=== PATIENT | female | born 1935 | race Caucasian/White ===

== ENCOUNTER 2023-02-26 10:11 | Outpatient (CLI) | payer MEDICARE, BC, SELFPAY ==
--- OUTSIDE RECORDS SUMMARY | 2023-02-26 10:14 | XMS_ITS | Continuity of Care Document ---
Author Name Unknown Organization [facility] Address [address] [place] [address] Phone Care Team Providers Care Resource Development Manager Name Role Phone Sosa Ruano MD Unavailable Unavailable Medications Medication Instructions Dosage Effective Dates (start - stop) Status Comments aspirin 81 mg Tab, Delayed Release take 1 tablet (81MG) by oral route every day 81 MG - Active CALCIUM 500 + VITAMIN D (unknown strength) take 1 Tablet by Oral route every day Not Available - Active lisinopril 5 mg Tab take 1 tablet (5MG) by oral route every day 5 MG - Active Procedures Procedure Date Office/Outpatient Visit, New Advance Directives Directive Yes / No Effective Date File Name No Information Encounters Encounter Description Practice Location Reason(s) For Visit Diagnoses Date Provider Providers Copied on Encounter [facility], [address], [place], [address], tel:[phone] [facility] [place] No Information 0 Bindu Swan. [address], [place], [address], [place]. tel:[phone] Office/Outpa tient Visit, New [facility], [address], [place], [address], tel:[phone] [facility], elevated JOSE (chief complaint) back pain (chief complaint) Other and unspecified nonspecific immunological findings[facility]a [facility] 3 Phuc Beasley. [facility] [address], [place], [address], [place]. tel:[phone] [facility], [address], [place], [address], [place] tel:[phone] [facility], No Information 3 Phuc Beasley. [facility] [address], [place], [address], [place]. tel:[phone] Family History Family Member Type Diagnosis Age At Onset Problem (finding) arthritis Problem (finding) Problem (finding) Family history of hyper tension Problem (finding) cancer Problem (finding) Family history of gout Problem (finding) Family history of disor hazel of lung Problem (finding) Family history of hyper tension Payers Payer name Insurance type Covered constitution party ID Authorshayne mendoza(s) [facility] [id number] Social History Type Description Quantity Date Captured Comments Alcohol Use Details Unknown Caffeine Use Details Unknown Tobacco Use Status No Information Smoking Status No Information Sex Female Chief Complaint And Reason For Visit No Information Reason For Referral Reason For Referral No Information History Of Present Illness Encounter Date Complaint History Of Prese nt Illness No Information Functional Status Date Functional Assessmen t No Information Instructions Date Instruction Additional Infor mation No Information Assessments Type Assessment Date No Information Patient Care Teams Name Effective Dates (start - stop) Status Members No Information
== END 2023-02-26 10:12 | disposition home or self-care (01) ==
PROVIDERS: PCP Internal Medicine; Visit Provider Internal Medicine
DX: Z01.818 Encounter for other preprocedural examination (principal); I10 Essential (primary) hypertension; I48.0 Paroxysmal atrial fibrillation
CPT/HCPCS: 80048; 84450; 84460

== ENCOUNTER 2023-02-28 08:18 | Day surgery (SDC) | payer MEDICARE, BC, SELFPAY ==
--- OUTSIDE RECORDS SUMMARY | 2023-02-28 08:20 | XMS_ITS | Continuity of Care Document ---
Author Name Unknown Organization [facility] Address [address] [place] [address] Phone Care Team Providers Care Brain Picker Name Role Phone Sosa Ruano MD Unavailable [facility], [address], [address], tel:[phone] [facility] [place] No Information 0 Bindu Swan. [address], [place], [address], [place]. tel:[phone] Office/Outpa tient Visit, New [facility], [address], [place], [address], tel:[phone] [facility], elevated JOSE (chief complaint) back pain (chief complaint) Other and unspecified nonspecific immunological findingsBacka [facility] 3 Phuc Beasley. [facility] [address], [place], [address], [place]. tel:[phone] [facility], [address], [place], [address], [place] tel:[phone] [facility], No Information 3 Phuc Beasley. [facility] [address], [place], [address], [place]. tel:[phone] Family History Family Member Type Diagnosis Age At Onset Problem (finding) arthritis Problem (finding) Problem (finding) Family history of hyper tension Problem (finding) cancer Problem (finding) Family history of gout Problem (finding) Family history of disor hazel of lung Problem (finding) Family history of hyper tension Payers Payer name Insurance type Covered republican ID Authorshayne mendoza(s) [facility] [id number] Social History Type Description Quantity Date Captured [...]
[2023-02-28] MEDS: KETOROLAC OPHTH 0.5% 1 DROP EYE-RIGHT ×2 (08:30→08:35)
[2023-02-28] MEDS: TETRACAINE 0.5% OPHTH 1 DROP EYE-RIGHT ×2 (08:30→08:35)
--- NOTE | 2023-02-28 08:31 | SUR.PREOP ---
The eye drops brought by the patient (Ketorolac and Prednisolone) are examined and I have determined they are labeled by the patient's pharmacy for this patient as prescribed by the surgeon. The bottles are intact, recently obtained and appear to be correct.
[2023-02-28 08:35] VITALS: BMI 20.9
[2023-02-28 08:51] VITALS: BP 159/95; PULSE 66; RESP 16; TEMP 36.7; O2SAT 97
[2023-02-28] MEDS: SODIUM CHLORIDE 0.9 % (FLUSH) 10 ML SYRINGE IVF (08:55)
[2023-02-28] MEDS: TETRACAINE 0.5% OPHTH 2 DROP EYE-RIGHT (09:22)
[2023-02-28] MEDS: BALANCED SALT IRRIG SOLN 15 ML EYE-RIGHT (09:26)
--- NOTE | 2023-02-28 09:31 | P.ANES_ITS ---
Anesthesia Charges Start Date/Time Anesthesia Start Date: 02/28/23 Anesthesia Start Time: 09:19 Stop Date/Time Anesthesia Stop Date: 02/28/23 Anesthesia Stop Time: 09:52 Summary Extremes of Age - Over 70 or under 1: [employer]
--- NOTE | 2023-02-28 09:54 | P.OPTPRC_ITS ---
Procedure Note Date of procedure: 02/28/23 [address] [facility] bill your pro fee for this procedure?: Yes Procedure Description: SURGEON: Anita Duggan MD PREOPERATIVE DIAGNOSIS: Nuclear sclerotic cataract, right eye. POSTOPERATIVE DIAGNOSIS: Nuclear sclerotic cataract, right eye. NAME OF OPERATION: Phacoemulsification of cataract with posterior chamber intraocular lens implantation in the right eye. ANESTHESIA: Topical. ESTIMATED BLOOD LOSS: Less than 2 cc. COMPLICATIONS: None. PATHOLOGY SPECIMEN: None. INDICATIONS: See consult note for details. The risks, benefits and alternatives of the procedure were explained to the patient, who elected to proceed and signed informed consent to do so. PROCEDURE: The patient was brought to the pre-holding area where the right eye was identified as the operative eye. I placed my initials above this eye. The patient received eye drops consisting of 0.5% tetracaine, 1% tropicamide, 10% phenylephrine, and 0.5% ketorolac. The patient was then brought to the operating room where the right eye was again identified as the operative eye. The eye was prepped with Betadine and draped in the usual sterile ophthalmic fashion. A #15 super-sharp blade was used to create a paracentesis site. 1% non-preserved intracameral lidocaine was injected into the anterior chamber. Endocoat was injected into the anterior chamber. A 2.4 mm keratome was used to create a three-plane self-sealing incision 1 mm anterior to the temporal limbus. A cystotome was used to create an anterior capsular leaflet. The Utrata forceps were used to extend this to form a continuous curvilinear capsulorrhexis. Hydrodissection was performed. The cataract was removed with phacoemulsification using the [id number] technique. The irrigation and aspiration tip was used to remove the remaining cortex. Healon was injected into the capsular bag. An NIKITA ZCB00 intraocular lens of 19.0 diopters was injected into the capsular bag. The irrigation and aspiration tip was used to remove the remaining viscoelastic. Balanced salt solution on a cannula was used to hydrate the wound, and the wound was found to be watertight. The pupil was noted to be round. DISPOSITION: The patient was taken to the recovery room and discharged to home in stable condition. The patient was instructed to call me or go to the emergency department with any sudden change, including dramatic loss of vision, severe pain in the eye or eyebrow region, nausea, or vomiting. The patient will follow up in the clinic tomorrow morning.
--- NOTE | 2023-02-28 09:57 | W.ANESCHARGE ---
Anesthesia Charges Start Date/Time Anesthesia Start Date: 02/28/23 Anesthesia Start Time: 09:19 Stop Date/Time Anesthesia Stop Date: 02/28/23 Anesthesia Stop Time: 09:52 Summary Extremes of Age - Over 70 or under 1: MDA
[2023-02-28 10:09] VITALS: BP 160/101; PULSE 73; RESP 16; TEMP 36.8; O2SAT 94
== END 2023-02-28 10:27 | disposition home or self-care (01) ==
LOC: OR 08:18
PROVIDERS: PCP Internal Medicine; Visit Provider Ophthalmology
PROC: (CPT 66984; principal; 2023-02-28 08:15)
DX: H25.11 Age-related nuclear cataract, right eye (principal)
CPT/HCPCS: 66984; 00142; 99100; A9270; J2250; J3010; V2632

== ENCOUNTER 2023-03-19 10:52 | Outpatient (CLI) | payer MEDICARE, BC, SELFPAY ==
--- OUTSIDE RECORDS SUMMARY | 2023-03-19 10:57 | XMS_ITS | Continuity of Care Document ---
Author Name Unknown Organization [facility] Address [address] [place] [address] Phone Care Team Providers Care Lamp Shade Assembler Name Role Phone Sosa Ruano MD Unavailable [...] [facility], [address], [place], [address], tel:[phone] [facility] [place] No Information 0 Bindu Swan. [address], [address], [place]. tel:[phone] Office/Outpa tient Visit, New [facility], [address], [place], [address], tel:[phone] [facility], elevated JOSE (chief complaint) back pain (chief complaint) Other and unspecified nonspecific immunological findingsBacka [place] 3 Phuc Beasley. [facility] [address], [place], [address], [place]. tel:[phone] [facility], [address], [place], [address], [place] tel:[phone] [facility], No Information 3 Phuc Beasley. [facility] [address], [place], [address], [place]. tel:[phone] Family History Family Member Type Diagnosis Age At Onset Problem (finding) arthritis Problem (finding) Problem (finding) Family history of hyper tension Problem (finding) cancer Problem (finding) Family history of gout Problem (finding) Family history of disor hazel of lung Problem (finding) Family history of hyper tension Payers Payer name Insurance type Covered libertarian ID Authorshayne mendoza(s) [facility] [id number] Social History Type Description Quantity Date Captured [...]
== END 2023-03-19 10:53 | disposition home or self-care (01) ==
PROVIDERS: PCP Internal Medicine; Visit Provider Internal Medicine
DX: E78.5 Hyperlipidemia, unspecified (principal); I10 Essential (primary) hypertension; M85.80 Other specified disorders of bone density and structure, unspecified site; R73.03 Prediabetes
CPT/HCPCS: 80061; 82306

== ENCOUNTER 2023-03-21 08:00 | Day surgery (SDC) | payer MEDICARE, BC, SELFPAY ==
--- OUTSIDE RECORDS SUMMARY | 2023-03-21 08:02 | XMS_ITS | Continuity of Care Document ---
Author Name Unknown Organization [facility] Address [address] [place] [address] Phone Care Team Providers Care Office Clinician Name Role Phone Sosa Ruano MD Unavailable [...] [facility], [address], [place], [address], tel:[phone] [facility] [place] No Information 0 Bindu Swan. [address], [address], [place], [address], [place]. tel:[phone] Office/Outpa tient Visit, New [facility], [address], [place], [address], tel:[phone] [facility], elevated JOSE (chief complaint) back pain (chief complaint) Other and unspecified nonspecific immunological findingsBacka [facility] 3 Phuc Beasley. [facility] [address], [place], [address], [place]. tel:[phone] [facility], [address], [place], [address], [place] tel:[phone] [facility], No Information 3 Phuc Beasley. [facility] [address], [place], [address], [place]. tel:[phone] Family History Family Member Type Diagnosis Age At Onset Problem (finding) arthritis Problem (finding) Problem (finding) Family history of hyper tension Problem (finding) cancer Problem (finding) Family history of gout Problem (finding) Family history of disor hazel of lung Problem (finding) Family history of hyper tension Payers Payer name Insurance type Covered alliance party ID Authorshayne mendoza(s) [facility] [id number] Social History Type Description Quantity Date Captured [...]
[2023-03-21] MEDS: KETOROLAC OPHTH 0.5% 1 DROP EYE-LEFT ×2 (08:15→08:20)
[2023-03-21] MEDS: TETRACAINE 0.5% OPHTH 1 DROP EYE-LEFT ×2 (08:15→08:20)
[2023-03-21 08:33] VITALS: BMI 19.5
[2023-03-21 08:37] VITALS: BP 166/89; PULSE 65; RESP 16; TEMP 36.6; O2SAT 97
[2023-03-21] MEDS: SODIUM CHLORIDE 0.9 % (FLUSH) 10 ML SYRINGE IVF (08:38)
--- NOTE | 2023-03-21 08:41 | SUR.PREOP ---
The eye drops brought by the patient (Ketorolac and Prednisolone) are examined and I have determined they are labeled by the patient's pharmacy for this patient as prescribed by the surgeon. The bottles are intact, recently obtained and appear to be correct.ez
--- NOTE | 2023-03-21 08:41 | SUR.PREOP ---
noted redened area around right eye from radiation
[2023-03-21] MEDS: TETRACAINE 0.5% OPHTH 2 DROP EYE-LEFT (09:13)
[2023-03-21] MEDS: BALANCED SALT IRRIG SOLN 15 ML EYE-LEFT (09:16)
--- NOTE | 2023-03-21 09:16 | W.ANESCHARGE ---
Anesthesia Charges Start Date/Time Anesthesia Start Date: 03/21/23 Anesthesia Start Time: 09:10 Stop Date/Time Anesthesia Stop Date: 03/21/23 Anesthesia Stop Time: 09:43 Summary Extremes of Age - Over 70 or under 1: [employer]
[2023-03-21 09:53] VITALS: BP 148/99; PULSE 65; RESP 16; TEMP 36.7; O2SAT 96
--- NOTE | 2023-03-21 09:55 | W.ANESCHARGE ---
Anesthesia Charges Start Date/Time Anesthesia Start Date: 03/21/23 Anesthesia Start Time: 09:10 Stop Date/Time Anesthesia Stop Date: 03/21/23 Anesthesia Stop Time: 09:43 Summary Extremes of Age - Over 70 or under 1: MDA
--- NOTE | 2023-03-21 10:27 | W.PM.OPTPROC ---
Procedure Note Date of procedure: 03/21/23 Will [facility] bill your pro fee for this procedure?: Yes Procedure Description: SURGEON: Anita Duggan MD PREOPERATIVE DIAGNOSIS: Nuclear sclerotic cataract, left eye. POSTOPERATIVE DIAGNOSIS: Nuclear sclerotic cataract, left eye. NAME OF OPERATION: Phacoemulsification of cataract with posterior chamber intraocular lens implantation in the left eye. ANESTHESIA: Topical. ESTIMATED BLOOD LOSS: Less than 2 cc. COMPLICATIONS: None. PATHOLOGY SPECIMEN: None. INDICATIONS: See consult note for details. The risks, benefits and alternatives of the procedure were explained to the patient, who elected to proceed and signed informed consent to do so. PROCEDURE: The patient was brought to the pre-holding area where the left eye was identified as the operative eye. I placed my initials above this eye. The patient received eye drops consisting of 0.5% tetracaine, 1% tropicamide, 10% phenylephrine, and 0.5% ketorolac. The patient was then brought to the operating room where the left eye was again identified as the operative eye. The eye was prepped with Betadine and draped in the usual sterile ophthalmic fashion. A #15 super-sharp blade was used to create a paracentesis site. 1% non-preserved intracameral lidocaine was injected into the anterior chamber. Endocoat was injected into the anterior chamber. A 2.4 mm keratome was used to create a three-plane self-sealing incision 1 mm anterior to the temporal limbus. A cystotome was used to create an anterior capsular leaflet. The Utrata forceps were used to extend this to form a continuous curvilinear capsulorrhexis. Hydrodissection was performed. The cataract was removed with phacoemulsification using the [id number] technique. The irrigation and aspiration tip was used to remove the remaining cortex. Healon was injected into the capsular bag. An NIKITA ZCB00 intraocular lens of 19.0 diopters was injected into the capsular bag. The irrigation and aspiration tip was used to remove the remaining viscoelastic. Balanced salt solution on a cannula was used to hydrate the wound, and the wound was found to be watertight. The pupil was noted to be round. DISPOSITION: The patient was taken to the recovery room and discharged to home in stable condition. The patient was instructed to call me or go to the emergency department with any sudden change, including dramatic loss of vision, severe pain in the eye or eyebrow region, nausea, or vomiting. The patient will follow up in the clinic tomorrow morning.
== END 2023-03-21 10:17 | disposition home or self-care (01) ==
LOC: OR 08:00
PROVIDERS: PCP Internal Medicine; Visit Provider Ophthalmology
PROC: (CPT 66984; principal; 2023-03-21 08:15)
DX: H25.12 Age-related nuclear cataract, left eye (principal)
CPT/HCPCS: 66984; 142; 99100; A9270; J2250; J3010; V2632

== ENCOUNTER 2023-04-20 10:31 | Outpatient (CLI) | payer MEDICARE, BC, SELFPAY | END 2023-04-20 10:32 | disposition home or self-care (01) | LOC: RAD 10:34 | PROVIDERS: PCP Internal Medicine; Visit Provider Internal Medicine | DX: I77.810 Thoracic aortic ectasia (principal); I34.0 Nonrheumatic mitral (valve) insufficiency; I07.1 Rheumatic tricuspid insufficiency | CPT/HCPCS: 93308; 93321; 93325 ==

== ENCOUNTER 2024-01-31 11:31 | Outpatient (REF) | payer MEDICARE, BC, SELFPAY ==
--- OUTSIDE RECORDS SUMMARY | 2024-01-31 11:38 | XMS_ITS | Encounter Summary ---
Author Organization [facility] Address [address] [place] [address] Care Team Providers Care Pediatric Nurse Practitioner Name Role Phone Elsewhere, Pcp Primary Care Provider Unavailabl e Reason for Visit * Reason Onset Date Comments Triage 01/15/2024 Encounter Details Date Type Department Care Team (Late st Contact Info) Description 01/15/2024 Clinical Communication Department of Cardiovascular Medicine in [place], [place] [address] [place] [address] Prescheduling, Provider Triage Social History Tobacco Use Types Packs/Day Years Used Date Smoking Tobacco: Never Smokeless Tobacco: Never Alcohol Use Standard Drinks/Week Comments Not Currently 0 (1 standard drink = 0.6 oz pur e alcohol) [facility] Utilities Answer Date Recorded In the past 12 months has e electric, gas, oil, or water [email or web address] threatened to shut off services in your home? No 09/09/2023 Humiliation, Afraid, Rape, and Kick questionnair e Answer Date Recorded Within the last year, have y ou been afraid of your partner or ex-partner? No 09/04/2022 Within the last year, have y ou been humiliated or emotionally abused in other ways by your partner or ex-partner? No Within the last year, have y ou been kicked, hit, slapped, or otherwise physically hurt by your partner or ex-partner? No 09/04/2022 Within the last year, have y ou been raped or forced to have any kind of sexual activity by your partner or ex-partner? No 09/04/2022 Social Connection and Isolat ion Panel [NHANES] Answer Date Recorded In a typical week, how many times do you talk on the phone with family, friends, or neighbors? More than three times a week 09/04/2022 How often do you get togethe r with friends or relatives? More than three times a week 09/04/2022 How often do you attend chur ch or islam services? Never 09/04/2022 Do you belong to any clubs o r organizations such as baptist groups, unions, fraternal or athletic groups, or school groups? No 09/04/2022 How often do you attend meet ings of the clubs or organizations you belong to? Patient declined 09/04/2022 Are you , , di vorced, , never , or living with a partner? 09/04/2022 AUDIT-C Answer Date Recorded Q1: How often do you have a drink containing alc ohol? Never 09/04/2022 Average Number of Drinks Not on file 023 Frequency of Binge Drinking Not on file 08/21 Overall Financial Resource Strain (CARDIA) Answe r Date Recorded How hard is it for you to pa y for the very basics like food, housing, medical care, and heating? Not very hard 09/04/2022 [facility] - Occupational Stress Questionnaire Answer Date Recorded Do you feel stress - tense, restless, nervous, or anxious, or unable to sleep at night because your mind is troubled all the time - these days? Only a little 09/04/2022 Exercise Vital Sign Answer Date Recorde d On average, how many days pe r week do you engage in moderate to strenuous exercise (like a brisk walk)? 4 days 09/09/2023 On average, how many minutes do you engage in exercise at this level? 30 min 09/09/2023 Hunger Vital Sign Answer Date Recorded Within the past 12 months, y ou worried that your food would run out before you got the money to buy more. Never true 09/09/19 24 Within the past 12 months, t he food you bought just didn't last and you didn't have money to get more. Never true 09/09/2023 PRAPARE - Transportation Answer Date Re corded In the past 12 months, has l ack of transportation kept you from medical appointments or from getting medications? No 08/21 In the past 12 months, has l ack of transportation kept you from meetings, work, or from getting things needed for daily living? No 09/09/2023 Nutrition Answer Date Recorded On average, how many serving s of fruits and vegetables do you eat per day (serving size is equal to 1 cup or approximately the size of a tennis ball)? 3-5 09/09/2023 Dental Answer Date Recorded Dental: Regular Dentist Yes 09/05/19 Employment Answer Date Recorded Employment status Retired 09/09/2023 Housing Stability Answer Date Recorded What is your living situation today? I have a [facility] place to live 09/09/2023 Education Answer Date Recorded What is the highest level of school you have completed or the highest degree you have received? Bachelor's degree (e.g., BA, AB, BS) 09/04/2022 Sex and Gender Information Value Date Recorded Sex Assigned at Female 09/04/2022 4:04 PM CDT Gender Identity Female 09/04/2022 4:04 PM CDT Sexual Orientation Straight 09/04/2022 4: 04 PM CDT documented as of this encounter Miscellaneous Notes * Telephone Encounter - Jory Mak Yudith - 01/15/2024 1:09 PM CDT NEW Appointment Triage Questionnaire Information gathered by PASS during initial Appointment Request on 01/15/24 Self Referral Primary Care Provider (first and last name): Nabila Gale at [facility] Senior Systems Software Engineer (first and last name): saw Dr Lockwood with [facility] (name, [facility], [facility]) where outside testing/imaging has been completed: [facility]- [facility] Primary Cardiac Concern: Symptoms What is your appointment goal? Diagnosis What symptoms are you experiencing (select all that apply)? Chest pain/pressure and Shortness of breath When did your symptoms first start? Last few days/week Does anything make your symptoms better or worse? Doesn't think theres anything making it better, can take a walk without issues, feels it when sitting or twisting When do you feel the symptoms (random, when exercising, during the night, etc.)? Sitting, twisting, and every once in a while Do you have any limitations in physical activity? no Have you had any of the following cardiac tests/procedures within the last 2 years? ECG/EKG, Echocardiogram, and Heart Rhythm Monitor (holter monitor, event monitor, prolonged cardiacmonitor, etc.) Do you have any other cardiac concerns that you would like addressed? No Other:est pt with Dr. Lockwood in [facility], having new symptoms, chest pain, unable to take a deep breath having sob, sharp and quick pain, hurts into back as well What time between the hours of 12:00 - 4:00 pm would work best for you if someone from our appointment assessment team would need to reach out to you? Anytime documented in this encounter Plan of Treatment Upcoming Encounters Date Type Department Care Team (Latest Contact Info) Description 02/25/2024 9:10 AM EMISSIONS INSPECTOR Appointment Department of Laboratory Medicine and Pathology, [facility] in [place], [place] [address] [place] [phone] Jefry Donald M.D. [address] [place] [phone] 02/25/2024 9:45 AM EMISSIONS INSPECTOR Appointment Department of Radiology, [facility] in [place], [place] [address] [place] [phone] Jefry Donald M.D. [address] [place] [phone] 02/25/2024 1:00 PM EMISSIONS INSPECTOR Ancillary Procedure Department of Cardiovascular Medicine in [place], [place] [address] [place] [phone] Jefry Donald M.D. [address] [place] [phone] 03/03/2024 8:15 AM EMISSIONS INSPECTOR Comprehensive Visit Department of Cardiovascular Medicine in [place], [place] [address] [place] [phone] Henry Cowan M.D. [address] [place] [phone] 03/03/2024 10:10 AM EMISSIONS INSPECTOR Appointment Department of Cardiovascular Diseases in [place], [place] [address] [place] [phone] Jefry Donald M.D. [address] [place] [phone] 03/10/2024 9:00 AM EMISSIONS INSPECTOR Clinical Communication Virtual Review in [place], [place] 200 [place] [address] 03/13/2024 11:00 AM EMISSIONS INSPECTOR Office Visit Department of Orthopedic Surgery in [place], [place] [address] [place] [phone] Judith Neal, DAMARI, C.N.P., D.N.P. [address] [place] [phone] documented as of this encounter Visit Diagnoses Not on filedocumented in this encounter Care Teams Pediatric Nurse Practitioner Relationship Specialty Start Date End Date Elsewhere, Pcp PCP - General Internal Medicine 05/25/23 documented as of this encounter
--- OUTSIDE RECORDS SUMMARY | 2024-01-31 11:38 | XMS_ITS | Encounter Summary ---
Author Organization [facility] Address [address] [place] [address] Care Team Providers Care Print Room Worker Name Role Phone Elsewhere, Pcp Primary Care Provider Unavailabl e Encounter Details Date Type Department Care Team (Late st Contact Info) Description 08/01/2011 Historical Ophthalmology RST OPH Leonardo Macdeo M.D. Social History Tobacco Use Types Packs/Day Years Used Date Smoking Tobacco: Never Assessed Sex and Gender Information Value Date Recorded Sex Assigned at Female 09/04/2022 4:04 PM CDT Gender Identity Female 09/04/2022 4:04 PM CDT Sexual Orientation Straight 09/04/2022 4: 04 PM CDT documented as of this encounter Progress Notes * Leonardo Macedo M.D. - 08/01/2011 9:04 AM CDT Eye General CHIEF COMPLAINT recheck Lichen planus HISTORY OF PRESENT ILLNESS Denies troubles with her eyes, nothing new. Denies dryness and diplopia. Will be needing a rx for glasses today. Has been using seperate reading and distance and she is wanting a pair of glasses witha bifocal. IMPRESSION / REPORT / PLAN #1 lichen planus quiet off all meds 38 mos #2 cataract incipient accounts for mild blur Plan RV 1 yr. DIAGNOSIS #1 lichen planus #2 cataract incipient CDM Reports - EYEGEN Id: [id number] Status: Fnl documented in this encounter Plan of Treatment Upcoming Encounters Date Type Department Care Team (Latest Contact Info) Description 02/25/2024 9:10 AM CLINICAL PRACTITIONER Appointment Department of Laboratory Medicine and Pathology, [facility], in [place], [place] [address] [place] [phone] Jefry Donald M.D. [address] [place] [phone] 02/25/2024 9:45 AM CLINICAL PRACTITIONER Appointment Department of Radiology, [facility], in [place], [place] [address] [place] [phone] Jefry Donald M.D. [address] [place] [phone] 02/25/2024 1:00 PM CLINICAL PRACTITIONER Ancillary Procedure Department of Cardiovascular Medicine in [place], [place] [address] [place] [phone] Jefry Donald M.D. [address] [place] [phone] 03/03/2024 8:15 AM CLINICAL PRACTITIONER Comprehensive Visit Department of Cardiovascular Medicine in [place], [place] [address] [place] [phone] Henry Cowan M.D. [address] [place] [phone] 03/03/2024 10:10 AM CLINICAL PRACTITIONER Appointment Department of Cardiovascular Diseases in [place], [place] [address] [place] [phone] Jefry Donald M.D. [address] [place] [phone] 03/10/2024 9:00 AM CLINICAL PRACTITIONER Clinical Communication Virtual Review in [place], [place] 200 [place] [address] 03/13/2024 11:00 AM CLINICAL PRACTITIONER Office Visit Department of Orthopedic Surgery in [place], [place] [address] [place] [phone] Judith Neal, DAMARI, C.N.P., D.N.P. 200 [place] [phone] documented as of this encounter Visit Diagnoses Not on filedocumented in this encounter Care Teams Print Room Worker Relationship Specialty Start Date End Date Elsewhere, Pcp PCP - General Internal Medicine 05/25/23 documented as of this encounter
--- OUTSIDE RECORDS SUMMARY | 2024-01-31 11:38 | XMS_ITS | Encounter Summary ---
Author Organization [facility] Address [address] [place] [address] Care Team Providers Care Integration Project Manager Name Role Phone Elsewhere, Pcp Primary Care Provider Unavailabl e Reason for Visit * Reason Onset Date Comments Pre-visit Intake 12/10/2023 Encounter Details Date Type Department Care Team (Latest Contact Info) Description 12/10/2023 9:30 AM CDT Clinical Communication Virtual Review in [place], [place] 200 [place] [phone] Pre-visit Intake Social History Tobacco Use Types Packs/Day Years Used Date Smoking Tobacco: Never Smokeless Tobacco: Never Alcohol Use Standard Drinks/Week Comments Not Currently 0 (1 standard drink = 0.6 oz pur e alcohol) [facility] Utilities Answer Date Recorded In the past 12 months has e [facility], gas, oil, or water [employer] threatened to shut off services in your [...] any clubs o r organizations such as sabianist groups, unions, fraternal or athletic groups, or [...] care, and heating? Not very hard 09/04/2022 [facility] - Occupational Stress [...] your living situation today? I have a [facility] place to live 09/09/2023 Education Answer Date [...] PM CDT documented as of this encounter Plan of Treatment Upcoming Encounters Date Type Department Care Team (Latest Contact Info) Description 02/25/2024 9:10 AM MEMBERSHIP SALES MANAGER Appointment Department of Laboratory Medicine and Pathology, [facility] in [place], [place] [address] [place] [phone] Jefry Donald M.D. [address] [place] [phone] 02/25/2024 9:45 AM MEMBERSHIP SALES MANAGER Appointment Department of Radiology, [facility], in [place], [place] [address] [place] [address] Jefry Dnoald M.D. [address] [place] [phone] 02/25/2024 1:00 PM MEMBERSHIP SALES MANAGER Ancillary Procedure Department of Cardiovascular Medicine in [place], [place] [address] [place] [phone] Jefry Donald M.D. [address] [place] [phone] 03/03/2024 8:15 AM MEMBERSHIP SALES MANAGER Comprehensive Visit Department of Cardiovascular Medicine in [place], [place] [address] [place] [phone] Henry Cowan M.D. [address] [place] [phone] 03/03/2024 10:10 AM MEMBERSHIP SALES MANAGER Appointment Department of Cardiovascular Diseases in [place], [place] [address] [place] [phone] Jefry Donald M.D. [address] [place] [phone] 03/10/2024 9:00 AM MEMBERSHIP SALES MANAGER Clinical Communication Virtual Review in [place], [place] 200 [place] [address] 03/13/2024 11:00 AM MEMBERSHIP SALES MANAGER Office Visit Department of Orthopedic Surgery in [address] [phone] Judith Neal, DAMARI, C.N.P., D.N.P. [address] [place] [phone] documented as of this encounter Visit Diagnoses Not on filedocumented in this encounter Care Teams Integration Project Manager Relationship Specialty Start Date End Date Elsewhere, Pcp PCP - General Internal Medicine 05/25/23 documented as of this encounter
--- OUTSIDE RECORDS SUMMARY | 2024-01-31 11:38 | XMS_ITS | Encounter Summary ---
Author Organization [facility] Address [address] [place] [address] Care Team Providers Care Burnisher Name Role Phone Elsewhere, Pcp Primary Care Provider Unavailabl e Encounter Details Date Type Department Care Team (Late st Contact Info) Description 07/16/2014 Historical Ophthalmology RST OPH Leonardo Macedo M.D. Social History Tobacco Use Types Packs/Day Years Used Date Smoking Tobacco: Never Assessed Sex and Gender Information Value Date Recorded Sex Assigned at Female 09/04/2022 4:04 PM CDT Gender Identity Female 09/04/2022 4:04 PM CDT Sexual Orientation Straight 09/04/2022 4: 04 PM CDT documented as of this encounter Progress Notes * Leonardo Macedo M.D. - 07/16/2014 10:18 AM CDT Eye General CHIEF COMPLAINT recheck Lichen planus HISTORY OF PRESENT ILLNESS Patient states vision is stable with current variety of glasses. Denies flashes, floaters, or diplopia. not on any rx for lichen planus for a few years. IMPRESSION / REPORT / PLAN #1 lichen planus quiet off all meds 74 mos #2 cataract incipient accounts for mild blur Plan RV 1 yr. DIAGNOSIS #1 lichen planus #2 cataract incipient CDM Reports - EYEGEN Id: [id number] Status: Fnl documented in this encounter Plan of Treatment Upcoming Encounters Date Type Department Care Team (Latest Contact Info) Description 02/25/2024 9:10 AM ARTERIAL EMBALMER Appointment Department of Laboratory Medicine and Pathology, [facility], in [place], [place] [address] [place] [phone] Jefry Donald M.D. [address] [place] [phone] 02/25/2024 9:45 AM ARTERIAL EMBALMER Appointment Department of Radiology, [facility], in [place], [place] [address] [place] [phone] Jefry Donald M.D. [address] [place] [phone] 02/25/2024 1:00 PM ARTERIAL EMBALMER Ancillary Procedure Department of Cardiovascular Medicine in [place], [place] [address] [place] [phone] Jefry Donald M.D. [address] [place] [phone] 03/03/2024 8:15 AM ARTERIAL EMBALMER Comprehensive Visit Department of Cardiovascular Medicine in [place], [place] [address] [place] [phone] Henry Cowan M.D. [address] [place] [phone] 03/03/2024 10:10 AM ARTERIAL EMBALMER Appointment Department of Cardiovascular Diseases in [place], [place] [address] [place] [phone] Jefry Donald M.D. [address] [place] [phone] 03/10/2024 9:00 AM ARTERIAL EMBALMER Clinical Communication Virtual Review in [place], [place] 200 [place] [phone] 03/13/2024 11:00 AM ARTERIAL EMBALMER Office Visit Department of Orthopedic Surgery in [place], [place] [address] [place] [phone] Judith Neal, DAMARI, C.N.P., D.N.P. [address] [place] [phone] documented as of this encounter Visit Diagnoses Not on filedocumented in this encounter Care Teams Burnisher Relationship Specialty Start Date End Date Elsewhere, Pcp PCP - General Internal Medicine 05/25/23 documented as of this encounter
--- OUTSIDE RECORDS SUMMARY | 2024-01-31 11:38 | XMS_ITS | Encounter Summary ---
Author Organization [facility] Address [address] [place] [address] Care Team Providers Care Special Projects Coordinator Name Role Phone Elsewhere, Pcp Primary Care Provider Unavailabl e Encounter Details Date Type Department Care Team (Late st Contact Info) Description 11/23/2006 Historical Ophthalmology RST OPH Leonardo Macedo M.D. Social History Tobacco Use Types Packs/Day Years Used Date Smoking Tobacco: Never Assessed Sex and Gender Information Value Date Recorded Sex Assigned at Female 09/04/2022 4:04 PM CDT Gender Identity Female 09/04/2022 4:04 PM CDT Sexual Orientation Straight 09/04/2022 4: 04 PM CDT documented as of this encounter Progress Notes * Leonardo Macedo M.D. - 11/23/2006 8:53 AM CDT Eye General CHIEF COMPLAINT 9 month recheck LIchen planus, elevated IOP HISTORY OF PRESENT ILLNESS Using xalatan every other day. No changes since last visit. IMPRESSION / REPORT / PLAN #1 LIchen planus elevated IOP Now OK on xalatan Stable. Plan; Same rx RV 1 yr DIAGNOSIS #1 LIchen planus #2 elevated IOP CDM Reports - EYEGEN Id: [id number] Status: Fnl documented in this encounter Plan of Treatment Upcoming Encounters Date Type Department Care Team (Latest Contact Info) Description 02/25/2024 9:10 AM PUMPER GAUGER Appointment Department of Laboratory Medicine and Pathology, [facility], in [place], [place] [address] [place] [phone] Jefry Donald M.D. [address] [place] [phone] 02/25/2024 9:45 AM PUMPER GAUGER Appointment Department of Radiology, [facility], in [place], [place] [address] [place] [phone] Jefry Donald M.D. [address] [place] [phone] 02/25/2024 1:00 PM PUMPER GAUGER Ancillary Procedure Department of Cardiovascular Medicine in [place], [place] [address] [place] [phone] Jefry Donald M.D. [address] [place] [phone] 03/03/2024 8:15 AM PUMPER GAUGER Comprehensive Visit Department of Cardiovascular Medicine in [place], [place] [address] [place] [phone] Henry Cowan M.D. [address] [place] [phone] 03/03/2024 10:10 AM PUMPER GAUGER Appointment Department of Cardiovascular Diseases in [place], [place] [address] [place] [phone] Jefry Donald M.D. [address] [place] [phone] 03/10/2024 9:00 AM PUMPER GAUGER Clinical Communication Virtual Review in [place], [place] 200 [place] [phone] 03/13/2024 11:00 AM PUMPER GAUGER Office Visit Department of Orthopedic Surgery in [place], [place] [address] [place] [phone] Judith Neal APRN, C.N.P., D.N.P. [address] [place] [phone] documented as of this encounter Visit Diagnoses Not on filedocumented in this encounter Care Teams Special Projects Coordinator Relationship Specialty Start Date End Date Elsewhere, Pcp PCP - General Internal Medicine 05/25/23 documented as of this encounter
--- OUTSIDE RECORDS SUMMARY | 2024-01-31 11:38 | XMS_ITS | Clinical Summary ---
Author Organization [facility] Address [address] [place] [address] Care Team Providers Care Forgesmith Name Role Phone Elsewhere, Pcp Primary Care Provider Unavailabl e Source Comments Patient records contain information from all sites at [facility]. For routine questions regarding patient records, call [phone] during business hours, M-F 8:00 AM - 5:00 PM Central Time. Record requests for emergency care only can be directed to [phone] at any time.[facility] Allergies No known active allergies Medications Medication Sig Dispensed Refills Start Date End Date Status atorvastatin (LIPITOR) 10 mg tablet daily. 09/25/2017 Active losartan (COZAAR) 25 mg tablet 25 mg daily. 08/13/2017 Active apixaban (ELIQUIS) 2.5 mg tablet Take 2.5 mg by mouth 2 (two) times a day. 04/25/2021 Active flecainide (TAMBOCOR) 50 mg tablet Take 50 mg by mouth 2 (two) times a day. 08/18/2021 Active ketoconazole (NIZORAL) 2 % shampoo Apply 1 Application topically as needed. Active dilTIAZem CD (CARDIZEM CD/CARTIA XT) 120 mg 24 hr capsule Take 1 capsule by mouth daily. 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 01/15/2024 Clinical Communication Department of Cardiovascular Medicine in [address] [phone] Prescheduling, Provider Triage 12/12/2023 11:00 AM CDT Office Visit Department of Orthopedic Surgery in [address] [phone] Judith Neal, DAMARI, C.N.P., D.N.P. Dystrophic Toenail; Keratosis Plantar; Callus Berino Foot; Pain Toe Left; Hammer Toe Acquired Left; Hallux Valgus Left; Hallux Valgus Right; Arthritis Foot; Peripheral Arterial Disease (HCC); Computer Systems Consultant (Current) Anticoagulant Treatment 12/10/2023 9:30 AM CDT Clinical Communication Virtual Review in [place], [place] [address] [place] [address] Pre-visit Intake from Last 3 Months Immunizations Name Administration Dates Next Due HZV (ZOSTAVAX) 11/07/2010 PPSV23 11/07/2010,03/10/1999 Tdap 07/08/2008 influenza trivalent high dose (HD)(PF) 2 influenza trivalent vaccine (6 months and older) (PF) 03/21/2010 Family History Medical History Relation Name Comments Thyroid cancer Daughter 1 Beverly Weir Kidney cancer Daughter 2 Ibis Weir Breast cancer Sister Matilde Walker Relation Name Status Comments Daughter 1 Beverly Weir Daughter 2 Ibis Weir Sister Matilde Walker Social History Tobacco Use Types Packs/Day Years Used Date Smoking Tobacco: Never Smokeless Tobacco: Never Tobacco Cessation:Counseling Given: Not Answered Alcohol Use Standard Drinks/Week Comments Not Currently 0 (1 standard drink = 0.6 oz pur e alcohol) [facility] Utilities Answer Date Recorded In the past 12 months has e [employer], [employer], oil, or water [employer] threatened to shut off services in your [...] often do you attend chur ch or buddhism services? Never 09/04/2022 Do you belong to any clubs o r organizations such as advent groups, unions, fraternal or athletic groups, or [...] care, and heating? Not very hard 09/04/2022 [facility] of Occupat ional Health - Occupational Stress [...] Date Recorded Dental: Regular Dentist Yes 09/05/19 23 Employment Answer Date Recorded Employment status Retired [...] Orientation Straight 09/04/2022 4: 04 PM CDT Last Filed Vital Signs Vital Sign Reading Time Taken Comments Blood Pressure 162/92 05/28/2023 1:34 PM COMMUNITY SPECIALIST average of several Pulse 78 05/28/2023 1:34 PM COMMUNITY SPECIALIST Temperature - - Respiratory Rate - - Oxygen Saturation - - Inhaled Oxygen Concentration - - Weight 50 kg (110 lb 3.7 oz) 10/29/2017 9:53 AM CDT Height 157.6 cm (5' 2.05) 10/29/2017 9 :53 AM CDT Body Mass Index 20.13 10/29/2017 9:53 AM CDT Plan of Treatment Upcoming Encounters Date Type Department Care Team (Latest Contact Info) Description 02/25/2024 9:10 AM COMMUNITY SPECIALIST Appointment Department of Laboratory Medicine and Pathology, [facility] in [place], [place] [address] [place] [phone] Jefry Donald M.D. [address] [place] [phone] 02/25/2024 9:45 AM COMMUNITY SPECIALIST Appointment Department of Radiology, [facility] in [address] [phone] Jefry Donald M.D. [address] [place] [phone] 02/25/2024 1:00 PM COMMUNITY SPECIALIST Ancillary Procedure Department of Cardiovascular Medicine in [address] [phone] Jefry Donald M.D. [address] [place] [phone] 03/03/2024 8:15 AM COMMUNITY SPECIALIST Comprehensive Visit Department of Cardiovascular Medicine in [place], [place] [address] [place] [phone] Henry Cowan M.D. [address] [place] [phone] 03/03/2024 10:10 AM COMMUNITY SPECIALIST Appointment Department of Cardiovascular Diseases in [place], [place] [address] [place] [phone] Jefry Donald M.D. [address] [place] [phone] 03/10/2024 9:00 AM COMMUNITY SPECIALIST Clinical Communication Virtual Review in [place], [place] [address] [place] [phone] 03/13/2024 11:00 AM COMMUNITY SPECIALIST Office Visit Department of Orthopedic Surgery in [place], [place] [address] [place] [phone] Judith Neal, DAMARI, C.N.P., D.N.P. [address] [place] [phone] Health Maintenance Due Date Last Done Comments RSV vaccine - (32-3 6 weeks) or 60+ years (1 - 1-dose 75+ series) 2012 Depression Screening (Annual PHQ-2) 04/23/2023 Fall Risk Screen (Annual) 04/23/2023 COVID-19 Vaccine (2023-2 5 season) 2023 02/12/2023, 01/25/2022, 11/04/2021, Additional history exists Influenza Vaccine (#1) 2024 , 01/25/2022, 01/12/2021, Additional history exists Creatinine Level (Kidney Fun ction Test) 05/28/2024 05/28/2023, 10/26/2022, 06/20/2022, Additional history exists Fasting Glucose for Diabetes Screening 05/28/2024 05/28/2023, 03/10/2022, 03/09/2021, Additional history exists Potassium Level 05/28/2024 05/28/2023, 02/21, 03/09/2021, Additional history exists Sodium Level 05/28/2024 05/28/2023, 02/21, 03/09/2021, Additional history exists DTaP,Tdap,and Td Vaccines (3 - Td or Tdap) 10/09/2028 10/09/2018, 07/08/2008 Pneumococcal vaccine (65+ years) Completed 12/09/2014, 11/07/2010, 03/10/1999 Zoster Vaccines Completed 10/03/2022, 07/22, 11/07/2010 Procedures Procedure Name Priority Date/Time Associated Diagnosis Comments GLUCOSE, FASTING, S/P Routine 05/28/2023 7:50 AM COMMUNITY SPECIALIST Regurgitation Tricuspid SODIUM, S/P Routine 05/28/2023 7:50 AM COMMUNITY SPECIALIST Regurgitation Tricuspid POTASSIUM, S/P Routine 05/28/2023 7:50 AM COMMUNITY SPECIALIST Regurgitation Tricuspid CREATININE WITH EGFR, S/P Routine 05/28/2023 7:50 AM COMMUNITY SPECIALIST Regurgitation Tricuspid from Last 3 Months or Most Recently Relevant to Health Maintenance Results * Sodium (05/28/2023 7:50 AM COMMUNITY SPECIALIST) Sodium, S 140 135 - 145 mmol/L 05/28/2023 9:19 AM COMMUNITY SPECIALIST DTL Blood (Blood, Venous) 05/28/2023 7:50 AM COMMUNITY SPECIALIST 05/28/2023 8:24 AM COMMUNITY SPECIALIST Charlie Luo M.D. LAB BLOOD ADD-ON [facility] [address] [place] [address], [facility] [address] [place] [address] * (ABNORMAL) Potassium (05/28/2023 7:50 AM COMMUNITY SPECIALIST) Potassium, S 5.3(H) 3.6 - 5.2 mmol/L 05/28/2023 9:19 AM COMMUNITY SPECIALIST DTL Blood (Blood, Venous) 05/28/2023 7:50 AM COMMUNITY SPECIALIST 05/28/2023 8:24 AM COMMUNITY SPECIALIST Narrative Authorizing Provider Result Sherice Luo M.D. LAB BLOOD ADD-ON [facility] [address] [place] [address], [facility] [address] [place] [address] * (ABNORMAL) Glucose, Fasting (05/28/2023 7:50 AM COMMUNITY SPECIALIST) Glucose, P 104(H) 70 - 100 mg/dL 05/28/2023 8:38 AM COMMUNITY SPECIALIST DTL Last Intake 14 hr 05/28/2023 8:20 AM COMMUNITY SPECIALIST DTL Blood (Blood, Venous) 05/28/2023 7:50 AM COMMUNITY SPECIALIST 05/28/2023 8:20 AM COMMUNITY SPECIALIST Narrative Authorizing Provider Result Sherice Luo M.D. LAB BLOOD NON ADD -ON Performing Organization Address [facility] Co de Phone Number [facility] [address] [place] [address], [facility] [address] [place] [address] * Creatinine with Estimated GFR (05/28/2023 7:50 AM COMMUNITY SPECIALIST) Creatinine 0.90 0.59 - 1.04 mg/dL 05/28/2023 9:19 AM COMMUNITY SPECIALIST DTL Estimated GFR (eGFR) 63 >=60 mL/min/BSA 05/28/2023 9:19 AM COMMUNITY SPECIALIST DTL Comment: Estimated GFR calculated using the 2020 CKD_EPI creatinine equation. Blood (Blood, Venous) 05/28/2023 7:50 AM COMMUNITY SPECIALIST 05/28/2023 8:24 AM COMMUNITY SPECIALIST Narrative Authorizing Provider Result Sherice Luo M.D. LAB BLOOD ADD-ON Performing Organization Address City/[facility]/ZIP Co de Phone Number [facility] [address] [place] [address], [place] [facility] [address] [place] [address] from Last 3 Months or Most Recently Relevant to Health Maintenance Care Teams Forgesmith Relationship Specialty Start Date End Date Elsewhere, Pcp PCP - General Internal Medicine 05/25/23
--- OUTSIDE RECORDS SUMMARY | 2024-01-31 11:38 | XMS_ITS | Encounter Summary ---
Author Organization [facility] Address [address] [place] [address] Care Team Providers Care Deposit Clerk Name Role Phone Elsewhere, Pcp Primary Care Provider Unavailabl e Encounter Details Date Type Department Care Team (Late st Contact Info) Description 11/21/2007 Historical Ophthalmology RST OPH Leonardo Macedo M.D. Social History Tobacco Use Types Packs/Day Years Used Date Smoking Tobacco: Never Assessed Sex and Gender Information Value Date Recorded Sex Assigned at Female 09/04/2022 4:04 PM CDT Gender Identity Female 09/04/2022 4:04 PM CDT Sexual Orientation Straight 09/04/2022 4: 04 PM CDT documented as of this encounter Progress Notes * Leonardo Macedo M.D. - 11/21/2007 2:58 PM CDT Eye General CHIEF COMPLAINT one yr return LIchen planus, elevated IOP HISTORY OF PRESENT ILLNESS Patietn states that she has not noticed any changes since she was here last year. Patient denies ocular pain. Denies flashes and floaters. Would like to talk about getting off of the Xalatan. IMPRESSION / REPORT / PLAN #1 LIchen planus #2 elevated IOP Now OK on xalatan. Good discs. Plan ;Stop steeroid as stable a long time now. Stable. Plan; Same rx RV 6 mos DIAGNOSIS #1 LIchen planus #2 elevated IOP CDM Reports - EYEGEN Id: [id number] Status: Fnl documented in this encounter Plan of Treatment Upcoming Encounters Date Type Department Care Team (Latest Contact Info) Description 02/25/2024 9:10 AM SHANKER OUT Appointment Department of Laboratory Medicine and Pathology, [facility] in [place], [place] [address] [place] [phone] Jefry Donald M.D. [address] [place] [phone] 02/25/2024 9:45 AM SHANKER OUT Appointment Department of Radiology, [facility], in [place], [place] [address] [place] [phone] Jefry Donald M.D. [address] [place] [phone] 02/25/2024 1:00 PM SHANKER OUT Ancillary Procedure Department of Cardiovascular Medicine in [place], [place] [address] [place] [phone] Jefry Donald M.D. [address] [place] [phone] 03/03/2024 8:15 AM SHANKER OUT Comprehensive Visit Department of Cardiovascular Medicine in [place], [place] [address] [place] [phone] Henry Cowan M.D. [address] [place] [phone] 03/03/2024 10:10 AM SHANKER OUT Appointment Department of Cardiovascular Diseases in [place], [place] [address] [place] [phone] Jefry Donald M.D. [address] [place] [phone] 03/10/2024 9:00 AM SHANKER OUT Clinical Communication Virtual Review in [place], [place] 200 [place] [phone] 03/13/2024 11:00 AM SHANKER OUT Office Visit Department of Orthopedic Surgery in [place], [place] [address] [place] [phone] Judith Neal, DAMARI, C.N.P., D.N.P. [address] [place] [phone] documented as of this encounter Visit Diagnoses Not on filedocumented in this encounter Care Teams Deposit Clerk Relationship Specialty Start Date End Date Elsewhere, Pcp PCP - General Internal Medicine 05/25/23 documented as of this encounter
--- OUTSIDE RECORDS SUMMARY | 2024-01-31 11:38 | XMS_ITS | Encounter Summary ---
Author Organization [facility] Address [address] [place] [address] Care Team Providers Care Transit Mix Operator Name Role Phone Elsewhere, Pcp Primary Care Provider Unavailabl e Encounter Details Date Type Department Care Team (Late st Contact Info) Description 05/18/2008 Historical Ophthalmology RST OPH Leonardo Macedo M.D. Social History Tobacco Use Types Packs/Day Years Used Date Smoking Tobacco: Never Assessed Sex and Gender Information Value Date Recorded Sex Assigned at Female 09/04/2022 4:04 PM CDT Gender Identity Female 09/04/2022 4:04 PM CDT Sexual Orientation Straight 09/04/2022 4: 04 PM CDT documented as of this encounter Progress Notes * Leonardo Macedo M.D. - 05/18/2008 10:12 AM CST Eye General CHIEF COMPLAINT 6 month recheck Lichen planus HISTORY OF PRESENT ILLNESS Patient states that there have been no changes in her eyes since she was here in October. Stopped topicalsteroids thenPatient denies ocular pain. Denies flashes and floaters. Has not been on her Xalatanfor the past 6 months. IMPRESSION / REPORT / PLAN #1 LIchen planus #2 elevated IOP OK off steroids. Plan RV Jul 2009 DIAGNOSIS #1 LIchen planus #2 elevated IOP CDM Reports - EYEGEN Id: [id number] Status: Fnl documented in this encounter Plan of Treatment Upcoming Encounters Date Type Department Care Team (Latest Contact Info) Description 02/25/2024 9:10 AM ELECTRIFICATION ADVISER Appointment Department of Laboratory Medicine and Pathology, [facility] in [place], [place] [address] [place] [phone] Jefry Donald M.D. [address] [place] [phone] 02/25/2024 9:45 AM ELECTRIFICATION ADVISER Appointment Department of Radiology, [facility] in [place], [place] [address] [place] [phone] Jefry Donald M.D. [address] [place] [phone] 02/25/2024 1:00 PM ELECTRIFICATION ADVISER Ancillary Procedure Department of Cardiovascular Medicine in [place], [place] [address] [place] [phone] Jefry Donald M.D. [address] [place] [phone] 03/03/2024 8:15 AM ELECTRIFICATION ADVISER Comprehensive Visit Department of Cardiovascular Medicine in [place], [place] [address] [place] [phone] Henry Cowan M.D. [address] [place] [phone] 03/03/2024 10:10 AM ELECTRIFICATION ADVISER Appointment Department of Cardiovascular Diseases in [place], [place] [address] [place] [phone] Jefry Donald M.D. [address] [place] [phone] 03/10/2024 9:00 AM ELECTRIFICATION ADVISER Clinical Communication Virtual Review in [place], [place] 200 [place] [phone] 03/13/2024 11:00 AM ELECTRIFICATION ADVISER Office Visit Department of Orthopedic Surgery in [place], [place] [address] [place] [phone] Judith Neal, DAMARI, C.N.P., D.N.P. [address] [place] [phone] documented as of this encounter Visit Diagnoses Not on filedocumented in this encounter Care Teams Transit Mix Operator Relationship Specialty Start Date End Date Elsewhere, Pcp PCP - General Internal Medicine 05/25/23 documented as of this encounter
--- OUTSIDE RECORDS SUMMARY | 2024-01-31 11:38 | XMS_ITS | Encounter Summary ---
Author Organization [facility] Address [address] [place] [address] Care Team Providers Care Merchandise Stocker Name Role Phone Elsewhere, Pcp Primary Care Provider Unavailabl e Reason for Visit * Reason Onset Date Comments Patient Question 10/29/2023 Encounter Details Date Type Department Care Team (Latest Contact Info) Description 10/29/2023 Clinical Communication Department of Cardiovascular Medicine in [place], [place] [address] [place] [phone] Anna Lockwood M.D., M.S. [address] [place] [address] Patient Question Social History Tobacco Use Types Packs/Day Years Used Date Smoking Tobacco: Never Smokeless Tobacco: Never Alcohol Use Standard Drinks/Week Comments Not Currently 0 (1 standard drink = 0.6 oz pur e alcohol) [facility] Utilities Answer Date Recorded In the past 12 months has [employer], oil, or water [employer] threatened to shut off services in your [...] often do you attend chur ch or scientology services? Never 09/04/2022 Do you belong to any clubs o r organizations such as lutheran groups, unions, fraternal or athletic groups, or [...] care, and heating? Not very hard 09/04/2022 [facility] of Occupat ional Health - Occupational Stress [...] your living situation today? [facility] 09/09/2023 Education Answer [...] (Latest Contact Info) Description 02/25/2024 9:10 AM SLIDER ASSEMBLER Appointment Department of Laboratory Medicine and Pathology, [facility] in [place], [place] 200 [place] [address] Jefry Donald M.D. 200 [place] [phone] 02/25/2024 9:45 AM SLIDER ASSEMBLER Appointment Department of Radiology, [place], [place] [address] [place] [phone] Jefry Donald M.D. 200 [place] [phone] 02/25/2024 1:00 PM SLIDER ASSEMBLER Ancillary Procedure Department of Cardiovascular Medicine in [place], [place] [address] [place] [phone] Jefry Donald M.D. [address] [place] [phone] 03/03/2024 8:15 AM SLIDER ASSEMBLER Comprehensive Visit Department of Cardiovascular Medicine in [place], [place] [address] [place] [phone] Henry Cowan M.D. [address] [place] [phone] 03/03/2024 10:10 AM SLIDER ASSEMBLER Appointment Department of Cardiovascular Diseases in [place], [place] [address] [place] [phone] Jefry Donald M.D. [address] [place] [phone] 03/10/2024 9:00 AM SLIDER ASSEMBLER Clinical Communication Virtual Review in [place], [place] 200 [place] [phone] 03/13/2024 11:00 AM SLIDER ASSEMBLER Office Visit Department of Orthopedic Surgery in [place], [place] [address] [place] [phone] Judith Neal, DAMARI, C.N.P., D.N.P. [address] [place] [phone] documented as of this encounter Visit Diagnoses Not on filedocumented in this encounter Care Teams Merchandise Stocker Relationship Specialty Start Date End Date Elsewhere, Pcp PCP - General Internal Medicine 05/25/23 documented as of this encounter
--- OUTSIDE RECORDS SUMMARY | 2024-01-31 11:38 | XMS_ITS | Encounter Summary ---
Author Organization [facility] Address [address] [place] [address] Care Team Providers Care Deburring And Tooling Machine Operator Name Role Phone Elsewhere, Pcp Primary Care Provider Unavailabl e Encounter Details Date Type Department Care Team (Late st Contact Info) Description 08/20/2009 Historical Ophthalmology RST OPH Leonardo Macedo M.D. Social History Tobacco Use Types Packs/Day Years Used Date Smoking Tobacco: Never Assessed Sex and Gender Information Value Date Recorded Sex Assigned at Female 09/04/2022 4:04 PM CDT Gender Identity Female 09/04/2022 4:04 PM CDT Sexual Orientation Straight 09/04/2022 4: 04 PM CDT documented as of this encounter Progress Notes * Leonardo Macedo M.D. - 08/20/2009 10:23 AM CDT Eye General CHIEF COMPLAINT recheck Lichen planus HISTORY OF PRESENT ILLNESS eyes feel good off all meds for 15 months. IMPRESSION / REPORT / PLAN #1 lichen planus quiet off all meds 15 mos Plan RV 1 yr. DIAGNOSIS #1 lichen planus CDM Reports - EYEGEN Id: [id number] Status: Fnl documented in this encounter Plan of Treatment Upcoming Encounters Date Type Department Care Team (Latest Contact Info) Description 02/25/2024 9:10 AM ACCOUNTS PAYABLE ASSOCIATE Appointment Department of Laboratory Medicine and Pathology, [facility], in [place], [place] [address] [place] [phone] Jefry Donald M.D. [address] [place] [phone] 02/25/2024 9:45 AM ACCOUNTS PAYABLE ASSOCIATE Appointment Department of Radiology, [facility], in [place], [place] [address] [place] [phone] Jefry Donald M.D. [address] [place] [phone] 02/25/2024 1:00 PM ACCOUNTS PAYABLE ASSOCIATE Ancillary Procedure Department of Cardiovascular Medicine in [place], [place] [address] [place] [phone] Jefry Donald M.D. [address] [place] [phone] 03/03/2024 8:15 AM ACCOUNTS PAYABLE ASSOCIATE Comprehensive Visit Department of Cardiovascular Medicine in [place], [place] [address] [place] [phone] Henry Cowan M.D. [address] [place] [phone] 03/03/2024 10:10 AM ACCOUNTS PAYABLE ASSOCIATE Appointment Department of Cardiovascular Diseases in [place], [place] [address] [place] [phone] Jefry Donald M.D. [address] [place] [phone] 03/10/2024 9:00 AM ACCOUNTS PAYABLE ASSOCIATE Clinical Communication Virtual Review in [place], [place] 200 [place] [phone] 03/13/2024 11:00 AM ACCOUNTS PAYABLE ASSOCIATE Office Visit Department of Orthopedic Surgery in [place], [place] [address] [place] [phone] Judith Neal, DAMARI, C.N.P., D.N.P. [address] [place] [phone] documented as of this encounter Visit Diagnoses Not on filedocumented in this encounter Care Teams Deburring And Tooling Machine Operator Relationship Specialty Start Date End Date Elsewhere, Pcp PCP - General Internal Medicine 05/25/23 documented as of this encounter
--- OUTSIDE RECORDS SUMMARY | 2024-01-31 11:38 | XMS_ITS | Referral Summary ---
Author Organization [facility] Address [address] [place] [address] Care Team Providers Care Vamp Presser Name Role Phone Elsewhere, Pcp Primary Care Provider Unavailabl e Source Comments Patient records contain information from all sites at [facility]. For routine questions regarding patient records, call [phone] during business hours, M-F 8:00 AM - 5:00 PM Central Time. Record requests for emergency care only can be directed to [phone] at any time.[facility] Encounters Date Type Department Care Team Description 01/18/2024 Referral Triage Department of Cardiovascular Medicine in [address] [phone] Ambulance Operations SupervisorGodwin M.D. 01/15/2024 Clinical Communication Department of Cardiovascular Medicine in [address] [phone] Prescheduling, Provider Triage 12/12/2023 11:00 AM CDT Office Visit Department of Orthopedic Surgery in [address] [phone] Judith Neal APRN, C.N.P., D.N.P. Dystrophic Toenail; Keratosis Plantar; Callus [place] Foot; Pain Toe Left; Hammer Toe Acquired Left; Hallux Valgus Left; Hallux Valgus Right; Arthritis Foot; Peripheral Arterial Disease (HCC); [facility] (Current) Anticoagulant Treatment 12/10/2023 9:30 AM CDT Clinical Communication Virtual Review in [address] [phone] Pre-visit Intake from Last 3 Months Allergies No known active allergies Medications Medication [...] 03/08/2023 Onychomycosis 12/13/2022 Dystrophic Toenail 12/13/2022 Callus [place] Foot 12/13/2022 Hallux Valgus Right 12/13/2022 Deformity Toe Acquired Left 12/13/2022 Hallux Valgus Left 12/13/2022 Hammer Toe Acquired Left 12/13/2022 Pain Foot Right 12/13/2022 Pain Foot Left 12/13/2022 Peripheral Arterial Disease 12/13/2022 Bunion Left 12/13/2022 Bunion Right 12/13/2022 Pain Toe Left 12/13/2022 Hyperlipidemia 12/13/2022 Arthritis Foot 12/13/2022 Impaired Fasting Glucose 12/13/2022 [facility] (Current) Anticoagulant Treatment 11/22 Atrial Fibrillation Unspecified 12/13/2022 Immunizations Name Administration Dates Next Due HZV (ZOSTAVAX) 11/07/2010 PPSV23 11/07/2010,03/10/1999 Tdap 07/08/2008 influenza trivalent high dose (HD)(PF) 2 influenza trivalent vaccine (6 months and older) (PF) 03/21/2010 Social History Tobacco Use Types Packs/Day Years Used Date Smoking Tobacco: Never Smokeless Tobacco: Never Tobacco Cessation:Counseling Given: Not Answered Alcohol Use Standard Drinks/Week Comments Not Currently 0 (1 standard drink = 0.6 oz pur e alcohol) [facility] Utilities Answer Date Recorded In the past 12 months has e [employer], gas, oil, or water [employer] threatened to shut off services in your [...] often do you attend chur ch or moravian services? Never 09/04/2022 Do you belong to any clubs o r organizations such as christian groups, unions, fraternal or athletic groups, or [...] care, and heating? Not very hard 09/04/2022 [facility] [place] of Occupat ional Health - Occupational Stress [...] your living situation today? I have a [facility] place to live 09/09/2023 Education Answer Date [...] Comments Blood Pressure 162/92 05/28/2023 1:34 PM ACCOUNT SERVICE REPRESENTATIVE average of several Pulse 78 05/28/2023 1:34 PM ACCOUNT SERVICE REPRESENTATIVE Temperature - - Respiratory Rate - - Oxygen Saturation - - Inhaled Oxygen Concentration - - Weight 50 kg (110 lb 3.7 oz) 10/29/2017 9:53 AM CDT Height 157.6 cm (5' 2.05) 10/29/2017 9 :53 AM CDT Body Mass Index 20.13 10/29/2017 9:53 AM CDT Plan of Treatment Upcoming Encounters Date Type Department Care Team (Latest Contact Info) Description 02/25/2024 9:10 AM ACCOUNT SERVICE REPRESENTATIVE Appointment Department of Laboratory Medicine and Pathology, [facility] in [place], [place] [address] [place] [phone] Jefry Donald M.D. [address] [place] [phone] 02/25/2024 9:45 AM ACCOUNT SERVICE REPRESENTATIVE Appointment Department of Radiology, [facility] in [place], [place] [address] [place] [phone] Jefry Donald M.D. [address] [place] [phone] 02/25/2024 1:00 PM ACCOUNT SERVICE REPRESENTATIVE Ancillary Procedure Department of Cardiovascular Medicine in [place], [place] [address] [place] [phone] Jefry Donald M.D. [address] [place] [phone] 03/03/2024 8:15 AM ACCOUNT SERVICE REPRESENTATIVE Comprehensive Visit Department of Cardiovascular Medicine in [place], [place] [address] [place] [phone] Henry Cowan M.D. [address] [place] [phone] 03/03/2024 10:10 AM ACCOUNT SERVICE REPRESENTATIVE Appointment Department of Cardiovascular Diseases in [place], [place] [address] [place] [phone] Jefry Donald M.D. [address] [place] [phone] 03/10/2024 9:00 AM ACCOUNT SERVICE REPRESENTATIVE Clinical Communication Virtual Review in [place], [place] 200 [place] [phone] 03/13/2024 11:00 AM ACCOUNT SERVICE REPRESENTATIVE Office Visit Department of Orthopedic Surgery in [place], [place] [address] [place] [phone] Judith Neal APRN, C.N.P., D.N.P. [address] [place] [phone] Procedures Procedure Name Priority Date/Time Associated Diagnosis Comments GLUCOSE, FASTING, S/P Routine 05/28/2023 7:50 AM ACCOUNT SERVICE REPRESENTATIVE Regurgitation Tricuspid SODIUM, S/P Routine 05/28/2023 7:50 AM ACCOUNT SERVICE REPRESENTATIVE Regurgitation Tricuspid POTASSIUM, S/P Routine 05/28/2023 7:50 AM ACCOUNT SERVICE REPRESENTATIVE Regurgitation Tricuspid CREATININE WITH EGFR, S/P Routine 05/28/2023 7:50 AM ACCOUNT SERVICE REPRESENTATIVE Regurgitation Tricuspid from Last 3 Months or Most Recently Relevant to Health Maintenance Results * Sodium (05/28/2023 7:50 AM ACCOUNT SERVICE REPRESENTATIVE) Sodium, S 140 135 - 145 mmol/L 05/28/2023 9:19 AM ACCOUNT SERVICE REPRESENTATIVE DTL Blood (Blood, Venous) 05/28/2023 7:50 AM ACCOUNT SERVICE REPRESENTATIVE 05/28/2023 8:24 AM ACCOUNT SERVICE REPRESENTATIVE Charlie Luo M.D. LAB BLOOD ADD-ON [facility] 200 [place], [place] [address] DTL [facility] [place] [address] * (ABNORMAL) Potassium (05/28/2023 7:50 AM ACCOUNT SERVICE REPRESENTATIVE) Potassium, S 5.3(H) 3.6 - 5.2 mmol/L 05/28/2023 9:19 AM ACCOUNT SERVICE REPRESENTATIVE DTL Blood (Blood, Venous) 05/28/2023 7:50 AM ACCOUNT SERVICE REPRESENTATIVE 05/28/2023 8:24 AM ACCOUNT SERVICE REPRESENTATIVE Charlie Luo M.D. LAB BLOOD ADD-ON [phone] [place] [address] [place] [address] * (ABNORMAL) Glucose, Fasting (05/28/2023 7:50 AM ACCOUNT SERVICE REPRESENTATIVE) Glucose, P 104(H) 70 - 100 mg/dL 05/28/2023 8:38 AM ACCOUNT SERVICE REPRESENTATIVE DTL Last Intake 14 hr 05/28/2023 8:20 AM ACCOUNT SERVICE REPRESENTATIVE DTL Blood (Blood, Venous) 05/28/2023 7:50 AM ACCOUNT SERVICE REPRESENTATIVE 05/28/2023 8:20 AM ACCOUNT SERVICE REPRESENTATIVE Charlie Luo M.D. LAB BLOOD NON ADD -ON [phone] [place] [address] [place] [address] * Creatinine with Estimated GFR (05/28/2023 7:50 AM ACCOUNT SERVICE REPRESENTATIVE) Creatinine 0.90 0.59 - 1.04 mg/dL 05/28/2023 9:19 AM ACCOUNT SERVICE REPRESENTATIVE DTL Estimated GFR (eGFR) 63 >=60 mL/min/BSA 05/28/2023 9:19 AM ACCOUNT SERVICE REPRESENTATIVE DTL Comment: Estimated GFR calculated using the 2020 CKD_EPI creatinine equation. Blood (Blood, Venous) 05/28/2023 7:50 AM ACCOUNT SERVICE REPRESENTATIVE 05/28/2023 8:24 AM ACCOUNT SERVICE REPRESENTATIVE Charlie Luo M.D. LAB BLOOD ADD-ON [facility] [address] [place] [address], [place] DTL [facility] [address] [place] [address] from Last 3 Months or Most Recently Relevant to Health Maintenance Care Teams Vamp Presser Relationship Specialty Start Date End Date Elsewhere, Pcp PCP - General Internal Medicine 05/25/23
--- OUTSIDE RECORDS SUMMARY | 2024-01-31 11:38 | XMS_ITS | Encounter Summary ---
Author Organization [facility] Address [address] [place] [phone] Care Team Providers Care Creative Assistant Name Role Phone Elsewhere, Pcp Primary Care Provider Unavailabl e Reason for Referral * Outpatient (Routine) - Authorized Specialty Diagnoses / Procedures Referred By Nahid grewal Referred To Contact Orthopedic Surgery Diagnoses Dystrophic Toenail Keratosis Plantar Callus [place] Foot Pain Toe Left Hammer Toe Acquired Left Hallux Valgus Left Hallux Valgus Right Arthritis Foot Peripheral Arterial Disease (HCC) Nursing Home (Current) Anticoagulant Treatment Judith Neal APRN, C.N.P., D.N.P. [address] [place] [phone] [facility] Referral ID Status Reason Start Date Expiration Date V isits Requested Visits Authorized [id number] Authorized 12/12/2023 06/12/2025 1 1 Reason for Visit * Outpatient (Routine) - Closed Specialty Diagnoses / Procedures Referred By Nahid grewal Referred To Contact Orthopedic Surgery Diagnoses Dystrophic Toenail Keratosis Plantar Callus [place] Foot Pain Toe Left Hammer Toe Acquired Left Hallux Valgus Left Hallux Valgus Right Arthritis Foot Peripheral Arterial Disease (HCC) [employer] (Current) Anticoagulant Treatment Judith Neal APRN, C.N.P., D.N.P. [address] [place] [phone] [facility] Referral ID Status Reason Start Date Expiration Date Visits Re quested Visits Authorized [id number] Closed 09/10/2023 03/11/2025 1 1 Encounter Details Date Type Department Care Team (Latest Contact Info) Description 12/12/2023 11:00 AM CDT Office Visit Department of Orthopedic Surgery in [place], [place] [address] [place] [phone] uJdith Neal APRN, C.N.P., D.N.P. [address] [place] [phone] Dystrophic Toenail; Keratosis Plantar; Callus [place] Foot; Pain Toe Left; Hammer Toe Acquired Left; Hallux Valgus Left; Hallux Valgus Right; Arthritis Foot; Peripheral Arterial Disease (HCC); [facility] (Current) Anticoagulant Treatment Social History Tobacco Use Types Packs/Day Years Used Date Smoking Tobacco: Never Smokeless Tobacco: Never Alcohol Use Standard Drinks/Week Comments Not Currently 0 (1 standard drink = 0.6 oz pur e alcohol) [facility] Utilities Answer Date Recorded In the past 12 months has [facility] [employer], gas, oil, or water [employer] threatened to shut off services in your [...] often do you attend chur ch or nondenominational services? Never 09/04/2022 Do you belong to any clubs o r organizations such as congregation groups, unions, fraternal or athletic groups, or [...] care, and heating? Not very hard 09/04/2022 [facility] of Occupat ional Health - Occupational [...] your living situation today? I have a [facility] place to live 09/09/2023 Education Answer [...] as of this encounter Progress Notes * Judith Neal APRN, C.N.P., D.N.P. - 12/12/2023 11:00 AM CDT SUBJECTIVE REFERRAL SOURCE Judith Neal APRN, C.N.P., D.N.P. PAIN REPORTED: CHIEF COMPLAINT / REASON FOR VISIT Continued care of her feet and is under the care of ELSEWHERE, PCP HISTORY OF PRESENT ILLNESS Ms. Weir is a 88 y.o. female who presents today for continued care of her long dystrophic toenails and calluses. Since her last podiatry visit on 09/10/2023 she reports that her dystrophic toenails and calluses have grown in length and thickness and needs foot care today. Patient notes significantimprovement in calluses and also notes improvement in her left second toe pain and callus since wearing a silicone toe lissy on her left 1-2 toes to prevent L2 from crossing over L1. Patient is unable to manage her routine foot care due to physical limitations and increased risk of injury or infection. She ambulates without assistive device and is wearing OrthoFeet footwear today. Ms. Weir has medical comorbidities significant for, but not limited to, osteopenia, hypertension,anxiety, mitral/tricuspid valve regurgitation, atrial flutter with RVR, cervical radiculopathy, sensorineural hearing loss bilateral (hearing aids), ear wax impaction bilateral, impaired fasting glucose, hyperlipidemia, AFib on long-term anticoagulation (Eliquis), urge incontinence, callus/corn/IPKfeet, resolved onychomycosis. Patient was last seen for active care management of comorbid conditions by Anna Lockwood M.D., M.S. in [facility] on 05/28/2023. The following portions of the patient's history were reviewed and updated as appropriate: allergies, current medications, medical history, surgical history, and problem list. I reviewed the pertinentclinical notes in the electronic health record. REVIEW OF SYSTEMS Claudication: Negative Burning: Positive, intermittent Skin: Positive for dry skin and nail problem. Cardiovascular: Positive for swelling in the legs or feet. Hematologic: Positive for bruises or bleeds easily. Musculoskeletal: Positive for pain or stiffness in the joints. Neurological: Positive for paresthesias. The following systems were negative: Constitutional, Eyes, ENT, Respiratory, Gastrointestinal 14 systems reviewed. Pertinent positives and pertinent negatives are documented in the history of present illness. OBJECTIVE PHYSICAL EXAMINATION Ortho Exam General: Well appearing in no acute distress. VASCULAR: DP pulses: palpable diminished +1 PT pulses: palpable diminished +1 right, not palpable left. Capillary refill: <3 sec Edema: Trace Additional findings: None noted SKIN: Pedal hair growth: Decreased Toenails: 10/10 toenails are long and dystrophic, some thinning and nail chipping present. No paronychia. Skin pigmentation: Scattered hyperpigmentation. Skin color: Sushant/purple colored toes and fingers, toe skin coloring improved with elevation. Also Erythema due to friction over L2 PIPJ. Skin texture: Dry Skin temperature: Normal in temperature bilaterally. Callus/corns: 3 plantar IPK sub L 1-2 MTPs, ridge callus sub right 1st MTP, erythema PIPJ L2. Additional findings: No evidence of maceration between the toes, no signs of cracks or fissures to the plantar aspects of the feet. NEUROLOGICAL: Sensation: Light touch intact to bilateral feet MUSCULOSKELETAL: Tenderness: 2/10 L 2nd toe. Bony deformities: rigid flexion deformity L2. DIAGNOSTICS LABORATORY: INR Date Value Ref Range Status 05/28/2023 1.3 0.9 - 1.1 Final Comment: ----ADDITIONAL INFORMATION---- Standard intensity warfarin therapeutic range: 2.0 to 3.0 High intensity warfarin therapeutic range: 2.5 to 3.5 EXT INR, POCT, B Date Value Ref Range Status 12/11/2019 2.1 (H) <1.3 Final 12/08/2019 1.7 (H) <1.3 Final EXT Hemoglobin A1c, Point of Care, B Date Value Ref Range Status 03/10/2022 5.8 <=6.4 % Final Creatinine Date Value Ref Range Status 05/28/2023 0.90 0.59 - 1.04 mg/dL Final ASSESSMENT / PLAN #1 Dystrophic Toenail #2 Keratosis Plantar #3 Callus [place] Foot #4 Pain Toe Left #5 Hammer Toe Acquired Left #6 Hallux Valgus Left #7 Hallux Valgus Right #8 Arthritis Foot #9 Peripheral Arterial Disease (HCC) #10 Nursing Home (Current) Anticoagulant Treatment Ms. Weir has long dystrophic toenails and calluses/corns. She is unable to manage her foot care independently due to physical limitations and increased risk of injury or infection. After discussion of treatment options, and with the patient's consent, 01/30 toenails were trimmed with a nail nipper and filed smooth with an electric irish. A curette was utilized along the nail folds to meticulously remove debris and smooth the nail edges. A 15-blade was utilized to pare 1 ridge callus on right 1 MTP and pop-out 3 IPK sub left 1-2 MTPs then sanded smooth with an electric sanding irish. Skin remained intact. Vanicream applied to feet. Silicone toe lissy placed on L1,2 to prevent cross over and silicone toe sleeve placed on L2 to prevent dorsal friction/pressure to PIPJ. Patient tolerated well and denied any post-procedural pain. Patient was encouraged to continue watchful ob servation and protection of her feet through appropriate surveillance and footwear and should return in 3 months for continued care, or sooner if concerns arise. The patient was given my contact information should she have any future questions or concerns. Given no further questions today, patient was dismissed. Instructions: Trial foam toe comb, gel toe sleeve, gel to lissy, and velcro toe-resident athletic trainer at home during day and take off at night. CONSENT I discussed the risks, benefits, alternatives, and the necessity of other members of the healthcareteam participating in the procedure. All questions answered and consent given. PROCEDURAL PAUSE: Procedural pause conducted to verify correct patient identity, procedure to be performed and as applicable, correct side and site, correct patient position, and availability of implants, special equipment or special requirements. PATIENT EDUCATION: Ready to learn, no apparent learning barriers were identified; learning preferences include listening. Explained the diagnosis and treatment plan; patient expressed understanding of the content. Judith Neal APRN, C.N.Roby, D.N.P. documented in this encounter Plan of Treatment Upcoming Encounters Date Type Department Care Team (Latest Contact Info) Description 02/25/2024 9:10 AM PAINTER ORDNANCE Appointment Department of Laboratory Medicine and Pathology, [facility], in [place], [place] [address] [place] [phone] Jefry Donald M.D. [address] [place] [phone] 02/25/2024 9:45 AM PAINTER ORDNANCE Appointment Department of Radiology, [facility], in [place], [place] [address] [place] [phone] Jefry Donald M.D. [address] [place] [phone] 02/25/2024 1:00 PM PAINTER ORDNANCE Ancillary Procedure Department of Cardiovascular Medicine in [place], [place] [address] [place] [phone] Jefry Donald M.D. [address] [place] [phone] 03/03/2024 8:15 AM PAINTER ORDNANCE Comprehensive Visit Department of Cardiovascular Medicine in [place], [place] [address] [place] [phone] Henry Cowan M.D. [address] [place] [phone] 03/03/2024 10:10 AM PAINTER ORDNANCE Appointment Department of Cardiovascular Diseases in [place], [place] [address] [place] [phone] Jefry Donald M.D. [address] [place] [phone] 03/10/2024 9:00 AM PAINTER ORDNANCE Clinical Communication Virtual Review in [place], [place] 200 [place] [phone] 03/13/2024 11:00 AM PAINTER ORDNANCE Office Visit Department of Orthopedic Surgery in [place], [place] [address] [place] [phone] Judith Neal APRN, C.N.P., D.N.P. [address] [place] [phone] Scheduled Referrals Name Type Priority Associated Diagnoses Orde r Schedule Orthopedic Surgery office visit (clinic) Outpatient Referral Routine Dystrophic Toenail Keratosis Plantar Callus [place] Foot Pain Toe Left Hammer Toe Acquired Left Hallux Valgus Left Hallux Valgus Right Arthritis Foot Peripheral Arterial Disease (HCC) [facility] (Current) Anticoagulant Treatment Expected: 03/13/2024, Expires: 03/13/2025 documented as of this encounter Visit Diagnoses Diagnosis Dystrophic Toenail Keratosis Plantar Callus [place] Foot Pain Toe Left Hammer Toe Acquired Left Hallux Valgus Left Hallux Valgus Right Arthritis Foot Peripheral Arterial Disease (HCC) [facility] (Current) Anticoagulant Treatment documented in this encounter Care Teams Creative Assistant Relationship Specialty Start Date End Date Elsewhere, Pcp PCP - General Internal Medicine 05/25/23 documented as of this encounter
--- OUTSIDE RECORDS SUMMARY | 2024-01-31 11:38 | XMS_ITS ---
Author Organization [facility] Address [address] [place] [address] Care Team Providers Care Paramedical Aide Name Role Phone Unavailable Unavailable Unavailable Surgery Details Not on file Complications Check Surgery Details section. Procedure Estimated Blood Loss Check Surgery Details section. Procedure Findings Check Surgery Details section. Procedure Specimens Taken Check Surgery Details section.
--- OUTSIDE RECORDS SUMMARY | 2024-01-31 11:38 | XMS_ITS | Encounter Summary ---
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 [address] [place] [address] [facility] Referral ID Status Reason Start Date Expiration Date V isits Requested Visits Authorized [id number] Authorized 01/18/2024 01/17/2025 1 1 Encounter Details Date Type Department Care Team (Late st Contact Info) Description 01/18/2024 Referral Triage Department of Cardiovascular Medicine in [place], [place] [address] [place] [phone] Lapel StitcherGodwin M.D. Social History Tobacco Use Types Packs/Day Years Used Date Smoking Tobacco: Never Smokeless Tobacco: Never Alcohol Use Standard Drinks/Week Comments Not Currently 0 (1 standard drink = 0.6 oz pur e alcohol) [facility] Utilities Answer Date Recorded In the past 12 months has [employer] gas, oil, or water [employer] threatened to shut off services in your [...] week 09/04/2022 How often do you attend [facility] or restorationism services? Never 09/04/2022 Do you belong to any clubs o r organizations such as jainism groups, unions, fraternal or athletic groups, or [...] care, and heating? Not very hard 09/04/2022 [facility] - Occupational Stress Questionnaire Answer Date Recorded [...] living situation today? I have a [facility] place to live 09/09/2023 Education [...] (Latest Contact Info) Description 02/25/2024 9:10 AM ACID CONDITIONING WORKER Appointment Department of Laboratory Medicine and Pathology, [facility] in [place], [place] [address] [place] [address] Jefry Donald M.D. [address] [place] [phone] 02/25/2024 9:45 AM ACID CONDITIONING WORKER Appointment Department of Radiology, [facility] in [place], [place] [address] [place] [address] Jefry Donald M.D. [address] [place] [phone] 02/25/2024 1:00 PM ACID CONDITIONING WORKER Ancillary Procedure Department of Cardiovascular Medicine in [place], [place] [address] [place] [phone] Jefry Donald M.D. [address] [place] [phone] 03/03/2024 8:15 AM ACID CONDITIONING WORKER Comprehensive Visit Department of Cardiovascular Medicine in [place], [place] [address] [place] [phone] Henry Cowan M.D. [address] [place] [phone] 03/03/2024 10:10 AM ACID CONDITIONING WORKER Appointment Department of Cardiovascular Diseases in [place], [place] [address] [place] [phone] Jefry Donald M.D. [address] [place] [phone] 03/10/2024 9:00 AM ACID CONDITIONING WORKER Clinical Communication Virtual Review in [place], [place] 200 [place] [phone] 03/13/2024 11:00 AM ACID CONDITIONING WORKER Office Visit Department of Orthopedic Surgery in [place], [place] [address] [place] [phone] Judith Neal, DAMARI, C.N.P., D.N.P. 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) Pain Chest 1 Occurrences starting 01/18/2024 until 04/18/2025 Comprehensive Metabolic Panel Lab Routine 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) Pain Chest 1 Occurrences starting 01/18/2024 until 04/18/2025 Glucose, Fasting Lab Routine 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) Pain Chest 1 Occurrences starting 01/18/2024 until 04/18/2025 Lipid Panel Lab Routine 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
--- OUTSIDE RECORDS SUMMARY | 2024-01-31 11:38 | XMS_ITS | Encounter Summary ---
Author Organization [facility] Address [address] [place] [address] Care Team Providers Care Design Supervisor Name Role Phone Elsewhere, Pcp Primary Care Provider Unavailabl e Encounter Details Date Type Department Care Team (Late st Contact Info) Description 08/08/2010 Historical Ophthalmology RST OPH Leonardo Macedo M.D. Social History Tobacco Use Types Packs/Day Years Used Date Smoking Tobacco: Never Assessed Sex and Gender Information Value Date Recorded Sex Assigned at Female 09/04/2022 4:04 PM CDT Gender Identity Female 09/04/2022 4:04 PM CDT Sexual Orientation Straight 09/04/2022 4: 04 PM CDT documented as of this encounter Progress Notes * Leonardo Macedo M.D. - 08/08/2010 12:58 PM CDT Eye General CHIEF COMPLAINT recheck Lichen planus HISTORY OF PRESENT ILLNESS pt notes things are stable with no evidence of llichen planus flareup either eye. . denies flashing lights, floaters or diplopia. IMPRESSION / REPORT / PLAN #1 lichen planus quiet off all meds 26 mos Plan RV 1 yr. DIAGNOSIS #1 lichen planus CDM Reports - EYEGEN Id: [id number] Status: Fnl documented in this encounter Plan of Treatment Upcoming Encounters Date Type Department Care Team (Latest Contact Info) Description 02/25/2024 9:10 AM RUG TOUCH UP PAINTER Appointment Department of Laboratory Medicine and Pathology, [facility] in [place], [place] [address] [place] [phone] Jefry Donald M.D. [address] [place] [phone] 02/25/2024 9:45 AM RUG TOUCH UP PAINTER Appointment Department of Radiology, [facility], in [place], [place] [address] [place] [phone] Jefry Donald M.D. [address] [place] [phone] 02/25/2024 1:00 PM RUG TOUCH UP PAINTER Ancillary Procedure Department of Cardiovascular Medicine in [place], [place] [address] [place] [phone] Jefry Donald M.D. [address] [place] [phone] 03/03/2024 8:15 AM RUG TOUCH UP PAINTER Comprehensive Visit Department of Cardiovascular Medicine in [place], [place] [address] [place] [phone] Henry Cowan M.D. [address] [place] [phone] 03/03/2024 10:10 AM RUG TOUCH UP PAINTER Appointment Department of Cardiovascular Diseases in [place], [place] [address] [place] [phone] Jefry Donald M.D. [address] [place] [phone] 03/10/2024 9:00 AM RUG TOUCH UP PAINTER Clinical Communication Virtual Review in [place], [place] 200 [place] [phone] 03/13/2024 11:00 AM RUG TOUCH UP PAINTER Office Visit Department of Orthopedic Surgery in [place], [place] [address] [place] [phone] Judith Neal APRN, C.N.P., Juan.N.P. [address] [place] [phone] documented as of this encounter Visit Diagnoses Not on filedocumented in this encounter Care Teams Design Supervisor Relationship Specialty Start Date End Date Elsewhere, Pcp PCP - General Internal Medicine 05/25/23 documented as of this encounter
--- OUTSIDE RECORDS SUMMARY | 2024-01-31 11:39 | XMS_ITS | Encounter Summary ---
Author Organization [facility] Address 200 [place] [address] Care Team Providers Care Can Inspector Name Role Phone Elsewhere, Pcp Primary Care Provider Unavailabl e Encounter Details Date Type Department Care Team (Late st Contact Info) Description 03/19/2006 Historical Ophthalmology RST OPH Leonardo Macedo M.D. Social History Tobacco Use Types Packs/Day Years Used Date Smoking Tobacco: Never Assessed Sex and Gender Information Value Date Recorded Sex Assigned at Female 09/04/2022 4:04 PM CDT Gender Identity Female 09/04/2022 4:04 PM CDT Sexual Orientation Straight 09/04/2022 4: 04 PM CDT documented as of this encounter Progress Notes * Leonardo Macedo M.D. - 03/19/2006 12:00 AM CST Eye General CHIEF COMPLAINT 3 month recheck lichen planus, elevated IOP HISTORY OF PRESENT ILLNESS Patient denies vision changes. Denies ocular discomfort. IMPRESSION / REPORT / PLAN #1 LIchen planus #2 elevated IOP Stable. Plan; Same rx Observe IOP fo now. RV 3 mos DIAGNOSIS #1 LIchen planus #2 elevated IOP CDM Reports - EYEGEN Id: [id number] Status: Fnl documented in this encounter Plan of Treatment Upcoming Encounters Date Type Department Care Team (Latest Contact Info) Description 02/25/2024 9:10 AM TRACK LAYER Appointment Department of Laboratory Medicine and Pathology, [facility] in [place], [place] [address] [place] [phone] Jefry Donald M.D. [address] [place] [phone] 02/25/2024 9:45 AM TRACK LAYER Appointment Department of Radiology, [facility], in [place], [place] [address] [place] [phone] Jefry Donald M.D. [address] [place] [phone] 02/25/2024 1:00 PM TRACK LAYER Ancillary Procedure Department of Cardiovascular Medicine in [place], [place] [address] [place] [phone] Jefry Donald M.D. [address] [place] [phone] 03/03/2024 8:15 AM TRACK LAYER Comprehensive Visit Department of Cardiovascular Medicine in [place], [place] [address] [place] [phone] Henry Cowan M.D. [address] [place] [phone] 03/03/2024 10:10 AM TRACK LAYER Appointment Department of Cardiovascular Diseases in [place], [place] [address] [place] [phone] Jefry Donald M.D. [address] [place] [phone] 03/10/2024 9:00 AM TRACK LAYER Clinical Communication Virtual Review in [place], [place] 200 [place] [phone] 03/13/2024 11:00 AM TRACK LAYER Office Visit Department of Orthopedic Surgery in [place], [place] [address] [place] [phone] Judith Neal APRN, C.N.P., D.N.P. [address] [place] [phone] documented as of this encounter Visit Diagnoses Not on filedocumented in this encounter Care Teams Can Inspector Relationship Specialty Start Date End Date Elsewhere, Pcp PCP - General Internal Medicine 05/25/23 documented as of this encounter
--- OUTSIDE RECORDS SUMMARY | 2024-01-31 11:39 | XMS_ITS | Encounter Summary ---
Author Organization [facility] Address [address] [place] [address] Care Team Providers Care Color Control Operator Name Role Phone Elsewhere, Pcp Primary Care Provider Unavailabl e Encounter Details Date Type Department Care Team (Late st Contact Info) Description 02/22/2004 Historical Ophthalmology RST OPH Leonardo Macedo M.D. Social History Tobacco Use Types Packs/Day Years Used Date Smoking Tobacco: Never Assessed Sex and Gender Information Value Date Recorded Sex Assigned at Female 09/04/2022 4:04 PM CDT Gender Identity Female 09/04/2022 4:04 PM CDT Sexual Orientation Straight 09/04/2022 4: 04 PM CDT documented as of this encounter Progress Notes * Leonardo Macedo M.D. - 02/22/2004 12:00 AM CST Eye General CHIEF COMPLAINT 6 month recheck Lichen Planus HISTORY OF PRESENT ILLNESS RE was quite irritated this summer, this has improved some, but still some tearing IMPRESSION / REPORT / PLAN #1 Lichen planus - stable #2 ABMD - stable. 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 Plan: Same rx. RV 6 mos. DIAGNOSIS #1 Lichen planus - stable #2 ABMD - stable. 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 CDM Reports - EYEGEN Id: [id number] Status: Fnl documented in this encounter Plan of Treatment Upcoming Encounters Date Type Department Care Team (Latest Contact Info) Description 02/25/2024 9:10 AM LAW INSTRUCTOR Appointment Department of Laboratory Medicine and Pathology, [facility], in [place], [place] [address] [place] [phone] Jefry Donald M.D. [address] [place] [phone] 02/25/2024 9:45 AM LAW INSTRUCTOR Appointment Department of Radiology, [facility], in [place], [place] [address] [place] [phone] Jefry Donald M.D. [address] [place] [phone] 02/25/2024 1:00 PM LAW INSTRUCTOR Ancillary Procedure Department of Cardiovascular Medicine in [place], [place] [address] [place] [phone] Jefry Donald M.D. [address] [place] [phone] 03/03/2024 8:15 AM LAW INSTRUCTOR Comprehensive Visit Department of Cardiovascular Medicine in [address] [phone] Henry Cowan M.D. [address] [place] [phone] 03/03/2024 10:10 AM LAW INSTRUCTOR Appointment Department of Cardiovascular Diseases in [place], [place] [address] [place] [phone] Jefry Donald M.D. [address] [place] [phone] 03/10/2024 9:00 AM LAW INSTRUCTOR Clinical Communication Virtual Review in [place], [place] 200 [place] [phone] 03/13/2024 11:00 AM LAW INSTRUCTOR Office Visit Department of Orthopedic Surgery in [place], [place] [address] [place] [phone] Judith Neal APRN, C.N.P., D.N.P. [address] [place] [phone] documented as of this encounter Visit Diagnoses Not on filedocumented in this encounter Care Teams Color Control Operator Relationship Specialty Start Date End Date Elsewhere, Pcp PCP - General Internal Medicine 05/25/23 documented as of this encounter
--- OUTSIDE RECORDS SUMMARY | 2024-01-31 11:39 | XMS_ITS | Encounter Summary ---
Author Organization [facility] Address [address] [place] [address] Care Team Providers Care Management Analyst Name Role Phone Elsewhere, Pcp Primary Care Provider Unavailabl e Encounter Details Date Type Department Care Team (Late st Contact Info) Description 01/30/2003 Historical Ophthalmology RST OPH Leonardo Macedo M.D. Social History Tobacco Use Types Packs/Day Years Used Date Smoking Tobacco: Never Assessed Sex and Gender Information Value Date Recorded Sex Assigned at Female 09/04/2022 4:04 PM CDT Gender Identity Female 09/04/2022 4:04 PM CDT Sexual Orientation Straight 09/04/2022 4: 04 PM CDT documented as of this encounter Progress Notes * Leonardo Macedo M.D. - 01/30/2003 12:00 AM CDT Eye General CHIEF COMPLAINT Lichen planus recheck HISTORY OF PRESENT ILLNESS No changes since last visit IMPRESSION / REPORT / PLAN #1 Lichen planus Plan; Same rx RV 3 ,os DIAGNOSIS #1 Lichen planus CDM Reports - EYEGEN Id: [id number] Status: Fnl documented in this encounter Plan of Treatment Upcoming Encounters Date Type Department Care Team (Latest Contact Info) Description 02/25/2024 9:10 AM ADMITTING COORDINATOR Appointment Department of Laboratory Medicine and Pathology, [facility], in [place], [place] [address] [place] [address] Jefry Donald M.D. [address] [place] [phone] 02/25/2024 9:45 AM ADMITTING COORDINATOR Appointment Department of Radiology, [facility], in [place], [place] [address] [place] [phone] Jefry Donald M.D. [address] [place] [phone] 02/25/2024 1:00 PM ADMITTING COORDINATOR Ancillary Procedure Department of Cardiovascular Medicine in [place], [place] [address] [place] [phone] Jefry Donald M.D. [address] [place] [phone] 03/03/2024 8:15 AM ADMITTING COORDINATOR Comprehensive Visit Department of Cardiovascular Medicine in [place], [place] [address] [place] [phone] Henry Cowan M.D. [address] [place] [phone] 03/03/2024 10:10 AM ADMITTING COORDINATOR Appointment Department of Cardiovascular Diseases in [place], [place] [address] [place] [phone] Jefry Donald M.D. [address] [place] [phone] 03/10/2024 9:00 AM ADMITTING COORDINATOR Clinical Communication Virtual Review in [place], [place] 200 [place] [phone] 03/13/2024 11:00 AM ADMITTING COORDINATOR Office Visit Department of Orthopedic Surgery in [address] [phone] Judith Neal APRN, C.N.P., D.N.P. [address] [place] [phone] documented as of this encounter Visit Diagnoses Not on filedocumented in this encounter Care Teams Management Analyst Relationship Specialty Start Date End Date Elsewhere, Pcp PCP - General Internal Medicine 05/25/23 documented as of this encounter
--- OUTSIDE RECORDS SUMMARY | 2024-01-31 11:39 | XMS_ITS | Encounter Summary ---
Author Organization [facility] Address [address] [place] [address] Care Team Providers Care Binder Operator Name Role Phone Elsewhere, Pcp Primary Care Provider Unavailabl e Encounter Details Date Type Department Care Team (Late st Contact Info) Description 08/22/2004 Historical Ophthalmology RST OPH Leonardo Macedo M.D. Social History Tobacco Use Types Packs/Day Years Used Date Smoking Tobacco: Never Assessed Sex and Gender Information Value Date Recorded Sex Assigned at Female 09/04/2022 4:04 PM CDT Gender Identity Female 09/04/2022 4:04 PM CDT Sexual Orientation Straight 09/04/2022 4: 04 PM CDT documented as of this encounter Progress Notes * Leonardo Macedo M.D. - 08/22/2004 12:00 AM CDT Eye General CHIEF COMPLAINT 6 month Lichen planus, ocular hypertension check HISTORY OF PRESENT ILLNESS Patient denies changes over past 6 months. Has occasional irritation, relieves with hot packs. Patietn reports that she is scaling plaques on face and scalp. IMPRESSION / REPORT / PLAN #1 LIchen planus Involving conjunctiva and now possibly involving skin. Plan; Refer to derm. Keep up steroid rx for eyes as seems to be stable there DIAGNOSIS #1 LIchen planus CDM Reports - EYEGEN Id: [id number] Status: Fnl documented in this encounter Plan of Treatment Upcoming Encounters Date Type Department Care Team (Latest Contact Info) Description 02/25/2024 9:10 AM NURSE SPECIAL Appointment Department of Laboratory Medicine and Pathology, [facility], in [place], [place] [address] [place] [phone] Jefry Donald M.D. [address] [place] [phone] 02/25/2024 9:45 AM NURSE SPECIAL Appointment Department of Radiology, [facility], in [place], [place] [address] [place] [phone] Jefry Donald M.D. [address] [place] [phone] 02/25/2024 1:00 PM NURSE SPECIAL Ancillary Procedure Department of Cardiovascular Medicine in [place], [place] [address] [place] [phone] Jefry Donald M.D. [address] [place] [phone] 03/03/2024 8:15 AM NURSE SPECIAL Comprehensive Visit Department of Cardiovascular Medicine in [place], [place] [address] [place] [phone] Henry Cowan M.D. [address] [place] [phone] 03/03/2024 10:10 AM NURSE SPECIAL Appointment Department of Cardiovascular Diseases in [place], [place] [address] [place] [phone] Jefry Donald M.D. [address] [place] [phone] 03/10/2024 9:00 AM NURSE SPECIAL Clinical Communication Virtual Review in [place], [place] 200 [place] [phone] 03/13/2024 11:00 AM NURSE SPECIAL Office Visit Department of Orthopedic Surgery in [place], [place] [address] [place] [phone] Judith Neal APRN, C.N.P., D.N.P. [address] [place] [phone] documented as of this encounter Visit Diagnoses Not on filedocumented in this encounter Care Teams Binder Operator Relationship Specialty Start Date End Date Elsewhere, Pcp PCP - General Internal Medicine 05/25/23 documented as of this encounter
--- OUTSIDE RECORDS SUMMARY | 2024-01-31 11:39 | XMS_ITS | Encounter Summary ---
Author Organization [facility] Address [address] [place] [address] Care Team Providers Care Compensator Name Role Phone Elsewhere, Pcp Primary Care Provider Unavailabl e Encounter Details Date Type Department Care Team (Late st Contact Info) Description 12/14/2005 Historical Ophthalmology RST OPH Leonardo Macedo M.D. Social History Tobacco Use Types Packs/Day Years Used Date Smoking Tobacco: Never Assessed Sex and Gender Information Value Date Recorded Sex Assigned at Female 09/04/2022 4:04 PM CDT Gender Identity Female 09/04/2022 4:04 PM CDT Sexual Orientation Straight 09/04/2022 4: 04 PM CDT documented as of this encounter Progress Notes * Leonardo Macedo M.D. - 12/14/2005 12:00 AM CDT Eye General CHIEF COMPLAINT recheck lichen planus and IOP HISTORY OF PRESENT ILLNESS no concerns per pt IMPRESSION / REPORT / PLAN #1 LIchen planus #2 elevated IOP Stable. Plan; Same rx Observe IOP fo now. RV 3 mos DIAGNOSIS #1 LIchen planus #2 elevated IOP CDM Reports - EYEGEN Id: [id number] Status: Fnl documented in this encounter Plan of Treatment Upcoming Encounters Date Type Department Care Team (Latest Contact Info) Description 02/25/2024 9:10 AM UNDERGRADUATE INTERN Appointment Department of Laboratory Medicine and Pathology, [facility], in [place], [place] [address] [place] [address] Jefry Donald M.D. [address] [place] [phone] 02/25/2024 9:45 AM UNDERGRADUATE INTERN Appointment Department of Radiology, [facility], in [place], [place] [address] [place] [phone] Jefry Donald M.D. [address] [place] [phone] 02/25/2024 1:00 PM UNDERGRADUATE INTERN Ancillary Procedure Department of Cardiovascular Medicine in [place], [place] [address] [place] [phone] Jefry Donadl M.D. [address] [place] [phone] 03/03/2024 8:15 AM UNDERGRADUATE INTERN Comprehensive Visit Department of Cardiovascular Medicine in [place], [place] [address] [place] [phone] Henry Cowan M.D. [address] [place] [phone] 03/03/2024 10:10 AM UNDERGRADUATE INTERN Appointment Department of Cardiovascular Diseases in [address] [phone] Jefry Donald M.D. [address] [place] [phone] 03/10/2024 9:00 AM UNDERGRADUATE INTERN Clinical Communication Virtual Review in [place], [place] 200 [place] [phone] 03/13/2024 11:00 AM UNDERGRADUATE INTERN Office Visit Department of Orthopedic Surgery in [address] [phone] Judith Neal APRN, C.N.P., D.N.P. [address] [place] [phone] documented as of this encounter Visit Diagnoses Not on filedocumented in this encounter Care Teams Compensator Relationship Specialty Start Date End Date Elsewhere, Pcp PCP - General Internal Medicine 05/25/23 documented as of this encounter
--- OUTSIDE RECORDS SUMMARY | 2024-01-31 11:39 | XMS_ITS | Encounter Summary ---
Author Organization [facility] Address [address] [place] [address] Care Team Providers Care Grinding Machine Tender Name Role Phone Elsewhere, Pcp Primary Care Provider Unavailabl e Encounter Details Date Type Department Care Team (Late st Contact Info) Description 08/28/2003 Historical Ophthalmology RST OPH Leonardo Macedo M.D. Social History Tobacco Use Types Packs/Day Years Used Date Smoking Tobacco: Never Assessed Sex and Gender Information Value Date Recorded Sex Assigned at Female 09/04/2022 4:04 PM CDT Gender Identity Female 09/04/2022 4:04 PM CDT Sexual Orientation Straight 09/04/2022 4: 04 PM CDT documented as of this encounter Progress Notes * Leonardo Macedo M.D. - 08/28/2003 12:00 AM CDT Eye General CHIEF COMPLAINT follow up lichen planus. pt states things seem stable HISTORY OF PRESENT ILLNESS Patinet states FML controls symtpoms well. IMPRESSION / REPORT / PLAN #1 Lichen planus - stable #2 ABMD - stable. 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 Plan: Baseline MONY VF - if normal, continue with current Xalatan, otherwise add additional agent. Continue FML to both eyes QD. DIAGNOSIS #1 Lichen planus - stable #2 ABMD - stable. 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 CDM Reports - EYEGEN Id: [id number] Status: Fnl documented in this encounter Plan of Treatment Upcoming Encounters Date Type Department Care Team (Latest Contact Info) Description 02/25/2024 9:10 AM DISCHARGE RN Appointment Department of Laboratory Medicine and Pathology, [facility] in [place], [place] [address] [place] [phone] Jefry Donald M.D. [address] [place] [phone] 02/25/2024 9:45 AM DISCHARGE RN Appointment Department of Radiology, [facility], in [place], [place] [address] [place] [phone] Jefry Donald M.D. [address] [place] [phone] 02/25/2024 1:00 PM DISCHARGE RN Ancillary Procedure Department of Cardiovascular Medicine in [place], [place] [address] [place] [phone] Jefry Donald M.D. [address] [place] [phone] 03/03/2024 8:15 AM DISCHARGE RN Comprehensive Visit Department of Cardiovascular Medicine in [address] [phone] Henry Cowan M.D. [address] [place] [phone] 03/03/2024 10:10 AM DISCHARGE RN Appointment Department of Cardiovascular Diseases in [place], [place] [address] [place] [phone] Jefry Donald M.D. [address] [place] [phone] 03/10/2024 9:00 AM DISCHARGE RN Clinical Communication Virtual Review in [place], [place] 200 [place] [address] 03/13/2024 11:00 AM DISCHARGE RN Office Visit Department of Orthopedic Surgery in [place], [place] [address] [place] [phone] Judith Neal, DAMARI, C.N.P., D.N.P. [address] [place] [address] documented as of this encounter Visit Diagnoses Not on filedocumented in this encounter Care Teams Grinding Machine Tender Relationship Specialty Start Date End Date Elsewhere, Pcp PCP - General Internal Medicine 05/25/23 documented as of this encounter
--- OUTSIDE RECORDS SUMMARY | 2024-01-31 11:39 | XMS_ITS | Encounter Summary ---
Author Organization [facility] Address [address] [place] [address] Care Team Providers Care It Security Consultant Name Role Phone Elsewhere, Pcp Primary Care Provider Unavailabl e Encounter Details Date Type Department Care Team (Late st Contact Info) Description 09/30/2002 Historical Ophthalmology RST OPH Leonardo Macedo M.D. Social History Tobacco Use Types Packs/Day Years Used Date Smoking Tobacco: Never Assessed Sex and Gender Information Value Date Recorded Sex Assigned at Female 09/04/2022 4:04 PM CDT Gender Identity Female 09/04/2022 4:04 PM CDT Sexual Orientation Straight 09/04/2022 4: 04 PM CDT documented as of this encounter Progress Notes * Leonardo Macedo M.D. - 09/30/2002 12:00 AM CDT Eye General CHIEF COMPLAINT Patient here for two month recheck, recheck IOP. lichen planus. HISTORY OF PRESENT ILLNESS no changes noticed per pt. IMPRESSION / REPORT / PLAN #1 Lichen planus Stable on present rx. RV 4 mos. DIAGNOSIS #1 Lichen planus CDM Reports - EYEGEN Id: [id number] Status: Fnl documented in this encounter Plan of Treatment Upcoming Encounters Date Type Department Care Team (Latest Contact Info) Description 02/25/2024 9:10 AM NEWS CLERK Appointment Department of Laboratory Medicine and Pathology, [facility], in [place], [place] [address] [place] [address] Jefry Donald M.D. [address] [place] [phone] 02/25/2024 9:45 AM NEWS CLERK Appointment Department of Radiology, [facility], in [place], [place] [address] [place] [phone] Jefry Donald M.D. [address] [place] [phone] 02/25/2024 1:00 PM NEWS CLERK Ancillary Procedure Department of Cardiovascular Medicine in [place], [place] [address] [place] [phone] Jefry Donald M.D. [address] [place] [phone] 03/03/2024 8:15 AM NEWS CLERK Comprehensive Visit Department of Cardiovascular Medicine in [place], [place] [address] [place] [phone] Henry Cowan M.D. [address] [place] [phone] 03/03/2024 10:10 AM NEWS CLERK Appointment Department of Cardiovascular Diseases in [place], [place] [address] [place] [phone] Jefry Donald M.D. [address] [place] [phone] 03/10/2024 9:00 AM NEWS CLERK Clinical Communication Virtual Review in [place], [place] 200 [place] [phone] 03/13/2024 11:00 AM NEWS CLERK Office Visit Department of Orthopedic Surgery in [address] [phone] Judith Neal APRN, C.N.P., D.N.P. [address] [place] [phone] documented as of this encounter Visit Diagnoses Not on filedocumented in this encounter Care Teams It Security Consultant Relationship Specialty Start Date End Date Elsewhere, Pcp PCP - General Internal Medicine 05/25/23 documented as of this encounter
--- OUTSIDE RECORDS SUMMARY | 2024-01-31 11:39 | XMS_ITS | Encounter Summary ---
Author Organization [facility] Address [address] [place] [address] Care Team Providers Care Top Ironer Name Role Phone Elsewhere, Pcp Primary Care Provider Unavailabl e Encounter Details Date Type Department Care Team (Late st Contact Info) Description 03/26/2002 Historical Ophthalmology RST OPH Leonardo Macedo M.D. Social History Tobacco Use Types Packs/Day Years Used Date Smoking Tobacco: Never Assessed Sex and Gender Information Value Date Recorded Sex Assigned at Female 09/04/2022 4:04 PM CDT Gender Identity Female 09/04/2022 4:04 PM CDT Sexual Orientation Straight 09/04/2022 4: 04 PM CDT documented as of this encounter Progress Notes * Leonardo Macedo M.D. - 03/26/2002 12:00 AM CST Eye General CHIEF COMPLAINT follow up conj biopsy OS HISTORY OF PRESENT ILLNESS One month since last visit, patient has no concerns. Eye OS is feeling good IMPRESSION / REPORT / PLAN #1 lichen planus Same rx. 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 #3 Meibomian dysfunction with features of Rosacea Warm compresses, CDM Reports - EYEGEN Id: [id number] Status: Fnl documented in this encounter Plan of Treatment Upcoming Encounters Date Type Department Care Team (Latest Contact Info) Description 02/25/2024 9:10 AM MIXER ATTENDANT Appointment Department of Laboratory Medicine and Pathology, [facility], in [place], [place] [address] [place] [phone] Jefry Donald M.D. [address] [place] [phone] 02/25/2024 9:45 AM MIXER ATTENDANT Appointment Department of Radiology, [facility], in [place], [place] [address] [place] [phone] Jefry Donald M.D. [address] [place] [phone] 02/25/2024 1:00 PM MIXER ATTENDANT Ancillary Procedure Department of Cardiovascular Medicine in [place], [place] [address] [place] [phone] Jefry Donald M.D. [address] [place] [phone] 03/03/2024 8:15 AM MIXER ATTENDANT Comprehensive Visit Department of Cardiovascular Medicine in [place], [place] [address] [place] [phone] Henry Cowan M.D. [address] [place] [phone] 03/03/2024 10:10 AM MIXER ATTENDANT Appointment Department of Cardiovascular Diseases in [place], [place] [address] [place] [phone] Jefry Donald M.D. [address] [place] [phone] 03/10/2024 9:00 AM MIXER ATTENDANT Clinical Communication Virtual Review in [place], [place] 200 [place] [address] 03/13/2024 11:00 AM MIXER ATTENDANT Office Visit Department of Orthopedic Surgery in [place], [place] [address] [place] [phone] Judith Neal APRN, C.N.P., D.N.P. [address] [place] [phone] documented as of this encounter Visit Diagnoses Not on filedocumented in this encounter Care Teams Top Ironer Relationship Specialty Start Date End Date Elsewhere, Pcp PCP - General Internal Medicine 05/25/23 documented as of this encounter
--- OUTSIDE RECORDS SUMMARY | 2024-01-31 11:39 | XMS_ITS | Encounter Summary ---
Author Organization [facility] Address [address] [place] [address] Care Team Providers Care Tray Line Worker Name Role Phone Elsewhere, Pcp Primary Care Provider Unavailabl e Encounter Details Date Type Department Care Team (Late st Contact Info) Description 03/14/2005 Historical Ophthalmology RST OPH Leonardo Macedo M.D. Social History Tobacco Use Types Packs/Day Years Used Date Smoking Tobacco: Never Assessed Sex and Gender Information Value Date Recorded Sex Assigned at Female 09/04/2022 4:04 PM CDT Gender Identity Female 09/04/2022 4:04 PM CDT Sexual Orientation Straight 09/04/2022 4: 04 PM CDT documented as of this encounter Progress Notes * Leonardo Macedo M.D. - 03/14/2005 12:00 AM CST Eye General CHIEF COMPLAINT recheck lichen planus HISTORY OF PRESENT ILLNESS no changes noticed per pt. Was put on rosacea rx and that has helped eyes too. IMPRESSION / REPORT / PLAN #1 LIchen planus Stable. Plan; Same rx Observe IOP fo now. RV 3 mos DIAGNOSIS #1 LIchen planus CDM Reports - EYEGEN Id: [id number] Status: Fnl documented in this encounter Plan of Treatment Upcoming Encounters Date Type Department Care Team (Latest Contact Info) Description 02/25/2024 9:10 AM CIGAR TOBACCO PROCESSING SUPERVISOR Appointment Department of Laboratory Medicine and Pathology, [facility] in [place], [place] [address] [place] [phone] Jefry Donald M.D. [address] [place] [phone] 02/25/2024 9:45 AM CIGAR TOBACCO PROCESSING SUPERVISOR Appointment Department of Radiology, [facility], in [place], [place] [address] [place] [phone] Jefry Donald M.D. [address] [place] [phone] 02/25/2024 1:00 PM CIGAR TOBACCO PROCESSING SUPERVISOR Ancillary Procedure Department of Cardiovascular Medicine in [place], [place] [address] [place] [phone] Jefry Donald M.D. [address] [place] [phone] 03/03/2024 8:15 AM CIGAR TOBACCO PROCESSING SUPERVISOR Comprehensive Visit Department of Cardiovascular Medicine in [place], [place] [address] [place] [phone] Henry Cowan M.D. [address] [place] [phone] 03/03/2024 10:10 AM CIGAR TOBACCO PROCESSING SUPERVISOR Appointment Department of Cardiovascular Diseases in [place], [place] [address] [place] [phone] Jefry Donald M.D. [address] [place] [phone] 03/10/2024 9:00 AM CIGAR TOBACCO PROCESSING SUPERVISOR Clinical Communication Virtual Review in [place], [place] 200 [place] [phone] 03/13/2024 11:00 AM CIGAR TOBACCO PROCESSING SUPERVISOR Office Visit Department of Orthopedic Surgery in [place], [place] [address] [place] [phone] Judith Neal, DAMARI, C.N.P., D.N.P. [address] [place] [address], [place] [phone] documented as of this encounter Visit Diagnoses Not on filedocumented in this encounter Care Teams Tray Line Worker Relationship Specialty Start Date End Date Elsewhere, Pcp PCP - General Internal Medicine 05/25/23 documented as of this encounter
--- OUTSIDE RECORDS SUMMARY | 2024-01-31 11:39 | XMS_ITS | Encounter Summary ---
Author Organization [facility] Address [address] [place] [address] Care Team Providers Care Director Of Purchasing Name Role Phone Elsewhere, Pcp Primary Care Provider Unavailabl e Encounter Details Date Type Department Care Team (Late st Contact Info) Description 06/15/2005 Historical Ophthalmology RST OPH Leonardo Macedo M.D. Social History Tobacco Use Types Packs/Day Years Used Date Smoking Tobacco: Never Assessed Sex and Gender Information Value Date Recorded Sex Assigned at Female 09/04/2022 4:04 PM CDT Gender Identity Female 09/04/2022 4:04 PM CDT Sexual Orientation Straight 09/04/2022 4: 04 PM CDT documented as of this encounter Progress Notes * Leonardo Macedo M.D. - 06/15/2005 12:00 AM CST Eye General CHIEF COMPLAINT recheck lichen planus. follow up IOP HISTORY OF PRESENT ILLNESS no concerns per pt. IMPRESSION / REPORT / PLAN #1 LIchen planus Stable. Plan; Same rx Observe IOP fo now. RV 3 mos DIAGNOSIS #1 LIchen planus CDM Reports - EYEGEN Id: [id number] Status: Fnl documented in this encounter Plan of Treatment Upcoming Encounters Date Type Department Care Team (Latest Contact Info) Description 02/25/2024 9:10 AM RING FACER Appointment Department of Laboratory Medicine and Pathology, [facility], in [place], [place] [address] [place] [address] Jefry Donald M.D. [address] [place] [phone] 02/25/2024 9:45 AM RING FACER Appointment Department of Radiology, [facility], in [place], [place] [address] [place] [phone] Jefry Donald M.D. [address] [place] [phone] 02/25/2024 1:00 PM RING FACER Ancillary Procedure Department of Cardiovascular Medicine in [place], [place] [address] [place] [phone] Jefry Donald M.D. [address] [place] [phone] 03/03/2024 8:15 AM RING FACER Comprehensive Visit Department of Cardiovascular Medicine in [place], [place] [address] [place] [phone] Henry Cowan M.D. [address] [place] [phone] 03/03/2024 10:10 AM RING FACER Appointment Department of Cardiovascular Diseases in [place], [place] [address] [place] [phone] Jefry Donald M.D. [address] [place] [phone] 03/10/2024 9:00 AM RING FACER Clinical Communication Virtual Review in [place], [place] 200 [place] [address] 03/13/2024 11:00 AM RING FACER Office Visit Department of Orthopedic Surgery in [place], [place] [address] [place] [phone] Judith Neal APRN, C.N.P., D.N.P. [address] [place] [phone] documented as of this encounter Visit Diagnoses Not on filedocumented in this encounter Care Teams Director Of Purchasing Relationship Specialty Start Date End Date Elsewhere, Pcp PCP - General Internal Medicine 05/25/23 documented as of this encounter
--- OUTSIDE RECORDS SUMMARY | 2024-01-31 11:39 | XMS_ITS | Encounter Summary ---
Author Organization [facility] Address [address] [place] [address] Care Team Providers Care Ammonia Refrigeration Technician Name Role Phone Elsewhere, Pcp Primary Care Provider Unavailabl e Encounter Details Date Type Department Care Team (Late st Contact Info) Description 02/21/2002 Historical Ophthalmology RST OPH Leonardo Macedo M.D. Social History Tobacco Use Types Packs/Day Years Used Date Smoking Tobacco: Never Assessed Sex and Gender Information Value Date Recorded Sex Assigned at Female 09/04/2022 4:04 PM CDT Gender Identity Female 09/04/2022 4:04 PM CDT Sexual Orientation Straight 09/04/2022 4: 04 PM CDT documented as of this encounter Progress Notes * Leonardo Macedo M.D. - 02/21/2002 12:00 AM CST Eye General CHIEF COMPLAINT follow up conj. biopsy OS, no concerns per pt. HISTORY OF PRESENT ILLNESS Followup probable lichen planus based on biopsy of cicitrizing conjunctivitis. 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 CDM Reports - EYEGEN Id: [id number] Status: Fnl documented in this encounter Plan of Treatment Upcoming Encounters Date Type Department Care Team (Latest Contact Info) Description 02/25/2024 9:10 AM DAIRY LABORATORY TECHNICIAN Appointment Department of Laboratory Medicine and Pathology, [facility] in [place], [place] [address] [place] [phone] Jefry Donald M.D. [address] [place] [phone] 02/25/2024 9:45 AM DAIRY LABORATORY TECHNICIAN Appointment Department of Radiology, [facility], in [place], [place] [address] [place] [phone] Jefry Donald M.D. [address] [place] [phone] 02/25/2024 1:00 PM DAIRY LABORATORY TECHNICIAN Ancillary Procedure Department of Cardiovascular Medicine in [place], [place] [address] [place] [phone] Jefry Donald M.D. [address] [place] [phone] 03/03/2024 8:15 AM DAIRY LABORATORY TECHNICIAN Comprehensive Visit Department of Cardiovascular Medicine in [place], [place] [address] [place] [phone] Henry Cowan M.D. [address] [place] [phone] 03/03/2024 10:10 AM DAIRY LABORATORY TECHNICIAN Appointment Department of Cardiovascular Diseases in [place], [place] [address] [place] [phone] Jefry Donald M.D. [address] [place] [phone] 03/10/2024 9:00 AM DAIRY LABORATORY TECHNICIAN Clinical Communication Virtual Review in [place], [place] 200 [place] [phone] 03/13/2024 11:00 AM DAIRY LABORATORY TECHNICIAN Office Visit Department of Orthopedic Surgery in [place], [place] [address] [place] [phone] Judith Neal APRN, C.N.P., D.N.P. [address] [place] [phone] documented as of this encounter Visit Diagnoses Not on filedocumented in this encounter Care Teams Ammonia Refrigeration Technician Relationship Specialty Start Date End Date Elsewhere, Pcp PCP - General Internal Medicine 05/25/23 documented as of this encounter
--- OUTSIDE RECORDS SUMMARY | 2024-01-31 11:39 | XMS_ITS | Encounter Summary ---
Author Organization [facility] Address [address] [place] [address] Care Team Providers Care Batt Machine Operator Name Role Phone Elsewhere, Pcp Primary Care Provider Unavailabl e Encounter Details Date Type Department Care Team (Late st Contact Info) Description 06/11/2002 Historical Ophthalmology RST OPH Leonardo Macedo M.D. Social History Tobacco Use Types Packs/Day Years Used Date Smoking Tobacco: Never Assessed Sex and Gender Information Value Date Recorded Sex Assigned at Female 09/04/2022 4:04 PM CDT Gender Identity Female 09/04/2022 4:04 PM CDT Sexual Orientation Straight 09/04/2022 4: 04 PM CDT documented as of this encounter Progress Notes * Leonardo Macedo M.D. - 06/11/2002 12:00 AM CST Eye General CHIEF COMPLAINT lichen planus OS HISTORY OF PRESENT ILLNESS Patient returns today for a 2 month recheck. doing well, no complaints. IMPRESSION / REPORT / PLAN #1 Lichen planus -May need to taper off FML as IOP has increased OU. #2 Increased IOP OU -Likely steroid responder. Offered different options. SHe will reduce FML to q day and RV 3 wks. Ifstill no good then, either add timoptic or change to cyclosporine rx for the lichen planus. #3 Meibomian dysfunction, rosacea facies DIAGNOSIS #1 Lichen planus #2 Increased IOP OU #3 Meibomian dysfunction, rosacea facies CDM Reports - EYEGEN Id: [id number] Status: Fnl documented in this encounter Plan of Treatment Upcoming Encounters Date Type Department Care Team (Latest Contact Info) Description 02/25/2024 9:10 AM TACKING MACHINE OPERATOR Appointment Department of Laboratory Medicine and Pathology, [facility] in [place], [place] [address] [place] [phone] Jefry Donald M.D. [address] [place] [phone] 02/25/2024 9:45 AM TACKING MACHINE OPERATOR Appointment Department of Radiology, [facility], in [place], [place] [address] [place] [phone] Jefry Donald M.D. [address] [place] [phone] 02/25/2024 1:00 PM TACKING MACHINE OPERATOR Ancillary Procedure Department of Cardiovascular Medicine in [place], [place] [address] [place] [phone] Jefry Donald M.D. [address] [place] [phone] 03/03/2024 8:15 AM TACKING MACHINE OPERATOR Comprehensive Visit Department of Cardiovascular Medicine in [address] [phone] Henry Cowan M.D. [address] [place] [phone] 03/03/2024 10:10 AM TACKING MACHINE OPERATOR Appointment Department of Cardiovascular Diseases in [address] [phone] Jefry Donald M.D. [address] [place] [phone] 03/10/2024 9:00 AM TACKING MACHINE OPERATOR Clinical Communication Virtual Review in [place], [place] 200 [place] [address] 03/13/2024 11:00 AM TACKING MACHINE OPERATOR Office Visit Department of Orthopedic Surgery in [place], [place] [address] [place] [phone] Judith Neal, DAMARI, C.N.P., D.N.P. [address] [place] [address] documented as of this encounter Visit Diagnoses Not on filedocumented in this encounter Care Teams Batt Machine Operator Relationship Specialty Start Date End Date Elsewhere, Pcp PCP - General Internal Medicine 05/25/23 documented as of this encounter
--- OUTSIDE RECORDS SUMMARY | 2024-01-31 11:39 | XMS_ITS | Encounter Summary ---
Author Organization [facility] Address [address] [place] [address] Care Team Providers Care Headwaitress Name Role Phone Elsewhere, Pcp Primary Care Provider Unavailabl e Encounter Details Date Type Department Care Team (Late st Contact Info) Description 07/16/2002 Historical Ophthalmology RST OPH Leonardo Macedo M.D. Social History Tobacco Use Types Packs/Day Years Used Date Smoking Tobacco: Never Assessed Sex and Gender Information Value Date Recorded Sex Assigned at Female 09/04/2022 4:04 PM CDT Gender Identity Female 09/04/2022 4:04 PM CDT Sexual Orientation Straight 09/04/2022 4: 04 PM CDT documented as of this encounter Progress Notes * Leonardo Macedo M.D. - 07/16/2002 12:00 AM CST Eye General CHIEF COMPLAINT IOP recheck, lichen planus HISTORY OF PRESENT ILLNESS No changes since last visit two weeks ago. 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 Plan; Same rx RV 2 mos. DIAGNOSIS #1 steroid-induced ocular hypertension CDM Reports - EYEGEN Id: [id number] Status: Fnl documented in this encounter Plan of Treatment Upcoming Encounters Date Type Department Care Team (Latest Contact Info) Description 02/25/2024 9:10 AM LUMP MACHINE OPERATOR Appointment Department of Laboratory Medicine and Pathology, [facility], in [place], [place] [address] [place] [address] Jefry Donald M.D. [address] [place] [phone] 02/25/2024 9:45 AM LUMP MACHINE OPERATOR Appointment Department of Radiology, [facility], in [place], [place] [address] [place] [phone] Jefry Donald M.D. [address] [place] [phone] 02/25/2024 1:00 PM LUMP MACHINE OPERATOR Ancillary Procedure Department of Cardiovascular Medicine in [place], [place] [address] [place] [phone] Jefry Donald M.D. [address] [place] [phone] 03/03/2024 8:15 AM LUMP MACHINE OPERATOR Comprehensive Visit Department of Cardiovascular Medicine in [place], [place] [address] [place] [phone] Henry Cowan M.D. [address] [place] [phone] 03/03/2024 10:10 AM LUMP MACHINE OPERATOR Appointment Department of Cardiovascular Diseases in [place], [place] [address] [place] [phone] Jefry Doanld M.D. [address] [place] [phone] 03/10/2024 9:00 AM LUMP MACHINE OPERATOR Clinical Communication Virtual Review in [place], [place] [address] [place] [phone] 03/13/2024 11:00 AM LUMP MACHINE OPERATOR Office Visit Department of Orthopedic Surgery in [address] [phone] Judith Neal APRN, C.N.P., D.N.P. [address] [place] [phone] documented as of this encounter Visit Diagnoses Not on filedocumented in this encounter Care Teams Headwaitress Relationship Specialty Start Date End Date Elsewhere, Pcp PCP - General Internal Medicine 05/25/23 documented as of this encounter
--- OUTSIDE RECORDS SUMMARY | 2024-01-31 11:39 | XMS_ITS | Encounter Summary ---
Author Organization [facility] Address [address] [place] [address] Care Team Providers Care Senior Water/Wastewater Engineer Name Role Phone Elsewhere, Pcp Primary Care Provider Unavailabl e Encounter Details Date Type Department Care Team (Late st Contact Info) Description 07/02/2002 Historical Ophthalmology RST OPH Leonardo Macedo M.D. Social History Tobacco Use Types Packs/Day Years Used Date Smoking Tobacco: Never Assessed Sex and Gender Information Value Date Recorded Sex Assigned at Female 09/04/2022 4:04 PM CDT Gender Identity Female 09/04/2022 4:04 PM CDT Sexual Orientation Straight 09/04/2022 4: 04 PM CDT documented as of this encounter Progress Notes * Leonardo Macedo M.D. - 07/02/2002 12:00 AM CST Eye General CHIEF COMPLAINT recheck IOP. lichen planus HISTORY OF PRESENT ILLNESS No changes since last visit. IMPRESSION / REPORT / PLAN #1 High IOP #2 Lichen planus Plan: discussed options. Shw would llike to staay on FML and add xalatan qd. RV 2 wks, check IOP DIAGNOSIS #1 High IOP #2 Lichen planus CDM Reports - EYEGEN Id: [id number] Status: Fnl documented in this encounter Plan of Treatment Upcoming Encounters Date Type Department Care Team (Latest Contact Info) Description 02/25/2024 9:10 AM LUMPIA WRAPPER MAKER Appointment Department of Laboratory Medicine and Pathology, [place], in [place], [place] [address] [place] [phone] Jefry Donald M.D. [address] [place] [phone] 02/25/2024 9:45 AM LUMPIA WRAPPER MAKER Appointment Department of Radiology, [facility], in [place], [place] [address] [place] [phone] Jefry Donald M.D. [address] [place] [phone] 02/25/2024 1:00 PM LUMPIA WRAPPER MAKER Ancillary Procedure Department of Cardiovascular Medicine in [place], [place] [address] [place] [phone] Jefry Donald M.D. [address] [place] [phone] 03/03/2024 8:15 AM LUMPIA WRAPPER MAKER Comprehensive Visit Department of Cardiovascular Medicine in [place], [place] [address] [place] [phone] Henry Cowan M.D. [address] [place] [phone] 03/03/2024 10:10 AM LUMPIA WRAPPER MAKER Appointment Department of Cardiovascular Diseases in [place], [place] [address] [place] [phone] Jefry Donald M.D. [address] [place] [phone] 03/10/2024 9:00 AM LUMPIA WRAPPER MAKER Clinical Communication Virtual Review in [place], [place] 200 [place] [phone] 03/13/2024 11:00 AM LUMPIA WRAPPER MAKER Office Visit Department of Orthopedic Surgery in [place], [place] [address] [place] [phone] Judith Neal APRN, C.N.P., D.N.P. [address] [place] [address] documented as of this encounter Visit Diagnoses Not on filedocumented in this encounter Care Teams Senior Water/Wastewater Engineer Relationship Specialty Start Date End Date Elsewhere, Pcp PCP - General Internal Medicine 05/25/23 documented as of this encounter
--- OUTSIDE RECORDS SUMMARY | 2024-01-31 11:39 | XMS_ITS | Encounter Summary ---
Author Organization [facility] Address [address] [place] [address] Care Team Providers Care Cereal Chemist Name Role Phone Elsewhere, Pcp Primary Care Provider Unavailabl e Encounter Details Date Type Department Care Team (Late st Contact Info) Description 05/04/2003 Historical Ophthalmology RST OPH Leonardo Macedo M.D. Social History Tobacco Use Types Packs/Day Years Used Date Smoking Tobacco: Never Assessed Sex and Gender Information Value Date Recorded Sex Assigned at Female 09/04/2022 4:04 PM CDT Gender Identity Female 09/04/2022 4:04 PM CDT Sexual Orientation Straight 09/04/2022 4: 04 PM CDT documented as of this encounter Progress Notes * Leonardo Macedo M.D. - 05/04/2003 12:00 AM CST Eye General CHIEF COMPLAINT 3 month f/u Lichen planus OS HISTORY OF PRESENT ILLNESS No changes noted since last visit. IMPRESSION / REPORT / PLAN #1 Lichen planus Stable Plan; Same rx. RV 4 mos. DIAGNOSIS #1 Lichen planus CDM Reports - EYEGEN Id: [id number] Status: Fnl documented in this encounter Plan of Treatment Upcoming Encounters Date Type Department Care Team (Latest Contact Info) Description 02/25/2024 9:10 AM FOREST BOTANY INSTRUCTOR Appointment Department of Laboratory Medicine and Pathology, [facility], in [place], [place] [address] [place] [address] Jefry Donald M.D. [address] [place] [phone] 02/25/2024 9:45 AM FOREST BOTANY INSTRUCTOR Appointment Department of Radiology, [facility], in [place], [place] [address] [place] [phone] Jefry Donald M.D. [address] [place] [phone] 02/25/2024 1:00 PM FOREST BOTANY INSTRUCTOR Ancillary Procedure Department of Cardiovascular Medicine in [place], [place] [address] [place] [phone] Jefry Donald M.D. [address] [place] [phone] 03/03/2024 8:15 AM FOREST BOTANY INSTRUCTOR Comprehensive Visit Department of Cardiovascular Medicine in [place], [place] [address] [place] [phone] Henry Cowan M.D. [address] [place] [phone] 03/03/2024 10:10 AM FOREST BOTANY INSTRUCTOR Appointment Department of Cardiovascular Diseases in [place], [place] [address] [place] [phone] Jefry Donald M.D. [address] [place] [phone] 03/10/2024 9:00 AM FOREST BOTANY INSTRUCTOR Clinical Communication Virtual Review in [place], [place] 200 [place] [phone] 03/13/2024 11:00 AM FOREST BOTANY INSTRUCTOR Office Visit Department of Orthopedic Surgery in [place], [place] [address] [place] [phone] Judith Neal APRN, C.N.P., D.N.P. [address] [place] [phone] documented as of this encounter Visit Diagnoses Not on filedocumented in this encounter Care Teams Cereal Chemist Relationship Specialty Start Date End Date Elsewhere, Pcp PCP - General Internal Medicine 05/25/23 documented as of this encounter
--- OUTSIDE RECORDS SUMMARY | 2024-01-31 11:40 | XMS_ITS | Continuity of Care Document ---
Author Organization [facility] Address [address] [place] [address] Phone Care Team Providers Care Auriculotherapist Name Role Phone Sosa Ruano MD Unavailable [...] Encounter [facility], [address], [place], [address], tel:[phone] [facility] No Information 0 Bindu Swan. [address], [address], [place]. tel:[phone] Office/Outpa tient Visit, [facility], [address], [place], [address], [place] tel:[phone] [facility], elevated JOSE (chief complaint) back pain (chief complaint) Other and unspecified nonspecific immunological findingsBacka [facility] [address]. [facility] [address], [place], [address], [place]. tel:[phone] [facility], [address], [place], [address], [place] tel:[phone] [facility], No Information [address]. [facility] [address], [place], [address], [place]. tel:[phone] Family History Family Member Type Diagnosis Age At Onset Problem (finding) arthritis Problem (finding) Problem (finding) Family history of hyper tension Problem (finding) cancer Problem (finding) Family history of gout Problem (finding) Family history of disor hazel of lung Problem (finding) Family history of hyper tension Payers Payer name Insurance type Covered green party ID Authoriza tishanelle(s) [facility] [id number] Social History Type Description Quantity Date Captured [...]
--- OUTSIDE RECORDS SUMMARY | 2024-01-31 11:40 | XMS_ITS | Encounter Summary ---
Author Organization [facility] Address [address] [place] [address] Care Team Providers Care Wall Worker Name Role Phone Elsewhere, Pcp Primary Care Provider Unavailabl e Encounter Details Date Type Department Care Team (Late st Contact Info) Description 01/29/2002 Historical Ophthalmology RST OPH Lenoardo Macedo M.D. Social History Tobacco Use Types Packs/Day Years Used Date Smoking Tobacco: Never Assessed Sex and Gender Information Value Date Recorded Sex Assigned at Female 09/04/2022 4:04 PM CDT Gender Identity Female 09/04/2022 4:04 PM CDT Sexual Orientation Straight 09/04/2022 4: 04 PM CDT documented as of this encounter Progress Notes * Leonardo Macedo M.D. - 01/29/2002 12:00 AM CDT Eye General CHIEF COMPLAINT tearing, mattery red os x 3 months. severity fluctuates. HISTORY OF PRESENT ILLNESS Developed redness OS late 09/22 gradually with irritation. Was on a trip in [facility]. Symptoms fluctuated over next month. With increasing redness saw local gas stove servicer helper who noted corneal epithelial and subepithelial lesions, no dendrites. Started on Viroptic and Neosporin after culturing. Culture grew Staph Haemolyticus, then treated with oral zithromax and gentamicin drops for 2 weeks. Some improvement in redness, but not resolved. Exam showed band disturbance in corneal epithelium. Repeat culture then grew Staph epidermidis. Vision did get blurred. No sick contacts. OD was never involved. No h/o cold sores. IMPRESSION / REPORT / PLAN 1. 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 Plan: Discussed with pt. Needs to return Sunday for conj biopsy OS. Get CBC and G6PD deficiency blood work on Manday prior to surgery. 2. Anterior basment membrane dystrophy. CDM Reports - EYEGEN Id: [id number] Status: Fnl documented in this encounter Plan of Treatment Upcoming Encounters Date Type Department Care Team (Latest Contact Info) Description 02/25/2024 9:10 AM DEVULCANIZER OPERATOR Appointment Department of Laboratory Medicine and Pathology, [facility] in [place], [place] [address] [place] [phone] Jefry Donald M.D. [address] [place] [phone] 02/25/2024 9:45 AM DEVULCANIZER OPERATOR Appointment Department of Radiology, [facility] in [place], [place] [address] [place] [phone] Jefry Donald M.D. [address] [place] [phone] 02/25/2024 1:00 PM DEVULCANIZER OPERATOR Ancillary Procedure Department of Cardiovascular Medicine in [address] [phone] Jefry Donald M.D. [address] [place] [phone] 03/03/2024 8:15 AM DEVULCANIZER OPERATOR Comprehensive Visit Department of Cardiovascular Medicine in [address] [phone] Henry Cowan M.D. [address] [place] [phone] 03/03/2024 10:10 AM DEVULCANIZER OPERATOR Appointment Department of Cardiovascular Diseases in [place], [place] [address] [place] [phone] Jefry Donald M.D. [address] [place] [phone] 03/10/2024 9:00 AM DEVULCANIZER OPERATOR Clinical Communication Virtual Review in [place], [place] 200 [place] [phone] 03/13/2024 11:00 AM DEVULCANIZER OPERATOR Office Visit Department of Orthopedic Surgery in [place], [place] [address] [place] [phone] Judith Neal APRN, C.N.P., D.N.P. [address] [place] [phone] documented as of this encounter Visit Diagnoses Not on filedocumented in this encounter Care Teams Wall Worker Relationship Specialty Start Date End Date Elsewhere, Pcp PCP - General Internal Medicine 05/25/23 documented as of this encounter
[2024-01-31 12:25] LABS: Alanine Aminotransferase* 17 U/L (4-35); Aspartate Amino Transferase* 33 U/L (12-35); Creatinine* 0.6 mg/dL (0.5-1.5); Estimated Glomerular Filt Rate 87 ml/min
== END 2024-01-31 11:32 | disposition home or self-care (01) ==
LOC: NPINS 11:31
PROVIDERS: Physician Assistant; PCP Internal Medicine
DX: I48.92 Unspecified atrial flutter (principal); I47.19 Other supraventricular tachycardia; I48.91 Unspecified atrial fibrillation
CPT/HCPCS: 82565; 84450; 84460

== ENCOUNTER 2024-03-17 07:50 | Outpatient (CLI) | payer MEDICARE, BC, SELFPAY ==
--- OUTSIDE RECORDS SUMMARY | 2024-03-17 14:14 | XMS_ITS | Encounter Summary ---
Author Organization [facility] Address [address] [place] [address] Care Team Providers Care Ekg Manager Name Role Phone Elsewhere, Pcp Primary Care Provider Unavailabl e Reason for Referral * Outpatient (Routine) - Authorized Specialty Diagnoses / Procedures Referred By Nahid grewal Referred To Contact Orthopedic Surgery Diagnoses Dystrophic Toenail Keratosis Plantar Callus Hayes Foot Pain Toe Left Hammer Toe Acquired Left Hallux Valgus Left Hallux Valgus Right Arthritis Foot Peripheral Arterial Disease (HCC) Half-Way (Current) Anticoagulant Treatment Judith Neal APRN, C.N.P., D.N.P. [address] [place] [phone] Phone: tel: fax: [facility] Referral ID Status Reason Start Date Expiration Date V isits Requested Visits Authorized [id number] Authorized 03/13/2024 09/12/2025 1 1 P COUNSELOR Reason for Visit * Outpatient (Routine) - Closed Specialty Diagnoses / Procedures Referred By Nahid grewal Referred To Contact Orthopedic Surgery Diagnoses Dystrophic Toenail Keratosis Plantar Callus Hayes Foot Pain Toe Left Hammer Toe Acquired Left Hallux Valgus Left Hallux Valgus Right Arthritis Foot Peripheral Arterial Disease (HCC) Language Interpreter (Current) Anticoagulant Treatment Judith Neal APRN, C.N.P., D.N.P. [address] [place] [phone] Phone: tel: fax: [facility] Referral ID Status Reason Start Date Expiration Date Visits Re quested Visits Authorized [id number] Closed 12/12/2023 06/12/2025 1 1 Encounter Details Date Type Department Care Team (Latest Contact Info) Description 03/13/2024 11:00 AM GROUP COUNSELOR Office Visit Department of Orthopedic Surgery in [place], [place] [address] [place] [address] Judith Neal, DAMARI, C.N.P., D.N.P. [address] [place] [phone] Dystrophic Toenail; Keratosis Plantar; Callus Hayes Foot; Pain Toe Left; Hammer Toe Acquired Left; Hallux Valgus Left; Hallux Valgus Right; Arthritis Foot; Peripheral Arterial Disease (HCC); Language Interpreter (Current) Anticoagulant Treatment Social History Tobacco Use Types Packs/Day Years Used Date Smoking Tobacco: Never Smokeless Tobacco: Never Alcohol Use Standard Drinks/Week Comments Not Currently 0 (1 standard drink = 0.6 oz pur e alcohol) [facility] Utilities Answer Date Recorded In the past 12 months has [facility] [employer], gas, oil, or water Hey, Neighbor! threatened to shut off services in your [...] often do you attend chur ch or jew services? Never 09/04/2022 Do you belong to any clubs o r organizations such as uatsdin groups, unions, fraternal or athletic groups, or [...] care, and heating? Not very hard 09/04/2022 [facility] - Occupational [...] Bachelor's degree (e.g., BA, AB, BS) 09/04/2022 Comments Unknown Sex and Gender Information Value Date Recorded Sex Assigned at Female 09/04/2022 4:04 PM CDT Legal Sex Female 8:55 PM GROUP COUNSELOR Gender Identity Female 09/04/2022 4:04 PM CDT Sexual Orientation Straight 09/04/2022 4: 04 PM CDT documented as of this encounter Progress Notes * Judith Neal APRN, C.N.P., D.N.P. - 03/13/2024 11:00 AM CST SUBJECTIVE REFERRAL SOURCE Judith Neal APRN, C.N.P., D.N.P. PAIN REPORTED: 06/02 L 2nd toe. CHIEF COMPLAINT / REASON FOR VISIT Continued care of her feet and is under the care of ELSEWHERE, PCP HISTORY OF PRESENT ILLNESS Ms. Weir is a 88 y.o. female who presents today for continued care of her long dystrophic toenails and calluses. Since her last podiatry visit on 12/12/2023 she reports that her dystrophic toenails and [...] ambulates without assistive device and is wearing slip on footwear today. Ms. Weir has medical comorbidities significant for, but not limited to, osteopenia, hypertension,anxiety, mitral/tricuspid valve regurgitation, atrial flutter with RVR, cervical radiculopathy, sensorineural hearing loss bilateral (hearing aids), ear wax impaction bilateral, impaired fasting glucose, hyperlipidemia, AFib on long-term anticoagulation (Eliquis), urge incontinence, callus/corn/IPKfeet, resolved onychomycosis. Patient was last seen for active care management of comorbid conditions by Henry Cowan M.D. in [facility] on 03/03/2024. The following portions of the patient's history [...] L2 PIPJ. Skin texture: Dry Skin temperature: Cool in temperature bilaterally. Callus/corns: 3 plantar IPK sub L 1-2 MTPs, ridge callus sub right medial 1st MTP, erythema PIPJ L2. Additional findings: No evidence of maceration between the toes, no signs of cracks or fissures tothe plantar aspects of the feet. NEUROLOGICAL: Sensation: Light touch intact to bilateral feet MUSCULOSKELETAL: Bony Deformities: L2 rigid flexion deformity with medial deviation crossing over L1. DIAGNOSTICS LABORATORY: INR Date Value Ref Range [...] Final Creatinine Date Value Ref Range Status 02/25/2024 0.81 0.59 - 1.04 mg/dL Final ASSESSMENT / PLAN #1 Dystrophic Toenail #2 Keratosis Plantar #3 Callus Hayes Foot #4 Pain Toe Left #5 Hammer Toe Acquired Left #6 Hallux Valgus Left #7 Hallux Valgus Right #8 Arthritis Foot #9 Peripheral Arterial Disease (HCC) #10 Half-Way (Current) Anticoagulant Treatment Ms. Weir has long dystrophic toenails and calluses/corns. She is unable to manage her foot care independently due to physical limitations and increased risk of injury or infection. After discussion of treatment options, and with the patient's consent, 10/10 toenails were trimmed with a nail nipper and filed smooth with an electric irish. A curette was utilized along the nail folds to meticulously remove debris and smooth the nail edges. A 15-blade was utilized to pare pop-out 3 IPK in close proximity sub left 1-2 MTPs then sanded to remove R1 MTP medial ridge callus with an electric sanding irish. Skin remained intact. Vanicream applied to feet. Silicone toe lissy placed onL1-2 to prevent cross over of 2 over 1 and to prevent friction/pressure to L2 dorsal PIPJ. Patient tolerated well and denied any post-procedural pain. Patient was encouraged to continue watchful obser vation and protection of her feet through appropriate surveillance and footwear and should return in 3 months for continued care, or sooner if concerns arise. The patient was given my contact information should she have any future questions or concerns. Given no further questions today, patient wasdismissed. Instructions: Continue us of Large PediFix Gel Toe Lissy, and trial use of velcro toe-dog handler or trainer at home during day and take [...] understanding of the content. Judith Neal APRN, C.N.P., D.N.P. P COUNSELOR documented in this encounter Plan of Treatment Scheduled Referrals Name Type Priority Associated Diagnoses Orde r Schedule Orthopedic Surgery office visit (clinic) Outpatient Referral Routine Dystrophic Toenail Keratosis Plantar Callus Hayes Foot Pain Toe Left Hammer Toe Acquired Left Hallux Valgus Left Hallux Valgus Right Arthritis Foot Peripheral Arterial Disease (HCC) Half-Way (Current) Anticoagulant Treatment Expected: 06/13/2024, Expires: 06/13/2025 documented as of this encounter Visit Diagnoses Diagnosis Dystrophic Toenail Keratosis Plantar Callus Hayes Foot Pain Toe Left Hammer Toe Acquired Left Hallux Valgus Left Hallux Valgus Right Arthritis Foot Peripheral Arterial Disease (HCC) Half-Way (Current) Anticoagulant Treatment documented in this encounter Care Teams Ekg Manager Relationship Specialty Start Date End Date Elsewhere, Pcp PCP - General Internal Medicine 05/25/23 documented as of this encounter
--- OUTSIDE RECORDS SUMMARY | 2024-03-17 14:14 | XMS_ITS | Clinical Summary ---
Author Organization [facility] Address [address] [place] [address] Care Team Providers Care Swimming Pool Attendant Name Role Phone Elsewhere, Pcp Primary Care Provider Unavailabl e Source Comments Patient records contain information from all sites at [facility]. For routine questions regarding patient records, call [phone] during business hours, M-F 8:00 AM - 5:00 PM Central Time. Record requests for emergency care only can be directed to [phone] at any time.[facility] Allergies No known active allergies Medications * This document contains information received from the source organization and may not represent a complete record from that organization. atorvastatin (LIPITOR) 10 mg tablet daily. 09/26/19 18 Active losartan (COZAAR) 25 mg tablet 50 mg daily. 08/14/19 18 Active apixaban (ELIQUIS) 2.5 mg tablet Take 2.5 mg by mouth 2 (two) times a day. 04/25/19 22 Active flecainide (TAMBOCOR) 50 mg tablet Take 50 mg by mouth 2 (two) times a day. 08/19/19 22 Active ketoconazole (NIZORAL) 2 % shampoo Apply 1 Application topically as needed. Active dilTIAZem CD (CARDIZEM CD/CARTIA XT) 120 mg 24 hr capsule Take 1 capsule by mouth daily. 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 Regurgitation Tricuspid 05/28/2023 Keratosis Plantar 03/08/2023 Onychomycosis 12/13/2022 Dystrophic Toenail 12/13/2022 Callus Ringsted Foot 12/13/2022 Hallux Valgus Right 12/13/2022 Deformity Toe Acquired Left 12/13/2022 Hallux Valgus Left 12/13/2022 Hammer Toe Acquired Left 12/13/2022 Pain Foot Right 12/13/2022 Pain Foot Left 12/13/2022 Peripheral Arterial Disease 12/13/2022 Bunion Left 12/13/2022 Bunion Right 12/13/2022 Pain Toe Left 12/13/2022 Hyperlipidemia 12/13/2022 Arthritis Foot 12/13/2022 Impaired Fasting Glucose 12/13/2022 Snf (Current) Anticoagulant Treatment 11/22 Atrial Fibrillation Unspecified 12/13/2022 Encounters Date Type Department Care Team Description 03/13/2024 11:00 AM MED DIR Office Visit Department of Orthopedic Surgery in [place], [place] [address] [place] [phone] Judith Neal APRN, C.N.P., D.N.P. Dystrophic Toenail; Keratosis Plantar; Callus Ringsted Foot; Pain Toe Left; Hammer Toe Acquired Left; Hallux Valgus Left; Hallux Valgus Right; Arthritis Foot; Peripheral Arterial Disease (HCC); Snf (Current) Anticoagulant Treatment 03/03/2024 8:15 AM MED DIR Comprehensive Visit Department of Cardiovascular Medicine in [place], [place] [address] [place] [phone] Henry Cowan M.D. Atrial Fibrillation Unspecified (HCC) (Primary Dx); Regurgitation Tricuspid 02/25/2024 9:14 AM MED DIR - 02/25/2024 11:59 PM MED DIR Hospital Encounter Department of Radiology, [facility], in [place], [place] [address] [place] [phone] Jefry Donald M.D. 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 01/15/2024 Clinical Communication Department of Cardiovascular Medicine in [place], [place] [address] [place] [phone] Prescheduling, Provider Triage from Last 3 Months Immunizations Name Administration [...] Name Status Comments Daughter 1 Beverly Weir Alive Daughter 2 Ibis Weir Alive Sister Matilde Walker Alive Social History Tobacco Use Types Packs/Day Years Used Date Smoking Tobacco: Never Smokeless Tobacco: Never Tobacco Cessation:Counseling Given: Not Answered Alcohol Use Standard Drinks/Week Comments Not Currently 0 (1 standard drink = 0.6 oz pur e alcohol) [facility] Utilities Answer Date Recorded In the past 12 months has [facility] [place], gas, oil, or water [employer] threatened to shut off services in your [...] often do you attend chur ch or roman catholic services? Never 09/04/2022 Do you belong to any clubs o r organizations such as pentecostalism groups, unions, fraternal or athletic groups, or [...] care, and heating? Not very hard 09/04/2022 [facility] Occupat ional Health - Occupational Stress [...] your living situation today? I have a [facility] place to live 09/09/2023 Education Answer Date Recorded What is the highest level of school you have completed or the highest degree you have received? Bachelor's degree (e.g., BA, AB, BS) 09/04/2022 Comments Unknown Sex and Gender Information Value Date Recorded Sex Assigned at Female 09/04/2022 4:04 PM CDT Legal Sex Female 8:55 PM MED DIR Gender Identity Female 09/04/2022 4:04 PM CDT Sexual Orientation Straight 09/04/2022 4: 04 PM CDT Last Filed Vital Signs Vital Sign Reading Time Taken Comments Blood Pressure 208/132 03/03/2024 8:06 AM MED DIR Pulse 93 03/03/2024 8:06 AM MED DIR Temperature - - Respiratory Rate - - Oxygen Saturation - - Inhaled Oxygen Concentration - - Weight 49 kg (108 lb 0.4 oz) 03/03/2024 8:06 AM MED DIR Height 157 cm (5' 1.81) 03/03/2024 8:06 AM MED DIR Body Mass Index 19.88 03/03/2024 8:06 AM MED DIR Plan of Treatment Health Maintenance Due Date Last Done Comments RSV vaccine - (32-36 weeks) or 60+ years (1 - 1-dose 75+ series) 2012 Depression Screening (Annual PHQ-2) 04/23/2023 Fall Risk Screen (Annual) 04/23/2023 Influenza Vaccine (#1) 2024 3, 01/25/2022, 01/12/2021, Additional history exists Creatinine Level (Kidney Function Test) 02/24/2025 02/25/2024, 05/28/2023, 10/26/2022, Additional history exists Fasting Glucose for Diabetes Screening 02/24/2025 02/25/2024, 05/28/2023, 03/10/2022, Additional history exists Potassium Level 02/24/2025 02/25/2024, 02/0 08/2023, 03/10/2022, Additional history exists Sodium Level 02/24/2025 02/25/2024, 02/0 08/2023, 03/10/2022, Additional history exists DTaP,Tdap,and Td Vaccines (3 - Td or Tdap) 10/09/2028 10/09/2018, 07/08/2008 Pneumococcal vaccine (65+ years) Completed 12/09/2014, 11/07/2010, 03/10/1999 Zoster Vaccines Completed 10/03/2022, 07/22, 11/07/2010 COVID-19 Vaccine Completed 01/31/2024, , 01/25/2022, Additional history exists IPV Vaccines Aged Out No longer eligi ble based on patient's age to complete this topic Procedures Procedure Name Priority Date/Time Associated Diagnosis Comments ECG Routine 02/25/2024 12:54 PM MED DIR 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) Pain Chest DX CHEST AP OR PA AND LATERAL 2 VIEWS RAD - Routine (most inpatients and all outpatients) 02/25/2024 9:38 AM MED DIR 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) Pain Chest LIPID PANEL, S Routine 02/25/2024 9:10 AM MED DIR 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) Pain Chest GLUCOSE, FASTING, S/P Routine 02/25/2024 9:10 AM MED DIR 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) Pain Chest COMPREHENSIVE METABOLIC PANEL, S/P Routine 02/25/2024 9:10 AM MED DIR 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) Pain Chest CBC WITH DIFFERENTIAL, B Routine 02/25/2024 9:10 AM MED DIR 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) Pain Chest from Last 3 Months Results * ECG 12 Lead (02/25/2024 12:54 PM MED DIR) Ventricular Rate ECG/Min 81 BPM MUSE [place] Interval 254 ms MUSE QRSD Interval 82 ms MUSE QT Interval 336 ms MUSE QTC Interval 390 ms MUSE P [place] 48 degrees MUSE R [place] -38 degrees MUSE T Wave [place] 3 degrees MUSE 02/25/2024 12:5 4 PM MED DIR 02/25/2024 1:12 PM MED DIR Impressions MUSE - 02/25/2024 1:12 PM MED DIR Sinus rhythm with 1st degree A-V block Left axis deviation Cannot rule out Anteroseptal infarct Nonspecific ST and T wave abnormality When compared with ECG of 28-May-2023 13:10, No significant change in data has occurred Reviewed by Mitchel Ledesma III, CRAT Narrative Procedure Note William Lema M.D., Ph.D. - 02/25/2024 IMPRESSION: Sinus rhythm with 1st degree A-V block Left axis deviation Cannot rule out Anteroseptal infarct Nonspecific ST and T wave abnormality When compared with ECG of 28-May-2023 13:10, No significant change in data has occurred Reviewed by Mitchel Ledesma III, CRAT us Jefry Donald M.D. ECG ORDERABLES Final Result MUSE NA * DX Chest AP or PA and Lateral 2 Views (02/25/2024 9:38 AM MED DIR) Anatomical Region Laterality Modality Chest, Thoracic RST LOS, Tho racic ARZ LOS, Thoracic FLA LOS N/A Digital Radiography Impressions 02/25/2024 10:16 AM MED DIR Comparison with chest radiograph from 05/28/2023. No significant change. Similar peripheral predominant reticular opacities in both lungs, greatest in the lower zones with associated micronodularity and bronchiolectasis. Findings may be related to chronic infectious/inflammatory process such as a nontuberculous mycobacterial infection versus scarring/fibrosis. Enlarged cardiac silhouette. Atherosclerotic aortic calcifications. Bilateral nipple shadows. Thoracolumbar spine curvature. Chest otherwise negative. Narrative 02/25/2024 10:16 AM MED DIR EXAM: DX CHEST AP OR PA AND LATERAL 2 VIEWS Procedure Note Rosaura Meadows M.D. - 02/25/2024 EXAM: DX CHEST AP OR PA AND LATERAL 2 VIEWS IMPRESSION: Comparison with chest radiograph from 05/28/2023. No significant change.Similar peripheral predominant reticular opacities in both lungs, greatestin the lower zones with associated micronodularity and bronchiolectasis.Findings may be related to chronic infectious/inflammatory process such as anontuberculous mycobacterial infection versus scarring/fibrosis. Enlargedcardiac silhouette. Atherosclerotic aortic calcifications. Bilateralnipple shadows. Thoracolumbar spine curvature. Chest otherwise negative. Jefry Donald M.D. [facility] DIAGNOSTIC IMAGING PROCED URES Final Result * Lipid Panel (02/25/2024 9:10 AM MED DIR) Triglycerides 78 mg/dL 02/25/2024 11:24 AM MED DIR DTL Comment: ----REFERENCE VALUE---- Normal: <150 mg/dL Borderline High: 150-199 mg/dL High: 200-499 mg/dL Very High: > or =500 mg/dL Cholesterol, Total 194 mg/dL 2023 11:24 AM MED DIR DTL Comment: ----REFERENCE VALUE---- Desirable: < 200 mg/dL Borderline High: 200 - 239 mg/dL High: > or = 240 mg/dL Cholesterol, LDL, Calculated 79 mg/dL 02/25/2024 11:24 AM MED DIR DTL Comment: ----REFERENCE VALUE---- Desirable: <100 mg/dL Above Desirable: 100-129 mg/dL Borderline High: 130-159 mg/dL High: 160-189 mg/dL Very High: >=190 mg/dL ----ADDITIONAL INFORMATION---- LDL cholesterol calculated using the Piper/NIH equation. Cholesterol, HDL, S 101 >=50 mg/dL 02/25/2024 11:24 AM MED DIR DTL Cholesterol, Non-HDL, Calculated 93 mg/dL 02/25/2024 11:24 AM MED DIR DTL Comment: ----REFERENCE VALUE---- Desirable: <130 mg/dL Above Desirable: 130-159 mg/dL Borderline High: 160-189 mg/dL High: 190-219 mg/dL Very High: > or =220 mg/dL Fasting (8 HR or more) Yes 02/25/2024 9:10 AM MED DIR DTL Blood (Blood, Venous) 02/25/2024 9:10 AM MED DIR 02/25/2024 9:50 AM MED DIR Jefry Donald M.D. LAB BLOOD ADD-ON Final Result [address] [address], [facility] [address] [place] [address] * (ABNORMAL) CBC with Differential, Blood (02/25/2024 9:10 AM MED DIR) Hemoglobin 14.7 11.6 - 15.0 g/dL 02/25/2024 11:00 AM MED DIR DTL Hematocrit 45.2(H) 35.5 - 44.9 % 02/25/2024 11:00 AM MED DIR DTL Erythrocytes 4.67 3.92 - 5.13 x10(12)/L 02/25/2024 11:00 AM MED DIR DTL MCV 96.8 78.2 - 97.9 fL 02/25/2024 11:00 AM MED DIR DTL RBC Distrib Width 13.5 12.2 - 16.1 % 02/25/2024 11:00 AM MED DIR DTL Platelet Count 243 157 - 371 x10(9)/L 02/25/2024 11:00 AM MED DIR DTL Leukocytes 5.8 3.4 - 9.6 x10(9)/L 02/25/2024 11:00 AM MED DIR DTL Neutrophils 3.80 1.56 - 6.45 x10(9)/L 02/25/2024 11:00 AM MED DIR DHPM Lymphocytes 1.26 0.95 - 3.07 x10(9)/L 02/25/2024 11:00 AM MED DIR DTL Monocytes 0.62 0.26 - 0.81 x10(9)/L 02/25/2024 11:00 AM MED DIR DTL Eosinophils 0.08 0.03 - 0.48 x10(9)/L 02/25/2024 11:00 AM MED DIR DTL Basophils 0.04 0.01 - 0.08 x10(9)/L 02/25/2024 11:00 AM MED DIR DTL Blood (Blood, Venous) 02/25/2024 9:10 AM MED DIR 02/25/2024 9:32 AM MED DIR us Jefry Donald M.D. LAB BLOOD ADD-ON Final Result Performing Organization Address City/[facility]/ZIP Co de Phone Number [facility] [address] [facility] [address] [place] [address] * Glucose, Fasting (02/25/2024 9:10 AM MED DIR) [facility] Glucose, P 97 70 - 100 mg/dL 02/25/2024 11:19 AM MED DIR DTL Last Intake 16 hr 02/25/2024 9:50 AM MED DIR DTL Blood (Blood, Venous) 02/25/2024 9:10 AM MED DIR 02/25/2024 9:50 AM MED DIR us Jefry Donald M.D. LAB BLOOD NON ADD-ON Final Re sult [facility] [address] [place] [address] * Comprehensive Metabolic Panel (02/25/2024 9:10 AM MED DIR) Potassium, S 5.2 3.6 - 5.2 mmol/L 02/25/2024 11:24 AM MED DIR DTL Sodium, S 137 135 - 145 mmol/L 02/25/2024 11:24 AM MED DIR DTL Chloride, S 99 98 - 107 mmol/L 02/25/2024 11:24 AM MED DIR DTL Bicarbonate, S 28 22 - 29 mmol/L 02/25/2024 11:24 AM MED DIR DTL Anion Gap 10 7 - 15 02/25/2024 11:24 AM MED DIR DTL BUN (Blood Urea Nitrogen), S 11 6 - 21 mg/dL 02/25/2024 11:24 AM MED DIR DTL Creatinine 0.81 0.59 - 1.04 mg/dL 02/25/2024 11:24 AM MED DIR DTL Estimated GFR (eGFR) 71 >=60 mL/min/BS A 02/25/2024 11:24 AM MED DIR DTL Comment: Estimated GFR calculated using the 2020 CKD_EPI creatinine equation. Calcium, Total, S 9.3 8.8 - 10.2 mg/dL 02/25/2024 11:24 AM MED DIR DTL Glucose, S CANCELED mg/dL 02/25/2024 9:50 AM MED DIR DTL Comment: Duplicate test request. Result canceled by the ancillary. Protein, Total, S 6.4 6.3 - 7.9 g/dL 02/25/2024 11:24 AM MED DIR DTL Albumin, S 4.4 3.5 - 5.0 g/dL 02/25/2024 11:24 AM MED DIR DTL Aspartate Aminotransferase (AST), S 26 8 - 43 U/L 02/25/2024 11:24 AM MED DIR DTL Alkaline Phosphatase, S 78 35 - 104 U/L 02/25/2024 11:24 AM MED DIR DTL Alanine Aminotransferase (ALT), S 17 7 - 45 U/L 02/25/2024 11:24 AM MED DIR DTL Bilirubin, Total, S 0.8 0.0 - 1.2 mg/dL 02/25/2024 11:24 AM MED DIR DTL Blood (Blood, Venous) 02/25/2024 9:10 AM MED DIR 02/25/2024 9:50 AM MED DIR us Jefry Donald M.D. LAB BLOOD ADD-ON Final Result [facility] [address] [place] [address], [place] DTL [facility] [address] [place] [address] from Last 3 Months Insurance MEDICARE [facility] Care Teams Swimming Pool Attendant Relationship Specialty Start Date End Date Elsewhere, Pcp PCP - General Internal Medicine 05/25/23
--- OUTSIDE RECORDS SUMMARY | 2024-03-17 14:14 | XMS_ITS | Encounter Summary ---
Author Organization [facility] Address [address] [place] [address] Care Team Providers Care Real Estate Marketing Coordinator Name Role Phone Elsewhere, Pcp Primary Care Provider Unavailabl e Reason for Visit * Reason Onset Date Comments Triage 01/15/2024 Encounter Details Date Type Department Care Team (Late st Contact Info) Description 01/15/2024 Clinical Communication Department of Cardiovascular Medicine in [place], [place] [address] [place] [address] Prescheduling, Provider Triage Social History Tobacco Use Types Packs/Day Years Used Date Smoking Tobacco: Never Smokeless Tobacco: Never Alcohol Use Standard Drinks/Week Comments Not Currently 0 (1 standard drink = 0.6 oz pur e alcohol) [facility] Utilities Answer Date Recorded In the past 12 months has e electric, gas, oil, or water [employer] threatened to shut off services in your [...] often do you attend chur ch or advent services? Never 09/04/2022 Do you belong to [...] care, and heating? Not very hard 09/04/2022 [facility] of Occupat ional Health - Occupational Stress [...] PM CDT Legal Sex Female 8:55 PM FORENSIC AUDIT EXPERT Gender Identity Female 09/04/2022 4:04 PM CDT Sexual Orientation Straight 09/04/2022 4: 04 PM CDT documented as of this encounter Miscellaneous Notes * Telephone Encounter - Jory Mak Yudith - 01/15/2024 1:09 PM CDT NEW Appointment Triage Questionnaire Information gathered by PASS during initial Appointment Request on 01/15/24 Self Referral Primary Care Provider (first and last name): Nabila Gale at [facility] Joy Loading Machine Operator (first and last name): saw Dr Lockwood with [facility] (name, [facility]) where outside testing/imaging has been completed: [facility] Primary Cardiac Concern: Symptoms What [...] documented in this encounter Plan of Treatment Not on file documented as of this encounter Visit Diagnoses Not on filedocumented in this encounter Care Teams Real Estate Marketing Coordinator Relationship Specialty Start Date End Date Elsewhere, Pcp PCP - General Internal Medicine 05/25/23 documented as of this encounter
--- OUTSIDE RECORDS SUMMARY | 2024-03-17 14:14 | XMS_ITS | Encounter Summary ---
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 [address] [place] [address] Phone: tel: fax: [facility] Referral ID Status Reason Start Date Expiration Date Visits Re quested Visits Authorized [id number] Closed 01/18/2024 01/17/2025 1 1 Encounter Details Date Type Department Care Team (Latest Contact Info) Description 02/25/2024 9:14 AM EPIC SPECIALIST - 02/25/2024 11:59 PM EPIC SPECIALIST Hospital Encounter Department of Radiology, [facility], in [place], [place] [address] [place] [address] Jefry Donald M.D. [address] [place] [address] Regurgitation Tricuspid; 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); Pain Chest Discharge Disposition: Home or Self Care Social History Tobacco Use Types Packs/Day Years Used Date Smoking Tobacco: Never Smokeless Tobacco: Never Alcohol Use Standard Drinks/Week Comments Not Currently 0 (1 standard drink = 0.6 oz pur e alcohol) [facility] Utilities Answer Date Recorded In the past 12 months has e [employer], gas, oil, or water [employer] threatened to shut off services in your [...] often do you attend chur ch or mormonism services? Never 09/04/2022 Do you belong to any clubs o r organizations such as judaism groups, unions, fraternal or athletic groups, or [...] care, and heating? Not very hard 09/04/2022 [facility] of Occupat ional Health - Occupational Stress [...] PM CDT Legal Sex Female 8:55 PM EPIC SPECIALIST Gender Identity Female 09/04/2022 4:04 PM CDT Sexual Orientation Straight 09/04/2022 4: 04 PM CDT documented as of this encounter Medications at Time of Discharge apixaban (ELIQUIS) 2.5 mg tablet Take 2.5 mg by mouth 2 (two) times a day. 04/25/2021 atorvastatin (LIPITOR) 10 mg tablet daily. 09/25/2017 flecainide (TAMBOCOR) 50 mg tablet Take 50 mg by mouth 2 (two) times a day. 08/18/2021 ketoconazole (NIZORAL) 2 % shampoo Apply 1 Application topically as needed. losartan (COZAAR) 25 mg tablet 50 mg daily. 08/13/2017 dilTIAZem CD (CARDIZEM CD/CARTIA XT) 120 mg 24 hr capsule Take 1 capsule by mouth daily. 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 No significant change. Similar peripheral predominant reticular opacities in both lungs, greatest in the lower zones with associated micronodularity and bronchiolectasis. Findings may be related to chronic infectious/inflammatory process such as a nontuberculous mycobacterial infection versus scarring/fibrosis. Enlarged cardiac silhouette. Atherosclerotic aortic calcifications. Bilateral nipple shadows. Thoracolumbar spine curvature. Chest otherwise negative. Narrative 02/25/2024 10:16 AM EPIC SPECIALIST EXAM: DX CHEST AP OR PA AND [...] shadows. Thoracolumbar spine curvature. Chest otherwise negative. us Jefry Donald M.D. 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
--- OUTSIDE RECORDS SUMMARY | 2024-03-17 14:14 | XMS_ITS | Encounter Summary ---
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 [address] [place] [address] Phone: tel: fax: 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 [address] [place] [address] Phone: tel: fax: 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 [address] [place] [address] Phone: tel: fax: [facility] Referral ID Status Reason Start Date Expiration Date Visits Re quested Visits Authorized [id number] Closed 01/18/2024 01/17/2025 1 1 Encounter Details Date Type Department Care Team (Late st Contact Info) Description 01/18/2024 Referral Triage Department of Cardiovascular Medicine in [place], [place] [address] [place] [id number] Health And Safety SpecialistGodwin M.D. Social History Tobacco Use Types Packs/Day Years Used Date Smoking Tobacco: Never Smokeless Tobacco: Never Alcohol Use Standard Drinks/Week Comments Not Currently 0 (1 standard drink = 0.6 oz pur e alcohol) [facility] Utilities Answer Date Recorded In the past 12 months has e electric, gas, oil, or water [employer] threatened to shut off services in your [...] often do you attend chur ch or jehovah's witness services? Never 09/04/2022 Do you belong to any clubs o r organizations such as latter-day groups, unions, fraternal or athletic groups, or [...] care, and heating? Not very hard 09/04/2022 [facility] of Occupat ional Health - Occupational [...] your living situation today? I have a [facility] place to live 09/09/2023 Education Answer Date Recorded What is the highest level of school you have completed or the highest degree you have received? 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) Pain Chest 1 Occurrences starting 01/18/2024 until 04/18/2025 documented as of this encounter Results * ECG 12 Lead (02/25/2024 12:54 PM SHEET PILE HAMMER OPERATOR) Ventricular Rate ECG/Min 81 BPM MUSE ME Interval 254 ms MUSE QRSD Interval 82 ms MUSE QT Interval 336 ms MUSE QTC Interval 390 ms MUSE P Nuevo 48 degrees MUSE R Nuevo -38 degrees MUSE T Wave Nuevo 3 degrees MUSE 02/25/2024 12:5 4 PM SHEET PILE HAMMER OPERATOR 02/25/2024 1:12 PM SHEET PILE HAMMER OPERATOR Impressions MUSE - 02/25/2024 1:12 PM SHEET PILE HAMMER OPERATOR Sinus rhythm with 1st degree A-V block [...] and Lateral 2 Views (02/25/2024 9:38 AM SHEET PILE HAMMER OPERATOR) Anatomical Region Laterality Modality Chest, Thoracic RST LOS, Tho racic ARZ LOS, Thoracic FLA LOS N/A Digital Radiography Impressions 02/25/2024 10:16 AM SHEET PILE HAMMER OPERATOR Comparison with chest radiograph from 05/28/2023. No significant change. Similar peripheral predominant reticular opacities in both lungs, greatest in the lower zones with associated micronodularity and bronchiolectasis. Findings may be related to chronic infectious/inflammatory process such as a nontuberculous mycobacterial infection versus scarring/fibrosis. Enlarged cardiac silhouette. Atherosclerotic aortic calcifications. Bilateral nipple shadows. Thoracolumbar spine curvature. Chest otherwise negative. Narrative 02/25/2024 10:16 AM SHEET PILE HAMMER OPERATOR EXAM: DX CHEST AP OR PA AND [...] Chest otherwise negative. us Jefry Donald M.D. IMG DIAGNOSTIC IMAGING PROCED URES Final Result * Lipid Panel (02/25/2024 9:10 AM SHEET PILE HAMMER OPERATOR) Triglycerides 78 mg/dL 02/25/2024 11:24 AM SHEET PILE HAMMER OPERATOR DTL Comment: ----REFERENCE VALUE---- Normal: <150 mg/dL Borderline High: 150-199 mg/dL High: 200-499 mg/dL Very High: > or =500 mg/dL Cholesterol, Total 194 mg/dL 2023 11:24 AM SHEET PILE HAMMER OPERATOR DTL Comment: ----REFERENCE VALUE---- Desirable: < 200 mg/dL Borderline High: 200 - 239 mg/dL High: > or = 240 mg/dL Cholesterol, LDL, Calculated 79 mg/dL 02/25/2024 11:24 AM SHEET PILE HAMMER OPERATOR DTL Comment: ----REFERENCE VALUE---- Desirable: <100 mg/dL Above Desirable: 100-129 mg/dL Borderline High: 130-159 mg/dL High: 160-189 mg/dL Very High: >=190 mg/dL ----ADDITIONAL INFORMATION---- LDL cholesterol calculated using the Piper/NIH equation. Cholesterol, HDL, S 101 >=50 mg/dL 02/25/2024 11:24 AM SHEET PILE HAMMER OPERATOR DTL Cholesterol, Non-HDL, Calculated 93 mg/dL 02/25/2024 11:24 AM SHEET PILE HAMMER OPERATOR DTL Comment: ----REFERENCE VALUE---- Desirable: <130 mg/dL Above Desirable: 130-159 mg/dL Borderline High: 160-189 mg/dL High: 190-219 mg/dL Very High: > or =220 mg/dL Fasting (8 HR or more) Yes 02/25/2024 9:10 AM SHEET PILE HAMMER OPERATOR DTL Blood (Blood, Venous) 02/25/2024 9:10 AM SHEET PILE HAMMER OPERATOR 02/25/2024 9:50 AM SHEET PILE HAMMER OPERATOR us Jefry Donald M.D. LAB BLOOD ADD-ON Final Result [facility] [address] [place] [address], [place] [facility] [address] [place] [address] * Glucose, Fasting (02/25/2024 9:10 AM SHEET PILE HAMMER OPERATOR) Glucose, P 97 70 - 100 mg/dL 02/25/2024 11:19 AM SHEET PILE HAMMER OPERATOR DTL Last Intake 16 hr 02/25/2024 9:50 AM SHEET PILE HAMMER OPERATOR DTL Blood (Blood, Venous) 02/25/2024 9:10 AM SHEET PILE HAMMER OPERATOR 02/25/2024 9:50 AM SHEET PILE HAMMER OPERATOR us Jefry Donald M.D. LAB BLOOD NON ADD-ON Final Re sult [facility] [address] [place] [address], [facility] [address] [place] [address] * Comprehensive Metabolic Panel (02/25/2024 9:10 AM SHEET PILE HAMMER OPERATOR) Pathologist [facility] Potassium, S 5.2 3.6 - 5.2 mmol/L 02/25/2024 11:24 AM SHEET PILE HAMMER OPERATOR DTL Sodium, S 137 135 - 145 mmol/L 02/25/2024 11:24 AM SHEET PILE HAMMER OPERATOR DTL Chloride, S 99 98 - 107 mmol/L 02/25/2024 11:24 AM SHEET PILE HAMMER OPERATOR DTL Bicarbonate, S 28 22 - 29 mmol/L 02/25/2024 11:24 AM SHEET PILE HAMMER OPERATOR DTL Anion Gap 10 7 - 15 02/25/2024 11:24 AM SHEET PILE HAMMER OPERATOR DTL BUN (Blood Urea Nitrogen), S 11 6 - 21 mg/dL 02/25/2024 11:24 AM SHEET PILE HAMMER OPERATOR DTL Creatinine 0.81 0.59 - 1.04 mg/dL 02/25/2024 11:24 AM SHEET PILE HAMMER OPERATOR DTL Estimated GFR (eGFR) 71 >=60 mL/min/BS A 02/25/2024 11:24 AM SHEET PILE HAMMER OPERATOR DTL Comment: Estimated GFR calculated using the 2020 CKD_EPI creatinine equation. Calcium, Total, S 9.3 8.8 - 10.2 mg/dL 02/25/2024 11:24 AM SHEET PILE HAMMER OPERATOR DTL Glucose, S CANCELED mg/dL 02/25/2024 9:50 AM SHEET PILE HAMMER OPERATOR DTL Comment: Duplicate test request. Result canceled by the ancillary. Protein, Total, S 6.4 6.3 - 7.9 g/dL 02/25/2024 11:24 AM SHEET PILE HAMMER OPERATOR DTL Albumin, S 4.4 3.5 - 5.0 g/dL 02/25/2024 11:24 AM SHEET PILE HAMMER OPERATOR DTL Aspartate Aminotransferase (AST), S 26 8 - 43 U/L 02/25/2024 11:24 AM SHEET PILE HAMMER OPERATOR DTL Alkaline Phosphatase, S 78 35 - 104 U/L 02/25/2024 11:24 AM SHEET PILE HAMMER OPERATOR DTL Alanine Aminotransferase (ALT), S 17 7 - 45 U/L 02/25/2024 11:24 AM SHEET PILE HAMMER OPERATOR DTL Bilirubin, Total, S 0.8 0.0 - 1.2 mg/dL 02/25/2024 11:24 AM SHEET PILE HAMMER OPERATOR DTL Blood (Blood, Venous) 02/25/2024 9:10 AM SHEET PILE HAMMER OPERATOR 02/25/2024 9:50 AM SHEET PILE HAMMER OPERATOR us Jefry Donald M.D. LAB BLOOD ADD-ON Final Result [facility] [place] [address], [facility] [address] [place] [address] * (ABNORMAL) CBC with Differential, Blood (02/25/2024 9:10 AM SHEET PILE HAMMER OPERATOR) Hemoglobin 14.7 11.6 - 15.0 g/dL 02/25/2024 11:00 AM SHEET PILE HAMMER OPERATOR DTL Hematocrit 45.2(H) 35.5 - 44.9 % 02/25/2024 11:00 AM SHEET PILE HAMMER OPERATOR DTL Erythrocytes 4.67 3.92 - 5.13 x10(12)/L 02/25/2024 11:00 AM SHEET PILE HAMMER OPERATOR DTL MCV 96.8 78.2 - 97.9 fL 02/25/2024 11:00 AM SHEET PILE HAMMER OPERATOR DTL RBC Distrib Width 13.5 12.2 - 16.1 % 02/25/2024 11:00 AM SHEET PILE HAMMER OPERATOR DTL Platelet Count 243 157 - 371 x10(9)/L 02/25/2024 11:00 AM SHEET PILE HAMMER OPERATOR DTL Leukocytes 5.8 3.4 - 9.6 x10(9)/L 02/25/2024 11:00 AM SHEET PILE HAMMER OPERATOR DTL Neutrophils 3.80 1.56 - 6.45 x10(9)/L 02/25/2024 11:00 AM SHEET PILE HAMMER OPERATOR DHPM Lymphocytes 1.26 0.95 - 3.07 x10(9)/L 02/25/2024 11:00 AM SHEET PILE HAMMER OPERATOR DTL Monocytes 0.62 0.26 - 0.81 x10(9)/L 02/25/2024 11:00 AM SHEET PILE HAMMER OPERATOR DTL Eosinophils 0.08 0.03 - 0.48 x10(9)/L 02/25/2024 11:00 AM SHEET PILE HAMMER OPERATOR DTL Basophils 0.04 0.01 - 0.08 x10(9)/L 02/25/2024 11:00 AM SHEET PILE HAMMER OPERATOR DTL Blood (Blood, Venous) 02/25/2024 9:10 AM SHEET PILE HAMMER OPERATOR 02/25/2024 9:32 AM SHEET PILE HAMMER OPERATOR Jefry Donald M.D. 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
--- OUTSIDE RECORDS SUMMARY | 2024-03-17 14:14 | XMS_ITS | Encounter Summary ---
Author Organization [facility] Address [address] [place] [id number] Care Team Providers Care Bung Remover Name Role Phone Elsewhere, Pcp Primary Care Provider Unavailabl e Reason for Visit * Appointment Request (Routine) - Closed Specialty Diagnoses / Procedures Referred By Contac t Referred To Contact Cardiovascular Disease Diagnoses Pain Chest Referral ID Status Reason Start Date Expiration Date Visits Re quested Visits Authorized [id number] Closed 01/15/2024 01/14/2025 1 1 Encounter Details Date Type Department Care Team (Latest Contact Info) Description 03/03/2024 8:15 AM AQUAC[employer] F[employer]ER Comprehensive Visit Department of Cardiovascular Medicine in [place], [place] [address] [place] [id number] Henry Cowan M.D. [address] [place] [phone] Atrial Fibrillation Unspecified (HCC) (Primary Dx); Regurgitation Tricuspid Social History Tobacco Use Types Packs/Day Years Used Date Smoking Tobacco: Never Smokeless Tobacco: Never Tobacco Cessation:Counseling Given: Not Answered Alcohol Use Standard Drinks/Week Comments Not Currently 0 (1 standard drink = 0.6 oz pur e alcohol) [facility] Utilities Answer Date Recorded In the past 12 months has e electric, gas, oil, or water [employer] threatened to shut off services in your [...] 09/04/2022 How often do you attend chur or judaism services? Never 09/04/2022 Do you belong to any clubs o r organizations such as sabianism groups, unions, fraternal or athletic groups, or [...] care, and heating? Not very hard 09/04/2022 [facility] [place] [facility] Occupat ional Health - Occupational Stress [...] your living situation today? I have a [facility] place to live 09/09/2023 Education Answer Date Recorded What is the highest level of school you have completed or the highest degree you have received? Bachelor's degree (e.g., BA, AB, BS) 09/04/2022 Comments Unknown Sex and Gender Information Value Date Recorded Sex Assigned at Female 09/04/2022 4:04 PM CDT Legal Sex Female 8:55 PM [employer] Gender Identity Female 09/04/2022 4:04 PM CDT Sexual Orientation Straight 09/04/2022 4: 04 PM CDT documented as of this encounter Last Filed Vital Signs Vital Sign Reading Time Taken Comments Blood Pressure 208/132 03/03/2024 8:06 AM [employer]AC[employer] Pulse 93 03/03/2024 8:06 AM A[employer] Temperature - - Respiratory Rate - - Oxygen Saturation - - Inhaled Oxygen Concentration - - Weight 49 kg (108 lb 0.4 oz) 03/03/2024 8:06 AM [employer] Height 157 cm (5' 1.81) 03/03/2024 8:06 AM A[employer] Body Mass Index 19.88 03/03/2024 8:06 AM A[employer]AC[employer] F[employer]ER documented in this encounter Consult Notes * Henry Cowan M.D. - 03/03/2024 8:15 AM CST C[facility]IOLOGY [facility]INIC CONSULT NOTE Referring Physician: No ref. provider found Patient ID: .Elma Weir is a 88 y.o. female Date of : 1935 SUBJECTIVE HISTORY OF PRESENT ILLNESS: Elma Weir is a 88 y.o. female who presents for evaluation of chest pain and dyspnea. Cardiovascular history: Typical atrial flutter status post ablation in 2020 Currently on Eliquis Atrial tachycardia Currently on flecainide 50 mg twice daily Diltiazem discontinued on 01/24/2024 given ME prolongation Moderate TR Ascending aortic aneurysm (44 mm, TTE 05/2023) Medical comorbidities: Hypertension Hyperlipidemia Cardiac medications: Flecainide 50 mg twice daily Losartan 25 mg daily Apixaban 2.5 mg twice daily Atorvastatin 10 mg daily Patient was recently seen in [facility] in June 12, 2023 for consultation regarding her tricuspid regurgitation. Her echocardiogram at that time showed moderate TR, borderline RV enlargement with preserved function, RVSP 28 mm Hg, LVEF 59%, mid ascending aorta dilatation at 44 mm. NT proBNP was 152. She reported feeling well at the time and remain active without cardiopulmonary symptoms. She denied any heart failure symptoms. Annual surveillance was recommended. She follows closely with electrophysiology at [facility] for management of her atrial arrhythmias. Her flecainide and diltiazem dosing were reduced in the setting of ME prolongation and her diltiazem was eventually discontinued. She continues on flecainide 50 mg twice daily. Her ZIO patch on 01/29 showed baseline sinus rhythm, average heart rate 72 beats per minute, 3 SVT episodes, longest episode 5 beats with an average rate of 90. Pac/PVC burden less than 1%. No events were reported. Today, patient reports feeling well overall. She continues to walk 20-30 minutes a day without any exertional chest pain or dyspnea. She also climbs 3 flights of stairs at home multiple times withoutsymptoms. She has infrequent palpitations and denies dizziness, lightheadedness, presyncope or syncope. Denies orthopnea or lower extremity edema. She does note that since stopping her diltiazem, her blood pressures have been elevated with average home blood pressure in the 140s/90s. She does note occasional left-sided chest pressure without clear trigger. She denies any symptoms with activity and they generally occur at rest. She has been experiencing this for over 5 years. She had a stress echocardiogram in 2019 completed elsewhere which [place] [address]. Cardiac medications: Apixaban 2.5 mg twice daily Atorvastatin 10 mg daily Flecainide 50 mg twice daily Losartan 25 mg daily A 12 point review of systems was performed and is negative except as outlined above. OBJECTIVE PHYSICAL EXAM: Blood Pressure: (208)/(132) 208/132 Height: [157 cm] 157 cm Weight: [49 kg] 49 kg BSA (Calculated - sq m): [1.46 sq meters] 1.46 sq meters BMI (Calculated): [19.9 kg/m??] 19.9 kg/m?? Pulse Rate: [93] 93 Vitals reviewed General: Well-developed, well-nourished. No acute distress. Pleasant and cooperative. HEENT: Pupils equal round reactive to light. Extraocular movements intact. Cardiovascular: No jugular venous distention, Regular rate and rhythm. Normal S1 & S2. No murmurs, gallops, or rubs. Lungs: Normal work of breathing. Clear to auscultation bilaterally. No rales, rhonchi, or wheeze. Abdomen: Soft, nontender, nondistended Extremities: Warm, well perfused. 2+ radial pulses bilaterally. No significant edema. Skin: No stasis dermatitis or ulceration of the lower extremities appreciated. Neuro: Alert and oriented x 3. Psychiatric: Thought processes are linear and goal-oriented. Normal affect. LABORATORY STUDIES: CBC Lab Results Component Value Date/Time HGB 14.7 02/25/2024 09:10 AM HGB 14.0 06/20/2022 11:15 AM WBC 5.8 02/25/2024 09:10 AM WBC 7.2 06/20/2022 11:15 AM PLT 243 02/25/2024 09:10 AM PLT 219 06/20/2022 11:15 AM LAST CHEMISTRY PANEL Lab Results Component Value Date/Time NA 137 02/25/2024 09:10 AM NA 137 03/10/2022 09:32 AM BUN 11 02/25/2024 09:10 AM BUN 13 03/10/2022 09:32 AM CREATININE 0.81 02/25/2024 09:10 AM CREATININE 0.74 06/20/2022 11:15 AM RADIOLOGY STUDIES: DX Chest AP or PA and Lateral 2 Views Result Date: 02/25/2024 Impression: Comparison with chest radiograph from 05/28/2023. No significant change. Similar peripheral predominant reticular opacities in both lungs, greatest in the lower zones with associated micronodularity and bronchiolectasis. Findings may be related to chronic infectious/inflammatory process such as a nontuberculous mycobacterial infection versus scarring/fibrosis. Enlarged cardiac silhouette. Atherosclerotic aortic calcifications. Bilateral nipple shadows. Thoracolumbar spine curvature. Chest otherwise negative. Electrocardiogram: ECG 12 Lead Result Date: 02/25/2024 Sinus rhythm with 1st degree A-V block Left axis deviation Cannot rule out Anteroseptal infarct Nonspecific ST and T wave abnormality When compared with ECG of 28-May-2023 13:10, No significant change in data has occurred Reviewed by Mitchel Ledesma III, CRAT TTE (05/28/2023) 1. Moderate tricuspid valve regurgitation, ERO (PISA) 0.18 cm2, regurgitant volume (PISA) 16 ml. 2. Borderline enlarged right ventricular chamber size, normal systolic function, estimated right ventricular systolic pressure 28 mmHg (right atrial pressure of 5 mmHg). 3. Normal left ventricular chamber size, no regional wall motion abnormalities, calculated 2-D linear ejection fraction 59%. 4. Enlarged mid ascending aorta diameter of 44 mm, upper limit of normal for age, sex and BSA is 38mm. Assessment Chest pain, likely noncardiac Typical atrial flutter status post ablation in 2020 Currently on Eliquis Atrial tachycardia Currently on flecainide 50 mg twice daily Diltiazem discontinued on 01/24/2024 given ME prolongation Moderate TR Ascending aortic aneurysm (44 mm, TTE 05/2023) Hypertension, uncontrolled Hyperlipidemia, well-controlled ASSESSMENT & PLAN: Ms. Weir is an 88-year-old female with the above history who presents for evaluation of hypertension and chest pain. Overall, she reports doing well and remains active without any exertional symptoms. She does reportoccasional left-sided chest pressure which has been ongoing for several years. There was no clear trigger of this and it typically occurs at rest. She denies any associated symptoms. She had a stress echocardiogram in 2019 which showed no evidence of ischemia with adequate exercise effort. I suspect her chest pain is noncardiac. She was scheduled for a stress echocardiogram today, although given her severely elevated blood pressure in the office today, I recommended that we cancel this and reschedule at a later date once her blood pressure is better controlled. She was agreeable to this. In regards to her hypertension, I recommended that we increase her losartan to 50 mg daily as a start. She will likely need further titration of this and possibly addition of an additional agent. I recommended that she closely monitor her blood pressure at home and follow up with her primary care physician for medication titration. I recommend a BP goal of less than 130/80 if tolerated. Her atrial arrhythmias seem well-controlled on flecainide and she denies any worsening palpitations. ZIO patch showed short, asymptomatic episodes of SVT. We will continue this for now. She follows closely with electrophysiology at [facility]. Patient was in agreement with the above plan. All remaining questions were answered. I spent >40 minutes on this encounter, including review, counseling, and documentation. Henry Cowan M.D. 03/02/24 [employer]ULTURE FARMER documented in this encounter Plan of Treatment Not on file documented as of this encounter Visit Diagnoses Diagnosis Atrial Fibrillation Unspecified (HCC)- Primary Regurgitation Tricuspid documented in this encounter Care Teams Bung Remover Relationship Specialty Start Date End Date Elsewhere, Pcp PCP - General Internal Medicine 05/25/23 documented as of this encounter
--- OUTSIDE RECORDS SUMMARY | 2024-03-17 14:14 | XMS_ITS | Referral Summary ---
Author Organization [facility] Address [address] [place] [address] Care Team Providers Care Butcher Helper Name Role Phone Elsewhere, Pcp Primary Care Provider Unavailabl e Source Comments Patient records contain information from all sites at [facility]. For routine questions regarding patient records, call [phone] during business hours, M-F 8:00 AM - 5:00 PM Central Time. Record requests for emergency care only can be directed to [phone] at any time.[facility] Encounters Date Type Department Care Team Description 03/13/2024 11:00 AM COMPUTER APPLICATIONS INSTRUCTOR Office Visit Department of Orthopedic Surgery in [place], [place] [address] [place] [phone] Judith Neal APRN, C.N.P., D.N.P. Dystrophic Toenail; Keratosis Plantar; Callus [place] Foot; Pain Toe Left; Hammer Toe Acquired Left; Hallux Valgus Left; Hallux Valgus Right; Arthritis Foot; Peripheral Arterial Disease (HCC); Residential (Current) Anticoagulant Treatment 03/03/2024 8:15 AM COMPUTER APPLICATIONS INSTRUCTOR Comprehensive Visit Department of Cardiovascular Medicine in [place], [place] [address] [place] [phone] Henry Cowan M.D. Atrial Fibrillation Unspecified (HCC) (Primary Dx); Regurgitation Tricuspid 02/25/2024 8:58 AM COMPUTER APPLICATIONS INSTRUCTOR - 02/25/2024 9:13 AM COMPUTER APPLICATIONS INSTRUCTOR Hospital Encounter Department of Laboratory Medicine and Pathology, [facility], in [place], [place] [address] [place] [address] Jefry Donald M.D. Regurgitation Tricuspid; 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); Pain Chest Discharge Disposition: Home or Self Care 02/25/2024 9:14 AM COMPUTER APPLICATIONS INSTRUCTOR - 02/25/2024 11:59 PM COMPUTER APPLICATIONS INSTRUCTOR Hospital Encounter Department of Radiology, [facility], in [place], [place] [address] [place] [address] Jefry Donald M.D. Regurgitation Tricuspid; 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); Pain Chest Discharge Disposition: Home or Self Care 01/18/2024 Referral Triage Department of Cardiovascular Medicine in [place], [place] [address] [place] [address] Progress DeveloperGodwin M.D. 01/15/2024 Clinical Communication Department of Cardiovascular Medicine in [place], [place] [address] [place] [address] Prescheduling, Provider Triage from Last 3 Months Allergies No known active allergies Medications * [...] 03/08/2023 Onychomycosis 12/13/2022 Dystrophic Toenail 12/13/2022 Callus [place] Foot 12/13/2022 Hallux Valgus Right 12/13/2022 Deformity Toe Acquired Left 12/13/2022 Hallux Valgus Left 12/13/2022 Hammer Toe Acquired Left 12/13/2022 Pain Foot Right 12/13/2022 Pain Foot Left 12/13/2022 Peripheral Arterial Disease 12/13/2022 Bunion Left 12/13/2022 Bunion Right 12/13/2022 Pain Toe Left 12/13/2022 Hyperlipidemia 12/13/2022 Arthritis Foot 12/13/2022 Impaired Fasting Glucose 12/13/2022 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 Never 09/04/2022 Do you belong to any clubs o r organizations such as muslim groups, unions, fraternal or athletic groups, or [...] care, and heating? Not very hard 09/04/2022 [facility] - [...] your living situation today? I have a [facility] place to live 09/09/2023 Education Answer Date Recorded What is the highest level of school you have completed or the highest degree you have received? Bachelor's degree (e.g., BA, AB, BS) 09/04/2022 Comments Unknown Sex and Gender Information Value Date Recorded Sex Assigned at Female 09/04/2022 4:04 PM CDT Legal Sex Female 8:55 PM COMPUTER APPLICATIONS INSTRUCTOR Gender Identity Female 09/04/2022 4:04 PM CDT Sexual Orientation Straight 09/04/2022 4: 04 PM CDT Last Filed Vital Signs Vital Sign Reading Time Taken Comments Blood Pressure 208/132 03/03/2024 8:06 AM COMPUTER APPLICATIONS INSTRUCTOR Pulse 93 03/03/2024 8:06 AM COMPUTER APPLICATIONS INSTRUCTOR Temperature - - Respiratory Rate - - Oxygen Saturation - - Inhaled Oxygen Concentration - - Weight 49 kg (108 lb 0.4 oz) 03/03/2024 8:06 AM COMPUTER APPLICATIONS INSTRUCTOR Height 157 cm (5' 1.81) 03/03/2024 8:06 AM COMPUTER APPLICATIONS INSTRUCTOR Body Mass Index 19.88 03/03/2024 8:06 AM COMPUTER APPLICATIONS INSTRUCTOR Plan of Treatment Not on file Procedures Procedure Name Priority Date/Time Associated Diagnosis Comments ECG Routine 02/25/2024 12:54 PM COMPUTER APPLICATIONS INSTRUCTOR 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) Pain Chest DX CHEST AP OR PA AND LATERAL 2 VIEWS RAD - Routine (most inpatients and all outpatients) 02/25/2024 9:38 AM COMPUTER APPLICATIONS INSTRUCTOR 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) Pain Chest LIPID PANEL, S Routine 02/25/2024 9:10 AM COMPUTER APPLICATIONS INSTRUCTOR 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) Pain Chest GLUCOSE, FASTING, S/P Routine 02/25/2024 9:10 AM COMPUTER APPLICATIONS INSTRUCTOR 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) Pain Chest COMPREHENSIVE METABOLIC PANEL, S/P Routine 02/25/2024 9:10 AM COMPUTER APPLICATIONS INSTRUCTOR 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) Pain Chest CBC WITH DIFFERENTIAL, B Routine 02/25/2024 9:10 AM COMPUTER APPLICATIONS INSTRUCTOR 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) Pain Chest from Last 3 Months Results * ECG 12 Lead (02/25/2024 12:54 PM COMPUTER APPLICATIONS INSTRUCTOR) Ventricular Rate ECG/Min 81 BPM MUSE OH Interval 254 ms MUSE QRSD Interval 82 ms MUSE QT Interval 336 ms MUSE QTC Interval 390 ms MUSE P [place] 48 degrees MUSE R [place] -38 degrees MUSE T Wave [place] 3 degrees MUSE 02/25/2024 12:5 4 PM COMPUTER APPLICATIONS INSTRUCTOR 02/25/2024 1:12 PM COMPUTER APPLICATIONS INSTRUCTOR Impressions MUSE - 02/25/2024 1:12 PM COMPUTER APPLICATIONS INSTRUCTOR Sinus rhythm with 1st degree A-V block [...] and Lateral 2 Views (02/25/2024 9:38 AM COMPUTER APPLICATIONS INSTRUCTOR) Anatomical Region Laterality Modality Chest, Thoracic RST LOS, Tho racic ARZ LOS, Thoracic FLA LOS N/A Digital Radiography Impressions 02/25/2024 10:16 AM COMPUTER APPLICATIONS INSTRUCTOR Comparison with chest radiograph from 05/28/2023. No significant change. Similar peripheral predominant reticular opacities in both lungs, greatest in the lower zones with associated micronodularity and bronchiolectasis. Findings may be related to chronic infectious/inflammatory process such as a nontuberculous mycobacterial infection versus scarring/fibrosis. Enlarged cardiac silhouette. Atherosclerotic aortic calcifications. Bilateral nipple shadows. Thoracolumbar spine curvature. Chest otherwise negative. Narrative 02/25/2024 10:16 AM COMPUTER APPLICATIONS INSTRUCTOR EXAM: DX CHEST AP OR PA AND [...] curvature. Chest otherwise negative. Jefry Donald M.D. IMG DIAGNOSTIC IMAGING PROCED URES Final Result * Lipid Panel (02/25/2024 9:10 AM COMPUTER APPLICATIONS INSTRUCTOR) Triglycerides 78 mg/dL 02/25/2024 11:24 AM COMPUTER APPLICATIONS INSTRUCTOR DTL Comment: ----REFERENCE VALUE---- Normal: <150 mg/dL Borderline High: 150-199 mg/dL High: 200-499 mg/dL Very High: > or =500 mg/dL Cholesterol, Total 194 mg/dL 2023 11:24 AM COMPUTER APPLICATIONS INSTRUCTOR DTL Comment: ----REFERENCE VALUE---- Desirable: < 200 mg/dL Borderline High: 200 - 239 mg/dL High: > or = 240 mg/dL Cholesterol, LDL, Calculated 79 mg/dL 02/25/2024 11:24 AM COMPUTER APPLICATIONS INSTRUCTOR DTL Comment: ----REFERENCE VALUE---- Desirable: <100 mg/dL Above Desirable: 100-129 mg/dL Borderline High: 130-159 mg/dL High: 160-189 mg/dL Very High: >=190 mg/dL ----ADDITIONAL INFORMATION---- LDL cholesterol calculated using the Piper/NIH equation. Cholesterol, HDL, S 101 >=50 mg/dL 02/25/2024 11:24 AM COMPUTER APPLICATIONS INSTRUCTOR DTL Cholesterol, Non-HDL, Calculated 93 mg/dL 02/25/2024 11:24 AM COMPUTER APPLICATIONS INSTRUCTOR DTL Comment: ----REFERENCE VALUE---- Desirable: <130 mg/dL Above Desirable: 130-159 mg/dL Borderline High: 160-189 mg/dL High: 190-219 mg/dL Very High: > or =220 mg/dL Fasting (8 HR or more) Yes 02/25/2024 9:10 AM COMPUTER APPLICATIONS INSTRUCTOR DTL Blood (Blood, Venous) 02/25/2024 9:10 AM COMPUTER APPLICATIONS INSTRUCTOR 02/25/2024 9:50 AM COMPUTER APPLICATIONS INSTRUCTOR Jefry Donald M.D. LAB BLOOD ADD-ON Final Result [facility] [address] [place] [address], [facility] [address] [place] [address] * (ABNORMAL) CBC with Differential, Blood (02/25/2024 9:10 AM COMPUTER APPLICATIONS INSTRUCTOR) Hemoglobin 14.7 11.6 - 15.0 g/dL 02/25/2024 11:00 AM COMPUTER APPLICATIONS INSTRUCTOR DTL Hematocrit 45.2(H) 35.5 - 44.9 % 02/25/2024 11:00 AM COMPUTER APPLICATIONS INSTRUCTOR DTL Erythrocytes 4.67 3.92 - 5.13 x10(12)/L 02/25/2024 11:00 AM COMPUTER APPLICATIONS INSTRUCTOR DTL MCV 96.8 78.2 - 97.9 fL 02/25/2024 11:00 AM COMPUTER APPLICATIONS INSTRUCTOR DTL RBC Distrib Width 13.5 12.2 - 16.1 % 02/25/2024 11:00 AM COMPUTER APPLICATIONS INSTRUCTOR DTL Platelet Count 243 157 - 371 x10(9)/L 02/25/2024 11:00 AM COMPUTER APPLICATIONS INSTRUCTOR DTL Leukocytes 5.8 3.4 - 9.6 x10(9)/L 02/25/2024 11:00 AM COMPUTER APPLICATIONS INSTRUCTOR DTL Neutrophils 3.80 1.56 - 6.45 x10(9)/L 02/25/2024 11:00 AM COMPUTER APPLICATIONS INSTRUCTOR DHPM Lymphocytes 1.26 0.95 - 3.07 x10(9)/L 02/25/2024 11:00 AM COMPUTER APPLICATIONS INSTRUCTOR DTL Monocytes 0.62 0.26 - 0.81 x10(9)/L 02/25/2024 11:00 AM COMPUTER APPLICATIONS INSTRUCTOR DTL Eosinophils 0.08 0.03 - 0.48 x10(9)/L 02/25/2024 11:00 AM COMPUTER APPLICATIONS INSTRUCTOR DTL Basophils 0.04 0.01 - 0.08 x10(9)/L 02/25/2024 11:00 AM COMPUTER APPLICATIONS INSTRUCTOR DTL Blood (Blood, Venous) 02/25/2024 9:10 AM COMPUTER APPLICATIONS INSTRUCTOR 02/25/2024 9:32 AM COMPUTER APPLICATIONS INSTRUCTOR us Jefry Donald M.D. LAB BLOOD ADD-ON Final Result Performing Organization Address City/State/[facility] Co de Phone Number [facility] [address] [place] [address], [facility] DTL [facility] [address] [place] [address] DHPM [facility] [address] [place] [address] * Glucose, Fasting (02/25/2024 9:10 AM COMPUTER APPLICATIONS INSTRUCTOR) Glucose, P 97 70 - 100 mg/dL 02/25/2024 11:19 AM COMPUTER APPLICATIONS INSTRUCTOR DTL Last Intake 16 hr 02/25/2024 9:50 AM COMPUTER APPLICATIONS INSTRUCTOR DTL Blood (Blood, Venous) 02/25/2024 9:10 AM COMPUTER APPLICATIONS INSTRUCTOR 02/25/2024 9:50 AM COMPUTER APPLICATIONS INSTRUCTOR us Jefry Donald M.D. LAB BLOOD NON ADD-ON Final Re sult [facility] [address] [place] [address], [facility] DTL [facility] [address] [place] [address] * Comprehensive Metabolic Panel (02/25/2024 9:10 AM COMPUTER APPLICATIONS INSTRUCTOR) Potassium, S 5.2 3.6 - 5.2 mmol/L 02/25/2024 11:24 AM COMPUTER APPLICATIONS INSTRUCTOR DTL Sodium, S 137 135 - 145 mmol/L 02/25/2024 11:24 AM COMPUTER APPLICATIONS INSTRUCTOR DTL Chloride, S 99 98 - 107 mmol/L 02/25/2024 11:24 AM COMPUTER APPLICATIONS INSTRUCTOR DTL Bicarbonate, S 28 22 - 29 mmol/L 02/25/2024 11:24 AM COMPUTER APPLICATIONS INSTRUCTOR DTL Anion Gap 10 7 - 15 02/25/2024 11:24 AM COMPUTER APPLICATIONS INSTRUCTOR DTL BUN (Blood Urea Nitrogen), S 11 6 - 21 mg/dL 02/25/2024 11:24 AM COMPUTER APPLICATIONS INSTRUCTOR DTL Creatinine 0.81 0.59 - 1.04 mg/dL 02/25/2024 11:24 AM COMPUTER APPLICATIONS INSTRUCTOR DTL Estimated GFR (eGFR) 71 >=60 mL/min/BS A 02/25/2024 11:24 AM COMPUTER APPLICATIONS INSTRUCTOR DTL Comment: Estimated GFR calculated using the 2020 CKD_EPI creatinine equation. Calcium, Total, S 9.3 8.8 - 10.2 mg/dL 02/25/2024 11:24 AM COMPUTER APPLICATIONS INSTRUCTOR DTL Glucose, S CANCELED mg/dL 02/25/2024 9:50 AM COMPUTER APPLICATIONS INSTRUCTOR DTL Comment: Duplicate test request. Result canceled by the ancillary. Protein, Total, S 6.4 6.3 - 7.9 g/dL 02/25/2024 11:24 AM COMPUTER APPLICATIONS INSTRUCTOR DTL Albumin, S 4.4 3.5 - 5.0 g/dL 02/25/2024 11:24 AM COMPUTER APPLICATIONS INSTRUCTOR DTL Aspartate Aminotransferase (AST), S 26 8 - 43 U/L 02/25/2024 11:24 AM COMPUTER APPLICATIONS INSTRUCTOR DTL Alkaline Phosphatase, S 78 35 - 104 U/L 02/25/2024 11:24 AM COMPUTER APPLICATIONS INSTRUCTOR DTL Alanine Aminotransferase (ALT), S 17 7 - 45 U/L 02/25/2024 11:24 AM COMPUTER APPLICATIONS INSTRUCTOR DTL Bilirubin, Total, S 0.8 0.0 - 1.2 mg/dL 02/25/2024 11:24 AM COMPUTER APPLICATIONS INSTRUCTOR DTL Blood (Blood, Venous) 02/25/2024 9:10 AM COMPUTER APPLICATIONS INSTRUCTOR 02/25/2024 9:50 AM COMPUTER APPLICATIONS INSTRUCTOR Jefry Donald M.D. LAB BLOOD ADD-ON Final Result [facility] [address] [place] [address], [facility] DTL [facility] [address] [place] [address] from Last 3 Months Insurance MEDICARE [facility] Care Teams Butcher Helper Relationship Specialty Start Date End Date Elsewhere, Pcp PCP - General Internal Medicine 05/25/23
--- OUTSIDE RECORDS SUMMARY | 2024-03-17 14:14 | XMS_ITS | Encounter Summary ---
Author Organization [facility] Address [address] [place] [address] Care Team Providers Care Tram Operator Name Role Phone Elsewhere, Pcp Primary Care Provider Unavailabl e Encounter Details Date Type Department Care Team (Latest Contact Info) Description 02/25/2024 8:58 AM CONSTRUCTION ADMINISTRATIVE ASSISTANT - 02/25/2024 9:13 AM [facility] Hospital Encounter Department of Laboratory Medicine and Pathology, [facility] in [place], [place] [address] [place] [address] Jefry Donald M.D. 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 Never 09/04/2022 Do you belong to any clubs o r organizations such as mandaen groups, unions, fraternal or athletic groups, or [...] care, and heating? Not very hard 09/04/2022 [facility] - Occupational Stress Questionnaire Answer Date [...] your living situation today? I have a [employer] [facility] [employer] [facility] [employer] place to live 09/09/2023 Education Answer Date Recorded What is the highest level of school you have completed or the highest degree you have received? Bachelor's degree (e.g., BA, AB, BS) 09/04/2022 Comments Unknown Sex and Gender Information Value Date Recorded Sex Assigned at Female 09/04/2022 4:04 PM CDT Legal Sex Female 8:55 PM CONSTRUCTION ADMINISTRATIVE ASSISTANT Gender Identity Female 09/04/2022 4:04 PM CDT [...] Take 1 capsule by mouth daily. 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) Pain Chest GLUCOSE, FASTING, S/P Routine 02/25/2024 9:10 AM CONSTRUCTION ADMINISTRATIVE ASSISTANT 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) Pain Chest COMPREHENSIVE METABOLIC PANEL, S/P Routine 02/25/2024 9:10 AM CONSTRUCTION ADMINISTRATIVE ASSISTANT 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) Pain Chest documented in this encounter Results * Lipid Panel (02/25/2024 9:10 AM CONSTRUCTION ADMINISTRATIVE ASSISTANT) Triglycerides 78 mg/dL 02/25/2024 11:24 AM CONSTRUCTION ADMINISTRATIVE ASSISTANT DTL Comment: ----REFERENCE VALUE---- Normal: <150 mg/dL Borderline High: 150-199 mg/dL High: 200-499 mg/dL Very High: > or =500 mg/dL Cholesterol, Total 194 mg/dL 2023 11:24 AM CONSTRUCTION ADMINISTRATIVE ASSISTANT DTL Comment: ----REFERENCE VALUE---- Desirable: < 200 mg/dL Borderline High: 200 - 239 mg/dL High: > or = 240 mg/dL Cholesterol, LDL, Calculated 79 mg/dL 02/25/2024 11:24 AM CONSTRUCTION ADMINISTRATIVE ASSISTANT DTL Comment: ----REFERENCE VALUE---- Desirable: <100 mg/dL Above Desirable: 100-129 mg/dL Borderline High: 130-159 mg/dL High: 160-189 mg/dL Very High: >=190 mg/dL ----ADDITIONAL INFORMATION---- LDL cholesterol calculated using the Piper/NIH equation. Cholesterol, HDL, S 101 >=50 mg/dL 02/25/2024 11:24 AM CONSTRUCTION ADMINISTRATIVE ASSISTANT DTL Cholesterol, Non-HDL, Calculated 93 mg/dL 02/25/2024 11:24 AM CONSTRUCTION ADMINISTRATIVE ASSISTANT DTL Comment: ----REFERENCE VALUE---- Desirable: <130 mg/dL Above Desirable: 130-159 mg/dL Borderline High: 160-189 mg/dL High: 190-219 mg/dL Very High: > or =220 mg/dL Fasting (8 HR or more) Yes 02/25/2024 9:10 AM CONSTRUCTION ADMINISTRATIVE ASSISTANT DTL Blood (Blood, Venous) 02/25/2024 9:10 AM CONSTRUCTION ADMINISTRATIVE ASSISTANT 02/25/2024 9:50 AM CONSTRUCTION ADMINISTRATIVE ASSISTANT Jefry Donald M.D. LAB BLOOD ADD-ON Final Result Performing Organization Address [facility]/ZIP Co de Phone Number [facility] [address] [place] [address], [facility] [place] [address] [place] [address] * Glucose, Fasting (02/25/2024 9:10 AM CONSTRUCTION ADMINISTRATIVE ASSISTANT) Glucose, P 97 70 - 100 mg/dL 02/25/2024 11:19 AM CONSTRUCTION ADMINISTRATIVE ASSISTANT DTL Last Intake 16 hr 02/25/2024 9:50 AM CONSTRUCTION ADMINISTRATIVE ASSISTANT DTL Blood (Blood, Venous) 02/25/2024 9:10 AM CONSTRUCTION ADMINISTRATIVE ASSISTANT 02/25/2024 9:50 AM CONSTRUCTION ADMINISTRATIVE ASSISTANT Jefry Donald M.D. LAB BLOOD NON ADD-ON Final Re sult Performing Organization Address City/[facility]/ZIP Co de Phone Number [facility] [address] [place] [address], [facility] DTL [facility] [address] [place] [address] * Comprehensive Metabolic Panel (02/25/2024 9:10 AM CONSTRUCTION ADMINISTRATIVE ASSISTANT) Potassium, S 5.2 3.6 - 5.2 mmol/L 02/25/2024 11:24 AM CONSTRUCTION ADMINISTRATIVE ASSISTANT DTL Sodium, S 137 135 - 145 mmol/L 02/25/2024 11:24 AM CONSTRUCTION ADMINISTRATIVE ASSISTANT DTL Chloride, S 99 98 - 107 mmol/L 02/25/2024 11:24 AM CONSTRUCTION ADMINISTRATIVE ASSISTANT DTL Bicarbonate, S 28 22 - 29 mmol/L 02/25/2024 11:24 AM CONSTRUCTION ADMINISTRATIVE ASSISTANT DTL Anion Gap 10 7 - 15 02/25/2024 11:24 AM CONSTRUCTION ADMINISTRATIVE ASSISTANT DTL BUN (Blood Urea Nitrogen), S 11 6 - 21 mg/dL 02/25/2024 11:24 AM CONSTRUCTION ADMINISTRATIVE ASSISTANT DTL Creatinine 0.81 0.59 - 1.04 mg/dL 02/25/2024 11:24 AM CONSTRUCTION ADMINISTRATIVE ASSISTANT DTL Estimated GFR (eGFR) 71 >=60 mL/min/BS A 02/25/2024 11:24 AM CONSTRUCTION ADMINISTRATIVE ASSISTANT DTL Comment: Estimated GFR calculated using the 2020 CKD_EPI creatinine equation. Calcium, Total, S 9.3 8.8 - 10.2 mg/dL 02/25/2024 11:24 AM CONSTRUCTION ADMINISTRATIVE ASSISTANT DTL Glucose, S CANCELED mg/dL 02/25/2024 9:50 AM CONSTRUCTION ADMINISTRATIVE ASSISTANT DTL Comment: Duplicate test request. Result canceled by the ancillary. Protein, Total, S 6.4 6.3 - 7.9 g/dL 02/25/2024 11:24 AM CONSTRUCTION ADMINISTRATIVE ASSISTANT DTL Albumin, S 4.4 3.5 - 5.0 g/dL 02/25/2024 11:24 AM CONSTRUCTION ADMINISTRATIVE ASSISTANT DTL Aspartate Aminotransferase (AST), S 26 8 - 43 U/L 02/25/2024 11:24 AM CONSTRUCTION ADMINISTRATIVE ASSISTANT DTL Alkaline Phosphatase, S 78 35 - 104 U/L 02/25/2024 11:24 AM CONSTRUCTION ADMINISTRATIVE ASSISTANT DTL Alanine Aminotransferase (ALT), S 17 7 - 45 U/L 02/25/2024 11:24 AM CONSTRUCTION ADMINISTRATIVE ASSISTANT DTL Bilirubin, Total, S 0.8 0.0 - 1.2 mg/dL 02/25/2024 11:24 AM CONSTRUCTION ADMINISTRATIVE ASSISTANT DTL Blood (Blood, Venous) 02/25/2024 9:10 AM CONSTRUCTION ADMINISTRATIVE ASSISTANT 02/25/2024 9:50 AM CONSTRUCTION ADMINISTRATIVE ASSISTANT us Jefry Donald M.D. LAB BLOOD ADD-ON Final Result [facility] [address] [place] [address], [facility] DTL [facility] [address] [place] [address] * (ABNORMAL) CBC with Differential, Blood (02/25/2024 9:10 AM CONSTRUCTION ADMINISTRATIVE ASSISTANT) Hemoglobin 14.7 11.6 - 15.0 g/dL 02/25/2024 11:00 AM CONSTRUCTION ADMINISTRATIVE ASSISTANT DTL Hematocrit 45.2(H) 35.5 - 44.9 % 02/25/2024 11:00 AM CONSTRUCTION ADMINISTRATIVE ASSISTANT DTL Erythrocytes 4.67 3.92 - 5.13 x10(12)/L 02/25/2024 11:00 AM CONSTRUCTION ADMINISTRATIVE ASSISTANT DTL MCV 96.8 78.2 - 97.9 fL 02/25/2024 11:00 AM CONSTRUCTION ADMINISTRATIVE ASSISTANT DTL RBC Distrib Width 13.5 12.2 - 16.1 % 02/25/2024 11:00 AM CONSTRUCTION ADMINISTRATIVE ASSISTANT DTL Platelet Count 243 157 - 371 x10(9)/L 02/25/2024 11:00 AM CONSTRUCTION ADMINISTRATIVE ASSISTANT DTL Leukocytes 5.8 3.4 - 9.6 x10(9)/L 02/25/2024 11:00 AM CONSTRUCTION ADMINISTRATIVE ASSISTANT DTL Neutrophils 3.80 1.56 - 6.45 x10(9)/L 02/25/2024 11:00 AM CONSTRUCTION ADMINISTRATIVE ASSISTANT DHPM Lymphocytes 1.26 0.95 - 3.07 x10(9)/L 02/25/2024 11:00 AM CONSTRUCTION ADMINISTRATIVE ASSISTANT DTL Monocytes 0.62 0.26 - 0.81 x10(9)/L 02/25/2024 11:00 AM CONSTRUCTION ADMINISTRATIVE ASSISTANT DTL Eosinophils 0.08 0.03 - 0.48 x10(9)/L 02/25/2024 11:00 AM CONSTRUCTION ADMINISTRATIVE ASSISTANT DTL Basophils 0.04 0.01 - 0.08 x10(9)/L 02/25/2024 11:00 AM CONSTRUCTION ADMINISTRATIVE ASSISTANT DTL Blood (Blood, Venous) 02/25/2024 9:10 AM CONSTRUCTION ADMINISTRATIVE ASSISTANT 02/25/2024 9:32 AM CONSTRUCTION ADMINISTRATIVE ASSISTANT us Jefry Donald M.D. 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
--- OUTSIDE RECORDS SUMMARY | 2024-03-17 14:14 | XMS_ITS ---
Author Organization [facility] Address [address] [place] [address] Care Team Providers Care Poultry Processing Supervisor Name Role Phone Unavailable Unavailable Unavailable Surgery Details Not on file Complications Check Surgery Details section. Procedure Estimated Blood Loss Check Surgery Details section. Procedure Findings Check Surgery Details section. Procedure Specimens Taken Check Surgery Details section.
--- OUTSIDE RECORDS SUMMARY | 2024-03-17 14:15 | XMS_ITS | Encounter Summary ---
Author Organization [facility] Address [address] [place] [address] Care Team Providers Care Rfid Systems Architect Name Role Phone Elsewhere, Pcp Primary Care Provider Unavailabl e Encounter Details Date Type Department Care Team (Late st Contact Info) Description 12/14/2005 Historical Ophthalmology RST OPH Leonardo Macedo M.D. Social History Tobacco Use Types Packs/Day Years Used Date Smoking Tobacco: Never Assessed Comments Unknown Sex and Gender Information Value Date Recorded Sex Assigned at Female 09/04/2022 4:04 PM CDT Legal Sex Female 8:55 PM CORK CUTTER Gender Identity Female 09/04/2022 4:04 PM CDT [...] elevated IOP CDM Reports - EYEGEN Id: [id number] Status: Fnl documented in this encounter Plan of Treatment Not on file documented as of this encounter Visit Diagnoses Not on filedocumented in this encounter Care Teams Rfid Systems Architect Relationship Specialty Start Date End Date Elsewhere, Pcp PCP - General Internal Medicine 2/2/24 documented as of this encounter
--- OUTSIDE RECORDS SUMMARY | 2024-03-17 14:15 | XMS_ITS | Encounter Summary ---
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
--- OUTSIDE RECORDS SUMMARY | 2024-03-17 14:15 | XMS_ITS | Encounter Summary ---
Author Organization [facility] Address [address] [place] [address] Care Team Providers Care Manager Primary Name Role Phone Elsewhere, Pcp Primary Care Provider Unavailabl e Reason for Visit * Reason Onset Date Comments Pre-visit Intake 12/10/2023 Encounter Details Date Type Department Care Team (Latest Contact Info) Description 12/10/2023 9:30 AM CDT Clinical Communication Virtual Review in [place], [place] [address] [place] [address] Pre-visit Intake Social History Tobacco Use Types Packs/Day Years Used Date Smoking Tobacco: Never Smokeless Tobacco: Never Alcohol Use Standard Drinks/Week Comments Not Currently 0 (1 standard drink = 0.6 oz pur e alcohol) [facility] Utilities Answer Date Recorded In the past 12 months has e [employer], gas, oil, or water [employer] threatened to shut off services in your [...] any clubs o r organizations such as yazdanism groups, unions, fraternal or athletic groups, or [...] care, and heating? Not very hard 09/04/2022 [facility] of Occupat ional Health - Occupational Stress [...] your living situation today? I have a [facility] place to live 09/09/2023 Education Answer Date Recorded What is the highest level of school you have completed or the highest degree you have received? Bachelor's degree (e.g., BA, AB, BS) 09/04/2022 Comments Unknown Sex and Gender Information Value Date Recorded Sex Assigned at Female 09/04/2022 4:04 PM CDT Legal Sex Female 8:55 PM ETYMOLOGY TEACHER Gender Identity Female 09/04/2022 4:04 PM CDT Sexual Orientation Straight 09/04/2022 4: 04 PM CDT documented as of this encounter Plan of Treatment Not on file documented as of this encounter Visit Diagnoses Not on filedocumented in this encounter Care Teams Manager Primary Relationship Specialty Start Date End Date Elsewhere, Pcp PCP - General Internal Medicine 05/25/23 documented as of this encounter
--- OUTSIDE RECORDS SUMMARY | 2024-03-17 14:15 | XMS_ITS | Encounter Summary ---
Author Organization [facility] Address [address] [place] [address] Care Team Providers Care Crane Follower Name Role Phone Elsewhere, Pcp Primary Care Provider Unavailabl e Reason for Referral * Outpatient (Routine) - Closed Specialty Diagnoses / Procedures Referred By Nahid grewal Referred To Contact Orthopedic Surgery Diagnoses Dystrophic Toenail Keratosis Plantar Callus Byron Foot Pain Toe Left Hammer Toe Acquired Left Hallux Valgus Left Hallux Valgus Right Arthritis Foot Peripheral Arterial Disease (HCC) Physical Testing Supervisor (Current) Anticoagulant Treatment Judith Neal APRN, C.N.P., D.N.P. [address] [place] [phone] Phone: tel: fax: [facility] Referral ID Status Reason Start Date Expiration Date Visits Re quested Visits Authorized [id number] Closed 12/12/2023 06/12/2025 1 1 Reason for Visit * Outpatient (Routine) - Closed Specialty Diagnoses / Procedures Referred By Nahid grewal Referred To Contact Orthopedic Surgery Diagnoses Dystrophic Toenail Keratosis Plantar Callus Byron Foot Pain Toe Left Hammer Toe Acquired Left Hallux Valgus Left Hallux Valgus Right Arthritis Foot Peripheral Arterial Disease (HCC) Fdc (Current) Anticoagulant Treatment Judith Neal APRN, C.N.P., D.N.P. [address] [place] [phone] Phone: tel: fax: [facility] Referral ID Status Reason Start Date Expiration Date Visits Re quested Visits Authorized [id number] Closed 09/10/2023 03/11/2025 1 1 Encounter Details Date Type Department Care Team (Latest Contact Info) Description 12/12/2023 11:00 AM CDT Office Visit Department of Orthopedic Surgery in [place], [place] [address] [place] [phone] Judith Neal APRN, C.N.P., D.N.P. [address] [place] [phone] Dystrophic Toenail; Keratosis Plantar; Callus Byron Foot; Pain Toe Left; Hammer Toe Acquired Left; Hallux Valgus Left; Hallux Valgus Right; Arthritis Foot; Peripheral Arterial Disease (HCC); Fdc (Current) Anticoagulant Treatment Social History Tobacco Use Types Packs/Day Years Used Date Smoking Tobacco: Never Smokeless Tobacco: Never Alcohol Use Standard Drinks/Week Comments Not Currently 0 (1 standard drink = 0.6 oz pur e alcohol) [facility] Utilities Answer Date Recorded In the past 12 months has e [employer], gas, oil, or water [employer] threatened to shut off services in your [...] often do you attend chur ch or adventism services? Never 09/04/2022 Do you belong to any clubs o r organizations such as pentecostal groups, unions, fraternal or athletic groups, or [...] care, and heating? 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 AlsoErythema due to friction over L2 PIPJ. Skin [...] Dystrophic Toenail #2 Keratosis Plantar #3 Callus Byron Foot #4 Pain Toe Left #5 Hammer Toe Acquired Left #6 Hallux Valgus Left #7 Hallux Valgus Right #8 Arthritis Foot #9 Peripheral Arterial Disease (HCC) #10 Physical Testing Supervisor (Current) Anticoagulant Treatment Ms. Weir has long [...] toe sleeve, gel to lissy, and velcro toe-associate trainer at home during day and take [...] the content. Judith Neal APRN, C.N.P., D.N.P. documented in this encounter Plan of Treatment Scheduled Referrals Name Type Priority Associated Diagnoses Orde r Schedule Orthopedic Surgery office visit (clinic) Outpatient Referral Routine Dystrophic Toenail Keratosis Plantar Callus Byron Foot Pain Toe Left Hammer Toe Acquired Left Hallux Valgus Left Hallux Valgus Right Arthritis Foot Peripheral Arterial Disease (HCC) Physical Testing Supervisor (Current) Anticoagulant Treatment Expected: 03/13/2024, Expires: 03/13/2025 documented as of this encounter Visit Diagnoses Diagnosis Dystrophic Toenail Keratosis Plantar Callus Byron Foot Pain Toe Left Hammer Toe Acquired Left Hallux Valgus Left Hallux Valgus Right Arthritis Foot Peripheral Arterial Disease (HCC) Fdc (Current) Anticoagulant Treatment documented in this encounter Care Teams Crane Follower Relationship Specialty Start Date End Date Elsewhere, Pcp PCP - General Internal Medicine 05/25/23 documented as of this encounter
--- OUTSIDE RECORDS SUMMARY | 2024-03-17 14:15 | XMS_ITS | Encounter Summary ---
Author Organization [facility] Address [address] [place] [address] Care Team Providers Care Blanket Cutter Hand Name Role Phone Elsewhere, Pcp Primary Care Provider Unavailabl e Encounter Details Date Type Department Care Team (Late st Contact Info) Description 08/01/2011 Historical Ophthalmology RST OPH Leonardo Macedo M.D. 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
--- OUTSIDE RECORDS SUMMARY | 2024-03-17 14:15 | XMS_ITS | Encounter Summary ---
Author Organization [facility] Address [address] [place] [address] Care Team Providers Care Interactive Multimedia Designer Name Role Phone Elsewhere, Pcp Primary Care [...] PM CDT Legal Sex Female 8:55 PM PATENTS EXAMINER Gender Identity Female 09/04/2022 4:04 PM CDT [...] - stable. CDM Reports - EYEGEN Id: [id number] Status: Fnl documented in this encounter Plan of Treatment Not on file documented as of this encounter Visit Diagnoses Not on filedocumented in this encounter Care Teams Interactive Multimedia Designer Relationship Specialty Start Date End Date Elsewhere, Pcp PCP - General Internal Medicine 05/25/23 documented as of this encounter
--- OUTSIDE RECORDS SUMMARY | 2024-03-17 14:15 | XMS_ITS | Encounter Summary ---
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
--- OUTSIDE RECORDS SUMMARY | 2024-03-17 14:15 | XMS_ITS | Encounter Summary ---
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
--- OUTSIDE RECORDS SUMMARY | 2024-03-17 14:15 | XMS_ITS | Clinical Summary ---
Author Organization [facility] Address [place], [place] [address] Care Team Providers Care Shirt Hemmer Name Role Phone Neelam Gale MD Primary Care Provider [phone] Allergies No known active allergies Medications Medication Sig Dispensed Refills Start Date End Date Status cholecalciferol (VITAMIN D) 1,000 unit capsule Take 1,000 units by mouth once daily. NOT TAKING 0 11/04/2014 Active atorvastatin (LIPITOR) 10 mg tabletIndications:Hype rlipidemia, unspecified hyperlipidemia type Take 1 Tablet (10 mg) by mouth at bedtime. 90 Tablet 3 03/10/2022 Active ketoconazole 2% shampoo (NIZORAL) 2 % shampoo As directed. 12/21/2022 Active losartan (COZAAR) 25 mg tabletIndications:Hype rtension, unspecified type TAKE 1 TABLET BY MOUTH EVERY DAY 30 Tablet 04/09/2023 Active fluocinolone 0.01 % 0.01 % otic solutionIndications:Ea r itching Use 5 drops in affected ear(s) 1-2x daily for 7 days when your ears itch. 20 mL 12/19/2023 Active apixaban (Eliquis) 2.5 mg tabletIndications:Atri al flutter with rapid ventricular response (HC),Atrial tachycardia (HC),Atrial fibrillation, unspecified type (HC) Take 1 Tablet (2.5 mg) by mouth two times daily. 180 Tablet 3 01/24/2024 Active flecainide (TAMBOCOR) 50 mg tabletIndications:Atri al flutter with rapid ventricular response (HC),Atrial tachycardia (HC),Paroxysmal atrial fibrillation (HC) Take 1 Tablet (50 mg) by mouth every 12 hours. 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 - Spontaneously converted to SR October 2019 - Successfully cardioverted January 29, 2020. - Started on flecainide January 2020. - Developed recurrent atrial flutter April 15, 2020 - status post ablation for typical flutter on 05/20/2020. Flec and Dilt were discontinued - elevated HR 05/27/2020 (low 100's) asymptomatic. 12 lead EKG 05/28/2020 with likely AT - spontaneously converted. Flec and Dilt were resumed Cervical radiculopathy 11/04/2014 Sensorineural hearing loss, bilateral 11/28/2013 Impaired fasting glucose 11/04/2012 Anxiety 11/04/2012 Osteopenia 11/04/2012 Overview (12/16/2014): No significant change with bone density done November 2014. Recheck 3-5 years. HTN (hypertension) 07/08/2008 Overview (07/06/2009): Updated by system to replace inactive record Lichen planus 09/24/2007 Overview (09/24/2007): Eyes 2003 Other and unspecified hyperlipidemia 09/24/2007 Rosacea 09/24/2007 Resolved Problems Problem Noted Date Diagnosed Date Resolved Date Anticoagulation monitoring, DOAC 12/15/2019 09/25/2022 Anticoagulation monitoring, INR range 2-3 11/19/2019 12/12/2019 Routine general medical exam ination at a health care facility 09/24/2007 11/04/2012 Overview (09/24/2007): Mammo 09/28/05 Colonoscopy 11/19/03barium enema every 5 years to check for colon polops Pap smear 08/22/05 Dexa 08/31/05 Encounters Date Type Department Care Team Description 02/06/2024 Telephone [facility] [address] [place] [address] Dory Lyn MD Health Maintenance Update 02/05/2024 Telephone [facility] [address] [place] [phone] Dory Lyn MD Concerns 01/31/2024 Orders Only [facility] [address] [place] [address] Deejay Ricks 3 scans: (3-Ord) [facility]: Creat 01/29/2024 Orders Only [facility] [address] [place] [address] Lalo Knapp <No scans attached> 01/29/2024 Travel 01/28/2024 Telephone [facility] [address] [place] [address] Dory Lyn MD Results (EKG) 01/24/2024 11:00 AM CDT Office Visit [facility] [address] [place] [address] Flower Arroyo PA CV Electrophysiology Est (Annual visit (Atrial tach) Pt states no changes since last year) 01/23/2024 Travel 12/26/2023 Refill [facility] [address] [place] [address] Dory Lyn MD Refill Request 12/19/2023 1:00 PM CDT Office Visit [facility] [address] [place] [address] Cayla Mcclure PA Recheck (Ear cleaning) 12/19/2023 Travel from Last 3 Months Immunizations Name Administration Dates Next Due AMB Influenza, IIV3 (Age >=3 years)(Flu Clinic Only) 01/17/2013,02/01/2011,03/13/2008 Amb Influenza, Inact (High-d ose) (Flu Clinic Only) 01/08/2015 COVID-19 vaccine (Pfizer-Bio NTech 30mcg/0.3mL) 12YO+ BIVALENT PF, MDV 01/25/2022 COVID-19 vaccine (Pfizer-Bio NTech 30mcg/0.3mL) 12YO+ SHERIN-SUCROSE PF, MDV 11/04/2021 COVID-19 vaccine (Pfizer-Bio NTech 30mcg/0.3mL) PF, MDV 03/02/2021,06/26/2020,06/05/2020 Influenza, High-dose Inactivated 01/26/2016,12/22,02/08/2012 Influenza, IIV3 (Age 6-35 mos) 02/01/2011,2009 Influenza, IIV3 (Age >=3 years) 12/26/19 09,01/29/2007,03/23/2006,2004 Influenza, Inactivated AIIV4 (Age 65+ Years) Preserv Free 01/25/2022,01/12/2021,01/29/2020 Influenza, Inactivated IIV3 (Age 65+ Years) Preserv Free 01/14/2019,01/07/2018,01/26/2017 Pneumococcal Poly,23-Valent (Pneumovax) 11/07/2010,03/10/1999 Pneumococcal conj 13-Valent (Prevnar 13) 12/09/2014 Td (Age >=7 Years) 03/10/1999 Tdap 10/09/2018,07/08/2008 Zoster (Zostavax-ZVL, live) 11/07/2010 Family History Medical History Relation Name Comments Hypertension Brother Heart Disease Father at 93 Hypertension Father Unknown Maternal Grandfather Unknown Maternal Grandmother Other Mother Upper Respitory problems Unknown Paternal Grandfather Unknown Paternal Grandmother Cancer-breast Sister doing well Relation Name Status Comments Brother Father (Age 93) 2006 Maternal Grandfather Maternal Grandmother Mother (Age 69) COPD Paternal Grandfather Paternal Grandmother Sister Social History Tobacco Use Types Packs/Day Years Used Date Smoking Tobacco: Never Smokeless Tobacco: Never Tobacco Cessation:Counseling Given: Yes Alcohol Use Standard Drinks/Week Comments Not Currently 11.7 (1 standard drink = 0.6 oz pure alcohol) PHQ-2 Answer Date Recorded PHQ-2 TOTAL SCORE 0 03/10/2022 Financial Resource Strain Answer Date R ecorded Difficulty of Paying Living Expenses Not on file 04/23/2021 Difficulty of Paying Living Expenses Not on file 04/23/2021 Sex and Gender Information Value Date Recorded Sex Assigned at Not on file Gender Identity Not on file Sexual Orientation Not on file Obstetrics History Para Term AB IAB SAB Ectopic Multiple Livin g Live Births 9 7 Date Outcome GA Total Labor Labor/2nd/3rd Weight Sex Type Anes PTL Juliette A1 A5 Name Clin Last Filed Vital Signs Vital Sign Reading Time Taken Comments Blood Pressure 140/96 01/24/2024 10:34 AM CDT Pulse 83 01/24/2024 10:34 AM CDT Temperature 36.8 C (98.2 F) 05/21/2020 7:37 AM FLOATING LABOR GANG SUPERVISOR Respiratory Rate 16 01/19/2021 1:27 PM CDT Oxygen Saturation 99% 01/24/2024 10:34 AM CDT Inhaled Oxygen Concentration - - Weight 49 kg (108 lb 1.6 oz) 01/24/2024 10:34 AM CDT Height 153.7 cm (5' 0.5) 01/24/2024 10:34 AM CD T Body Mass Index 20.76 01/24/2024 10:34 AM CDT Plan of Treatment Upcoming Encounters Date Type Department Care Team (Late st Contact Info) Description 06/18/2024 1:00 PM FLOATING LABOR GANG SUPERVISOR Office Visit [address] [phone] Cayla Mcclure PA [facility] [place] [address] Health Maintenance Due Date Last Done Comments Zoster (shingles) series for age 50+ (2 of 3) 01/02/2011 11/07/2010 RSV vaccine for adults or (1 - 1-dose 75+ series) 2012 Depression screening for age 12+ 03/10/2023 03/10/2022, 03/09/2021, 03/09/2021, Additional history exists Medicare Wellness for age 65+ 03/11/2023, 03/09/2021, 03/05/2020, Additional history exists COVID-19 vaccine series ( season) 2023 02/12/2023, 01/25/2022, 11/04/2021, Additional history exists Influenza for age 65+ 12/23/2023 01/25/2022 , 01/12/2021, 01/29/2020, Additional history exists BMI (ht and wt on same day) for age 18+ 01/23/2025 01/24/2024, 01/30/2023, 03/10/2022, Additional history exists Tetanus booster 10/09/2028 10/09/2018, 06/21, 03/10/1999 Pneumococcal series for age 65+ Completed 12/09/2014, 11/07/2010, 03/10/1999 DEXA/DXA scan for age 65+ Completed 2014, 12/03/2012, 08/31/2005 Tdap Completed 10/09/2018, 07/08/2008 Procedures Procedure Name Priority Date/Time Associated Diagnosis Comments ALT (SGPT) Routine 01/31/2024 Atrial flutter with rapid ventricular response (HC) Atrial tachycardia (HC) Atrial fibrillation, unspecified type (HC) Paroxysmal atrial fibrillation (HC) AST (SGOT) Routine 01/31/2024 Atrial flutter with rapid ventricular response (HC) Atrial tachycardia (HC) Atrial fibrillation, unspecified type (HC) Paroxysmal atrial fibrillation (HC) CREATININE Routine 01/31/2024 Atrial flutter with rapid ventricular response (HC) Atrial tachycardia (HC) Atrial fibrillation, unspecified type (HC) Paroxysmal atrial fibrillation (HC) EXTENDED HOLTER Routine 01/30/2024 Atrial flutter with rapid ventricular response (HC) EKG 12 LEAD Routine 01/29/2024 8:12 AM CDT Atrial flutter with rapid ventricular response (HC) Atrial tachycardia (HC) Atrial fibrillation, unspecified type (HC) Paroxysmal atrial fibrillation (HC) EKG 12 LEAD Routine 01/24/2024 Atrial flutter with rapid ventricular response (HC) XR DXA BONE DENSITY 2 SITES AXIAL Routine 12/10/2014 9:34 AM CDT Osteopenia from Last 3 Months or Most Recently Relevant to Health Maintenance Results * CREATININE (01/31/2024) CREATININE 0.60 mg/dL Blood BLOOD SPECIMEN / Unknown 01/31/2024 [facility] * ALT (SGPT) (01/31/2024) ALT (SGPT) 17 8 - 45 IU/L Blood BLOOD SPECIMEN / Unknown 01/31/2024 [facility] * AST (SGOT) (01/31/2024) AST (SGOT) 33 IU/L Blood BLOOD SPECIMEN / Unknown 01/31/2024 [facility] * ZIO PATCH XT - weekly to monthly symptoms. (01/30/2024) 01/30/2024 Narrative Andrew Frank MD - 02/06/2024 8:00 AM CDT Agree with Findings. Procedure Note Andrew Frank MD - 02/06/2024 Agree with Findings. Dory Lyn MD CARDIAC SERVICES ORD * EKG 12 LEAD (01/29/2024 8:12 AM CDT) Only the most recent of2 resultswithin the time period is included. Interpretation Sinus bradycardia with 1st degree A-V block Anteroseptal infarct , age undetermined Abnormal ECG When compared with ECG of 24-Jan-2024 10:29, MANUAL COMPARISON REQUIRED DATA IS UNCONFIRMED Ventricular Rate 57 BPM Atrial Rate 57 BPM P-R Interval 238 ms QRS Duration 80 ms QT 402 ms QTc 391 ms P Branson 84 degrees R Branson 41 degrees T Branson 1 degrees 01/29/2024 8:12 AM CDT 01/30/2024 7:35 AM CDT [facility] EKG ORD * (ABNORMAL) XR DXA BONE DENSITY 2 SITES (12/10/2014 9:34 AM CDT) Anatomical Region Laterality Modality Spine, HIPS, HIPL, HIPR Other Narrative 12/16/2014 3:15 PM CDT Please see scanned document for results of this study.\ [facility] DEXA from Last 3 Months or Most Recently Relevant to Health Maintenance Advance Directives * Full Code (Latest Code Status on File) Date Activated Date Inactivated Comments 05/19/2020 1:30 PM 05/21/2020 1:51 PM Question Answer Comments Code Status Discussion: Not Discussed Care Teams Shirt Hemmer Relationship Specialty Start Date End Date Neelam Gale MD [address] [place] [address] PCP - General Internal Medicine 01/24/24
--- OUTSIDE RECORDS SUMMARY | 2024-03-17 14:15 | XMS_ITS | Encounter Summary ---
Author Organization [facility] Address [address] [place] [address] Care Team Providers Care Treadle Cut Off Saw Operator Name Role Phone Elsewhere, Pcp Primary [...] PM CDT Legal Sex Female 8:55 PM FOLDER INSPECTOR Gender Identity Female 09/04/2022 4:04 PM CDT [...] lichen planus CDM Reports - EYEGEN Id: [id number] Status: Fnl documented in this encounter Plan of Treatment Not on file documented as of this encounter Visit Diagnoses Not on filedocumented in this encounter Care Teams Treadle Cut Off Saw Operator Relationship Specialty Start Date End Date Elsewhere, Pcp PCP - General Internal Medicine 05/25/23 documented as of this encounter
--- OUTSIDE RECORDS SUMMARY | 2024-03-17 14:15 | XMS_ITS | Encounter Summary ---
Author Organization [facility] Address [address] [place] [address] Care Team Providers Care Cable Tender Name Role Phone Elsewhere, Pcp Primary [...] PM CDT Legal Sex Female 8:55 PM HARNESS MAKER Gender Identity Female 09/04/2022 4:04 PM CDT [...] 1 mo. CDM Reports - EYEGEN Id: [id number] Status: Fnl documented in this encounter Plan of Treatment Not on file documented as of this encounter Visit Diagnoses Not on filedocumented in this encounter Care Teams Cable Tender Relationship Specialty Start Date End Date Elsewhere, Pcp PCP - General Internal Medicine 05/25/23 documented as of this encounter
--- OUTSIDE RECORDS SUMMARY | 2024-03-17 14:15 | XMS_ITS | Encounter Summary ---
Author Organization [facility] Address [address] [place] [address] Care Team Providers Care Senior Mobile Application Developer Name Role Phone Elsewhere, Pcp Primary Care Provider Unavailabl e Encounter Details Date Type Department Care Team (Late st Contact Info) Description 07/26/2012 Historical Ophthalmology RST OPH Leonardo Macedo M.D. Social History Tobacco Use Types Packs/Day Years Used Date Smoking Tobacco: Never Assessed Comments Unknown Sex and Gender Information Value Date Recorded Sex Assigned at Female 09/04/2022 4:04 PM CDT Legal Sex Female 8:55 PM HASH SLINGER Gender Identity Female 09/04/2022 4:04 PM CDT Sexual Orientation Straight 09/04/2022 4: 04 PM CDT documented as of this encounter Progress Notes * Leonardo Macedo M.D. - 07/26/2012 9:06 AM CDT Eye General CHIEF COMPLAINT recheck Lichen planus HISTORY OF PRESENT ILLNESS Possible slight decrease in vision both eyes, over the past year, notes after reading towards the evening. Patient denies ocular pain, floaters or flashing lights either eye. Wears OTC readers for near. IMPRESSION / REPORT / PLAN #1 lichen planus quiet off all meds 50 mos #2 cataract incipient accounts for mild blur Plan RV 1 yr. DIAGNOSIS #1 lichen planus #2 cataract incipient CDM Reports - EYEGEN Id: [id number] Status: Fnl documented in this encounter Plan of Treatment Not on file documented as of this encounter Visit Diagnoses Not on filedocumented in this encounter Care Teams Senior Mobile Application Developer Relationship Specialty Start Date End Date Elsewhere, Pcp PCP - General Internal Medicine 05/25/23 documented as of this encounter
--- OUTSIDE RECORDS SUMMARY | 2024-03-17 14:15 | XMS_ITS | Encounter Summary ---
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 #4 Ocular hypertension - stable. [facility] Reports - EYEGEN Id: [id number] Status: Fnl documented in this encounter Plan of Treatment Not on file documented as of this encounter Visit Diagnoses Not on filedocumented in this encounter Care Teams Manager Leadership Development Relationship Specialty Start Date End Date Elsewhere, Pcp PCP - General Internal Medicine 05/25/23 documented as of this encounter
--- OUTSIDE RECORDS SUMMARY | 2024-03-17 14:15 | XMS_ITS | Encounter Summary ---
Author Organization [facility] Address [address] [place] [address] Care Team Providers Care Manuscript Reader Name Role Phone Elsewhere, Pcp Primary Care [...] PM CDT Legal Sex Female 8:55 PM ROUND BONER Gender Identity Female 09/04/2022 4:04 PM CDT [...] Warm compresses, CDM Reports - EYEGEN Id: [id number] Status: Fnl documented in this encounter Plan of Treatment Not on file documented as of this encounter Visit Diagnoses Not on filedocumented in this encounter Care Teams Manuscript Reader Relationship Specialty Start Date End Date Elsewhere, Pcp PCP - General Internal Medicine 05/25/23 documented as of this encounter
--- OUTSIDE RECORDS SUMMARY | 2024-03-17 14:15 | XMS_ITS | Encounter Summary ---
Author Organization [facility] Address [address] [place] [address] Care Team Providers Care Composition Floor Setter Name Role Phone Elsewhere, Pcp Primary Care Provider Unavailabl e Encounter Details Date Type Department Care Team (Late st Contact Info) Description 01/29/2002 Historical Ophthalmology RST OPH Leonardo Macedo M.D. Social History Tobacco Use Types Packs/Day Years Used Date Smoking Tobacco: Never Assessed Comments Unknown Sex and Gender Information Value Date Recorded Sex Assigned at Female 09/04/2022 4:04 PM CDT Legal Sex Female 8:55 PM SALES CLERK Gender Identity Female 09/04/2022 4:04 PM CDT Sexual Orientation Straight 09/04/2022 4: 04 PM CDT documented as of this encounter Progress Notes * Leonardo Macedo M.D. - 01/29/2002 12:00 AM CDT Eye General CHIEF COMPLAINT tearing, mattery red os x 3 months. severity fluctuates. HISTORY OF PRESENT ILLNESS Developed redness OS late 09/22 gradually with irritation. Was on a trip in [facility]. Symptoms fluctuated over next month. With increasing redness saw local tablet technician who noted corneal epithelial and subepithelial lesions, [...] Anterior basment membrane dystrophy. [facility] Id: [id number] Status: Fnl documented in this encounter Plan of Treatment Not on file documented as of this encounter Visit Diagnoses Not on filedocumented in this encounter Care Teams Composition Floor Setter Relationship Specialty Start Date End Date Elsewhere, Pcp PCP - General Internal Medicine 05/25/23 documented as of this encounter
--- OUTSIDE RECORDS SUMMARY | 2024-03-17 14:15 | XMS_ITS | Encounter Summary ---
Author Organization [facility] Address [address] [place] [address] Care Team Providers Care Supervisor Pressing Department Name Role Phone Elsewhere, Pcp Primary Care [...] PM CDT Legal Sex Female 8:55 PM FIELD SAMPLING TECHNICIAN Gender Identity Female 09/04/2022 4:04 PM CDT [...] elevated IOP CDM Reports - EYEGEN Id: [id number] Status: Fnl documented in this encounter Plan of Treatment Not on file documented as of this encounter Visit Diagnoses Not on filedocumented in this encounter Care Teams Supervisor Pressing Department Relationship Specialty Start Date End Date Elsewhere, Pcp PCP - General Internal Medicine 05/25/23 documented as of this encounter
--- OUTSIDE RECORDS SUMMARY | 2024-03-17 14:15 | XMS_ITS | Encounter Summary ---
Author Organization [facility] Address [address] [place] [address] Care Team Providers Care Card Table Attendant Name Role Phone Elsewhere, Pcp Primary [...] PM CDT Legal Sex Female 8:55 PM HAND DRAWER IN HELPER Gender Identity Female 09/04/2022 4:04 PM [...] Lichen planus CDM Reports - EYEGEN Id: [id number] Status: Fnl documented in this encounter Plan of Treatment Not on file documented as of this encounter Visit Diagnoses Not on filedocumented in this encounter Care Teams Card Table Attendant Relationship Specialty Start Date End Date Elsewhere, Pcp PCP - General Internal Medicine 05/25/23 documented as of this encounter
--- OUTSIDE RECORDS SUMMARY | 2024-03-17 14:15 | XMS_ITS | Encounter Summary ---
Author Organization [facility] Address [address] [place] [address] Care Team Providers Care Continuity Clerk Name Role Phone Elsewhere, Pcp Primary [...] PM CDT Legal Sex Female 8:55 PM LETTERSET PRESS SET UP OPERATOR Gender Identity Female 09/04/2022 4:04 PM [...] elevated IOP CDM Reports - EYEGEN Id: [id number] Status: Fnl documented in this encounter Plan of Treatment Not on file documented as of this encounter Visit Diagnoses Not on filedocumented in this encounter Care Teams Continuity Clerk Relationship Specialty Start Date End Date Elsewhere, Pcp PCP - General Internal Medicine 05/25/23 documented as of this encounter
--- OUTSIDE RECORDS SUMMARY | 2024-03-17 14:15 | XMS_ITS | Encounter Summary ---
Author Organization [facility] Address [address] [place] [address] Care Team Providers Care Concrete Products Dispatcher Name Role Phone Elsewhere, Pcp Primary Care [...] PM CDT Legal Sex Female 8:55 PM EXTRACTOR FILLER Gender Identity Female 09/04/2022 4:04 PM CDT [...] elevated IOP CDM Reports - EYEGEN Id: [id number] Status: Fnl documented in this encounter Plan of Treatment Not on file documented as of this encounter Visit Diagnoses Not on filedocumented in this encounter Care Teams Concrete Products Dispatcher Relationship Specialty Start Date End Date Elsewhere, Pcp PCP - General Internal Medicine 05/25/23 documented as of this encounter
--- OUTSIDE RECORDS SUMMARY | 2024-03-17 14:15 | XMS_ITS | Encounter Summary ---
Author Organization [facility] Address [address] [place] [address] Care Team Providers Care Lathe Set Up Operator Name Role Phone Elsewhere, Pcp Primary [...] PM CDT Legal Sex Female 8:55 PM SWIMMING POOL PLASTERER HELPER Gender Identity Female 09/04/2022 4:04 PM [...] elevated IOP CDM Reports - EYEGEN Id: [id number] Status: Fnl documented in this encounter Plan of Treatment Not on file documented as of this encounter Visit Diagnoses Not on filedocumented in this encounter Care Teams Lathe Set Up Operator Relationship Specialty Start Date End Date Elsewhere, Pcp PCP - General Internal Medicine 05/25/23 documented as of this encounter
--- OUTSIDE RECORDS SUMMARY | 2024-03-17 14:15 | XMS_ITS | Encounter Summary ---
Author Organization [facility] Address [address] [place] [address] Care Team Providers Care Marketing Content Manager Name Role Phone Elsewhere, Pcp Primary [...] PM CDT Legal Sex Female 8:55 PM ROLL FORMING MACHINE SET UP MECHANIC Gender Identity Female 09/04/2022 4:04 PM CDT [...] Lichen planus CDM Reports - EYEGEN Id: [id number] Status: Fnl documented in this encounter Plan of Treatment Not on file documented as of this encounter Visit Diagnoses Not on filedocumented in this encounter Care Teams Marketing Content Manager Relationship Specialty Start Date End Date Elsewhere, Pcp PCP - General Internal Medicine 05/25/23 documented as of this encounter
--- OUTSIDE RECORDS SUMMARY | 2024-03-17 14:15 | XMS_ITS | Encounter Summary ---
Author Organization [facility] Address [address] [place] [address] Care Team Providers Care Materials Planning Analyst Name Role Phone Elsewhere, Pcp Primary [...] PM CDT Legal Sex Female 8:55 PM FELLMONGERY WORKER Gender Identity Female 09/04/2022 4:04 PM CDT [...] LIchen planus CDM Reports - EYEGEN Id: [id number] Status: Fnl documented in this encounter Plan of Treatment Not on file documented as of this encounter Visit Diagnoses Not on filedocumented in this encounter Care Teams Materials Planning Analyst Relationship Specialty Start Date End Date Elsewhere, Pcp PCP - General Internal Medicine 05/25/23 documented as of this encounter
--- OUTSIDE RECORDS SUMMARY | 2024-03-17 14:15 | XMS_ITS | Encounter Summary ---
Author Organization [facility] Address [address] [place] [address] Care Team Providers Care Specialist Physicians Name Role Phone Elsewhere, Pcp Primary Care [...] PM CDT Legal Sex Female 8:55 PM SECONDS INSPECTOR Gender Identity Female 09/04/2022 4:04 PM [...] LIchen planus CDM Reports - EYEGEN Id: [id number] Status: Fnl documented in this encounter Plan of Treatment Not on file documented as of this encounter Visit Diagnoses Not on filedocumented in this encounter Care Teams Specialist Physicians Relationship Specialty Start Date End Date Elsewhere, Pcp PCP - General Internal Medicine 05/25/23 documented as of this encounter
--- OUTSIDE RECORDS SUMMARY | 2024-03-17 14:15 | XMS_ITS | Encounter Summary ---
Author Organization [facility] Address [address] [place] [address] Care Team Providers Care Kitman Name Role Phone Elsewhere, Pcp Primary Care [...] CDT Legal Sex Female 8:55 PM COMPUTER FORENSIC EXAMINER Gender Identity Female 09/04/2022 4:04 PM [...] cataract incipient CDM Reports - EYEGEN Id: [id number] Status: Fnl documented in this encounter Plan of Treatment Not on file documented as of this encounter Visit Diagnoses Not on filedocumented in this encounter Care Teams Kitman Relationship Specialty Start Date End Date Elsewhere, Pcp PCP - General Internal Medicine 05/25/23 documented as of this encounter
--- OUTSIDE RECORDS SUMMARY | 2024-03-17 14:15 | XMS_ITS | Encounter Summary ---
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
--- OUTSIDE RECORDS SUMMARY | 2024-03-17 14:15 | XMS_ITS | Encounter Summary ---
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
--- OUTSIDE RECORDS SUMMARY | 2024-03-17 14:15 | XMS_ITS | Encounter Summary ---
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
--- OUTSIDE RECORDS SUMMARY | 2024-03-17 14:15 | XMS_ITS | Continuity of Care Document ---
Author Organization [facility] Address [address] [place] [address] Phone Care Team Providers Care Car Construction Superintendent Name Role Phone Sosa Ruano MD Unavailable [...] [facility], [address], [place], [address], tel:[phone] [facility] [place] No Information 0 Bindu Swan. [address], [place], [address], [place]. tel:[phone] Office/Outpa tient Visit, [facility], [address], [place], [address], [place] tel:[phone] [facility], elevated JOSE (chief complaint) back pain (chief complaint) Other and unspecified nonspecific [facility] [address]. [facility] [address], [place], [address], [place]. tel:[phone] [facility], [address], [place], [address], [place] tel:[phone] [facility], No Information [address]. [facility] [address], [place], [address], [place]. tel:[phone] Family History Family Member Type Diagnosis Age At Onset Problem (finding) arthritis Problem (finding) Problem (finding) Family history of hyper tension Problem (finding) cancer Problem (finding) Family history of gout Problem (finding) Family history of disor hazel of lung Problem (finding) Family history of hyper tension Payers Payer name Insurance type Covered democrat ID Authoriza tishanelle(s) [facility] [id number] Social History Type Description Quantity Date Captured [...]
== END 2024-03-17 07:51 | disposition home or self-care (01) ==
LOC: NFLDREF 14:08
PROVIDERS: PCP Internal Medicine; Referring Provider Internal Medicine; Visit Provider Internal Medicine
DX: R73.03 Prediabetes (principal); E78.5 Hyperlipidemia, unspecified; M85.80 Other specified disorders of bone density and structure, unspecified site
CPT/HCPCS: 80061; 82306

== ENCOUNTER 2024-06-27 13:22 | Emergency (ER) | payer MEDICARE, BC, SELFPAY ==
[2024-06-27 13:35] VITALS: BP 209/101; PULSE 76; RESP 20; TEMP 36.9; O2SAT 98; BMI 18.3
[2024-06-27 14:07] LABS: Basophils Absolute Auto 0.02 K/uL (0.00-0.30); Basophils Percent Auto 0.3 % (0.0-3.0); Eosinophils Absolute Auto 0.05 K/uL (0.00-0.50); Eosinophils Percent Auto 0.8 % (0.0-7.0); Hematocrit 43.7 % (33.0-51.0); Hemoglobin* 14.3 gm/dL (12.0-16.0); Immature Granulocytes Abs Auto 0.01 K/uL (0.00-0.30); Immature Granulocytes Pct Auto 0.2 %; Mean Corpuscular HGB Conc 33 gm/dL (32-36); Mean Corpuscular Hemoglobin 31 pg (26-34); Mean Corpuscular Volume 96 fL (80-100); Neutrophils Percent Auto 73.7 % (42.0-72.0); Platelet Count* 245 K/uL (140-440); RDW Coefficient of Variation % 13.1 % (11.5-15.5); Red Blood Count 4.55 m/uL (4.00-5.20); White Blood Count* 6.16 K/uL (4.50-11.00)
[2024-06-27 14:16] LABS: Slide Review Reflex No
[2024-06-27 14:17] LABS: Chloride* 91 mmol/L (96-114); Potassium* 4.3 mmol/L (3.6-5.1); Sodium* 130 mmol/L (135-149)
[2024-06-27 14:19] LABS: Blood Urea Nitrogen* 14 mg/dL (7-30); Creatinine* 0.6 mg/dL (0.5-1.5); Est. Creatinine Clearance* 31.81; Estimated Glomerular Filt Rate 87 ml/min
[2024-06-27 14:20] LABS: Anion Gap 8 mEq/L (7-15); Calcium* 9.3 mg/dL (8.4-10.6); Carbon Dioxide* 31 mmol/L (20-32); Glucose* 178 mg/dL (60-115)
[2024-06-27 14:37] LABS: Troponin, Point-of-Care* 0.01 ng/ml (0.01-0.04)
--- NOTE | 2024-06-27 15:09 | ED.CHESTPAIN ---
HPI - Chest Pain General Time Seen by Provider: 15:09 Date Seen: 06/27/24 Chief Complaint: Chest Pain Stated Complaint: SOB, aching in chest Time Seen by Provider: 06/27/24 14:56 Source: patient, RN notes reviewed and old records reviewed Mode of arrival: ambulatory Limitations: no limitations History of Present Illness HPI narrative: This 88-year-old female is ambulatory into he the ED of her own accord with concern of chest discomfort and elevated blood pressure. Around 8:00 a.m. today she felt a little chest heaviness in like her heart was beating heavy or racing. She took her blood pressure and it was in the 160s or so at home. She maybe felt short of breath with it. She does have a history of cardiac arrhythmia treated with ablation several years ago. She does have hypertension, was in the office seeing Dr. Gale this April. She does see Cardiology, had been pulled off diltiazem for report of escalation of the TN interval. Her losartan was increased from 25-50 mg per office notes reviewed. Patient has not been sick with anything, no cough or cold symptoms, no edema. She is feeling better now. Due to the volume and acuity in the ER, nursing staff in triage did initial point of care troponin which was normal and EKG which was not showing any definitive ischemic change. Patient does have mitral valve and tricuspid valve regurgitation, history of ascending aorta dilation, paroxysmal atrial fibrillation. She had an ablation in April of 2020 but is chronically anticoagulated with Eliquis. There is no history of known coronary artery disease. Patient denies any numbness tingling, no motor issues, arms and legs and speech, vision are all normal. No headache. She notes that she is feeling better now, chest does not feel as heavy as it was earlier today. Related Data Home Medications ?Medication ?Instructions ?Recorded ?Confirmed flecainide 50 mg tablet 50 mg PO BID 02/26/23 06/27/24 ketoconazole 2 % shampoo 1 applic topical 2XW 03/19/23 05/12/24 cholecalciferol (vitamin D3) 25 25 mcg PO QDAY 05/12/24 06/27/24 mcg (1,000 unit) capsule Previous Rx's ?Medication ?Instructions ?Recorded atorvastatin 10 mg tablet 10 mg PO QDAY #90 tabs 03/27/24 losartan 50 mg tablet 50 mg PO QDAY #90 tabs 03/27/24 apixaban 2.5 mg tablet (Eliquis) 2.5 mg PO BID #180 tabs 04/07/24 losartan 25 mg tablet 25 mg PO DAILY #30 tabs 06/27/24 Allergies Allergy/AdvReac Type Severity Reaction Status Date / Time No Known Drug Allergies Allergy Verified 05/12/24 10:46 Review of Systems Status of ROS Reports: 6 or more systems reviewed and unremarkable except as noted in History and below PFSH [facility] Medical History History of lichen planus ?Z87.2 - Personal history of diseases of the skin and subcutaneous tissue (ICD-10) Surgical History History of cataract surgery ?Z98.49 - Cataract extraction status, unspecified eye (ICD-10) History of basal cell carcinoma (BCC) ?Z85.828 - Personal history of other malignant neoplasm of skin (ICD-10) History of SCC (squamous cell carcinoma) of skin ?Z85.828 - Personal history of other malignant neoplasm of skin (ICD-10) History of phacoemulsification of cataract of both eyes with intraocular lens implantation ?Z98.41 - Cataract extraction status, right eye (ICD-10) ?Z98.42 - Cataract extraction status, left eye (ICD-10) ?Z96.1 - Presence of intraocular lens (ICD-10) History of surgical biopsy (02/10/02) ?Z98.890 - Other specified postprocedural states (ICD-10) History of hand surgery (01/01/09) ?Z98.890 - Other specified postprocedural states (ICD-10) Family History (System 03/23/23 @ 12:56 by Berna Marshall) Sister Breast cancer Father High blood pressure Heart disease Brother High blood pressure Social History What is your current living situation?: I presently have a place to live Problems where you live: no known problems In the past 12 months, utilities in danger of being shut off: no In past 12 months, lack of transportation kept you from medical appts, meetings, work, or getting things needed for daily living: no In the past 12 mos, have been you worried that your food would run out before you had money to buy more?: never true In the past 12 mos, the food you bought just didn't last and you didn't have money to buy more?: never true Smoking Status: Never smoker Do you use any of these nicotine containing products: None How often do you have a drink containing alcohol: never How often do you have six or more drinks on one occasion: Never AUDIT-C Alcohol total score: 0 Non-prescribed substance use: denies use Caffeine: No How often does anyone, including family, friends and others, physically hurt you: never How often does anyone, including family, friends and others, insult or talk down to you: never How often does anyone, including family, friends and others, threaten you with harm: never How often does anyone, including family, friends and others, scream or curse at you: never Are you using contraception or practicing any form of control: No Exam Const Vital Signs, click to edit/add: Vital Signs - 24 hr 06/27/24 13:35 06/27/24 15:34 Temperature 98.4 F Pulse Rate 90 Pulse Rate [Pulse Oximeter] 76 Respiratory Rate 20 18 Blood Pressure 193/106 H Blood Pressure [Right Upper Arm] 209/101 H Pulse Oximetry 98 96 Oxygen Delivery Method Room Air This 88-year-old female is alert, interactive, no apparent distress. Ambulatory into the ED of her own accord. Sclera clear, face atraumatic, speech is normal, speaking complete sentences. Conjugate gaze, pupils are equal and round. Speech is normal. Next slender, no did have extension, no masses or adenopathy. Lungs are clear, good air entry, wheeze or crackles. CV regular rate and rhythm, do not hear any significant murmur, normal S1-S2. Abdomen is soft, no rebound or guarding, no organomegaly. She has no lower extremity edema. Visualized ambulating with normal gait. Documenting provider has reviewed patient's vital signs: yes Course Course ED Course: Patient will have follow-up EKG and troponin done. We discussed that this likely is hypertension. She has no stroke symptoms. Blood pressure is elevated here in we will continue to monitor. Do think that she may need further titration of blood pressure medicines if we continue to see these values. Some of the difficulty lies in that there can be labile hypertension and patient can then become hypotensive. She states her doctor has talked to her about this before. Reevaluation(s) Time of Reevaluation #1: 17:50 Reevaluation #1: Have reviewed with patient that her troponins are normal, the sodium is mildly low (was normal in the past at 138, now 130). She feels better now, does want to increase her blood pressure medication. She is aware of over-treatment of blood pressure and resultant symptoms from that. We will give her 25mg losartan here, send in 25mg tablets to give her total of 75mg. She will need to follow up with Dr. Gale in the next week or so, have sodium rechecked. No arrhythmia noted while on cardiac monitoring here. Vital Signs Vital signs: Initial Vital Signs Temperature 98.4 F 06/27/24 13:35 Temperature Source Temporal Artery Scan 06/27/24 13:35 Pulse Rate 76 06/27/24 13:35 Respiratory Rate 20 06/27/24 13:35 Blood Pressure 209/101 H 06/27/24 13:35 Blood Pressure Mean 137 H 06/27/24 13:35 Blood Pressure Position Sitting 06/27/24 13:35 Pulse Oximetry 98 06/27/24 13:35 Oxygen Delivery Method Room Air 06/27/24 13:35 Vital Signs Temperature 98.4 F 06/27/24 13:35 Pulse Rate 76 06/27/24 13:35 Respiratory Rate 20 06/27/24 13:35 Blood Pressure 209/101 H 06/27/24 13:35 Pulse Oximetry 98 06/27/24 13:35 Oxygen Delivery Method Room Air 06/27/24 13:35 Temperature 98.4 F 06/27/24 13:35 Pulse Rate 90 06/27/24 15:34 Respiratory Rate 18 06/27/24 15:34 Blood Pressure 193/106 H 06/27/24 15:34 Pulse Oximetry 96 06/27/24 15:34 Oxygen Delivery Method Room Air 06/27/24 13:35 MDM - Chest Pain Lab Data Attestation: I reviewed the patient's lab results. Labs: Lab Results 03/07/25 03/07/25 03/07/25 Range/Units 13:51 13:58 14:45 WBC 6.16 (4.50-11.00) K/uL RBC 4.55 (4.00-5.20) m/uL Hgb 14.3 (12.0-16.0) gm/dL Hct 43.7 (33.0-51.0) % MCV 96 (80-100) fL MCH 31 (26-34) pg MCHC 33 (32-36) gm/dL RDW Coeff of Fady 13.1 (11.5-15.5) % Plt Count 245 (140-440) K/uL Neut % (Auto) 73.7 H (42.0-72.0) % Lymph % (Auto) 17.0 L (20-44) % [place] % (Auto) 8.0 (0.0-11.0) % Eos % (Auto) 0.8 (0.0-7.0) % Baso % (Auto) 0.3 (0.0-3.0) % Neut # (Auto) 4.50 (1.7-7.0) K/uL Lymph # (Auto) 1.00 (0.90-2.90) K/uL [place] # (Auto) 0.50 (0.00-0.90) K/UL Eos # (Auto) 0.05 (0.00-0.50) K/uL Baso # (Auto) 0.02 (0.00-0.30) K/uL Abs Immat Gran (auto) 0.01 (0.00-0.30) K/uL Imm/Tot Granulo (auto) 0.2 % Sodium 130 L (135-149) mmol/L Potassium 4.3 (3.6-5.1) mmol/L Chloride 91 L (96-114) mmol/L Carbon Dioxide 31 (20-32) mmol/L Anion Gap 8 (7-15) mEq/L BUN 14 (7-30) mg/dL Creatinine 0.6 (0.5-1.5) mg/dL Estimated Creat Clear 31.81 Estimated GFR 87 ml/min Glucose 178 H (60-115) mg/dL Calcium 9.3 (8.4-10.6) mg/dL SARS-CoV-2 (PCR) Negative SARS-CoV-2 (Negative) Influenza Type A (PCR) Negative PCR FLU A (Negative) Influenza Type B (PCR) Negative PCR FLU B (Negative) RSV (PCR) Negative PCR RSV (Negative) POC Troponin I 0.01 (0.01-0.04) ng/ml 06/27/24 Range/Units 16:21 WBC (4.50-11.00) K/uL RBC (4.00-5.20) m/uL Hgb (12.0-16.0) gm/dL Hct (33.0-51.0) % MCV (80-100) fL MCH (26-34) pg MCHC (32-36) gm/dL RDW Coeff of Fady (11.5-15.5) % Plt Count (140-440) K/uL Neut % (Auto) (42.0-72.0) % Lymph % (Auto) (20-44) % [place] % (Auto) (0.0-11.0) % Eos % (Auto) (0.0-7.0) % Baso % (Auto) (0.0-3.0) % Neut # (Auto) (1.7-7.0) K/uL Lymph # (Auto) (0.90-2.90) K/uL [place] # (Auto) (0.00-0.90) K/UL Eos # (Auto) (0.00-0.50) K/uL Baso # (Auto) (0.00-0.30) K/uL Abs Immat Gran (auto) (0.00-0.30) K/uL Imm/Tot Granulo (auto) % Sodium (135-149) mmol/L Potassium (3.6-5.1) mmol/L Chloride (96-114) mmol/L Carbon Dioxide (20-32) mmol/L Anion Gap (7-15) mEq/L BUN (7-30) mg/dL Creatinine (0.5-1.5) mg/dL Estimated Creat Clear Estimated GFR ml/min Glucose (60-115) mg/dL Calcium (8.4-10.6) mg/dL SARS-CoV-2 (PCR) (Negative) Influenza Type A (PCR) (Negative) Influenza Type B (PCR) (Negative) RSV (PCR) (Negative) POC Troponin I 0.00 L (0.01-0.04) ng/ml Imaging Data Chest x-ray: Attestation: I have reviewed the pertinent imaging results. Radiologist's impression: Patient: CATHY GARCIA Facility:?[facility] Patient ID:?[id number] Site Patient ID:?[id number]. Site :?[id number] Study:?XRay-Chest 2 VIEW-06/27/2024 2:49:50 PM Ordering Physician:?PROVIDER JESSI Final Report: INDICATION: Chest pain, shortness of breath. TECHNIQUE: Chest 2 views. COMPARISON: November 20, 2020. FINDINGS: Cardiovascular and mediastinum: Cardiomediastinal silhouette is within normal limits. Calcific atherosclerosis of the aorta. Lungs and pleural spaces: Mild perihilar interstitial opacities. Subtle interstitial and reticular opacities in the right lower lung zone. No sign of pleural effusion. No pneumothorax. Bones and soft tissues: No significant findings. IMPRESSION: Mild perihilar interstitial opacities and additional reticular opacities in the right lower lung zone may reflect viral infection, other airways disease. Dictated by Marbella Reyez MD @ 06/27/2024 2:56:46 PM (Electronic Signature) Discharge Plan Discharge Clinical Impression: Chest discomfort Hypertension Qualifiers: Hypertension type: primary hypertension Qualified Code(s): I10 - Essential (primary) hypertension Patient Disposition: Home, Self-Care Condition: Stable Instructions: Chest Pain (ED), Hypertension in the Older Adult (ED) Additional Instructions: Continue on 50 mg of losartan but add the 25 mg tablet for a total of 75 mg daily. Need to schedule clinic followup within the next week or so, have blood pressure rechecked as well as your chemistries. Your sodium was mildly low and could come from the medicine treating her blood pressure, this needs to be followed to make sure it is not worsening. If you have further concerns in the interim, have worsening chest pain, do recommend re-evaluation. Activity Level: Activity as Tolerated Discharge Diet: Heart Healthy (2 gm sodium, low fat) Prescriptions: New losartan 25 mg tablet 25 mg PO DAILY Qty: 30 0RF Rx Instructions: Add to your 50 mg tablet for a total of 75 mg daily. No Action ketoconazole 2 % shampoo 1 applic topical 2XW flecainide 50 mg tablet 50 mg PO BID cholecalciferol (vitamin D3) 25 mcg (1,000 unit) capsule 25 mcg PO QDAY atorvastatin 10 mg tablet 10 mg PO QDAY Qty: 90 3RF losartan 50 mg tablet 50 mg PO QDAY Qty: 90 3RF Eliquis 2.5 mg tablet 2.5 mg PO BID Qty: 180 3RF Follow Up/Referrals: Neelma Gale MD [Primary Care Provider] - Stand Alone Forms: [facility] Info Instructions
[2024-06-27 15:29] LABS: PCR FLU A Negative PCR FLU A (Negative); PCR FLU B Negative PCR FLU B (Negative); PCR RSV Negative PCR RSV (Negative); SARS PCR* Negative SARS-CoV-2 (Negative)
[2024-06-27 15:34] VITALS: BP 193/106; PULSE 90; RESP 18; O2SAT 96
--- OUTSIDE RECORDS SUMMARY | 2024-06-27 15:36 | XMS_ITS | Encounter Summary ---
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 [address] [place] [phone] 07/09/2024 10:00 AM CDT Ancillary Procedure Department of Cardiovascular Medicine in [place], [place] [address] [place] [phone] Anna Lockwood M.D., M.S. [address] [place] [phone] 07/09/2024 10:45 AM CDT Appointment Department of Radiology, [facility], in [place], [place] [address] [place] [phone] Anna Lockwood M.D., M.S. [address] [place] [phone] 07/09/2024 3:00 PM CDT Office Visit Department of Cardiovascular Medicine in [place], [place] [address] [place] [phone] Anna Lockwood M.D., M.S. [address] [place] [phone] 09/05/2024 9:15 AM CDT Clinical Communication Virtual Review in [place], [place] [address] [place] [phone] 09/08/2024 11:00 AM CDT Office Visit Department of Obstetrics and Gynecology, Division of Urogynecology in [place], [place] [address] [place] [phone] Antonia Caro P.A.-C. [address] [place] [phone] 09/17/2024 11:00 AM CDT Office Visit Department of Orthopedic Surgery in [place], [place] [address] [place] [phone] Judith Neal APRN, C.N.P., D.N.P. [address] [place] [phone] documented as of this encounter Visit Diagnoses Not on filedocumented in this encounter Care Teams Meat Hanger Relationship Specialty Start Date End Date Elsewhere, Pcp PCP - General Internal Medicine 05/25/23 documented as of this encounter
--- OUTSIDE RECORDS SUMMARY | 2024-06-27 15:36 | XMS_ITS | Encounter Summary ---
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 [address] [place] [phone] 07/09/2024 10:00 AM CDT Ancillary Procedure Department of Cardiovascular Medicine in [place], [place] [address] [place] [phone] Anna Lockwood M.D., M.S. [address] [place] [phone] 07/09/2024 10:45 AM CDT Appointment Department of Radiology, [facility], in [place], [place] [address] [place] [phone] Anna Lockwood M.D., M.S. [address] [place] [phone] 07/09/2024 3:00 PM CDT Office Visit Department of Cardiovascular Medicine in [place], [place] [address] [place] [phone] Anna Lockwood M.D., M.S. [address] [place] [phone] 09/05/2024 9:15 AM CDT Clinical Communication Virtual Review in [place], [place] [address] [place] [phone] 09/08/2024 11:00 AM CDT Office Visit Department of Obstetrics and Gynecology, Division of Urogynecology in [place], [place] [address] [place] [phone] Antonia Caro P.A.-C. [address] [place] [phone] 09/17/2024 11:00 AM CDT Office Visit Department of Orthopedic Surgery in [place], [place] [address] [place] [phone] Judith Neal APRN, C.N.P., D.N.P. [address] [place] [phone] documented as of this encounter Visit Diagnoses Not on filedocumented in this encounter Care Teams Hand Shaper Relationship Specialty Start Date End Date Elsewhere, Pcp PCP - General Internal Medicine 05/25/23 documented as of this encounter
--- OUTSIDE RECORDS SUMMARY | 2024-06-27 15:36 | XMS_ITS | Encounter Summary ---
Author Organization 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 [address] [place] [phone] 07/09/2024 10:00 AM CDT Ancillary Procedure Department of Cardiovascular Medicine in [place], [place] [address] [place] [phone] Anna Lockwood M.D., M.S. [address] [place] [phone] 07/09/2024 10:45 AM CDT [facility] [place] [place] [address] [place] [phone] Anna Lockwood M.D., M.S. [address] [place] [phone] 07/09/2024 3:00 PM CDT Office Visit Department of Cardiovascular Medicine in [address] [phone] Anna Lockwood M.D., M.S. [address] [place] [phone] 09/05/2024 9:15 AM CDT Clinical Communication Virtual Review in [place], [place] 200 [place] [phone] 09/08/2024 11:00 AM CDT Office Visit Department of Obstetrics and Gynecology, Division of Urogynecology in [address] [phone] Antonia Caro P.A.-C. [address] [place] [phone] 09/17/2024 11:00 AM CDT Office Visit Department of Orthopedic Surgery in [place], [place] [address] [place] [phone] Judith Neal APRN, C.N.P., D.N.P. [address] [place] [phone] documented as of this encounter Visit Diagnoses Not on filedocumented in this encounter Care Teams Advanced Seal Delivery System Relationship Specialty Start Date End Date Elsewhere, Pcp PCP - General Internal Medicine 05/25/23 documented as of this encounter
--- OUTSIDE RECORDS SUMMARY | 2024-06-27 15:36 | XMS_ITS | Encounter Summary ---
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 [address] [place] [phone] Phone: tel: fax: [facility] Referral ID Status Reason Start Date Expiration Date Visits Re quested Visits Authorized [id number] Closed 03/13/2024 09/12/2025 1 1 Encounter Details Date Type Department Care Team (Latest Contact Info) Description 06/16/2024 11:00 AM ENVELOPE SEALER Office Visit Department of Orthopedic Surgery in [place], [place] [address] [place] [phone] Judith Neal, DAMARI, C.N.P., D.N.P. 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 Never 09/04/2022 Do you belong to any clubs o r organizations such as anglican groups, unions, fraternal or athletic groups, or [...] care, and heating? Not very hard 09/04/2022 [facility] - Occupational Stress [...] your living situation today? I have a [facility] place to live 09/09/2023 Education Answer Date Recorded What is the highest level of school you have completed or the highest degree you have received? Bachelor's degree (e.g., BA, AB, BS) 09/04/2022 Comments Unknown Sex and Gender Information Value Date Recorded Sex Assigned at Female 09/04/2022 4:04 PM CDT Legal Sex Female 8:55 PM ENVELOPE SEALER Gender Identity Female 09/04/2022 4:04 PM CDT Sexual Orientation Straight 09/04/2022 4: 04 PM CDT documented as of this encounter Progress Notes * Judith Neal APRN, C.N.P., D.N.P. - 06/16/2024 11:00 AM CST SUBJECTIVE REFERRAL SOURCE Judith Neal APRN, C.N.P., D.N.P. PAIN REPORTED: 5/10 pain severity when pressure applied to left plantar forefoot calluses. CHIEF COMPLAINT / REASON FOR VISIT Continued care of her feet and is under the care of ELSEWHERE, PCP HISTORY OF PRESENT ILLNESS Ms. Weir is a 88 y.o. female who presents today for continued care of her long dystrophic toenails and calluses/IPKs. Since her last podiatry visit on 03/13/2024 she reports that her calluses and toenails have grown in length, thickness, and tenderness, and needs foot care today. Patient uses pumice stone over calluses and callus cream (skin Integra rapid crack repair). At home she sometimes wears stocking feet which contributes to callus build-up. She has been wearing silicone toe lissy given to her at her last appointment to help prevent L2 from crossing over L1 which she states has been helpful. For mild onychomycosis and tinea pedis she has been using OTC antifungal powder. Patient isunable to manage her routine foot care due to physical limitations and increased risk of injury or infection. She ambulates without assistive device and is wearing slip-on footwear today. Ms. Weir has medical comorbidities significant for, but not limited to, osteopenia, hypertension,anxiety, mitral/tricuspid valve regurgitation, atrial flutter with RVR, cervical radiculopathy, sensorineural hearing loss bilateral (hearing aids), ear wax impaction bilateral, impaired fasting glucose, hyperlipidemia, AFib on long-term anticoagulation (Eliquis), urge incontinence. Patient was last seen for active care management of comorbid conditions by Henry Flynn M.D. in [facility] on 03/03/2024. The following [...] swelling in the legs or feet. Hematologic: - Negative for bruises or bleeds easily. Musculoskeletal: Positive for pain or stiffness in the joints. Neurological: Positive for paresthesias. The following systems were negative: Constitutional, Eyes, ENT, Respiratory, Gastrointestinal, Hematologic 14 systems reviewed. Pertinent positives and pertinent [...] Toenails: 10/10 toenails are long and dystrophic, R 1,5 and L1,5 are thickened. No paronychia. Skin pigmentation: Scattered hyperpigmentation. Skin color: WNL Skin texture: Dry Skin temperature: Normal in temperature bilaterally. Callus/corns: 3 IPK sub Left 2nd MTP, Callus plantar medial 1 MTP Right, Hyperkeratotic buildup plantar medial 1 MTP Left. Additional findings: No evidence of maceration between the toes, no signs of cracks or fissures to the plantar aspects of the feet. NEUROLOGICAL: Sensation: Intact light and sharp touch bilateral feet, positive paresthesias. MUSCULOSKELETAL: Bony deformities: Flexion deformity/hammertoe deformity left second toe crosses over left great toe. 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 Weir has long dystrophic toenails and recurrent painful calluses that have shown improvement,11 calluses down to 5, since treatment in Podiatry. Patient states that the trichloracetic acid (TCA) used twice in podiatry did seem to give her relief from her calluses and would like to try this again today. We discussed that treatment of calluses with TCA is an off-label use for this medication, discussed risks and benefits of application, she verbalized understanding and wished to proceed with the treatment. She is unable to manage her foot care independently due to physical limitations and increased risk of injury or infection. After discussion of treatment options, and with the patient's consent, / toenails were trimmed with a nail nipper and filed smooth with an electric irish. A curette was utilized along the nail folds to meticulously remove debris and smooth the nail edges. Utilized a 15-blade to remove 3 IPK under 1 callus and 1 application of trichloracetic acid 40% was applied to each of the 3 IPKs without incident. Then applied small piece of slight for padding protection. Fitted patient with a Budin-splint to help straighten left second cross toe. Patient is to trial this at home during the day, should skin become irritated, take off, and do not resume until resolution of irritation. May alternate Budin-splint with silicone gel large toe lissy. Skin remained intact. Vanicream applied to feet. Patient tolerated well and denied any post-procedural pain. Patient was encouraged to continue watchful observation and protection of her feet through appropriate surveillance and footwear and should returnin 3 months for continued care, or sooner if concerns arise. The patient was given my contact information should she have any future questions or concerns. Given no further questions today, patient was dismissed. Recommendations: -Trial Budin splint at home during the day, should skin become irritated, take off, and do not resume until resolution of irritation. May alternate Budin- splint with silicone gel large toe lissy. -Pad Left forefoot callus site with Band-Aid or Mepilex Lite as needed. -Watch for signs or symptoms of infection including, but not limited to, increased warmth, redness,pain, swelling, drainage, fever, or chills; should she experience any of these signs or symptoms, seek immediate medical attention. CONSENT I discussed the risks, benefits, alternatives, [...] the content. Judith Neal APRN, C.N.P., D.N.P. LOPE SEALER documented in this encounter Plan of Treatment Upcoming Encounters Date Type Department Care Team (Latest Contact Info) Description 07/09/2024 9:20 AM CDT Appointment Department of Laboratory Medicine and Pathology, [facility] in [place], [place] [address] [place] [phone] Anna Lockwood M.D., M.S. [address] [place] [phone] 07/09/2024 10:00 AM CDT Ancillary Procedure Department of Cardiovascular Medicine in [place], [place] [address] [place] [phone] Anna Lockwood M.D., M.S. [address] [place] [phone] 07/09/2024 10:45 AM CDT Appointment Department of Radiology, [facility], in [place], [place] [address] [place] [phone] Anna Lockwood M.D., M.S. [address] [place] [phone] 07/09/2024 3:00 PM CDT Office Visit Department of Cardiovascular Medicine in [place], [place] [address] [place] [phone] Anna Lockwood M.D., M.S. [address] [place] [phone] 09/05/2024 9:15 AM CDT Clinical Communication Virtual Review in [place], [place] 200 [place] [address] 09/08/2024 11:00 AM CDT Office Visit Department of Obstetrics and Gynecology, Division of Urogynecology in [place], [place] [address] [place] [phone] Antonia Caro P.A.-C. [address] [place] [phone] 09/17/2024 11:00 AM CDT Office Visit Department of Orthopedic Surgery in [place], [place] 200 [place] [address] Judith Neal, DAMARI, C.N.P., D.N.P. 200 [place] [address] Scheduled Referrals Name Type Priority Associated Diagnoses Orde r Schedule Orthopedic Surgery office visit (clinic) Outpatient Referral Routine Dystrophic Toenail Keratosis Plantar Callus [place] Foot Pain Toe Left Hammer Toe Acquired Left Hallux Valgus Left Hallux Valgus Right Arthritis Foot Peripheral Arterial Disease (HCC) Fpc (Current) Anticoagulant Treatment Expected: 09/13/2024, Expires: 09/13/2025 documented as of this encounter Visit Diagnoses Diagnosis Dystrophic Toenail- Primary Keratosis Plantar Callus [place] Foot Pain Toe Left Pain Foot Left Hammer Toe Acquired Left Peripheral Arterial Disease (HCC) Arthritis Foot 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
--- OUTSIDE RECORDS SUMMARY | 2024-06-27 15:36 | XMS_ITS | Encounter Summary ---
Author Organization [facility] Address [address] [place] [address] Care Team Providers Care Tool And Die Maker Name Role Phone Elsewhere, Pcp Primary Care [...] PM CDT Legal Sex Female 8:55 PM DOCUMENT PROCESSOR Gender Identity Female 09/04/2022 4:04 PM CDT [...] elevated IOP CDM Reports - EYEGEN Id: [id number] Status: Fnl documented in this encounter Plan of Treatment Upcoming Encounters Date Type Department Care Team (Latest Contact Info) Description 07/09/2024 9:20 AM CDT Appointment Department of Laboratory Medicine and Pathology, [facility] in [place], [place] [address] [place] [phone] Anna Lockwood M.D., M.S. [address] [place] [phone] 07/09/2024 10:00 AM CDT Ancillary Procedure Department of Cardiovascular Medicine in [place], [place] [address] [place] [phone] Anna Lockwood M.D., M.S. [address] [place] [phone] 07/09/2024 10:45 AM CDT [facility] [place], [place] [address] [place] [phone] Anna Lockwood M.D., M.S. [address] [place] [phone] 07/09/2024 3:00 PM CDT Office Visit Department of Cardiovascular Medicine in [place], [place] [address] [place] [phone] Anna Lockwood M.D., M.S. [address] [place] [phone] 09/05/2024 9:15 AM CDT Clinical Communication Virtual Review in [place], [place] 200 [place] [address] 09/08/2024 11:00 AM CDT Office Visit Department of Obstetrics and Gynecology, Division of Urogynecology in [address] [phone] Antonia Caro P.A.-C. [address] [place] [phone] 09/17/2024 11:00 AM CDT Office Visit Department of Orthopedic Surgery in [place], [place] [address] [place] [address] Judith Neal APRN, C.N.P., D.N.P. [address] [place] [address] documented as of this encounter Visit Diagnoses Not on filedocumented in this encounter Care Teams Tool And Die Maker Relationship Specialty Start Date End Date Elsewhere, Pcp PCP - General Internal Medicine 05/25/23 documented as of this encounter
--- OUTSIDE RECORDS SUMMARY | 2024-06-27 15:36 | XMS_ITS | Encounter Summary ---
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 [address] [place] [phone] 07/09/2024 10:00 AM CDT Ancillary Procedure Department of Cardiovascular Medicine in [place], [place] [address] [place] [phone] Anna Lockwood M.D., M.S. [address] [place] [phone] 07/09/2024 10:45 AM CDT Appointment Department of Radiology, [facility], in [place], [place] [address] [place] [phone] Anna Lockwood M.D., M.S. [address] [place] [phone] 07/09/2024 3:00 PM CDT Office Visit Department of Cardiovascular Medicine in [place], [place] [address] [place] [phone] Anna Lockwood M.D., M.S. [address] [place] [phone] 09/05/2024 9:15 AM CDT Clinical Communication Virtual Review in [place], [place] 200 [place] [address] 09/08/2024 11:00 AM CDT Office Visit Department of Obstetrics and Gynecology, Division of Urogynecology in [place], [place] [address] [place] [phone] Antonia Caro P.A.-C. [address] [place] [address] [place] [phone] 09/17/2024 11:00 AM CDT Office Visit Department of Orthopedic Surgery in [place], [place] [address] [place] [address] Judith Neal APRN, C.N.P., D.N.P. 200 [place] [phone] documented as of this encounter Visit Diagnoses Not on filedocumented in this encounter Care Teams Criminal Legal Assistant Relationship Specialty Start Date End Date Elsewhere, Pcp PCP - General Internal Medicine 05/25/23 documented as of this encounter
--- OUTSIDE RECORDS SUMMARY | 2024-06-27 15:36 | XMS_ITS | Encounter Summary ---
Author Organization 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, in [place], [place] [address] [place] [phone] Anna Lockwood M.D., M.S. [address] [place] [phone] 07/09/2024 10:00 AM CDT Ancillary Procedure Department of Cardiovascular Medicine in [place], [place] [address] [place] [phone] Anna Lockwood M.D., M.S. [address] [place] [phone] 07/09/2024 10:45 AM CDT [facility] [place] [address] [phone] Anna Lockwood M.D., M.S. [address] [place] [phone] 07/09/2024 3:00 PM CDT Office Visit Department of Cardiovascular Medicine in [address] [phone] Anna Lockwood M.D., M.S. [address] [place] [phone] 09/05/2024 9:15 AM CDT Clinical Communication Virtual Review in [place], [place] 200 [place] [address] 09/08/2024 11:00 AM CDT Office Visit Department of Obstetrics and Gynecology, Division of Urogynecology in [address] [phone] Antonia Caro P.A.-C. [address] [place] [phone] 09/17/2024 11:00 AM CDT Office Visit Department of Orthopedic Surgery in [place], [place] [address] [place] [address] Judith Neal, DAMARI, C.N.P., D.N.P. [address] [place] [address] documented as of this encounter Visit Diagnoses Not on filedocumented in this encounter Care Teams Vp Strategy Relationship Specialty Start Date End Date Elsewhere, Pcp PCP - General Internal Medicine 05/25/23 documented as of this encounter
--- OUTSIDE RECORDS SUMMARY | 2024-06-27 15:36 | XMS_ITS | Clinical Summary ---
Author Organization [employer] [facility] Address [address] [place] [address] Care Team Providers Care Press Tender Smoke Signal Name Role Phone Neelam Gale MD Primary Care Provider [phone] Allergies No known active allergies Medications cholecalciferol (VITAMIN D) 1,000 unit capsule Take 1,000 units by mouth once daily. NOT TAKING 0 5 Active atorvastatin (LIPITOR) 10 mg tabletIndications:H yperlipidemia, unspecified hyperlipidemia type Take 1 Tablet (10 mg) by mouth at bedtime. 90 Tablet 3 2 Active ketoconazole 2% shampoo (NIZORAL) 2 % shampoo As directed. 3 Active losartan (COZAAR) 25 mg tabletIndications:H ypertension, unspecified type TAKE 1 TABLET BY MOUTH EVERY DAY 30 Tablet 3 Active fluocinolone 0.01 % 0.01 % otic solutionIndications :Ear itching Use 5 drops in affected ear(s) 1-2x daily for 7 days when your ears itch. 20 mL 4 Active apixaban (Eliquis) 2.5 mg tabletIndications:A trial flutter with rapid ventricular response (HC),Atrial tachycardia (HC),Atrial fibrillation, unspecified type (HC) Take 1 Tablet (2.5 mg) by mouth two times daily. 180 Tablet 3 4 Active flecainide (TAMBOCOR) 50 mg tabletIndications:A trial flutter with rapid ventricular response (HC),Atrial tachycardia (HC),Paroxysmal atrial fibrillation (HC) Take 1 Tablet (50 mg) by mouth every 12 hours. 180 Tablet 3 4 Active Active Problems Problem Noted Date Diagnosed [...] 09/24/2007 11/04/2012 Overview (09/24/2007): Mammo 09/28/05 Colonoscopy 7/29/04barium enema every 5 years to check for colon polops Pap smear 08/22/05 Dexa 08/31/05 Encounters Date Type Department Care Team Description 06/18/2024 1:00 PM BARREL COATER Office Visit [address] [phone] Cayla Mcclure PA Consult (Ear cleaning) 06/18/2024 Travel from Last 3 Months Immunizations Name [...] Paying Living Expenses Not on file 04/23/2021 Comments No Sex and Gender Information Value Date Recorded Sex Assigned at Not on file Legal Sex Female 7:02 AM BARREL COATER Gender Identity Not on file Sexual Orientation [...] 36.8 C (98.2 F) 05/21/2020 7:37 AM BARREL COATER Respiratory Rate 16 01/19/2021 1:27 PM CDT Oxygen Saturation 99% 01/24/2024 10:34 AM CDT Inhaled Oxygen Concentration - - Weight 49 kg (108 lb 1.6 oz) 01/24/2024 10:34 AM CDT Height 153.7 cm (5' 0.5) 01/24/2024 10:34 AM CD T Body Mass Index 20.76 01/24/2024 10:34 AM CDT Plan of Treatment Upcoming Encounters Date Type Department Care Team (Late st Contact Info) Description 01/21/2025 11:00 AM CDT Office Visit [facility] [address] [place] [phone] Cayla Mcclure PA [address] [place] [address] 01/22/2025 11:30 AM CDT Office Visit [facility] [address] [place] [address] Dory Lyn MD [address] [facility] [address] [place] [address] Health Maintenance Due Date Last Done Comments Zoster (shingles) series for age 50+ (2 of 3) 01/02/2011 11/07/2010 RSV vaccine for adults or (1 - 1-dose 75+ series) 2012 Depression screening for age 12+ 03/10/2023 03/10/2022, 03/09/2021, 03/09/2021, Additional history exists Medicare Wellness for age 65+ 03/11/2023, 03/09/2021, 03/05/2020, Additional history exists Influenza for age 65+ 12/23/2023 01/25/2022 , 01/12/2021, 01/29/2020, Additional history exists BMI (ht and wt on same day) for age 18+ 01/23/2025 01/24/2024, 01/30/2023, 03/10/2022, Additional history exists Tetanus booster 10/09/2028 10/09/2018, 06/21, 03/10/1999 Pneumococcal series for age 50+ Completed 12/09/2014, 11/07/2010, 03/10/1999 DEXA/DXA scan for age 65+ Completed 2014, 12/03/2012, 08/31/2005 Tdap Completed 10/09/2018, 07/08/2008 COVID-19 vaccine series Completed 01/31/20 24, 02/12/2023, 01/25/2022, Additional history exists Procedures Procedure Name Priority Date/Time Associated Diagnosis Comments XR DXA BONE DENSITY 2 SITES AXIAL Routine 12/10/2014 9:34 AM CDT Osteopenia from Last 3 Months or Most Recently Relevant to Health Maintenance Results * (ABNORMAL) XR DXA BONE DENSITY 2 SITES (12/10/2014 9:34 AM CDT) Anatomical Region Laterality Modality Spine, HIPS, HIPL, HIPR Other Narrative 12/16/2014 3:15 PM CDT Please see scanned document for results of this study.\ us Kaylee POND DEXA Final Resu lt from Last 3 Months or Most Recently Relevant to Health Maintenance Insurance MEDICARE PART B HB ONLY [place] BLUE MR PB ONLY [place] BLUE HB ONLY MEDICARE PART A HB ONLY Advance Directives * Full Code (Latest Code Status on File) Date Activated Date Inactivated Comments 05/19/2020 1:30 PM 05/21/2020 1:51 PM Question Answer Comments Code Status Discussion: Not Discussed Care Teams Press Tender Smoke Signal Relationship Specialty Start Date End Date Neelam Gale MD [address] [place] [phone] PCP - General Internal Medicine 01/24/24
--- OUTSIDE RECORDS SUMMARY | 2024-06-27 15:36 | XMS_ITS | Encounter Summary ---
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 [address] [place] [phone] 07/09/2024 10:00 AM CDT Ancillary Procedure Department of Cardiovascular Medicine in [place], [place] [address] [place] [phone] Anna Lockwood M.D., M.S. [address] [place] [phone] 07/09/2024 10:45 AM CDT Appointment Department of Radiology, [facility], in [place], [place] [address] [place] [phone] Anna Lockwood M.D., M.S. [address] [place] [phone] 07/09/2024 3:00 PM CDT Office Visit Department of Cardiovascular Medicine in [place], [place] [address] [place] [phone] Anna Lockwood M.D., M.S. [address] [place] [phone] 09/05/2024 9:15 AM CDT Clinical Communication Virtual Review in [place], [place] 200 [place] [address] 09/08/2024 11:00 AM CDT Office Visit Department of Obstetrics and Gynecology, Division of Urogynecology in [place], [place] [address] [place] [phone] Antonia Caro P.A.-C. [address] [place] [phone] 09/17/2024 11:00 AM CDT Office Visit Department of Orthopedic Surgery in [place], [place] [address] [place] [phone] Judith Neal, DAMARI, C.N.P., D.N.P. [address] [place] [phone] documented as of this encounter Visit Diagnoses Not on filedocumented in this encounter Care Teams Grid Maker Relationship Specialty Start Date End Date Elsewhere, Pcp PCP - General Internal Medicine 05/25/23 documented as of this encounter
--- OUTSIDE RECORDS SUMMARY | 2024-06-27 15:36 | XMS_ITS | Encounter Summary ---
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 [address] [place] [phone] 07/09/2024 10:00 AM CDT Ancillary Procedure Department of Cardiovascular Medicine in [place], [place] [address] [place] [phone] Anna Lockwood M.D., M.S. [address] [place] [phone] 07/09/2024 10:45 AM CDT Appointment Department of Radiology, [facility], in [place], [place] [address] [place] [phone] Anna Lockwood M.D., M.S. [address] [place] [phone] 07/09/2024 3:00 PM CDT Office Visit Department of Cardiovascular Medicine in [place], [place] [address] [place] [phone] Anna Lockwood M.D., M.S. [address] [place] [phone] 09/05/2024 9:15 AM CDT Clinical Communication Virtual Review in [place], [place] 200 [place] [address] 09/08/2024 11:00 AM CDT Office Visit Department of Obstetrics and Gynecology, Division of Urogynecology in [place], [place] [address] [place] [phone] Antonia Caro P.A.-C. [address] [place] [phone] 09/17/2024 11:00 AM CDT Office Visit Department of Orthopedic Surgery in [place], [place] [address] [place] [phone] Judith Neal APRN, C.N.P., D.N.P. [address] [place] [phone] documented as of this encounter Visit Diagnoses Not on filedocumented in this encounter Care Teams Aquatic Habitat Biologist Relationship Specialty Start Date End Date Elsewhere, Pcp PCP - General Internal Medicine 05/25/23 documented as of this encounter
--- OUTSIDE RECORDS SUMMARY | 2024-06-27 15:36 | XMS_ITS | Encounter Summary ---
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 - 01/29/2002 12:00 AM CDT Eye General CHIEF COMPLAINT tearing, mattery red os x 3 months. severity fluctuates. HISTORY OF PRESENT ILLNESS Developed redness OS late 09/22 gradually with irritation. Was on a trip in [facility]. Symptoms fluctuated over next month. With increasing redness saw local supervisor coin machine who noted corneal epithelial and subepithelial lesions, [...] Anterior basment membrane dystrophy. CDM Reports - [facility] Id: [id number] Status: Fnl documented in this encounter Plan of Treatment Upcoming Encounters Date Type Department Care Team (Latest Contact Info) Description 07/09/2024 9:20 AM CDT Appointment Department of Laboratory Medicine and Pathology, [facility] in [place], [place] [address] [place] [phone] Anna Lockwood M.D., M.S. [address] [place] [phone] 07/09/2024 10:00 AM CDT Ancillary Procedure Department of Cardiovascular Medicine in [place], [place] [address] [place] [phone] Anna Lockwood M.D., M.S. [address] [place] [phone] 07/09/2024 10:45 AM CDT Appointment Department of Radiology, [facility], in [place], [place] [address] [place] [address] Anna Lockwood M.D., M.S. [address] [place] [phone] 07/09/2024 3:00 PM CDT Office Visit Department of Cardiovascular Medicine in [place], [place] [address] [place] [phone] Anna Lockwood M.D., M.S. [address] [place] [phone] 09/05/2024 9:15 AM CDT Clinical Communication Virtual Review in [place], [place] 200 [place] [phone] 09/08/2024 11:00 AM CDT Office Visit Department of Obstetrics and Gynecology, Division of Urogynecology in [place], [place] [address] [place] [phone] Antonia Caro P.A.-C. [address] [place] [phone] 09/17/2024 11:00 AM CDT Office Visit Department of Orthopedic Surgery in [place], [place] [address] [place] [phone] Judith Neal APRN, C.N.P., D.N.P. [address] [place] [phone] documented as of this encounter Visit Diagnoses Not on filedocumented in this encounter Care Teams Elementary Ell Teacher Relationship Specialty Start Date End Date Elsewhere, Pcp PCP - General Internal Medicine 05/25/23 documented as of this encounter
--- OUTSIDE RECORDS SUMMARY | 2024-06-27 15:36 | XMS_ITS | Clinical Summary ---
Author Organization [facility] Address [address] [place] [address] Care Team Providers Care Assistant Dean Name Role Phone Elsewhere, Pcp Primary Care Provider Unavailabl e Source Comments Patient records contain information from all sites at [facility]. For routine questions regarding patient records, call [phone] during business hours, M-F 8:00 AM - 5:00 PM Central Time. Record requests for emergency care only can be directed to [phone] at any time.[facility] Allergies No known active allergies Medications * This document contains information received from the source organization and may not represent a complete record from that organization. atorvastatin (LIPITOR) 10 mg tablet daily. 8 Active apixaban (ELIQUIS) 2.5 mg tablet Take 2.5 mg by mouth 2 (two) times a day. 2 Active flecainide (TAMBOCOR) 50 mg tablet Take 50 mg by mouth 2 (two) times a day. 2 Active ketoconazole (NIZORAL) 2 % shampoo Apply 1 Application topically as needed. Active losartan (Cozaar) 50 mg tablet Take 1 tablet by mouth daily. 4 Active cholecalcifero l, vitamin D3, (cholecalcifer ol) 25 mcg (1,000 Unit) tablet Take 25 mcg by mouth daily. Active losartan (COZAAR) 25 mg tablet 50 mg daily. 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 Keratosis Plantar 03/08/2023 Onychomycosis 12/13/2022 Dystrophic Toenail 12/13/2022 Callus Midland Foot 12/13/2022 Hallux Valgus Right 12/13/2022 Deformity Toe Acquired Left 12/13/2022 Hallux Valgus Left 12/13/2022 Hammer Toe Acquired Left 12/13/2022 Pain Foot Right 12/13/2022 Pain Foot Left 12/13/2022 Peripheral Arterial Disease 12/13/2022 Bunion Left 12/13/2022 Bunion Right 12/13/2022 Pain Toe Left 12/13/2022 Hyperlipidemia 12/13/2022 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 Dystrophic Toenail (Primary Dx); Keratosis Plantar; Callus Midland Foot; Pain Toe Left; Pain Foot Left; Hammer Toe Acquired Left; Peripheral Arterial Disease (HCC); Arthritis Foot; Senior Care (Current) Anticoagulant Treatment; Hallux Valgus Right; Hallux Valgus Left 06/11/2024 9:15 AM TELEPHONE OPERATOR RECEPTIONIST Clinical Communication Virtual Review in [address] [phone] Pre-visit Intake 04/21/2024 Clinical Communication Department of Cardiovascular Medicine in [address] [phone] Anna Lockwood M.D., M.S. Echo Move Up Request from Last 3 Months Immunizations Immunization Administration Dates Next Due HZV (ZOSTAVAX) 11/07/2010 PPSV23 11/07/2010,03/10/1999 Tdap 07/08/2008 influenza trivalent high dose (HD)(PF) 10/18/201 2 influenza trivalent vaccine (6 months and [...] drink = 0.6 oz pur e alcohol) [facility] Utilities Answer Date Recorded In the past 12 months has e Advisor Client Match, gas, oil, or water [employer] threatened to shut off services in your [...] often do you attend chur ch or judaism services? Never 09/04/2022 Do you [...] care, and heating? Not very hard 09/04/2022 [facility] - Occupational Stress Questionnaire Answer Date Recorded [...] PM CDT Legal Sex Female 8:55 PM TELEPHONE OPERATOR RECEPTIONIST Gender Identity Female 09/04/2022 4:04 PM CDT Sexual Orientation Straight 09/04/2022 4: 04 PM CDT Last Filed Vital Signs Vital Sign Reading Time Taken Comments Blood Pressure 208/132 03/03/2024 8:06 AM TELEPHONE OPERATOR RECEPTIONIST Pulse 93 03/03/2024 8:06 AM TELEPHONE OPERATOR RECEPTIONIST Temperature - - Respiratory Rate - - Oxygen Saturation - - Inhaled Oxygen Concentration - - Weight 49 kg (108 lb 0.4 oz) 03/03/2024 8:06 AM TELEPHONE OPERATOR RECEPTIONIST Height 157 cm (5' 1.81) 03/03/2024 8:06 AM TELEPHONE OPERATOR RECEPTIONIST Body Mass Index 19.88 03/03/2024 8:06 AM TELEPHONE OPERATOR RECEPTIONIST Plan of Treatment Upcoming Encounters Date Type Department Care Team (Latest Contact Info) Description 07/09/2024 9:20 AM CDT Appointment Department of Laboratory Medicine and Pathology, [facility] in [place], [place] [address] [place] [address] Anna Lockwood M.D., M.S. [address] [place] [phone] 07/09/2024 10:00 AM CDT Ancillary Procedure Department of Cardiovascular Medicine in [place], [place] [address] [place] [phone] Anna Lockwood M.D., M.S. [address] [place] [phone] 07/09/2024 10:45 AM CDT Appointment Department of Radiology, [facility] in [place], [place] [address] [place] [phone] Anna Lockwood M.D., M.S. [address] [place] [phone] 07/09/2024 3:00 PM CDT Office Visit Department of Cardiovascular Medicine in [place], [place] [address] [place] [phone] Anna Lockwood M.D., M.S. [address] [place] [phone] 09/05/2024 9:15 AM CDT Clinical Communication Virtual Review in [place], [place] 200 [place] [phone] 09/08/2024 11:00 AM CDT Office Visit Department of Obstetrics and Gynecology, Division of Urogynecology in [address] [phone] Antonia Caro, PSammyAKeya [address] [place] [phone] 09/17/2024 11:00 AM CDT Office Visit Department of Orthopedic Surgery in [place], [place] [address] [place] [phone] Judith Neal, DAMARI, C.N.P., D.N.P. [address] [place] [phone] Health Maintenance Due Date Last Done Comments Hepatitis B Screening 1935 RSV vaccine - (32-36 weeks) or 60+ years (1 - 1-dose 75+ series) 2012 Influenza Vaccine (#1) 2024 3, 01/25/2022, 01/12/2021, Additional history exists Depression Screening (Annual PHQ-2) 04/23/2024 Fall Risk Screen (Annual) 04/23/2024 COVID-19 Vaccine ( season) 2024 01/31/2024, 02/12/2023, 01/25/2022, Additional history exists Creatinine Level (Kidney Function Test) 02/24/2025 02/25/2024, 05/28/2023, 10/26/2022, Additional history exists Fasting Glucose for Diabetes Screening 02/24/2025 02/25/2024, 05/28/2023, 03/10/2022, Additional history exists Potassium Level 02/24/2025 02/25/2024, 02/0 08/2023, 03/10/2022, Additional history exists Sodium Level 02/24/2025 02/25/2024, 02/0 08/2023, 03/10/2022, Additional history exists DTaP,Tdap,and Td Vaccines (3 - Td or Tdap) 10/09/2028 10/09/2018, 07/08/2008 Pneumococcal vaccine (50+ years) Completed 12/09/2014, 11/07/2010, 03/10/1999 Zoster Vaccines Completed 10/03/2022, 07/22, 11/07/2010 IPV Vaccines Aged Out No longer eligi ble based on patient's age to complete this topic Procedures Procedure Name Priority Date/Time Associated Diagnosis Comments GLUCOSE, FASTING, S/P Routine 02/25/2024 9:10 AM TELEPHONE OPERATOR RECEPTIONIST 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) Pain Chest COMPREHENSIVE METABOLIC PANEL, S/P Routine 02/25/2024 9:10 AM TELEPHONE OPERATOR RECEPTIONIST 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 LAB BLOOD NON ADD-ON Final Re sult [facility] [address] [place] [address], [place] DTL [facility] [address] [place] [address] * Comprehensive Metabolic Panel (02/25/2024 9:10 AM TELEPHONE OPERATOR RECEPTIONIST) Potassium, S 5.2 3.6 - 5.2 mmol/L 02/25/2024 11:24 AM TELEPHONE OPERATOR RECEPTIONIST DTL Sodium, S 137 135 - 145 mmol/L 02/25/2024 11:24 AM TELEPHONE OPERATOR RECEPTIONIST DTL Chloride, S 99 98 - 107 mmol/L 02/25/2024 11:24 AM TELEPHONE OPERATOR RECEPTIONIST DTL Bicarbonate, S 28 22 - 29 mmol/L 02/25/2024 11:24 AM TELEPHONE OPERATOR RECEPTIONIST DTL Anion Gap 10 7 - 15 02/25/2024 11:24 AM TELEPHONE OPERATOR RECEPTIONIST DTL BUN (Blood Urea Nitrogen), S 11 6 - 21 mg/dL 02/25/2024 11:24 AM TELEPHONE OPERATOR RECEPTIONIST DTL Creatinine 0.81 0.59 - 1.04 mg/dL 02/25/2024 11:24 AM TELEPHONE OPERATOR RECEPTIONIST DTL Estimated GFR (eGFR) 71 >=60 mL/min/BS A 02/25/2024 11:24 AM TELEPHONE OPERATOR RECEPTIONIST DTL Comment: Estimated GFR calculated using the 2020 CKD_EPI creatinine equation. Calcium, Total, S 9.3 8.8 - 10.2 mg/dL 02/25/2024 11:24 AM TELEPHONE OPERATOR RECEPTIONIST DTL Glucose, S CANCELED mg/dL 02/25/2024 9:50 AM TELEPHONE OPERATOR RECEPTIONIST DTL Comment: Duplicate test request. Result canceled by the ancillary. Protein, Total, S 6.4 6.3 - 7.9 g/dL 02/25/2024 11:24 AM TELEPHONE OPERATOR RECEPTIONIST DTL Albumin, S 4.4 3.5 - 5.0 g/dL 02/25/2024 11:24 AM TELEPHONE OPERATOR RECEPTIONIST DTL Aspartate Aminotransferase (AST), S 26 8 - 43 U/L 02/25/2024 11:24 AM TELEPHONE OPERATOR RECEPTIONIST DTL Alkaline Phosphatase, S 78 35 - 104 U/L 02/25/2024 11:24 AM TELEPHONE OPERATOR RECEPTIONIST DTL Alanine Aminotransferase (ALT), S 17 7 - 45 U/L 02/25/2024 11:24 AM TELEPHONE OPERATOR RECEPTIONIST DTL Bilirubin, Total, S 0.8 0.0 - 1.2 mg/dL 02/25/2024 11:24 AM TELEPHONE OPERATOR RECEPTIONIST DTL Blood (Blood, Venous) 02/25/2024 9:10 AM TELEPHONE OPERATOR RECEPTIONIST 02/25/2024 9:50 AM TELEPHONE OPERATOR RECEPTIONIST Jefry Donald M.D. LAB BLOOD ADD-ON Final Result [facility] [address] [place] [address], [facility] DTL [facility] [address] [place] [address] from Last 3 Months or Most Recently Relevant to Health Maintenance Insurance MEDICARE [facility] Care Teams Assistant Dean Relationship Specialty Start Date End Date Elsewhere, Pcp PCP - General Internal Medicine 05/25/23
--- OUTSIDE RECORDS SUMMARY | 2024-06-27 15:36 | XMS_ITS | Encounter Summary ---
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 [address] [place] [phone] 07/09/2024 10:00 AM CDT Ancillary Procedure Department of Cardiovascular Medicine in [place], [place] [address] [place] [phone] Anna Lockwood M.D., M.S. [address] [place] [phone] 07/09/2024 10:45 AM CDT Appointment Department of Radiology, [facility], in [place], [place] [address] [place] [phone] Anna Lockwood M.D., M.S. [address] [place] [phone] 07/09/2024 3:00 PM CDT Office Visit Department of Cardiovascular Medicine in [place], [place] [address] [place] [phone] Anna Lockwood M.D., M.S. [address] [place] [phone] 09/05/2024 9:15 AM CDT Clinical Communication Virtual Review in [place], [place] 200 [place] [phone] 09/08/2024 11:00 AM CDT Office Visit Department of Obstetrics and Gynecology, Division of Urogynecology in [place], [place] [address] [place] [phone] Antonia Caro P.A.-C. [address] [place] [phone] 09/17/2024 11:00 AM CDT Office Visit Department of Orthopedic Surgery in [place], [place] [address] [place] [phone] Judith Neal, DAMARI, C.N.P., D.N.P. [address] [place] [phone] documented as of this encounter Visit Diagnoses Not on filedocumented in this encounter Care Teams Diamond Finishing Supervisor Relationship Specialty Start Date End Date Elsewhere, Pcp PCP - General Internal Medicine 05/25/23 documented as of this encounter
--- OUTSIDE RECORDS SUMMARY | 2024-06-27 15:36 | XMS_ITS | Encounter Summary ---
Author Organization [facility] Address [address] [place] [address] Care Team Providers Care Information Systems Planner Name Role Phone Elsewhere, Pcp Primary Care Provider Unavailabl e Reason for Visit * Reason Onset Date Comments Echo Move Up Request 04/21/2024 Encounter Details Date Type Department Care Team (Latest Contact Info) Description 04/21/2024 Clinical Communication Department of Cardiovascular Medicine in [place], [place] [address] [place] [address] Anna Lockwood M.D., M.S. [address] [place] [phone] Echo Move Up Request Social History Tobacco Use Types Packs/Day Years Used Date Smoking Tobacco: Never Smokeless Tobacco: Never Alcohol Use Standard Drinks/Week Comments Not Currently 0 (1 standard drink = 0.6 oz pur e alcohol) [facility] Utilities Answer Date Recorded In the past 12 months has e [employer], gas, oil, or water [employer] threatened to shut off services in your [...] often do you attend chur ch or taoist services? Never 09/04/2022 Do you belong to any clubs o r organizations such as mosque groups, unions, fraternal or athletic groups, or [...] care, and heating? Not very hard 09/04/2022 [facility] of Occupat ional Health - [...] your living situation today? I have a [facility] place to live 09/09/2023 Education Answer Date Recorded What is the highest level of school you have completed or the highest degree you have received? Bachelor's degree (e.g., BA, AB, BS) 09/04/2022 Comments Unknown Sex and Gender Information Value Date Recorded Sex Assigned at Female 09/04/2022 4:04 PM CDT Legal Sex Female 8:55 PM COMPUTATIONAL MATHEMATICIAN Gender Identity Female 09/04/2022 4:04 PM CDT Sexual Orientation Straight 09/04/2022 4: 04 PM CDT documented as of this encounter Plan of Treatment Upcoming Encounters Date Type Department Care Team (Latest Contact Info) Description 07/09/2024 9:20 AM CDT Appointment Department of Laboratory Medicine and Pathology, [facility] in [place], [place] [address] [place] [address] Anna Lockwood M.D., M.S. 200 [place] [phone] 07/09/2024 10:00 AM CDT Ancillary Procedure Department of Cardiovascular Medicine in [place], [place] [address] [place] [phone] Anna Lockwood M.D., M.S. [address] [place] [phone] 07/09/2024 10:45 AM CDT Appointment Department of Radiology, [facility], in [place], [place] [address] [place] [phone] Anna Lockwood M.D., M.S. [address] [place] [phone] 07/09/2024 3:00 PM CDT Office Visit Department of Cardiovascular Medicine in [place], [place] [address] [place] [phone] Anna Lockwood M.D., M.S. [address] [place] [phone] 09/05/2024 9:15 AM CDT Clinical Communication Virtual Review in [place], [place] 200 [place] [address] 09/08/2024 11:00 AM CDT Office Visit Department of Obstetrics and Gynecology, Division of Urogynecology in [address] [phone] Antonia Caro P.A.-C. [address] [place] [phone] 09/17/2024 11:00 AM CDT Office Visit Department of Orthopedic Surgery in [place], [place] [address] [place] [phone] Judith Neal, DAMARI, C.N.P., D.N.P. [address] [place] [phone] documented as of this encounter Visit Diagnoses Not on filedocumented in this encounter Care Teams Information Systems Planner Relationship Specialty Start Date End Date Elsewhere, Pcp PCP - General Internal Medicine 05/25/23 documented as of this encounter
--- OUTSIDE RECORDS SUMMARY | 2024-06-27 15:36 | XMS_ITS | Encounter Summary ---
Author Organization [facility] Address [address] [place] [address] Care Team Providers Care Eap Counselor Name Role Phone Elsewhere, Pcp Primary Care Provider Unavailabl e Reason for Visit * Reason Onset Date Comments Pre-visit Intake 06/11/2024 * Appointment Request (Routine) - Authorized Specialty Diagnoses / Procedures Referred By Nahid grewal Referred To Contact Orthopedic Surgery Referral ID Status Reason Start Date Expiration Date V isits Requested Visits Authorized [id number] Authorized 03/25/2024 03/25/2025 1 1 Encounter Details Date Type Department Care Team (Latest Contact Info) Description 06/11/2024 9:15 AM TYPEWRITER OPERATOR AUTOMATIC Clinical Communication Virtual Review in [place], [place] 200 [place] [address] Pre-visit Intake Social History Tobacco Use Types Packs/Day Years Used Date Smoking Tobacco: Never Passive Smoke Exposure: Past Smokeless Tobacco: Never Alcohol Use Standard Drinks/Week Comments Not Currently 0 (1 standard drink = 0.6 oz pur e alcohol) [facility] Utilities Answer Date Recorded In the past 12 months has [facility] [employer], gas, oil, or water [employer] threatened to shut off services in your [...] often do you attend chur ch or sabianist services? Never 09/04/2022 Do you belong to any clubs o r organizations such as confucianism groups, unions, fraternal or athletic groups, or [...] care, and heating? Not very hard 09/04/2022 [employer] of Occupat ional Health - Occupational Stress [...] your living situation today? I have a [facility] place to live 09/09/2023 Education Answer Date Recorded What is the highest level of school you have completed or the highest degree you have received? Bachelor's degree (e.g., BA, AB, BS) 09/04/2022 Comments Unknown Sex and Gender Information Value Date Recorded Sex Assigned at Female 09/04/2022 4:04 PM CDT Legal Sex Female 8:55 PM TYPEWRITER OPERATOR AUTOMATIC Gender Identity Female 09/04/2022 4:04 PM CDT Sexual Orientation Straight 09/04/2022 4: 04 PM CDT documented as of this encounter Plan of Treatment Upcoming Encounters Date Type Department Care Team (Latest Contact Info) Description 07/09/2024 9:20 AM CDT Appointment Department of Laboratory Medicine and Pathology, [facility], in [place], [place] 200 [place] [address] Anna Lockwood M.D., M.S. 200 [place] [address] 07/09/2024 10:00 AM CDT Ancillary Procedure Department of Cardiovascular Medicine in [place], [place] 200 [place] [phone] Anna Lockwood M.D., M.S. [address] [place] [phone] 07/09/2024 10:45 AM CDT Appointment Department of Radiology, [facility], in [place], [place] [address] [place] [phone] Anna Lockwood M.D., M.S. [address] [place] [phone] 07/09/2024 3:00 PM CDT Office Visit Department of Cardiovascular Medicine in [place], [place] [address] [place] [phone] Anna Lockwood M.D., M.S. [address] [place] [phone] 09/05/2024 9:15 AM CDT Clinical Communication Virtual Review in [place], [place] 200 [place] [address] 09/08/2024 11:00 AM CDT Office Visit Department of Obstetrics and Gynecology, Division of Urogynecology in [place], [place] [address] [place] [phone] Antonia Caro, PSammyASammy-Darek [address] [place] [phone] 09/17/2024 11:00 AM CDT Office Visit Department of Orthopedic Surgery in [address] [phone] Judith Neal APRN, C.N.P., D.N.P. [address] [place] [phone] documented as of this encounter Visit Diagnoses Not on filedocumented in this encounter Care Teams Eap Counselor Relationship Specialty Start Date End Date Elsewhere, Pcp PCP - General Internal Medicine 05/25/23 documented as of this encounter
--- OUTSIDE RECORDS SUMMARY | 2024-06-27 15:36 | XMS_ITS | Encounter Summary ---
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 [address] [place] [phone] 07/09/2024 10:00 AM CDT Ancillary Procedure Department of Cardiovascular Medicine in [place], [place] [address] [place] [phone] Anna Lockwood M.D., M.S. [address] [place] [phone] 07/09/2024 10:45 AM CDT Appointment Department of Radiology, [facility], in [place], [place] [address] [place] [phone] Anna Lockwood M.D., M.S. [address] [place] [phone] 07/09/2024 3:00 PM CDT Office Visit Department of Cardiovascular Medicine in [place], [place] [address] [place] [phone] Anna Lockwood M.D., M.S. [address] [place] [phone] 09/05/2024 9:15 AM CDT Clinical Communication Virtual Review in [place], [place] 200 [place] [address] 09/08/2024 11:00 AM CDT Office Visit Department of Obstetrics and Gynecology, Division of Urogynecology in [place], [place] [address] [place] [phone] Antonia Caro P.A.-C. [address] [place] [phone] 09/17/2024 11:00 AM CDT Office Visit Department of Orthopedic Surgery in [place], [place] [address] [place] [phone] Judith Neal APRN, C.N.P., D.N.P. [address] [place] [address] documented as of this encounter Visit Diagnoses Not on filedocumented in this encounter Care Teams Oiler Helper Relationship Specialty Start Date End Date Elsewhere, Pcp PCP - General Internal Medicine 05/25/23 documented as of this encounter
--- OUTSIDE RECORDS SUMMARY | 2024-06-27 15:36 | XMS_ITS | Encounter Summary ---
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 [address] [place] [phone] 07/09/2024 10:00 AM CDT Ancillary Procedure Department of Cardiovascular Medicine in [place], [place] [address] [place] [phone] Anna Lockwood M.D., M.S. [address] [place] [phone] 07/09/2024 10:45 AM CDT Appointment Department of Radiology, [facility], in [place], [place] [address] [place] [phone] Anna Lockwood M.D., M.S. [address] [place] [phone] 07/09/2024 3:00 PM CDT Office Visit Department of Cardiovascular Medicine in [place], [place] [address] [place] [phone] Anna Lockwood M.D., M.S. [address] [place] [phone] 09/05/2024 9:15 AM CDT Clinical Communication Virtual Review in [place], [place] 200 [place] [address] 09/08/2024 11:00 AM CDT Office Visit Department of Obstetrics and Gynecology, Division of Urogynecology in [place], [place] [address] [place] [phone] Antonia Caro P.A.-C. [address] [place] [phone] 09/17/2024 11:00 AM CDT Office Visit Department of Orthopedic Surgery in [place], [place] [address] [place] [phone] Judith Neal, DAMARI, C.N.P., D.N.P. [address] [place] [phone] documented as of this encounter Visit Diagnoses Not on filedocumented in this encounter Care Teams Church Secretary Relationship Specialty Start Date End Date Elsewhere, Pcp PCP - General Internal Medicine 05/25/23 documented as of this encounter
--- OUTSIDE RECORDS SUMMARY | 2024-06-27 15:36 | XMS_ITS | Encounter Summary ---
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 [address] [place] [phone] 07/09/2024 10:00 AM CDT Ancillary Procedure Department of Cardiovascular Medicine in [place], [place] [address] [place] [phone] Anna Lockwood M.D., M.S. [address] [place] [phone] 07/09/2024 10:45 AM CDT Appointment Department of Radiology, [facility], in [place], [place] [address] [place] [phone] Anna Lockwood M.D., M.S. [address] [place] [phone] 07/09/2024 3:00 PM CDT Office Visit Department of Cardiovascular Medicine in [address] [phone] Anna Lockwood M.D., M.S. [address] [place] [phone] 09/05/2024 9:15 AM CDT Clinical Communication Virtual Review in [place], [place] 200 [place] [address] 09/08/2024 11:00 AM CDT Office Visit Department of Obstetrics and Gynecology, Division of Urogynecology in [place], [place] [address] [place] [phone] Antonia Caro P.A.-C. [address] [place] [phone] 09/17/2024 11:00 AM CDT Office Visit Department of Orthopedic Surgery in [place], [place] [address] [place] [phone] Judith Neal APRN, C.N.P., D.N.P. [address] [place] [phone] documented as of this encounter Visit Diagnoses Not on filedocumented in this encounter Care Teams Hvac Controls Technician Relationship Specialty Start Date End Date Elsewhere, Pcp PCP - General Internal Medicine 05/25/23 documented as of this encounter
--- OUTSIDE RECORDS SUMMARY | 2024-06-27 15:36 | XMS_ITS | Encounter Summary ---
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 CDM Reports - EYEGEN Id: [id number] Status: Fnl documented in this encounter Plan of Treatment Upcoming Encounters Date Type Department Care Team (Latest Contact Info) Description 07/09/2024 9:20 AM CDT Appointment Department of Laboratory Medicine and Pathology, [facility] in [place], [place] [address] [place] [phone] Anna Lockwood M.D., M.S. [address] [place] [phone] 07/09/2024 10:00 AM CDT Ancillary Procedure Department of Cardiovascular Medicine in [place], [place] [address] [place] [phone] Anna Lockwood M.D., M.S. [address] [place] [phone] 07/09/2024 10:45 AM CDT Appointment Department of Radiology, [facility], in [place], [place] [address] [place] [phone] Anna Lockwood M.D., M.S. [address] [place] [phone] 07/09/2024 3:00 PM CDT Office Visit Department of Cardiovascular Medicine in [place], [place] [address] [place] [phone] Anna Lockwood M.D., M.S. [address] [place] [phone] 09/05/2024 9:15 AM CDT Clinical Communication Virtual Review in [place], [place] 200 [place] [phone] 09/08/2024 11:00 AM CDT Office Visit Department of Obstetrics and Gynecology, Division of Urogynecology in [place], [place] [address] [place] [phone] Antonia Caro P.A.-C. [address] [place] [phone] 09/17/2024 11:00 AM CDT Office Visit Department of Orthopedic Surgery in [place], [place] [address] [place] [phone] Judith Neal, DAMARI, C.N.P., D.N.P. [address] [place] [phone] documented as of this encounter Visit Diagnoses Not on filedocumented in this encounter Care Teams Bartender Manager Relationship Specialty Start Date End Date Elsewhere, Pcp PCP - General Internal Medicine 05/25/23 documented as of this encounter
--- OUTSIDE RECORDS SUMMARY | 2024-06-27 15:37 | XMS_ITS | Encounter Summary ---
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 [address] [place] [phone] 07/09/2024 10:00 AM CDT Ancillary Procedure Department of Cardiovascular Medicine in [place], [place] [address] [place] [phone] Anna Lockwood M.D., M.S. [address] [place] [phone] 07/09/2024 10:45 AM CDT Appointment Department of Radiology, [facility], in [place], [place] [address] [place] [phone] Anna Lockwood M.D., M.S. [address] [place] [phone] 07/09/2024 3:00 PM CDT Office Visit Department of Cardiovascular Medicine in [place], [place] [address] [place] [phone] Anna Lockwood M.D., M.S. [address] [place] [phone] 09/05/2024 9:15 AM CDT Clinical Communication Virtual Review in [place], [place] 200 [place] [address] 09/08/2024 11:00 AM CDT Office Visit Department of Obstetrics and Gynecology, Division of Urogynecology in [place], [place] [address] [place] [phone] Antonia Caro P.A.-C. [address] [place] [phone] 09/17/2024 11:00 AM CDT Office Visit Department of Orthopedic Surgery in [place], [place] [address] [place] [address] Judith Neal, DAMARI, C.N.P., D.N.P. 200 [place] [address] documented as of this encounter Visit Diagnoses Not on filedocumented in this encounter Care Teams Deliverer Merchandise Relationship Specialty Start Date End Date Elsewhere, Pcp PCP - General Internal Medicine 05/25/23 documented as of this encounter
--- OUTSIDE RECORDS SUMMARY | 2024-06-27 15:37 | XMS_ITS | Encounter Summary ---
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 in [place], [place] [address] [place] [phone] Anna Lockwood M.D., M.S. [address] [place] [phone] 07/09/2024 10:00 AM CDT Ancillary Procedure Department of Cardiovascular Medicine in [place], [place] [address] [place] [phone] Anna Lockwood M.D., M.S. [address] [place] [phone] 07/09/2024 10:45 AM CDT Appointment Department of Radiology, [facility], in [place], [place] [address] [place] [phone] Anna Lockwood M.D., M.S. [address] [place] [phone] 07/09/2024 3:00 PM CDT Office Visit Department of Cardiovascular Medicine in [address] [phone] Anna Lockwood M.D., M.S. [address] [place] [phone] 09/05/2024 9:15 AM CDT Clinical Communication Virtual Review in [place], [place] 200 [place] [address] 09/08/2024 11:00 AM CDT Office Visit Department of Obstetrics and Gynecology, Division of Urogynecology in [address] [phone] Antonia Caro P.A.-C. [address] [place] [phone] 09/17/2024 11:00 AM CDT Office Visit Department of Orthopedic Surgery in [place], [place] [address] [place] [address] Judith Neal APRN, C.N.P., D.N.P. [address] [place] [phone] documented as of this encounter Visit Diagnoses Not on filedocumented in this encounter Care Teams Dean Of Graduate Studies Relationship Specialty Start Date End Date Elsewhere, Pcp PCP - General Internal Medicine 05/25/23 documented as of this encounter
--- OUTSIDE RECORDS SUMMARY | 2024-06-27 15:37 | XMS_ITS | Encounter Summary ---
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 [address] [place] [phone] 07/09/2024 10:00 AM CDT Ancillary Procedure Department of Cardiovascular Medicine in [place], [place] [address] [place] [phone] Anna Lockwood M.D., M.S. [address] [place] [phone] 07/09/2024 10:45 AM CDT Appointment Department of Radiology, [facility], in [place], [place] [address] [place] [phone] Anna Lockwood M.D., M.S. [address] [place] [phone] 07/09/2024 3:00 PM CDT Office Visit Department of Cardiovascular Medicine in [place], [place] [address] [place] [phone] Anna Lockwood M.D., M.S. [address] [place] [phone] 09/05/2024 9:15 AM CDT Clinical Communication Virtual Review in [place], [place] 200 [place] [address] 09/08/2024 11:00 AM CDT Office Visit Department of Obstetrics and Gynecology, Division of Urogynecology in [place], [place] [address] [place] [address] Antonia Caro P.A.-C. [address] [place] [phone] 09/17/2024 11:00 AM CDT Office Visit Department of Orthopedic Surgery in [place], [place] [address] [place] [phone] Judith Neal APRN, C.N.P., D.N.P. [address] [place] [phone] documented as of this encounter Visit Diagnoses Not on filedocumented in this encounter Care Teams Caregiver Services Home Relationship Specialty Start Date End Date Elsewhere, Pcp PCP - General Internal Medicine 05/25/23 documented as of this encounter
--- OUTSIDE RECORDS SUMMARY | 2024-06-27 15:37 | XMS_ITS | Continuity of Care Document ---
Author Organization [facility] Address [address] [place] [address] Phone Care Team Providers Care Brokerage Purchase And Sale Clerk Name Role Phone Sosa Ruano MD Unavailable [...] [facility], [address], [place], [address], tel:[phone] [facility] No Information 0 Bindu Swan. [address], [address], [place]. tel:[phone] Office/Outpa tient Visit, [facility], [address], [place], [address], [place] tel:[phone] [facility], elevated JOSE (chief complaint) back pain (chief complaint) Other and unspecified nonspecific immunological findingsBacka [facility] [address] Ph[address] Beasley. [facility] [address], [place], [address], [place]. tel:[phone] [facility], [address], [place], [address], [place] tel:[phone] [facility], No Information [address] Be[address]. [facility] [address], [place], [address], [place]. tel:[phone] Family History Family Member Type Diagnosis Age At Onset Problem (finding) arthritis Problem (finding) Problem (finding) Family history of hyper tension Problem (finding) cancer Problem (finding) Family history of gout Problem (finding) Family history of disor hazel of lung Problem (finding) Family history of hyper tension Payers Payer name Insurance type Covered constitution party ID Authoriza tishanelle(s) [facility] [id number] Social History Type Description Quantity Date Captured [...]
--- OUTSIDE RECORDS SUMMARY | 2024-06-27 15:37 | XMS_ITS | Encounter Summary ---
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 [address] [place] [phone] 07/09/2024 10:00 AM CDT Ancillary Procedure Department of Cardiovascular Medicine in [place], [place] [address] [place] [phone] Anna Lockwood M.D., M.S. [address] [place] [phone] 07/09/2024 10:45 AM CDT Appointment Department of Radiology, [facility], in [place], [place] [address] [place] [phone] Anna Lockwood M.D., M.S. [address] [place] [phone] 07/09/2024 3:00 PM CDT Office Visit Department of Cardiovascular Medicine in [address] [phone] Anna Lockwood M.D., M.S. [address] [place] [phone] 09/05/2024 9:15 AM CDT Clinical Communication Virtual Review in [place], [place] 200 [place] [address] 09/08/2024 11:00 AM CDT Office Visit Department of Obstetrics and Gynecology, Division of Urogynecology in [address] [phone] Antonia Caro P.A.-C. [address] [place] [phone] 09/17/2024 11:00 AM CDT Office Visit Department of Orthopedic Surgery in [place], [place] [address] [place] [phone] Judith Neal APRN, C.N.P., D.N.P. [address] [place] [phone] documented as of this encounter Visit Diagnoses Not on filedocumented in this encounter Care Teams Manager Title Relationship Specialty Start Date End Date Elsewhere, Pcp PCP - General Internal Medicine 05/25/23 documented as of this encounter
--- OUTSIDE RECORDS SUMMARY | 2024-06-27 15:37 | XMS_ITS | Encounter Summary ---
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 #4 Ocular hypertension - stable. [facility] Reports - EYEGEN Id: [id number] Status: Fnl documented in this encounter Plan of Treatment Upcoming Encounters Date Type Department Care Team (Latest Contact Info) Description 07/09/2024 9:20 AM CDT Appointment Department of Laboratory Medicine and Pathology, [facility], in [place], [place] [address] [place] [phone] Anna Lockwood M.D., M.S. [address] [place] [phone] 07/09/2024 10:00 AM CDT Ancillary Procedure Department of Cardiovascular Medicine in [place], [place] [address] [place] [phone] Anna Lockwood M.D., M.S. [address] [place] [phone] 07/09/2024 10:45 AM CDT Appointment Department of Radiology, [facility], in [place], [place] [address] [place] [phone] Anna Lockwood M.D., M.S. [address] [place] [phone] 07/09/2024 3:00 PM CDT Office Visit Department of Cardiovascular Medicine in [address] [phone] Anna Lockwood M.D., M.S. [address] [place] [phone] 09/05/2024 9:15 AM CDT Clinical Communication Virtual Review in [place], [place] 200 [place] [address] 09/08/2024 11:00 AM CDT Office Visit Department of Obstetrics and Gynecology, Division of Urogynecology in [place], [place] [address] [place] [phone] Antonia Caro P.A.-C. [address] [place] [phone] 09/17/2024 11:00 AM CDT Office Visit Department of Orthopedic Surgery in [place], [place] [address] [place] [phone] Judith Neal, DAMARI, C.N.P., D.N.P. [address] [place] [phone] documented as of this encounter Visit Diagnoses Not on filedocumented in this encounter Care Teams Pipe Finisher Relationship Specialty Start Date End Date Elsewhere, Pcp PCP - General Internal Medicine 05/25/23 documented as of this encounter
--- OUTSIDE RECORDS SUMMARY | 2024-06-27 15:37 | XMS_ITS | Encounter Summary ---
Author Organization 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 [address] [place] [phone] 07/09/2024 10:00 AM CDT Ancillary Procedure Department of Cardiovascular Medicine in [place], [place] [address] [place] [phone] Anna Lockwood M.D., M.S. [address] [place] [phone] 07/09/2024 10:45 AM CDT [facility] [address] [phone] Anna Lockwood M.D., M.S. [address] [place] [phone] 07/09/2024 3:00 PM CDT Office Visit Department of Cardiovascular Medicine in [address] [phone] Anna Lockwood M.D., M.S. [address] [place] [phone] 09/05/2024 9:15 AM CDT Clinical Communication Virtual Review in [place], [place] 200 [place] [address] 09/08/2024 11:00 AM CDT Office Visit Department of Obstetrics and Gynecology, Division of Urogynecology in [address] [phone] Antonia Caro P.A.-C. [address] [place] [phone] 09/17/2024 11:00 AM CDT Office Visit Department of Orthopedic Surgery in [place], [place] [address] [place] [address] Judith Neal, DAMARI, C.N.P., D.N.P. [address] [place] [address] documented as of this encounter Visit Diagnoses Not on filedocumented in this encounter Care Teams Lab Tester Relationship Specialty Start Date End Date Elsewhere, Pcp PCP - General Internal Medicine 05/25/23 documented as of this encounter
--- OUTSIDE RECORDS SUMMARY | 2024-06-27 15:37 | XMS_ITS | Encounter Summary ---
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 [address] [place] [phone] 07/09/2024 10:00 AM CDT Ancillary Procedure Department of Cardiovascular Medicine in [place], [place] [address] [place] [phone] Anna Lockwood M.D., M.S. [address] [place] [phone] 07/09/2024 10:45 AM CDT Appointment Department of Radiology, [facility], in [place], [place] [address] [place] [phone] Anna Lockwood M.D., M.S. [address] [place] [phone] 07/09/2024 3:00 PM CDT Office Visit Department of Cardiovascular Medicine in [place], [place] [address] [place] [phone] Anna Lockwood M.D., M.S. [address] [place] [phone] 09/05/2024 9:15 AM CDT Clinical Communication Virtual Review in [place], [place] 200 [place] [address] 09/08/2024 11:00 AM CDT Office Visit Department of Obstetrics and Gynecology, Division of Urogynecology in [place], [place] [address] [place] [phone] Antonia Caro P.A.-C. [address] [place] [phone] 09/17/2024 11:00 AM CDT Office Visit Department of Orthopedic Surgery in [place], [place] [address] [place] [phone] Judith Neal, DAMARI, C.N.P., D.N.P. [address] [place] [phone] documented as of this encounter Visit Diagnoses Not on filedocumented in this encounter Care Teams Calculus Professor Relationship Specialty Start Date End Date Elsewhere, Pcp PCP - General Internal Medicine 05/25/23 documented as of this encounter
--- OUTSIDE RECORDS SUMMARY | 2024-06-27 15:37 | XMS_ITS | Encounter Summary ---
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 [address] [place] [phone] 07/09/2024 10:00 AM CDT Ancillary Procedure Department of Cardiovascular Medicine in [place], [place] [address] [place] [phone] Anna Lockwood M.D., M.S. [address] [place] [phone] 07/09/2024 10:45 AM CDT Appointment Department of Radiology, [facility], in [place], [place] [address] [place] [phone] Anna Lockwood M.D., M.S. [address] [place] [phone] 07/09/2024 3:00 PM CDT Office Visit Department of Cardiovascular Medicine in [address] [phone] Anna Lockwood M.D., M.S. [address] [place] [phone] 09/05/2024 9:15 AM CDT Clinical Communication Virtual Review in [place], [place] 200 [place] [address] 09/08/2024 11:00 AM CDT Office Visit Department of Obstetrics and Gynecology, Division of Urogynecology in [address] [phone] Antonia Caro P.A.-C. [address] [place] [phone] 09/17/2024 11:00 AM CDT Office Visit Department of Orthopedic Surgery in [place], [place] [address] [place] [phone] Judith Neal, DAMARI, C.N.P., D.N.P. [address] [place] [phone] documented as of this encounter Visit Diagnoses Not on filedocumented in this encounter Care Teams Senior Marketing Manager Relationship Specialty Start Date End Date Elsewhere, Pcp PCP - General Internal Medicine 05/25/23 documented as of this encounter
--- OUTSIDE RECORDS SUMMARY | 2024-06-27 15:37 | XMS_ITS | Encounter Summary ---
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 #4 Ocular hypertension - stable. CD Reports - EYEGEN Id: [id number] Status: Fnl documented in this encounter Plan of Treatment Upcoming Encounters Date Type Department Care Team (Latest Contact Info) Description 07/09/2024 9:20 AM CDT Appointment Department of Laboratory Medicine and Pathology, [facility] in [place], [place] [address] [place] [phone] Anna Lockwood M.D., M.S. [address] [place] [phone] 07/09/2024 10:00 AM CDT Ancillary Procedure Department of Cardiovascular Medicine in [place], [place] [address] [place] [phone] Anna Lockwood M.D., M.S. [address] [place] [phone] 07/09/2024 10:45 AM CDT Appointment Department of Radiology, [facility], in [place], [place] [address] [place] [phone] Anna Lockwood M.D., M.S. [address] [place] [phone] 07/09/2024 3:00 PM CDT Office Visit Department of Cardiovascular Medicine in [place], [place] [address] [place] [phone] Anna Lockwood M.D., M.S. [address] [place] [phone] 09/05/2024 9:15 AM CDT Clinical Communication Virtual Review in [place], [place] 200 [place] [phone] 09/08/2024 11:00 AM CDT Office Visit Department of Obstetrics and Gynecology, Division of Urogynecology in [place], [place] [address] [place] [phone] Antonia Caro P.A.-C. [address] [place] [phone] 09/17/2024 11:00 AM CDT Office Visit Department of Orthopedic Surgery in [place], [place] [address] [place] [phone] Judith Neal, DAMARI, C.N.P., D.N.P. [address] [place] [phone] documented as of this encounter Visit Diagnoses Not on filedocumented in this encounter Care Teams Maintenance Chief Relationship Specialty Start Date End Date Elsewhere, Pcp PCP - General Internal Medicine 05/25/23 documented as of this encounter
[2024-06-27] MEDS: LOSARTAN POTASSIUM 50 MG TABLET 25 MG PO (18:08)
== END 2024-06-27 18:09 | disposition home or self-care (01) ==
PROVIDERS: Emergency Provider Family Medicine; PCP Internal Medicine
DX: R07.9 Chest pain, unspecified (principal); I10 Essential (primary) hypertension
CPT/HCPCS: 36415; 71046; 80048; 84484; 85025; 87631; 93005; 99284; 99285; A9270

== ENCOUNTER 2024-07-28 14:48 | Emergency (ER) | payer MEDICARE, BC, SELFPAY ==
[2024-07-28] VITALS (24 sets, daily range): BP systolic 156–204; BP diastolic 96–143; PULSE 63–76; RESP 13–50; TEMP 36.6; O2SAT 94–96; BMI 21.2
--- OUTSIDE RECORDS SUMMARY | 2024-07-28 14:50 | XMS_ITS | Encounter Summary ---
Author Organization [facility] Address [address] [place] [address] Care Team Providers Care Manager Division Name Role Phone Elsewhere, Pcp Primary Care Provider Unavailabl e Encounter Details Date Type Department Care Team (Late st Contact Info) Description 07/16/2014 Historical Ophthalmology [facility] Leonardo Macedo M.D. 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 [address] [place] [phone] 09/17/2024 11:00 AM CDT Office Visit Department of Orthopedic Surgery in [address] [phone] Judith Neal APRN, C.N.P., D.N.P. [address] [place] [phone] 09/30/2024 1:00 PM CDT Appointment Department of Radiology, [facility], in [address] [phone] Anna Lockwood M.D., M.S. [address] [place] [phone] 10/01/2024 9:10 AM CDT Appointment Department of Laboratory Medicine and Pathology, [facility], in [place], [place] [address] [place] [phone] Anna Lockwood M.D., M.S. [address] [place] [phone] 10/01/2024 10:00 AM CDT Ancillary Procedure Department of Cardiovascular Medicine in [address] [phone] Anna Lockwood M.D., M.S. [address] [place] [address] 10/01/2024 11:00 AM CDT Office Visit Department of Cardiovascular Medicine in [place], [place] [address] [place] [address] Anna Lockwood M.D., M.S. [address] [place] [address] documented as of this encounter Visit Diagnoses Not on filedocumented in this encounter Care Teams Manager Division Relationship Specialty Start Date End Date Elsewhere, Pcp PCP - General Internal Medicine 05/25/23 documented as of this encounter
--- OUTSIDE RECORDS SUMMARY | 2024-07-28 14:50 | XMS_ITS | Encounter Summary ---
Author Organization [facility] Address [address] [place] [address] Care Team Providers Care Concrete Spreader Name Role Phone Elsewhere, Pcp Primary Care Provider Unavailabl e Encounter Details Date Type Department Care Team (Late st Contact Info) Description 05/18/2008 Historical Ophthalmology [facility] Leonardo Macedo M.D. 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 [address] [place] [phone] 09/17/2024 11:00 AM CDT Office Visit Department of Orthopedic Surgery in [address] [phone] Judith Neal APRN, C.N.P., D.N.P. [address] [place] [phone] 09/30/2024 1:00 PM CDT Appointment Department of Radiology, [facility], in [address] [phone] Anna Lockwood M.D., M.S. [address] [place] [phone] 10/01/2024 9:10 AM CDT Appointment Department of Laboratory Medicine and Pathology, [facility], in [address] [phone] Anna Lockwood M.D., M.S. [address] [place] [phone] 10/01/2024 10:00 AM CDT Ancillary Procedure Department of Cardiovascular Medicine in [address] [phone] Anna Lockwood M.D., M.S. [address] [place] [address] 10/01/2024 11:00 AM CDT Office Visit Department of Cardiovascular Medicine in [place], [place] [address] [place] [address] Anna Lockwood M.D., M.S. [address] [place] [phone] documented as of this encounter Visit Diagnoses Not on filedocumented in this encounter Care Teams Concrete Spreader Relationship Specialty Start Date End Date Elsewhere, Pcp PCP - General Internal Medicine 05/25/23 documented as of this encounter
--- OUTSIDE RECORDS SUMMARY | 2024-07-28 14:50 | XMS_ITS | Encounter Summary ---
Author Organization [facility] Address [address] [place] [phone] Care Team Providers Care Package Maker Name Role Phone Elsewhere, Pcp Primary Care Provider Unavailabl e Reason for Referral * Outpatient (Routine) - Authorized Specialty Diagnoses / Procedures Referred By Nahid grewal Referred To Contact Orthopedic Surgery Diagnoses Dystrophic Toenail Keratosis Plantar Callus Paris Foot Pain Toe Left Hammer Toe Acquired Left Hallux Valgus Left Hallux Valgus Right Arthritis Foot Peripheral Arterial Disease Custodial (Current) Anticoagulant Treatment Judith Neal APRN, C.N.P., D.N.P. [address] [place] [phone] Phone: tel: fax: [facility] Referral ID Status Reason Start Date Expiration Date V isits Requested Visits Authorized [id number] Authorized 06/16/2024 12/16/2025 1 1 APEUTIC STRATEGY LEAD Reason for Visit * Outpatient (Routine) - Closed Specialty Diagnoses / Procedures Referred By Nahid grewal Referred To Contact Orthopedic Surgery Diagnoses Dystrophic Toenail Keratosis Plantar Callus Paris Foot Pain Toe Left Hammer Toe Acquired Left Hallux Valgus Left Hallux Valgus Right Arthritis Foot Peripheral Arterial Disease Veterinary Attendant (Current) Anticoagulant Treatment Judith Neal APRN, C.N.P., D.N.P. [address] [place] [phone] Phone: tel: fax: [facility] Referral ID Status Reason Start Date Expiration Date Visits Re quested Visits Authorized [id number] Closed 03/13/2024 09/12/2025 1 1 Encounter Details Date Type Department Care Team (Latest Contact Info) Description 06/16/2024 11:00 AM THERAPEUTIC STRATEGY LEAD Office Visit Department of Orthopedic Surgery in [place], [place] [address] [place] [phone] Judith Neal APRN, C.N.P., D.N.P. [address] [place] [phone] Dystrophic Toenail (Primary Dx); Keratosis Plantar; Callus Paris Foot; Pain Toe Left; Pain Foot Left; Hammer Toe Acquired Left; Peripheral Arterial Disease (HCC); Arthritis Foot; Custodial (Current) Anticoagulant Treatment; Hallux Valgus Right; Hallux Valgus Left Social History Tobacco Use Types Packs/Day Years Used Date Smoking Tobacco: Never Passive Smoke Exposure: Past Smokeless Tobacco: Never Alcohol Use Standard Drinks/Week Comments Not Currently 0 (1 standard drink = 0.6 oz pur e alcohol) [facility] Utilities Answer Date Recorded In the past 12 months has [employer], gas, oil, or water [employer] threatened to shut off services in your [...] often do you attend chur ch or christianity services? Never 09/04/2022 Do you belong to any clubs o r organizations such as restorationism groups, unions, fraternal or athletic groups, or [...] care, and heating? Not very hard 09/04/2022 [facility] - Occupational [...] medical appointments or from getting medications? No 05/1 12/2023 In the past 12 months, has l [...] PM CDT Legal Sex Female 8:55 PM THERAPEUTIC STRATEGY LEAD Gender Identity Female 09/04/2022 4:04 PM CDT [...] Dystrophic Toenail #2 Keratosis Plantar #3 Callus Paris Foot #4 Pain Toe Left #5 Pain Foot Left #6 Hammer Toe Acquired Left #7 Peripheral Arterial Disease (HCC) #8 Arthritis Foot #9 Veterinary Attendant (Current) Anticoagulant Treatment #10 Hallux Valgus Right [...] arise. The patient was given my contact infor rakesh should she have any future questions or [...] the content. Judith Neal APRN, C.N.P., D.N.P. APEUTIC STRATEGY LEAD documented in this encounter Plan of Treatment Upcoming Encounters Date Type Department Care Team (Latest Contact Info) Description 09/05/2024 9:15 AM CDT Clinical Communication Virtual Review in [place], [place] 200 [place] [address] 09/08/2024 11:00 AM CDT Office Visit Department of Obstetrics and Gynecology, Division of Urogynecology in [place], [place] [address] [place] [phone] Antonia Caro P.A.-C. [address] [place] [phone] 09/17/2024 11:00 AM CDT Office Visit Department of Orthopedic Surgery in [place], [place] [address] [place] [phone] Judith Neal APRN, C.N.P., D.N.P. [address] [place] [phone] 09/30/2024 1:00 PM CDT Appointment Department of Radiology, [facility], in [place], [place] [address] [place] [phone] Anna Lockwood M.D., M.S. [address] [place] [phone] 10/01/2024 9:10 AM CDT Appointment Department of Laboratory Medicine and Pathology, [facility], in [place], [place] [address] [place] [phone] Anna Lockwood M.D., M.S. [address] [place] [phone] 10/01/2024 10:00 AM CDT Ancillary Procedure Department of Cardiovascular Medicine in [address] [phone] Anna Lockwood M.D., M.S. [address] [place] [phone] 10/01/2024 11:00 AM CDT Office Visit Department of Cardiovascular Medicine in [place], [place] [address] [place] [address] Anna Lockwood M.D., M.S. [address] [place] [address] Scheduled Referrals Name Type Priority Associated Diagnoses Orde r Schedule Orthopedic Surgery office visit (clinic) Outpatient Referral Routine Dystrophic Toenail Keratosis Plantar Callus Paris Foot Pain Toe Left Hammer Toe Acquired Left Hallux Valgus Left Hallux Valgus Right Arthritis Foot Peripheral Arterial Disease (HCC) Veterinary Attendant (Current) Anticoagulant Treatment Expected: 09/13/2024, Expires: 09/13/2025 documented as of this encounter Visit Diagnoses Diagnosis Dystrophic Toenail- Primary Keratosis Plantar Callus Paris Foot Pain Toe Left Pain Foot Left Hammer Toe Acquired Left Peripheral Arterial Disease Arthritis Foot Veterinary Attendant (Current) Anticoagulant Treatment Hallux Valgus Right Hallux Valgus Left documented in this encounter Care Teams Package Maker Relationship Specialty Start Date End Date Elsewhere, Pcp PCP - General Internal Medicine 05/25/23 documented as of this encounter
--- OUTSIDE RECORDS SUMMARY | 2024-07-28 14:50 | XMS_ITS | Encounter Summary ---
Author Organization [facility] Address [address] [place] [address] Care Team Providers Care University Extension Specialist Name Role Phone Elsewhere, Pcp Primary Care Provider Unavailabl e Encounter Details Date Type Department Care Team (Late st Contact Info) Description 08/08/2010 Historical Ophthalmology RST OPH Leonardo Macedo M.D. 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 [address] [place] [phone] 09/17/2024 11:00 AM CDT Office Visit Department of Orthopedic Surgery in [address] [phone] Judith Neal APRN, C.N.P., D.N.P. [address] [place] [phone] 09/30/2024 1:00 PM CDT Appointment Department of Radiology, [facility], in [place], [place] [address] [place] [phone] Anna Lokcwood M.D., M.S. [address] [place] [phone] 10/01/2024 9:10 AM CDT Appointment Department of Laboratory Medicine and Pathology, [facility] in [address] [phone] Anna Lockwood M.D., M.S. [address] [place] [phone] 10/01/2024 10:00 AM CDT Ancillary Procedure Department of Cardiovascular Medicine in [address] [phone] Anna Lockwood M.D., M.S. [address] [place] [address] 10/01/2024 11:00 AM CDT Office Visit Department of Cardiovascular Medicine in [place], [place] [address] [place] [address] Anna Lockwood M.D., M.S. [address] [place] [address] documented as of this encounter Visit Diagnoses Not on filedocumented in this encounter Care Teams University Extension Specialist Relationship Specialty Start Date End Date Elsewhere, Pcp PCP - General Internal Medicine 05/25/23 documented as of this encounter
--- OUTSIDE RECORDS SUMMARY | 2024-07-28 14:50 | XMS_ITS | Encounter Summary ---
Author Organization [facility] Address [address] [place] [address] Care Team Providers Care Sprinkler Irrigation Equipment Mechanic Name Role Phone Elsewhere, Pcp Primary Care Provider Unavailabl e Encounter Details Date Type Department Care Team (Late st Contact Info) Description 07/26/2012 Historical Ophthalmology RST OPH Leonardo Macedo M.D. 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 [address] [place] [phone] 09/17/2024 11:00 AM CDT Office Visit Department of Orthopedic Surgery in [address] [phone] Judith Neal APRN, C.N.P., D.N.P. [address] [place] [phone] 09/30/2024 1:00 PM CDT Appointment Department of Radiology, [facility], in [address] [phone] Anna Lockwood M.D., M.S. [address] [place] [phone] 10/01/2024 9:10 AM CDT Appointment Department of Laboratory Medicine and Pathology, [facility], in [address] [phone] Anna Lockwood M.D., M.S. [address] [place] [phone] 10/01/2024 10:00 AM CDT Ancillary Procedure Department of Cardiovascular Medicine in [address] [phone] Anna Lockwood M.D., M.S. [address] [place] [phone] 10/01/2024 11:00 AM CDT Office Visit Department of Cardiovascular Medicine in [place], [place] [address] [place] [address] Anna Lockwood M.D., M.S. [address] [place] [phone] documented as of this encounter Visit Diagnoses Not on filedocumented in this encounter Care Teams Sprinkler Irrigation Equipment Mechanic Relationship Specialty Start Date End Date Elsewhere, Pcp PCP - General Internal Medicine 05/25/23 documented as of this encounter
--- OUTSIDE RECORDS SUMMARY | 2024-07-28 14:50 | XMS_ITS | Encounter Summary ---
Author Organization [facility] Address [address] [place] [address] Care Team Providers Care Medical Record Librarians Teacher Name Role Phone Elsewhere, Pcp Primary Care Provider Unavailabl e Encounter Details Date Type Department Care Team (Late st Contact Info) Description 03/14/2005 Historical Ophthalmology RST OPH Leonardo Macedo M.D. 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 - 03/14/2005 12:00 AM CST Eye General CHIEF COMPLAINT recheck lichen planus HISTORY OF PRESENT ILLNESS no changes noticed per pt. Was put on rosacea rx and that has helped eyes too. IMPRESSION / REPORT / PLAN #1 LIchen planus Stable. Plan; Same rx Observe IOP fo now. RV 3 mos DIAGNOSIS #1 LIchen planus CDM Reports - EYEGEN Id: [id number] Status: Fnl documented in this encounter Plan of Treatment Upcoming Encounters Date Type Department Care Team (Latest Contact Info) Description 09/05/2024 9:15 AM CDT Clinical Communication Virtual Review in [place], [place] [address] [place] [phone] 09/08/2024 11:00 AM CDT Office Visit Department of Obstetrics and Gynecology, Division of Urogynecology in [place], [place] [address] [place] [phone] Antonia aCro P.A.-C. [address] [place] [phone] 09/17/2024 11:00 AM CDT Office Visit Department of Orthopedic Surgery in [place], [place] [address] [place] [phone] Judith Neal APRN, C.N.P., D.N.P. [address] [place] [phone] 09/30/2024 1:00 PM CDT Appointment Department of Radiology, [facility], in [place], [place] [address] [place] [phone] Anna Lockwood M.D., M.S. [address] [place] [phone] 10/01/2024 9:10 AM CDT Appointment Department of Laboratory Medicine and Pathology, [facility] in [place], [place] [address] [place] [phone] Anna Lockwood M.D., M.S. [address] [place] [phone] 10/01/2024 10:00 AM CDT Ancillary Procedure Department of Cardiovascular Medicine in [place], [place] [address] [place] [phone] Anna Lockwood M.D., M.S. [address] [place] [phone] 10/01/2024 11:00 AM CDT Office Visit Department of Cardiovascular Medicine in [place], [place] [address] [place] [address] Anna Lockwood M.D., M.S. [address] [place] [address] documented as of this encounter Visit Diagnoses Not on filedocumented in this encounter Care Teams Medical Record Librarians Teacher Relationship Specialty Start Date End Date Elsewhere, Pcp PCP - General Internal Medicine 05/25/23 documented as of this encounter
--- OUTSIDE RECORDS SUMMARY | 2024-07-28 14:50 | XMS_ITS | Encounter Summary ---
Author Organization [facility] Address [address] [place] [address] Care Team Providers Care Sagger Preparer Name Role Phone Elsewhere, Pcp Primary Care Provider Unavailabl e Encounter Details Date Type Department Care Team (Late st Contact Info) Description 08/01/2011 Historical Ophthalmology RST OPH Leonardo Macedo M.D. 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 [address] [place] [phone] 09/17/2024 11:00 AM CDT Office Visit Department of Orthopedic Surgery in [place], [place] [address] [place] [phone] Judith Neal, DAMARI, C.N.P., D.N.P. [address] [place] [phone] 09/30/2024 1:00 PM CDT Appointment Department of Radiology, [facility], in [place], [place] [address] [place] [phone] Anna Lockwood M.D., M.S. [address] [place] [phone] 10/01/2024 9:10 AM CDT Appointment Department of Laboratory Medicine and Pathology, [facility], in [place], [place] [address] [place] [phone] Anna Lockwood M.D., M.S. [address] [place] [phone] 10/01/2024 10:00 AM CDT Ancillary Procedure Department of Cardiovascular Medicine in [place], [place] [address] [place] [address] Anna Lockwood M.D., M.S. [address] [place] [phone] 10/01/2024 11:00 AM CDT Office Visit Department of Cardiovascular Medicine in [place], [place] [address] [place] [address] Anna Lockwood M.D., M.S. [address] [place] [phone] documented as of this encounter Visit Diagnoses Not on filedocumented in this encounter Care Teams Sagger Preparer Relationship Specialty Start Date End Date Elsewhere, Pcp PCP - General Internal Medicine 05/25/23 documented as of this encounter
--- OUTSIDE RECORDS SUMMARY | 2024-07-28 14:50 | XMS_ITS | Encounter Summary ---
Author Organization [facility] Address [address] [place] [address] Care Team Providers Care Community Outreach Coordinator Name Role Phone Elsewhere, Pcp Primary Care Provider Unavailabl e Encounter Details Date Type Department Care Team (Late st Contact Info) Description 08/20/2009 Historical Ophthalmology RST OPH Leonardo Macedo M.D. 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 [address] [place] [phone] 09/17/2024 11:00 AM CDT Office Visit Department of Orthopedic Surgery in [place], [place] [address] [place] [phone] Judith Neal APRN, C.N.P., D.N.P. [address] [place] [phone] 09/30/2024 1:00 PM CDT Appointment Department of Radiology, [facility], in [place], [place] [address] [place] [phone] Anna Lockwood M.D., M.S. [address] [place] [phone] 10/01/2024 9:10 AM CDT Appointment Department of Laboratory Medicine and Pathology, [facility] in [place], [place] [address] [place] [phone] Anna Lockwood M.D., M.S. [address] [place] [phone] 10/01/2024 10:00 AM CDT Ancillary Procedure Department of Cardiovascular Medicine in [place], [place] [address] [place] [phone] Anna Lockwood M.D., M.S. [address] [place] [phone] 10/01/2024 11:00 AM CDT Office Visit Department of Cardiovascular Medicine in [place], [place] [address] [place] [address] Anna Lockwood M.D., M.S. [address] [place] [address] documented as of this encounter Visit Diagnoses Not on filedocumented in this encounter Care Teams Community Outreach Coordinator Relationship Specialty Start Date End Date Elsewhere, Pcp PCP - General Internal Medicine 05/25/23 documented as of this encounter
--- OUTSIDE RECORDS SUMMARY | 2024-07-28 14:50 | XMS_ITS | Encounter Summary ---
Author Organization [facility] Address [address] [place] [address] Care Team Providers Care Pallet Repairer Name Role Phone Elsewhere, Pcp Primary Care Provider Unavailabl e Encounter Details Date Type Department Care Team (Late st Contact Info) Description 06/15/2005 Historical Ophthalmology RST OPH Leonardo Macedo M.D. [address] [place] [address] Social History Tobacco Use Types Packs/Day Years Used Date Smoking Tobacco: Never Assessed Comments Unknown Sex and Gender Information Value Date Recorded Sex Assigned at Female 09/04/2022 4:04 PM CDT Legal Sex Female 8:55 PM BDR Gender Identity Female 09/04/2022 4:04 PM CDT [...] LIchen planus CDM Reports - EYEGEN Id: [id number] Status: Fnl documented in this encounter Plan of Treatment Upcoming Encounters Date Type Department Care Team (Latest Contact Info) Description 09/05/2024 9:15 AM CDT Clinical Communication Virtual Review in [place], [place] 200 [place] [address] 09/08/2024 11:00 AM CDT Office Visit Department of Obstetrics and Gynecology, Division of Urogynecology in [place], [place] [address] [place] [phone] Antonia Caro P.A.-C. [address] [place] [phone] 09/17/2024 11:00 AM CDT Office Visit Department of Orthopedic Surgery in [place], [place] [address] [place] [phone] Judith Neal APRN, C.N.P., D.N.P. [address] [place] [phone] 09/30/2024 1:00 PM CDT Appointment Department of Radiology, [facility], in [place], [place] [address] [place] [phone] Anna Lockwood M.D., M.S. [address] [place] [phone] 10/01/2024 9:10 AM CDT Appointment Department of Laboratory Medicine and Pathology, [facility], in [place], [place] [address] [place] [phone] Anna Lockwood M.D., M.S. [address] [place] [phone] 10/01/2024 10:00 AM CDT Ancillary Procedure Department of Cardiovascular Medicine in [place], [place] [address] [place] [phone] Anna Lockwood M.D., M.S. [address] [place] [phone] 10/01/2024 11:00 AM CDT Office Visit Department of Cardiovascular Medicine in [place], [place] [address] [place] [address] Anna Lockwood M.D., M.S. [address] [place] [phone] documented as of this encounter Visit Diagnoses Not on filedocumented in this encounter Care Teams Pallet Repairer Relationship Specialty Start Date End Date Elsewhere, Pcp PCP - General Internal Medicine 05/25/23 documented as of this encounter
--- OUTSIDE RECORDS SUMMARY | 2024-07-28 14:51 | XMS_ITS | Encounter Summary ---
Author Organization [facility] Address [address] [place] [address] Care Team Providers Care Travel Registered Nurse Pacu Name Role Phone Elsewhere, Pcp Primary Care Provider Unavailabl e Encounter Details Date Type Department Care Team (Late st Contact Info) Description 06/11/2002 Historical Ophthalmology RST OPH Leonardo Macedo M.D. 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 [address] [place] [phone] 09/17/2024 11:00 AM CDT Office Visit Department of Orthopedic Surgery in [address] [phone] Judith Neal APRN, C.N.P., D.N.P. [address] [place] [phone] 09/30/2024 1:00 PM CDT Appointment Department of Radiology, [facility], in [address] [address] Anna Lockwood M.D., M.S. [address] [place] [phone] 10/01/2024 9:10 AM CDT Appointment Department of Laboratory Medicine and Pathology, [facility] in [address] [address] Anna Lockwood M.D., M.S. [address] [place] [phone] 10/01/2024 10:00 AM CDT Ancillary Procedure Department of Cardiovascular Medicine in [place], [place] [address] [place] [phone] Anna Lockwood M.D., M.S. [address] [place] [phone] 10/01/2024 11:00 AM CDT Office Visit Department of Cardiovascular Medicine in [place], [place] [address] [place] [phone] Anna Lockwood M.D., M.S. [address] [place] [phone] documented as of this encounter Visit Diagnoses Not on filedocumented in this encounter Care Teams Travel Registered Nurse Pacu Relationship Specialty Start Date End Date Elsewhere, Pcp PCP - General Internal Medicine 05/25/23 documented as of this encounter
--- OUTSIDE RECORDS SUMMARY | 2024-07-28 14:51 | XMS_ITS | Encounter Summary ---
Author Organization [facility] Address [address] [place] [address] Care Team Providers Care Plumbing Technician Name Role Phone Elsewhere, Pcp Primary Care Provider Unavailabl e Encounter Details Date Type Department Care Team (Late st Contact Info) Description 07/16/2002 Historical Ophthalmology RST OPH Leonardo Macedo M.D. 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 [address] [place] [phone] 09/17/2024 11:00 AM CDT Office Visit Department of Orthopedic Surgery in [place], [place] [address] [place] [phone] Judith Neal APRN, CSammyNSammyPSammy, D.N.P. [address] [place] [phone] 09/30/2024 1:00 PM CDT Appointment Department of Radiology, [facility], in [place], [place] [address] [place] [phone] Anna Lockwood M.D., M.S. [address] [place] [phone] 10/01/2024 9:10 AM CDT Appointment Department of Laboratory Medicine and Pathology, [facility] in [place], [place] [address] [place] [phone] Anna Lockwood M.D., M.S. [address] [place] [phone] 10/01/2024 10:00 AM CDT Ancillary Procedure Department of Cardiovascular Medicine in [place], [place] [address] [place] [phone] Anna Lockwood M.D., M.S. [address] [place] [phone] 10/01/2024 11:00 AM CDT Office Visit Department of Cardiovascular Medicine in [place], [place] [address] [place] [address] Anna Lockwood M.D., M.S. [address] [place] [address] documented as of this encounter Visit Diagnoses Not on filedocumented in this encounter Care Teams Plumbing Technician Relationship Specialty Start Date End Date Elsewhere, Pcp PCP - General Internal Medicine 05/25/23 documented as of this encounter
--- OUTSIDE RECORDS SUMMARY | 2024-07-28 14:51 | XMS_ITS | Clinical Summary ---
Author Organization [facility] Address [address] [place] [address] Care Team Providers Care Factory Clerk Name Role Phone Neelam Gale MD Primary Care Provider [phone]- [phone] Allergies No known active allergies Medications cholecalciferol [...] Department Care Team Description 06/18/2024 1:00 PM HOOP PUNCHER Office Visit [address] [address] Cayla Mcclure PA Consult (Ear cleaning) 06/18/2024 Travel from Last 3 Months Immunizations Immunization Administration Dates Next Due AMB Influenza, IIV3 [...] on file Legal Sex Female 7:02 AM HOOP PUNCHER Gender Identity Not on file Sexual Orientation [...] 36.8 C (98.2 F) 05/21/2020 7:37 AM HOOP PUNCHER Respiratory Rate 16 01/19/2021 1:27 PM CDT [...] Description 01/21/2025 11:00 AM CDT Office Visit [facility] [address] [place] [phone] Cayla Mcclure PA [address] [place] [address] 01/22/2025 11:30 AM CDT Office Visit [facility] [address] [place] [address] Dory Lyn MD [address] [facility] [address] [place] [address] Health Maintenance Due Date Last Done Comments Zoster (shingles) series for age 50+ (2 of 3) 01/02/2011 11/07/2010 RSV vaccine for adults or (1 - 1-dose 75+ series) 2012 Depression screening for age 12+ 03/10/2023 03/10/2022, 03/09/2021, 03/09/2021, Additional history exists Medicare Wellness for age 65+ 03/11/2023, 03/09/2021, 03/05/2020, Additional history exists COVID-19 vaccine series ( season) 2024 01/31/2024, 02/12/2023, 01/25/2022, Additional history exists Influenza Vaccine (Season Ended) 2024 01/25/2022, 01/12/2021, 01/29/2020, Additional history exists BMI (ht [...] MEDICARE PART B HB ONLY BLUE [place]OSS [place] BLUE MR PB ONLY BLUE [place]OSS [place] BLUE HB ONLY MEDICARE PART A HB ONLY Advance Directives * Full Code (Latest Code Status on File) Date Activated Date Inactivated Comments 05/19/2020 1:30 PM 05/21/2020 1:51 PM Question Answer Comments Code Status Discussion: Not Discussed Care Teams Factory Clerk Relationship Specialty Start Date End Date Neelam Gale MD [address] [place] [address] PCP - General Internal Medicine 01/24/24
--- OUTSIDE RECORDS SUMMARY | 2024-07-28 14:51 | XMS_ITS | Encounter Summary ---
Author Organization [facility] Address [address] [place] [address] Care Team Providers Care Instrument Lens Grinder Name Role Phone Elsewhere, Pcp Primary Care Provider Unavailabl e Encounter Details Date Type Department Care Team (Late st Contact Info) Description 08/22/2004 Historical Ophthalmology RST OPH Leonardo Macedo M.D. 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 [address] [place] [phone] 09/17/2024 11:00 AM CDT Office Visit Department of Orthopedic Surgery in [address] [phone] Judith Neal APRN, C.N.P., D.N.P. [address] [place] [phone] 09/30/2024 1:00 PM CDT Appointment Department of Radiology, [facility], in [address] [address] Anna Lockwood M.D., M.S. [address] [place] [phone] 10/01/2024 9:10 AM CDT Appointment Department of Laboratory Medicine and Pathology, [facility], in [place], [place] [address] [place] [phone] Anna Lockwood M.D., M.S. [address] [place] [phone] 10/01/2024 10:00 AM CDT Ancillary Procedure Department of Cardiovascular Medicine in [address] [address] Anna Lockwood M.D., M.S. [address] [place] [address] 10/01/2024 11:00 AM CDT Office Visit Department of Cardiovascular Medicine in [place], [place] [address] [place] [address] Anna Lockwood M.D., M.S. [address] [place] [address] documented as of this encounter Visit Diagnoses Not on filedocumented in this encounter Care Teams Instrument Lens Grinder Relationship Specialty Start Date End Date Elsewhere, Pcp PCP - General Internal Medicine 05/25/23 documented as of this encounter
--- OUTSIDE RECORDS SUMMARY | 2024-07-28 14:51 | XMS_ITS | Encounter Summary ---
Author Organization [facility] Address [address] [place] [address] Care Team Providers Care Dock Operator Name Role Phone Elsewhere, Pcp Primary Care Provider Unavailabl e Encounter Details Date Type Department Care Team (Late st Contact Info) Description 09/30/2002 Historical Ophthalmology RST OPH Leonardo Macedo M.D. 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 [address] [place] [phone] 09/17/2024 11:00 AM CDT Office Visit Department of Orthopedic Surgery in [place], [place] [address] [place] [phone] Judith Neal APRN, CSammyNSammyPSammy, D.N.P. [address] [place] [phone] 09/30/2024 1:00 PM CDT Appointment Department of Radiology, [facility], in [place], [place] [address] [place] [phone] Anna Lockwood M.D., M.S. [address] [place] [phone] 10/01/2024 9:10 AM CDT Appointment Department of Laboratory Medicine and Pathology, [facility] in [place], [place] [address] [place] [phone] Anna Lockwood M.D., M.S. [address] [place] [phone] 10/01/2024 10:00 AM CDT Ancillary Procedure Department of Cardiovascular Medicine in [place], [place] [address] [place] [phone] Anna Lockwood M.D., M.S. [address] [place] [phone] 10/01/2024 11:00 AM CDT Office Visit Department of Cardiovascular Medicine in [place], [place] [address] [place] [address] Anna Lockwood M.D., M.S. [address] [place] [address] documented as of this encounter Visit Diagnoses Not on filedocumented in this encounter Care Teams Dock Operator Relationship Specialty Start Date End Date Elsewhere, Pcp PCP - General Internal Medicine 05/25/23 documented as of this encounter
--- OUTSIDE RECORDS SUMMARY | 2024-07-28 14:51 | XMS_ITS | Encounter Summary ---
Author Organization [facility] Address [address] [place] [address] Care Team Providers Care Fresh Meat Grader Name Role Phone Elsewhere, Pcp Primary Care Provider Unavailabl e Encounter Details Date Type Department Care Team (Late st Contact Info) Description 12/14/2005 Historical Ophthalmology RST OPH Leonardo Macedo M.D. 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 [address] [place] [phone] 09/17/2024 11:00 AM CDT Office Visit Department of Orthopedic Surgery in [place], [place] [address] [place] [phone] Judith Neal APRN, C.NSammyPSammy, D.N.P. [address] [place] [phone] 09/30/2024 1:00 PM CDT Appointment Department of Radiology, [facility], in [place], [place] [address] [place] [phone] Anna Lockwood M.D., M.S. [address] [place] [phone] 10/01/2024 9:10 AM CDT Appointment Department of Laboratory Medicine and Pathology, [facility] in [place], [place] [address] [place] [phone] Anna Lockwood M.D., M.S. [address] [place] [phone] 10/01/2024 10:00 AM CDT Ancillary Procedure Department of Cardiovascular Medicine in [place], [place] [address] [place] [phone] Anna Lockwood M.D., M.S. [address] [place] [phone] 10/01/2024 11:00 AM CDT Office Visit Department of Cardiovascular Medicine in [place], [place] [address] [place] [address] Anna Lockwood M.D., M.S. [address] [place] [address] documented as of this encounter Visit Diagnoses Not on filedocumented in this encounter Care Teams Fresh Meat Grader Relationship Specialty Start Date End Date Elsewhere, Pcp PCP - General Internal Medicine 05/25/23 documented as of this encounter
--- OUTSIDE RECORDS SUMMARY | 2024-07-28 14:51 | XMS_ITS | Continuity of Care Document ---
Author Organization [facility] Address [address] [place] [address] Phone Care Team Providers Care Ladle Watcher Name Role Phone Sosa Ruano MD Unavailable [...] [facility], [address], [place], [address], tel:[phone] [facility] No Information 0 Bindu Swan. [address], [place], [address], [place]. tel:[phone] Office/Outpa tient Visit, [facility], [address], [place], [address], [place] tel:[phone] [facility], elevated JOSE (chief complaint) back pain (chief complaint) Other and unspecified nonspecific [facility] [address]. [facility] [address], [place], [address], [place]. tel:[phone] [facility], [address], [place], [address], [place] tel:[phone] [facility], No Information [address]. [facility] [address], [place], [address], [place]. tel:[phone] Family History Family Member Type Diagnosis Age At Onset Problem (finding) arthritis Problem (finding) Problem (finding) Family history of hyper tension Problem (finding) cancer Problem (finding) Family history of gout Problem (finding) Family history of disor hazel of lung Problem (finding) Family history of hyper tension Payers Payer name Insurance type Covered alliance party ID Authoriza tishanelle(s) [facility] [id number] Social History Type Description Quantity Date Captured [...]
--- OUTSIDE RECORDS SUMMARY | 2024-07-28 14:51 | XMS_ITS | Encounter Summary ---
Author Organization [facility] Address [address] [place] [address] Care Team Providers Care Senior Loan Processor Name Role Phone Elsewhere, Pcp Primary Care Provider Unavailabl e Encounter Details Date Type Department Care Team (Late st Contact Info) Description 02/22/2004 Historical Ophthalmology RST OPH Leonardo Macedo M.D. 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 #4 Ocular hypertension - stable. [facility] Reports - EYEGEN Id: [id number] Status: Fnl documented in this encounter Plan of Treatment Upcoming Encounters Date Type Department Care Team (Latest Contact Info) Description 09/05/2024 9:15 AM CDT Clinical Communication Virtual Review in [place], [place] 200 [place] [address] 09/08/2024 11:00 AM CDT Office Visit Department of Obstetrics and Gynecology, Division of Urogynecology in [address] [phone] Antonia Caro P.A.-C. [address] [place] [phone] 09/17/2024 11:00 AM CDT Office Visit Department of Orthopedic Surgery in [address] [phone] Judith Neal, DAMARI, C.N.P., D.N.P. [address] [place] [phone] 09/30/2024 1:00 PM CDT Appointment Department of Radiology, [facility], in [address] [phone] Anna Lockwood M.D., M.S. [address] [place] [phone] 10/01/2024 9:10 AM CDT Appointment Department of Laboratory Medicine and Pathology, [facility], in [address] [phone] Anna Lockwood M.D., M.S. [address] [place] [phone] 10/01/2024 10:00 AM CDT Ancillary Procedure Department of Cardiovascular Medicine in [place], [place] [address] [place] [address] Anna Lockwood M.D., M.S. [address] [place] [phone] 10/01/2024 11:00 AM CDT Office Visit Department of Cardiovascular Medicine in [place], [place] [address] [place] [address] Anna Lockwood M.D., M.S. [address] [place] [phone] documented as of this encounter Visit Diagnoses Not on filedocumented in this encounter Care Teams Senior Loan Processor Relationship Specialty Start Date End Date Elsewhere, Pcp PCP - General Internal Medicine 05/25/23 documented as of this encounter
--- OUTSIDE RECORDS SUMMARY | 2024-07-28 14:51 | XMS_ITS | Clinical Summary ---
Author Organization [facility] Address [address] [place] [address] Care Team Providers Care Seafood Farmer Name Role Phone Elsewhere, Pcp Primary Care Provider Unavailabl e Source Comments Patient records contain information from all sites at [facility]. For routine questions regarding patient records, call [phone] during business hours, M-F 8:00 AM - 5:00 PM Central Time. Record requests for emergency care only can be directed to [phone] at any time.[facility] Allergies No known active allergies Medications [...] 1 tablet by mouth daily. 4 Active cholecalciferol , vitamin D3, (cholecalcifero l) 25 mcg (1,000 Unit) tablet Take 25 mcg by mouth daily. 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 Echo Move Up Request 07/28/2024 Clinical Communication Department of Cardiovascular Medicine in [address] [phone] Anna Lockwood M.D., M.S. Appt Request; Pre-visit Testing Orders 06/16/2024 11:00 AM [employer] Office Visit Department of Orthopedic Surgery in [address] [phone] Judith Neal APRN, C.N.P., D.N.P. Dystrophic Toenail (Primary Dx); Keratosis Plantar; Callus [place] Foot; Pain Toe Left; Pain Foot Left; Hammer Toe Acquired Left; Peripheral Arterial Disease (HCC); Arthritis Foot; Fpc (Current) Anticoagulant Treatment; Hallux Valgus Right; Hallux Valgus Left 06/11/2024 9:15 AM [employer] Clinical Communication Virtual Review in [address] [phone] Pre-visit Intake from Last 3 Months Immunizations Immunization Administration [...] drink = 0.6 oz pur e alcohol) [facility] Utilities Answer Date Recorded In the past 12 months has e [employer], gas, oil, or water [employer] threatened to shut off services in your [...] often do you attend chur ch or yarsani services? Never 09/04/2022 Do you belong to any clubs o r organizations such as jain groups, unions, fraternal or athletic groups, or [...] care, and heating? Not very hard 09/04/2022 [facility] [place] of Occupat ional Health - Occupational [...] your living situation today? I have a [facility] place to live 09/09/2023 Education Answer Date Recorded What is the highest level of school you have completed or the highest degree you have received? Bachelor's degree (e.g., BA, AB, BS) 09/04/2022 Comments Unknown Sex and Gender Information Value Date Recorded Sex Assigned at Female 09/04/2022 4:04 PM CDT Legal Sex Female 8:55 PM [employer] Gender Identity Female 09/04/2022 4:04 PM CDT Sexual Orientation Straight 09/04/2022 4: 04 PM CDT Last Filed Vital Signs Vital Sign Reading Time Taken Comments Blood Pressure 208/132 03/03/2024 8:06 AM [employer] Pulse 93 03/03/2024 8:06 AM [employer] Temperature - - Respiratory Rate - - Oxygen Saturation - - Inhaled Oxygen Concentration - - Weight 49 kg (108 lb 0.4 oz) 03/03/2024 8:06 AM [employer] Height 157 cm (5' 1.81) 03/03/2024 8:06 AM [employer] Body Mass Index 19.88 03/03/2024 8:06 AM [employer] Plan of Treatment Upcoming Encounters Date Type Department Care Team (Latest Contact Info) Description 09/05/2024 9:15 AM CDT Clinical Communication Virtual Review in [place], [place] 200 [place] [phone] 09/08/2024 11:00 AM CDT Office Visit Department of Obstetrics and Gynecology, Division of Urogynecology in [address] [phone] Antonia Caro, P.A.-C. [address] [place] [phone] 09/17/2024 11:00 AM CDT Office Visit Department of Orthopedic Surgery in [address] [phone] Judith Neal APRN, C.N.P., D.N.P. [address] [place] [phone] 09/30/2024 1:00 PM CDT Appointment Department of Radiology, [facility], in [place], [place] [address] [place] [phone] Anna Lockwood M.D., M.S. [address] [place] [phone] 10/01/2024 9:10 AM CDT Appointment Department of Laboratory Medicine and Pathology, [facility] in [place], [place] [address] [place] [phone] Anna Lockwood M.D., M.S. [address] [place] [phone] 10/01/2024 10:00 AM CDT Ancillary Procedure Department of Cardiovascular Medicine in [place], [place] [address] [place] [phone] Anna Lockwood M.D., M.S. [address] [place] [phone] 10/01/2024 11:00 AM CDT Office Visit Department of Cardiovascular Medicine in [place], [place] [address] [place] [phone] Anna Lockwood M.D., M.S. 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 LAB BLOOD NON ADD-ON Final Re sult [facility] [address] [place] [address], [facility] DTL [facility] [address] [place] [address] * Comprehensive Metabolic Panel (02/25/2024 9:10 AM [employer]) Potassium, S 5.2 3.6 - 5.2 mmol/L 02/25/2024 11:24 AM [employer] DTL Sodium, S 137 135 - 145 mmol/L 02/25/2024 11:24 AM [employer] DTL Chloride, S 99 98 - 107 mmol/L 02/25/2024 11:24 AM [employer] DTL Bicarbonate, S 28 22 - 29 mmol/L 02/25/2024 11:24 AM [employer] DTL Anion Gap 10 7 - 15 02/25/2024 11:24 AM [employer] DTL BUN (Blood Urea Nitrogen), S 11 6 - 21 mg/dL 02/25/2024 11:24 AM [employer] DTL Creatinine 0.81 0.59 - 1.04 mg/dL 02/25/2024 11:24 AM [employer] DTL Estimated GFR (eGFR) 71 >=60 mL/min/BS A 02/25/2024 11:24 AM [employer] DTL Comment: Estimated GFR calculated using the 2020 CKD_EPI creatinine equation. Calcium, Total, S 9.3 8.8 - 10.2 mg/dL 02/25/2024 11:24 AM [employer] DTL Glucose, S CANCELED mg/dL 02/25/2024 9:50 AM [employer] DTL Comment: Duplicate test request. Result canceled by the ancillary. Protein, Total, S 6.4 6.3 - 7.9 g/dL 02/25/2024 11:24 AM [employer] DTL Albumin, S 4.4 3.5 - 5.0 g/dL 02/25/2024 11:24 AM [employer] DTL Aspartate Aminotransferase (AST), S 26 8 - 43 U/L 02/25/2024 11:24 AM [employer] DTL Alkaline Phosphatase, S 78 35 - 104 U/L 02/25/2024 11:24 AM [employer] DTL Alanine Aminotransferase (ALT), S 17 7 - 45 U/L 02/25/2024 11:24 AM [employer] DTL Bilirubin, Total, S 0.8 0.0 - 1.2 mg/dL 02/25/2024 11:24 AM [employer] DTL Blood (Blood, Venous) 02/25/2024 9:10 AM [employer] 02/25/2024 9:50 AM [employer] Jefry Donald M.D. LAB BLOOD ADD-ON Final Result [facility] [address] [place] [address], [place] DTL [facility] [address] [place] [address] from Last 3 Months or Most Recently Relevant to Health Maintenance Insurance MEDICARE [facility] Care Teams Seafood Farmer Relationship Specialty Start Date End Date Elsewhere, Pcp PCP - General Internal Medicine 05/25/23
--- OUTSIDE RECORDS SUMMARY | 2024-07-28 14:51 | XMS_ITS | Encounter Summary ---
Author Organization [facility] Address [address] [place] [address] Care Team Providers Care Hollow Handle Bench Worker Name Role Phone Elsewhere, Pcp Primary Care Provider Unavailabl e Encounter Details Date Type Department Care Team (Late st Contact Info) Description 03/26/2002 Historical Ophthalmology RST OPH Leonardo Macedo M.D. 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 [address] [place] [phone] 09/17/2024 11:00 AM CDT Office Visit Department of Orthopedic Surgery in [place], [place] [address] [place] [phone] Judith Neal APRN, C.N.P., D.N.P. [address] [place] [phone] 09/30/2024 1:00 PM CDT Appointment Department of Radiology, [facility], in [place], [place] [address] [place] [phone] Anna Lockwood M.D., M.S. [address] [place] [phone] 10/01/2024 9:10 AM CDT Appointment Department of Laboratory Medicine and Pathology, [facility] in [place], [place] [address] [place] [phone] Anna Lockwood M.D., M.S. [address] [place] [phone] 10/01/2024 10:00 AM CDT Ancillary Procedure Department of Cardiovascular Medicine in [place], [place] [address] [place] [phone] Anna Lockwood M.D., M.S. 200 [facility] [place] [address] 10/01/2024 11:00 AM CDT Office Visit Department of Cardiovascular Medicine in [place], [place] [address] [place] [address] Anna Lockwood M.D., M.S. [address] [place] [address] documented as of this encounter Visit Diagnoses Not on filedocumented in this encounter Care Teams Hollow Handle Bench Worker Relationship Specialty Start Date End Date Elsewhere, Pcp PCP - General Internal Medicine 05/25/23 documented as of this encounter
--- OUTSIDE RECORDS SUMMARY | 2024-07-28 14:51 | XMS_ITS | Encounter Summary ---
Author Organization [facility] Address [address] [place] [address] Care Team Providers Care Geriatric Physician Name Role Phone Elsewhere, Pcp Primary Care Provider Unavailabl e Encounter Details Date Type Department Care Team (Late st Contact Info) Description 11/23/2006 Historical Ophthalmology RST OPH Leonardo Macedo M.D. 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 [address] [place] [phone] 09/17/2024 11:00 AM CDT Office Visit Department of Orthopedic Surgery in [address] [phone] Judith Neal APRN, C.N.P., D.N.P. [address] [place] [phone] 09/30/2024 1:00 PM CDT Appointment Department of Radiology, [facility], in [place], [place] [address] [place] [phone] Anna Lockwood M.D., M.S. [address] [place] [phone] 10/01/2024 9:10 AM CDT Appointment Department of Laboratory Medicine and Pathology, [facility] in [place], [place] [address] [place] [phone] Anna Lockwood M.D., M.S. [address] [place] [phone] 10/01/2024 10:00 AM CDT Ancillary Procedure Department of Cardiovascular Medicine in [place], [place] [address] [place] [phone] Anna Lockwood M.D., M.S. [address] [place] [address] 10/01/2024 11:00 AM CDT Office Visit Department of Cardiovascular Medicine in [place], [place] [address] [place] [address] Anna Lockwood M.D., M.S. [address] [place] [phone] documented as of this encounter Visit Diagnoses Not on filedocumented in this encounter Care Teams Geriatric Physician Relationship Specialty Start Date End Date Elsewhere, Pcp PCP - General Internal Medicine 05/25/23 documented as of this encounter
--- OUTSIDE RECORDS SUMMARY | 2024-07-28 14:51 | XMS_ITS | Encounter Summary ---
Author Organization [facility] Address [address] [place] [address] Care Team Providers Care Truck Assembler Name Role Phone Elsewhere, Pcp Primary Care Provider Unavailabl e Encounter Details Date Type Department Care Team (Late st Contact Info) Description 11/21/2007 Historical Ophthalmology RST OPH Leonardo Macedo M.D. 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 [address] [place] [phone] 09/17/2024 11:00 AM CDT Office Visit Department of Orthopedic Surgery in [address] [phone] Judith Neal APRN, C.N.P., D.N.P. [address] [place] [phone] 09/30/2024 1:00 PM CDT Appointment Department of Radiology, [facility], in [address] [phone] Anna Lockwood M.D., M.S. [address] [place] [phone] 10/01/2024 9:10 AM CDT Appointment Department of Laboratory Medicine and Pathology, [facility], in [address] [phone] Anna Lockwood M.D., M.S. [address] [place] [phone] 10/01/2024 10:00 AM CDT Ancillary Procedure Department of Cardiovascular Medicine in [place], [place] [address] [place] [address] Anna Lockwood M.D., M.S. [address] [place] [address] 10/01/2024 11:00 AM CDT Office Visit Department of Cardiovascular Medicine in [place], [place] [address] [place] [phone] Anna Lockwood M.D., M.S. [address] [place] [phone] documented as of this encounter Visit Diagnoses Not on filedocumented in this encounter Care Teams Truck Assembler Relationship Specialty Start Date End Date Elsewhere, Pcp PCP - General Internal Medicine 05/25/23 documented as of this encounter
--- OUTSIDE RECORDS SUMMARY | 2024-07-28 14:51 | XMS_ITS | Encounter Summary ---
Author Organization [facility] Address [address] [place] [address] Care Team Providers Care Manager Scientific Name Role Phone Elsewhere, Pcp Primary Care Provider Unavailabl e Encounter Details Date Type Department Care Team (Late st Contact Info) Description 08/28/2003 Historical Ophthalmology RST OPH Leonardo Macedo M.D. 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 CDM Reports - EYEGEN Id: [id number] Status: Fnl documented in this encounter Plan of Treatment Upcoming Encounters Date Type Department Care Team (Latest Contact Info) Description 09/05/2024 9:15 AM CDT Clinical Communication Virtual Review in [place], [place] 200 [place] [phone] 09/08/2024 11:00 AM CDT Office Visit Department of Obstetrics and Gynecology, Division of Urogynecology in [address] [phone] Antonia Caro P.A.-C. [address] [place] [phone] 09/17/2024 11:00 AM CDT Office Visit Department of Orthopedic Surgery in [address] [phone] Judith Neal APRN, C.N.P., D.N.P. [address] [place] [phone] 09/30/2024 1:00 PM CDT Appointment Department of Radiology, [facility], in [address] [phone] Anna Lockwood M.D., M.S. [address] [place] [phone] 10/01/2024 9:10 AM CDT Appointment Department of Laboratory Medicine and Pathology, [facility] in [address] [phone] Anna Lockwood M.D., M.S. [address] [place] [phone] 10/01/2024 10:00 AM CDT Ancillary Procedure Department of Cardiovascular Medicine in [place], [place] [address] [place] [address] Anna Lockwood M.D., M.S. [address] [place] [phone] 10/01/2024 11:00 AM CDT Office Visit Department of Cardiovascular Medicine in [place], [place] [address] [place] [address] Anna Lockwood M.D., M.S. [address] [place] [phone] documented as of this encounter Visit Diagnoses Not on filedocumented in this encounter Care Teams Manager Scientific Relationship Specialty Start Date End Date Elsewhere, Pcp PCP - General Internal Medicine 05/25/23 documented as of this encounter
--- OUTSIDE RECORDS SUMMARY | 2024-07-28 14:51 | XMS_ITS | Encounter Summary ---
Author Organization [facility] Address [address] [place] [address] Care Team Providers Care Senior Talent Acquisition Specialist Name Role Phone Elsewhere, Pcp Primary Care Provider Unavailabl e Reason for Visit * Reason Onset Date Comments Echo Move Up Request 07/28/2024 Encounter Details Date Type Department Care Team (Latest Contact Info) Description 07/28/2024 Clinical Communication Department of Cardiovascular Medicine in [place], [place] [address] [place] [address] Anna Lockwood M.D., M.S. [address] [place] [phone] Echo Move Up Request Social History Tobacco Use Types Packs/Day Years Used Date Smoking Tobacco: Never Passive Smoke Exposure: Past Smokeless Tobacco: Never Alcohol Use Standard Drinks/Week Comments Not Currently 0 (1 standard drink = 0.6 oz pur e alcohol) [facility] Utilities Answer Date Recorded In the past 12 months has e [employer], gas, oil, or water [employer] threatened to shut off services in your [...] any clubs o r organizations such as yarsani groups, unions, fraternal or athletic groups, or [...] care, and heating? Not very hard 09/04/2022 [facility] Occupat ional Health - [...] your living situation today? I have a [facility] place to live 09/09/2023 Education Answer Date Recorded What is the highest level of school you have completed or the highest degree you have received? 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 [address] [place] [phone] 09/17/2024 11:00 AM CDT Office Visit Department of Orthopedic Surgery in [place], [place] [address] [place] [phone] Judith Neal APRN, C.N.P., D.N.P. [address] [place] [phone] 09/30/2024 1:00 PM CDT Appointment Department of Radiology, [facility], in [place], [place] [address] [place] [phone] Anna Lockwood M.D., M.S. [address] [place] [phone] 10/01/2024 9:10 AM CDT Appointment Department of Laboratory Medicine and Pathology, [facility] in [place], [place] [address] [place] [phone] Anna Lockwood M.D., M.S. [address] [place] [phone] 10/01/2024 10:00 AM CDT Ancillary Procedure Department of Cardiovascular Medicine in [address] [phone] Anna Lockwood M.D., M.S. [address] [place] [phone] 10/01/2024 11:00 AM CDT Office Visit Department of Cardiovascular Medicine in [address] [phone] Anna Lockwood M.D., M.S. [address] [place] [phone] documented as of this encounter Visit Diagnoses Not on filedocumented in this encounter Care Teams Senior Talent Acquisition Specialist Relationship Specialty Start Date End Date Elsewhere, Pcp PCP - General Internal Medicine 2/2/24 documented as of this encounter
--- OUTSIDE RECORDS SUMMARY | 2024-07-28 14:51 | XMS_ITS | Encounter Summary ---
Author Organization [facility] Address [address] [place] [address] Care Team Providers Care Product Design Engineer Name Role Phone Elsewhere, Pcp Primary Care Provider Unavailabl e Encounter Details Date Type Department Care Team (Late st Contact Info) Description 01/29/2002 Historical Ophthalmology RST OPH Leonardo Macedo M.D. 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 - 01/29/2002 12:00 AM CDT Eye General CHIEF COMPLAINT tearing, mattery red os x 3 months. severity fluctuates. HISTORY OF PRESENT ILLNESS Developed redness OS late 09/22 gradually with irritation. Was on a trip in [facility]. Symptoms fluctuated over next month. With increasing redness saw local town planner who noted corneal epithelial and subepithelial lesions, [...] Anterior basment membrane dystrophy. CD[facility] Id: [id number] Status: Fnl documented in this encounter Plan of Treatment Upcoming Encounters Date Type Department Care Team (Latest Contact Info) Description 09/05/2024 9:15 AM CDT Clinical Communication Virtual Review in [address] [phone] 09/08/2024 11:00 AM CDT Office Visit Department of Obstetrics and Gynecology, Division of Urogynecology in [address] [phone] Antonia Caro, PSammyAElvie. [address] [place] [phone] 09/17/2024 11:00 AM CDT Office Visit Department of Orthopedic Surgery in [address] [phone] Judith Neal, DAMARI, C.N.P., D.N.P. [address] [place] [phone] 09/30/2024 1:00 PM CDT Appointment Department of Radiology, [facility], in [address] [phone] Anna Lockwood M.D., M.S. [address] [place] [phone] 10/01/2024 9:10 AM CDT Appointment Department of Laboratory Medicine and Pathology, [facility], in [place], [place] [address] [place] [address] Anna Lockwood M.D., M.S. [address] [place] [phone] 10/01/2024 10:00 AM CDT Ancillary Procedure Department of Cardiovascular Medicine in [place], [place] [address] [place] [address] Anna Lockwood M.D., M.S. [address] [place] [phone] 10/01/2024 11:00 AM CDT Office Visit Department of Cardiovascular Medicine in [place], [place] [address] [place] [phone] Anna Lockwood M.D., M.S. [address] [place] [phone] documented as of this encounter Visit Diagnoses Not on filedocumented in this encounter Care Teams Product Design Engineer Relationship Specialty Start Date End Date Elsewhere, Pcp PCP - General Internal Medicine 05/25/23 documented as of this encounter
--- OUTSIDE RECORDS SUMMARY | 2024-07-28 14:51 | XMS_ITS | Encounter Summary ---
Author Organization [facility] Address [address] [place] [address] Care Team Providers Care Applied Behavior Science Specialist Name Role Phone Elsewhere, Pcp Primary Care Provider Unavailabl e Encounter Details Date Type Department Care Team (Late st Contact Info) Description 02/21/2002 Historical Ophthalmology RST OPH Leonardo Macedo M.D. 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 CDM Reports - [facility] Id: [id number] Status: Fnl documented in this encounter Plan of Treatment Upcoming Encounters Date Type Department Care Team (Latest Contact Info) Description 09/05/2024 9:15 AM CDT Clinical Communication Virtual Review in [place], [place] 200 [place] [phone] 09/08/2024 11:00 AM CDT Office Visit Department of Obstetrics and Gynecology, Division of Urogynecology in [place], [place] [address] [place] [phone] Antonia Caro P.A.-C. [address] [place] [phone] 09/17/2024 11:00 AM CDT Office Visit Department of Orthopedic Surgery in [address] [phone] Judith Neal APRN, C.N.P., D.N.P. [address] [place] [phone] 09/30/2024 1:00 PM CDT Appointment Department of Radiology, [facility], in [place], [place] [address] [place] [phone] Anna Lockwood M.D., M.S. [address] [place] [phone] 10/01/2024 9:10 AM CDT Appointment Department of Laboratory Medicine and Pathology, [facility] in [place], [place] [address] [place] [phone] Anna Lockwood M.D., M.S. [address] [place] [phone] 10/01/2024 10:00 AM CDT Ancillary Procedure Department of Cardiovascular Medicine in [place], [place] [address] [place] [phone] Anna Lockwood M.D., M.S. [address] [place] [address] 10/01/2024 11:00 AM CDT Office Visit Department of Cardiovascular Medicine in [place], [place] [address] [place] [address] Anna Lockwood M.D., M.S. [address] [place] [address] documented as of this encounter Visit Diagnoses Not on filedocumented in this encounter Care Teams Applied Behavior Science Specialist Relationship Specialty Start Date End Date Elsewhere, Pcp PCP - General Internal Medicine 05/25/23 documented as of this encounter
--- OUTSIDE RECORDS SUMMARY | 2024-07-28 14:51 | XMS_ITS | Encounter Summary ---
Author Organization [facility] Address [address] [place] [address] Care Team Providers Care Electrical Prospecting Engineer Name Role Phone Elsewhere, Pcp Primary Care Provider Unavailabl e Encounter Details Date Type Department Care Team (Late st Contact Info) Description 07/02/2002 Historical Ophthalmology RST OPH Leonardo Macedo M.D. 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 [address] [place] [phone] 09/17/2024 11:00 AM CDT Office Visit Department of Orthopedic Surgery in [address] [phone] Judith Neal APRN, C.N.P., D.N.P. [address] [place] [phone] 09/30/2024 1:00 PM CDT Appointment Department of Radiology, [facility], in [place], [place] [address] [place] [phone] Anna Lockwood M.D., M.S. [address] [place] [phone] 10/01/2024 9:10 AM CDT Appointment Department of Laboratory Medicine and Pathology, [facility] in [address] [phone] Anna Lockwood M.D., M.S. [address] [place] [phone] 10/01/2024 10:00 AM CDT Ancillary Procedure Department of Cardiovascular Medicine in [address] [phone] Anna Lockwood M.D., M.S. [address] [place] [address] 10/01/2024 11:00 AM CDT Office Visit Department of Cardiovascular Medicine in [place], [place] [address] [place] [address] Anna Lockwood M.D., M.S. [address] [place] [phone] documented as of this encounter Visit Diagnoses Not on filedocumented in this encounter Care Teams Electrical Prospecting Engineer Relationship Specialty Start Date End Date Elsewhere, Pcp PCP - General Internal Medicine 05/25/23 documented as of this encounter
--- OUTSIDE RECORDS SUMMARY | 2024-07-28 14:51 | XMS_ITS | Encounter Summary ---
Author Organization [facility] Address [address] [place] [address] Care Team Providers Care Roll Up Guider Operator Name Role Phone Elsewhere, Pcp Primary Care Provider Unavailabl e Encounter Details Date Type Department Care Team (Late st Contact Info) Description 05/04/2003 Historical Ophthalmology RST OPH Leonardo Macedo M.D. 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 [address] [place] [phone] 09/17/2024 11:00 AM CDT Office Visit Department of Orthopedic Surgery in [place], [place] [address] [place] [phone] Judith Neal APRN, C.N.P., D.N.P. [address] [place] [phone] 09/30/2024 1:00 PM CDT Appointment Department of Radiology, [facility], in [place], [place] [address] [place] [phone] Anna Lockwood M.D., M.S. [address] [place] [phone] 10/01/2024 9:10 AM CDT Appointment Department of Laboratory Medicine and Pathology, [facility], in [place], [place] [address] [place] [phone] Anna Lockwood M.D., M.S. [address] [place] [phone] 10/01/2024 10:00 AM CDT Ancillary Procedure Department of Cardiovascular Medicine in [place], [place] [address] [place] [phone] Anna Lockwood M.D., M.S. [address] [place] [phone] 10/01/2024 11:00 AM CDT Office Visit Department of Cardiovascular Medicine in [place], [place] [address] [place] [address] Anna Lockwood M.D., M.S. [address] [place] [address] documented as of this encounter Visit Diagnoses Not on filedocumented in this encounter Care Teams Roll Up Guider Operator Relationship Specialty Start Date End Date Elsewhere, Pcp PCP - General Internal Medicine 05/25/23 documented as of this encounter
--- OUTSIDE RECORDS SUMMARY | 2024-07-28 14:51 | XMS_ITS | Encounter Summary ---
Author Organization [facility] Address [address] [place] [address] Care Team Providers Care Soil Conservationist Name Role Phone Elsewhere, Pcp Primary Care Provider Unavailabl e Reason for Visit * Reason Onset Date Comments Appt Request 07/28/2024 Pre-visit Testing Orders 07/28/2024 Encounter Details Date Type Department Care Team (Latest Contact Info) Description 07/28/2024 Clinical Communication Department of Cardiovascular Medicine in [place], [place] [address] [place] [address] Anna Lockwood M.D., M.S. [address] [place] [phone] Appt Request; Pre-visit Testing Orders Social History Tobacco Use Types Packs/Day Years Used Date Smoking Tobacco: Never Passive Smoke Exposure: Past Smokeless Tobacco: Never Alcohol Use Standard Drinks/Week Comments Not Currently 0 (1 standard drink = 0.6 oz pur e alcohol) [facility] Utilities Answer Date Recorded In the past 12 months has e electric, gas, oil, or water company threatened to shut off services in your [...] often do you attend chur ch or sikhism services? Never 09/04/2022 Do you belong to any clubs o r organizations such as adventism groups, unions, fraternal or athletic groups, or [...] and heating? Not very hard 09/04/2022 [facility] - [...] your living situation today? I have a [facility] place to live 09/09/2023 Education Answer Date Recorded What is the highest level of school you have completed or the highest degree you have received? 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 [address] [place] [phone] 09/17/2024 11:00 AM CDT Office Visit Department of Orthopedic Surgery in [place], [place] [address] [place] [phone] Judith Neal APRN, C.N.P., D.N.P. [address] [place] [phone] 09/30/2024 1:00 PM CDT Appointment Department of Radiology, [facility], in [place], [place] [address] [place] [phone] Anna Lockwood M.D., M.S. [address] [place] [phone] 10/01/2024 9:10 AM CDT Appointment Department of Laboratory Medicine and Pathology, [facility] in [place], [place] [address] [place] [phone] Anna Lockwood M.D., M.S. [address] [place] [phone] 10/01/2024 10:00 AM CDT Ancillary Procedure Department of Cardiovascular Medicine in [address] [phone] Anna Lockwood M.D., M.S. [address] [place] [phone] 10/01/2024 11:00 AM CDT Office Visit Department of Cardiovascular Medicine in [place], [place] [address] [place] [phone] Anna Lockwood M.D., M.S. [address] [place] [phone] documented as of this encounter Visit Diagnoses Not on filedocumented in this encounter Care Teams Soil Conservationist Relationship Specialty Start Date End Date Elsewhere, Pcp PCP - General Internal Medicine 05/25/23 documented as of this encounter
--- OUTSIDE RECORDS SUMMARY | 2024-07-28 14:51 | XMS_ITS | Encounter Summary ---
Author Organization [facility] Address [address] [place] [address] Care Team Providers Care Landing Man Name Role Phone Elsewhere, Pcp Primary Care Provider Unavailabl e Encounter Details Date Type Department Care Team (Late st Contact Info) Description 03/19/2006 Historical Ophthalmology RST OPH Leonardo Macedo M.D. 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 [address] [place] [phone] 09/17/2024 11:00 AM CDT Office Visit Department of Orthopedic Surgery in [place], [place] [address] [place] [phone] Judith Neal APRN, C.N.P., D.N.P. [address] [place] [phone] 09/30/2024 1:00 PM CDT Appointment Department of Radiology, [facility], in [place], [place] [address] [place] [phone] Anna Lockwood M.D., M.S. [address] [place] [phone] 10/01/2024 9:10 AM CDT Appointment Department of Laboratory Medicine and Pathology, [facility] in [place], [place] [address] [place] [phone] Anna Lockwood M.D., M.S. [address] [place] [phone] 10/01/2024 10:00 AM CDT Ancillary Procedure Department of Cardiovascular Medicine in [place], [place] [address] [place] [phone] Anna Lockwood M.D., M.S. [address] [place] [address] [place] [phone] 10/01/2024 11:00 AM CDT Office Visit Department of Cardiovascular Medicine in [place], [place] [address] [place] [address] Anna Lockwood M.D., M.S. [address] [place] [phone] documented as of this encounter Visit Diagnoses Not on filedocumented in this encounter Care Teams Landing Man Relationship Specialty Start Date End Date Elsewhere, Pcp PCP - General Internal Medicine 05/25/23 documented as of this encounter
--- OUTSIDE RECORDS SUMMARY | 2024-07-28 14:51 | XMS_ITS | Encounter Summary ---
Author Organization [facility] Address [address] [place] [address] Care Team Providers Care Can Slider Name Role Phone Elsewhere, Pcp Primary Care Provider Unavailabl e Encounter Details Date Type Department Care Team (Late st Contact Info) Description 01/30/2003 Historical Ophthalmology RST OPH Leonardo Macedo M.D. 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 [address] [place] [phone] 09/17/2024 11:00 AM CDT Office Visit Department of Orthopedic Surgery in [place], [place] [address] [place] [phone] Judith Neal APRN, C.N.P., D.N.P. [address] [place] [phone] 09/30/2024 1:00 PM CDT Appointment Department of Radiology, [facility], in [place], [place] [address] [place] [phone] Anna Lockwood M.D., M.S. [address] [place] [phone] 10/01/2024 9:10 AM CDT Appointment Department of Laboratory Medicine and Pathology, [facility], in [place], [place] [address] [place] [phone] Anna Lockwood M.D., M.S. [address] [place] [phone] 10/01/2024 10:00 AM CDT Ancillary Procedure Department of Cardiovascular Medicine in [address] [phone] Anna Lockwood M.D., M.S. [address] [place] [phone] 10/01/2024 11:00 AM CDT Office Visit Department of Cardiovascular Medicine in [place], [place] [address] [place] [phone] Anna Lockwood M.D., M.S. [address] [place] [address] documented as of this encounter Visit Diagnoses Not on filedocumented in this encounter Care Teams Can Slider Relationship Specialty Start Date End Date Elsewhere, Pcp PCP - General Internal Medicine 05/25/23 documented as of this encounter
--- NOTE | 2024-07-28 16:24 | CRLHL7_ITS ---
For Patients: As a result of the Cures Act, medical imaging exams and procedure reports are released immediately into your electronic medical record. You may view this report before your referring provider. If you have questions, please contact your health care provider. INDICATION: Palpitations TECHNIQUE: Chest 1 view COMPARISON: 06/27/2024 FINDINGS: Cardiovasculature and mediastinum: Similar cardiomegaly. Unremarkable mediastinum. Lungs and pleural spaces: Slightly increased right basal interstitial and reticular opacity. No sign of pleural effusion. No pneumothorax. Bones and soft tissues: Similar aortic arch calcifications IMPRESSION: Slightly increased right basal opacity may represent worsening viral infection Dictated by Darling Taylor MD @ 07/28/2024 5:18:26 PM (Electronically Signed)
--- NOTE | 2024-07-28 16:26 | ED_ITS ---
HPI - Arrhythmia/Palpitations General Date Seen: 07/28/24 Chief Complaint: Arrhythmia/Palpitations Stated Complaint: heart palpations Time Seen by Provider: 07/28/24 16:03 Source: patient Mode of arrival: ambulatory Limitations: no limitations History of Present Illness HPI narrative: Patient is an 88-year-old female with him medical history of a flutter with a ablation done at [facility]. Our record states it was paroxysmal AFib but she states that it was flutter. She states about my 2 weeks ago she noticed she is having these episodes of palpitations in her chest. She states she has not had the symptoms him for that she is aware. Unsure if they feel like her previous a flutter. Last saw her radiation protection specialist who did the upper lesion back in February with a took her off 1 of her blood pressure medications. Patient has noticed with past few weeks her blood pressure has been higher. She has been very nervous about this hypertension. She mostly notices the palpitations at night. Denies chest pain, shortness of breath, lightheadedness, dizziness, weakness, numbness. No other symptoms noted that this time she states. Patient was seen here 1 month ago for chest pain and she was discharged with no complications. Related Data Home Medications ?Medication ?Instructions ?Recorded ?Confirmed flecainide 50 mg tablet 50 mg PO BID 02/26/23 07/28/24 ketoconazole 2 % shampoo 1 applic topical 2XW 03/19/23 05/12/24 cholecalciferol (vitamin D3) 25 25 mcg PO QDAY 05/12/24 06/27/24 mcg (1,000 unit) capsule Previous Rx's ?Medication ?Instructions ?Recorded atorvastatin 10 mg tablet 10 mg PO QDAY #90 tabs 03/27/24 losartan 50 mg tablet 50 mg PO QDAY #90 tabs 03/27/24 apixaban 2.5 mg tablet (Eliquis) 2.5 mg PO BID #180 tabs 04/07/24 losartan 25 mg tablet 25 mg PO DAILY #30 tabs 06/27/24 cephalexin 500 mg capsule 500 mg PO QID #20 caps 07/28/24 Allergies Allergy/AdvReac Type Severity Reaction Status Date / Time No Known Drug Allergies Allergy Verified 05/12/24 10:46 Review of Systems Status of ROS: Reports: 10 or more systems reviewed and unremarkable except as noted in History and below PFSH PFSH Medical History History of lichen planus ?Z87.2 - Personal history of diseases of the skin and subcutaneous tissue (ICD-10) Surgical History History of cataract surgery ?Z98.49 - Cataract extraction status, unspecified eye (ICD-10) History of basal cell carcinoma (BCC) ?Z85.828 - Personal history of other malignant neoplasm of skin (ICD-10) History of SCC (squamous cell carcinoma) of skin ?Z85.828 - Personal history of other malignant neoplasm of skin (ICD-10) History of phacoemulsification of cataract of both eyes with intraocular lens implantation ?Z98.41 - Cataract extraction status, right eye (ICD-10) ?Z98.42 - Cataract extraction status, left eye (ICD-10) ?Z96.1 - Presence of intraocular lens (ICD-10) History of surgical biopsy (02/10/02) ?Z98.890 - Other specified postprocedural states (ICD-10) History of hand surgery (01/01/09) ?Z98.890 - Other specified postprocedural states (ICD-10) Family History Sister Breast cancer Father High blood pressure Heart disease Brother High blood pressure Social History What is your current living situation?: I presently have a place to live Problems where you live: no known problems In the past 12 months, utilities in danger of being shut off: no In past 12 months, lack of transportation kept you from medical appts, meetings, work, or getting things needed for daily living: no In the past 12 mos, have been you worried that your food would run out before you had money to buy more?: never true In the past 12 mos, the food you bought just didn't last and you didn't have money to buy more?: never true Smoking Status: Never smoker Do you use any of these nicotine containing products: None How often do you have a drink containing alcohol: never How often do you have six or more drinks on one occasion: Never AUDIT-C Alcohol total score: 0 Non-prescribed substance use: denies use Caffeine: No How often does anyone, including family, friends and others, physically hurt you : never How often does anyone, including family, friends and others, insult or talk down to you: never How often does anyone, including family, friends and others, threaten you with harm: never How often does anyone, including family, friends and others, scream or curse at you: never Are you using contraception or practicing any form of control: No Exam Narrative: Exam Narrative: Const: Well-nourished, Well-developed, in no distress Eyes: PERRL, no conjunctival injection, and symmetrical lids HENT: Atraumatic external nose and ears. Moist mucous membranes. Neck: Symmetric, trachea midline, No thyromegaly. CVS: RRR, No murmurs or gallops. Peripheral pulses 2+ and equal in all extremities RESP: Unlabored respiratory effort. Clear to auscultation bilaterally. GI: Nontender/Nondistended, No rebound or guarding. MSK:Extremities w/o deformity, Normal Active ROM Skin: Warm, Dry. No rashes or lesions. Neuro: Normal Muscle tone, No focal neurological deficits. Psych: Awake, Alert, & Oriented x3. Does appear anxious Const: Vital Signs, click to edit/add: Vital Signs - 24 hr 07/28/24 15:00 07/28/24 15:01 07/28/24 15:02 Temperature Pulse Rate Pulse Rate [Pulse Oximeter] Respiratory Rate 32 H 50 H 21 Blood Pressure 204/124 H 201/121 H Blood Pressure [Ri ght Upper Arm] Pulse Oximetry Oxygen Delivery Me thod 07/28/24 15:04 07/28/24 15:15 07/28/24 15:21 Temperature 97.8 F Pulse Rate Pulse Rate [Pulse Oximeter] 76 Respiratory Rate 15 19 Blood Pressure Blood Pressure [Ri ght Upper Arm] 204/124 H Pulse Oximetry 96 Oxygen Delivery Me thod Room Air 07/28/24 15:22 07/28/24 15:23 07/28/24 15:31 Temperature Pulse Rate Pulse Rate [Pulse Oximeter] Respiratory Rate 13 22 Blood Pressure 184/120 H Blood Pressure [Ri ght Upper Arm] Pulse Oximetry Oxygen Delivery Co thod 07/28/24 15:42 07/28/24 15:45 07/28/24 16:00 Temperature Pulse Rate Pulse Rate [Pulse Oximeter] Respiratory Rate 19 22 15 Blood Pressure 186/97 H Blood Pressure [Ri ght Upper Arm] Pulse Oximetry Oxygen Delivery Co thod 07/28/24 16:02 07/28/24 16:41 07/28/24 16:44 Temperature Pulse Rate 75 Pulse Rate [Pulse Oximeter] Respiratory Rate 21 26 H 20 Blood Pressure 190/103 H 178/143 H Blood Pressure [Ri ght Upper Arm] Pulse Oximetry 94 Oxygen Delivery Co thod 07/28/24 16:45 07/28/24 16:46 07/28/24 17:00 Temperature Pulse Rate 64 65 63 Pulse Rate [Pulse Oximeter] Respiratory Rate 18 31 H 17 Blood Pressure 184/104 H Blood Pressure [Ri ght Upper Arm] Pulse Oximetry 96 96 95 Oxygen Delivery Co thod 07/28/24 17:02 07/28/24 17:15 07/28/24 17:22 Temperature Pulse Rate 72 63 67 Pulse Rate [Pulse Oximeter] Respiratory Rate 15 19 20 Blood Pressure 160/99 H 156/96 H Blood Pressure [Ri ght Upper Arm] Pulse Oximetry 95 94 95 Oxygen Delivery Co thod 07/28/24 17:30 07/28/24 17:42 07/28/24 17:45 Temperature Pulse Rate 66 68 70 Pulse Rate [Pulse Oximeter] Respiratory Rate 18 17 15 Blood Pressure 170/100 H Blood Pressure [Ri ght Upper Arm] Pulse Oximetry 95 95 95 Oxygen Delivery Co thod Course Vital Signs Vital signs: Initial Vital Signs Respiratory Rate 32 H 07/28/24 15:00 Blood Pressure 204/124 H 07/28/24 15:00 Blood Pressure Mean 150 H 07/28/24 15:00 Vital Signs Respiratory Rate 32 H 07/28/24 15:00 Blood Pressure 204/124 H 07/28/24 15:00 Temperature 97.8 F 07/28/24 15:04 Pulse Rate 70 07/28/24 17:45 Respiratory Rate 15 07/28/24 17:45 Blood Pressure 170/100 H 07/28/24 17:42 Pulse Oximetry 95 07/28/24 17:45 Oxygen Delivery Method Room Air 07/28/24 15:21 MDM - Arrhythmia/Palpitations MDM Narrative Medical decision making narrative: Patient is an 88-year-old female presenting to the emergency department for palpitations. Based on my exam she does appear relatively anxious plan concerned she could have recurrence of her a flutter/AFib. EKG was done showing normal sinus rhythm. She states she is asymptomatic at this time. Symptoms could also be from electrolyte abnormalities. Will order a troponin to look for signs of ACS. Will also ordered BMP magnesium to check electrolytes. COVI D/flu/RSV test ordered. Will do chest x-ray to look for any abnormalities. Patient's lab work shows no concerning abnormalities other than what appears to be a UTI. She is nitrite positive. Vitals father negative. Troponin EKG showed no concerning abnormalities. Chest x-ray shows possible viral syndrome by her symptoms of palpitations and left upper test with no symptoms the right lower lobe. I do not believe this is a worsening viral infection. On my review vital signs are stable throughout time in in the emergency department. Oximetry stayed in the mid to high 90s. regional sales engineer showed no concerning arrhythmias. I still have concern for possible AFib for a flutter so I will give her a Zio patch and told her to follow-up outpatient. Will also treat her for UTI. She is agreeable to this plan. Lab Data Labs: Lab Results 07/28/24 07/28/24 Range/Units 16:30 16:45 WBC 5.28 (4.50-11.00) K/uL RBC 4.75 (4.00-5.20) m/uL Hgb 15.0 (12.0-16.0) gm/dL Hct 45.4 (33.0-51.0) % MCV 96 (80-100) fL MCH 32 (26-34) pg MCHC 33 (32-36) gm/dL RDW Coeff of Fady 13.3 (11.5-15.5) % Plt Count 243 (140-440) K/uL Neut % (Auto) 66.6 (42.0-72.0) % Lymph % (Auto) 20.3 (20-44) % [place] % (Auto) 11.6 H (0.0-11.0) % Eos % (Auto) 0.9 (0.0-7.0) % Baso % (Auto) 0.4 (0.0-3.0) % Neut # (Auto) 3.52 (1.7-7.0) K/uL Lymph # (Auto) 1.07 (0.90-2.90) K/uL [place] # (Auto) 0.60 (0.00-0.90) K/UL Eos # (Auto) 0.05 (0.00-0.50) K/uL Baso # (Auto) 0.02 (0.00-0.30) K/uL Abs Immat Gran (auto) 0.01 (0.00-0.30) K/uL Imm/Tot Granulo (auto) 0.2 % Sodium 134 L (135-149) mmol/L Potassium 4.2 (3.6-5.1) mmol/L Chloride 96 (96-114) mmol/L Carbon Dioxide 31 (20-32) mmol/L Anion Gap 7 (7-15) mEq/L BUN 13 (7-30) mg/dL Creatinine 0.5 (0.5-1.5) mg/dL Estimated Creat Clear 30.47 Estimated GFR 91 ml/min Glucose 95 (60-115) mg/dL Calcium 9.8 (8.4-10.6) mg/dL Magnesium 2.2 (1.5-2.6) mg/dL Troponin I < 0.01 (0.01-0.04) ng/mL Urine Color Yellow (Yellow) Urine Appearance Clear (Clear) Urine pH 7.0 (5.0-8.5) Ur Specific [place] 1.015 (1.000-1.030) Urine Protein Negative (Negative) Urine Glucose (UA) Negative (Negative) Urine Ketones Negative (Negative) Urine Blood 1+ A (Negative) Urine Nitrite Positive A (Negative) Urine Bilirubin Negative (Negative) Urine Urobilinogen 0.2 (0.2-1.0) Ur Leukocyte Esterase Trace A (Negative) Urine RBC 2-5 A (0-2) Urine WBC 2-5 (0-5) Ur Squamous Epith Cells None (None-Few) Urine Bacteria Moderate A (None) SARS-CoV-2 (PCR) Negative SARS-CoV-2 (Negative) Influenza Type A (PCR) Negative PCR FLU A (Negative) Influenza Type B (PCR) Negative PCR FLU B (Negative) RSV (PCR) Negative PCR RSV (Negative) Imaging Data Chest x-ray: Attestation: I have reviewed the pertinent imaging results. Radiologist's impression: Slightly increased right basal opacity may represent worsening viral infection Dictated by Darling Taylor MD @ 07/28/2024 5:18:26 PM ECG Data Attestation: I personally reviewed and interpreted this ECG as follows: Prior ECG tracings: available for review Interpretation: Normal sinus rhythm with a rate of 75 beats per minute, first-degree AV block, normal QT and QRS, no ST or T-wave abnormalities. Appears similar previous EKGs on file Discharge Plan Discharge Clinical Impression: Palpitations, Acute UTI Patient Disposition: Home, Self-Care Condition: Stable Instructions: Heart Palpitations (DC), Urinary Tract Infection in Women (DC) Additional Instructions: Were the Zio patch in the follow-up with the primary care provider and more radiation protection specialist. Return to emergency department for new or worsening symptoms. You also appear to have a mild UTI. Will start you on antibiotics. Prescriptions: New cephalexin 500 mg capsule 500 mg PO QID Qty: 20 0RF No Action ketoconazole 2 % shampoo 1 applic topical 2XW flecainide 50 mg tablet 50 mg PO BID cholecalciferol (vitamin D3) 25 mcg (1,000 unit) capsule 25 mcg PO QDAY losartan 25 mg tablet 25 mg PO DAILY Qty: 30 0RF Rx Instructions: Add to your 50 mg tablet for a total of 75 mg daily. atorvastatin 10 mg tablet 10 mg PO QDAY Qty: 90 3RF losartan 50 mg tablet 50 mg PO QDAY Qty: 90 3RF Eliquis 2.5 mg tablet 2.5 mg PO BID Qty: 180 3RF Follow Up/Referrals: Neelam Gale MD [Primary Care Provider] - Stand Alone Forms: [facility] Info Instructions
--- OUTSIDE RECORDS SUMMARY | 2024-07-28 16:32 | XMS_ITS | Encounter Summary ---
Author Organization [facility] Address [address] [place] [address] Care Team Providers Care Dough Molder Name Role Phone Elsewhere, Pcp Primary Care Provider Unavailabl e Encounter Details Date Type Department Care Team (Late st Contact Info) Description 08/20/2009 Historical Ophthalmology RST OPH Leonardo Macedo M.D. 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 [address] [place] [phone] 09/17/2024 11:00 AM CDT Office Visit Department of Orthopedic Surgery in [place], [place] [address] [place] [phone] Judith Neal APRN, C.N.P., D.N.P. [address] [place] [phone] 09/30/2024 1:00 PM CDT Appointment Department of Radiology, [facility], in [place], [place] [address] [place] [phone] Anna Lockwood M.D., M.S. [address] [place] [phone] 10/01/2024 9:10 AM CDT Appointment Department of Laboratory Medicine and Pathology, [facility] in [place], [place] [address] [place] [phone] Anna Lockwood M.D., M.S. [address] [place] [phone] 10/01/2024 10:00 AM CDT Ancillary Procedure Department of Cardiovascular Medicine in [place], [place] [address] [place] [phone] Anna Lockwood M.D., M.S. [address] [place] [phone] 10/01/2024 11:00 AM CDT Office Visit Department of Cardiovascular Medicine in [place], [place] [address] [place] [address] Anna Lockwood M.D., M.S. [address] [place] [address] documented as of this encounter Visit Diagnoses Not on filedocumented in this encounter Care Teams Dough Molder Relationship Specialty Start Date End Date Elsewhere, Pcp PCP - General Internal Medicine 05/25/23 documented as of this encounter
--- OUTSIDE RECORDS SUMMARY | 2024-07-28 16:32 | XMS_ITS | Clinical Summary ---
Author Organization [facility] Address [address] [place] [id number] Care Team Providers Care Counseling Program Leader Name Role Phone Neelam Gale MD Primary Care Provider [phone] Allergies No known active allergies Medications cholecalciferol [...] Department Care Team Description 06/18/2024 1:00 PM CRITICAL CARE PHYSICIAN ASSISTANT Office Visit [address] [phone] Cayla Mcclure PA Consult (Ear cleaning) 06/18/2024 [...] on file Legal Sex Female 7:02 AM CRITICAL CARE PHYSICIAN ASSISTANT Gender Identity Not on file Sexual Orientation [...] 36.8 C (98.2 F) 05/21/2020 7:37 AM CRITICAL CARE PHYSICIAN ASSISTANT Respiratory Rate 16 01/19/2021 1:27 PM CDT [...] Description 01/21/2025 11:00 AM CDT Office Visit [facility] [address] [place] [phone] Cayla Mcclure PA [address] [place] [address] 01/22/2025 11:30 AM CDT Office Visit [facility] [address] [place] [address] Dory Lyn MD [address] [facility] [address] [place] [address] Health Maintenance Due Date Last Done Comments [...] MEDICARE PART B HB ONLY [place] BLUE MR PB ONLY [place] BLUE HB ONLY MEDICARE PART A HB ONLY Advance Directives * Full Code (Latest Code Status on File) Date Activated Date Inactivated Comments 05/19/2020 1:30 PM 05/21/2020 1:51 PM Question Answer Comments Code Status Discussion: Not Discussed Care Teams Counseling Program Leader Relationship Specialty Start Date End Date Neelam Gale MD [address] [place] [address] PCP - General Internal Medicine 01/24/24
--- OUTSIDE RECORDS SUMMARY | 2024-07-28 16:32 | XMS_ITS | Encounter Summary ---
Author Organization [facility] Address [address] [place] [address] Care Team Providers Care Dolly Driver Name Role Phone Elsewhere, Pcp Primary Care Provider Unavailabl e Encounter Details Date Type Department Care Team (Late st Contact Info) Description 01/30/2003 Historical Ophthalmology [facility]ST OPH Leonardo Macedo M.D. [address] [place] [address] Social History Tobacco Use Types Packs/Day Years Used Date Smoking Tobacco: Never Assessed Comments Unknown Sex and Gender Information Value Date Recorded Sex Assigned at Female 09/04/2022 4:04 PM CDT Legal Sex Female 8:55 PM ORDER TRACER Gender Identity Female 09/04/2022 4:04 PM CDT [...] Lichen planus CDM Reports - EYEGEN Id: [id number] Status: Fnl documented in this encounter Plan of Treatment Upcoming Encounters Date Type Department Care Team (Latest Contact Info) Description 09/05/2024 9:15 AM CDT Clinical Communication Virtual Review in [place], [place] 200 [place] [address] 09/08/2024 11:00 AM CDT Office Visit Department of Obstetrics and Gynecology, Division of Urogynecology in [place], [place] [address] [place] [phone] Antonia Caro P.A.-C. [address] [place] [phone] 09/17/2024 11:00 AM CDT Office Visit Department of Orthopedic Surgery in [place], [place] [address] [place] [phone] Judith Neal APRN, C.N.P., D.N.P. [address] [place] [phone] 09/30/2024 1:00 PM CDT Appointment Department of Radiology, [facility], in [place], [place] [address] [place] [phone] Anna Lockwood M.D., M.S. [address] [place] [phone] 10/01/2024 9:10 AM CDT Appointment Department of Laboratory Medicine and Pathology, [facility], in [place], [place] [address] [place] [phone] Anna Lockwood M.D., M.S. [address] [place] [phone] 10/01/2024 10:00 AM CDT Ancillary Procedure Department of Cardiovascular Medicine in [address] [phone] Anna Lockwood M.D., M.S. [address] [place] [phone] 10/01/2024 11:00 AM CDT Office Visit Department of Cardiovascular Medicine in [place], [place] [address] [place] [phone] Anna Lockwood M.D., M.S. [address] [place] [address] documented as of this encounter Visit Diagnoses Not on filedocumented in this encounter Care Teams Dolly Driver Relationship Specialty Start Date End Date Elsewhere, Pcp PCP - General Internal Medicine 05/25/23 documented as of this encounter
--- OUTSIDE RECORDS SUMMARY | 2024-07-28 16:32 | XMS_ITS | Encounter Summary ---
Author Organization [facility] Address [address] [place] [address] Care Team Providers Care Escrow Representative Name Role Phone Elsewhere, Pcp Primary Care Provider Unavailabl e Encounter Details Date Type Department Care Team (Late st Contact Info) Description 05/18/2008 Historical Ophthalmology RST OPH Leonardo Macedo M.D. 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 [address] [place] [phone] 09/17/2024 11:00 AM CDT Office Visit Department of Orthopedic Surgery in [address] [phone] Judith Neal APRN, C.N.P., D.N.P. [address] [place] [phone] 09/30/2024 1:00 PM CDT Appointment Department of Radiology, [facility], in [address] [phone] Anna Lockwood M.D., M.S. [address] [place] [phone] 10/01/2024 9:10 AM CDT Appointment Department of Laboratory Medicine and Pathology, [facility], in [address] [phone] Anna Lockwood M.D., M.S. [address] [place] [phone] 10/01/2024 10:00 AM CDT Ancillary Procedure Department of Cardiovascular Medicine in [address] [phone] Anna Lockwood M.D., M.S. [address] [place] [address] 10/01/2024 11:00 AM CDT Office Visit Department of Cardiovascular Medicine in [place], [place] [address] [place] [address] Anna Lockwood M.D., M.S. [address] [place] [phone] documented as of this encounter Visit Diagnoses Not on filedocumented in this encounter Care Teams Escrow Representative Relationship Specialty Start Date End Date Elsewhere, Pcp PCP - General Internal Medicine 05/25/23 documented as of this encounter
--- OUTSIDE RECORDS SUMMARY | 2024-07-28 16:32 | XMS_ITS | Encounter Summary ---
Author Organization [facility] Address [address] [place] [address] Care Team Providers Care Tunnel Mucker Name Role Phone Elsewhere, Pcp Primary Care Provider Unavailabl e Encounter Details Date Type Department Care Team (Late st Contact Info) Description 07/26/2012 Historical Ophthalmology RST OPH Leonardo Macedo M.D. [address] [place] [address] Social History Tobacco Use Types Packs/Day Years Used Date Smoking Tobacco: Never Assessed Comments Unknown Sex and Gender Information Value Date Recorded Sex Assigned at Female 09/04/2022 4:04 PM CDT Legal Sex Female 8:55 PM CARDIAC MONITOR TECHNICIAN Gender Identity Female 09/04/2022 4:04 PM [...] cataract incipient CDM Reports - EYEGEN Id: [id number] Status: Fnl documented in this encounter Plan of Treatment Upcoming Encounters Date Type Department Care Team (Latest Contact Info) Description 09/05/2024 9:15 AM CDT Clinical Communication Virtual Review in [place], [place] 200 [place] [address] 09/08/2024 11:00 AM CDT Office Visit Department of Obstetrics and Gynecology, Division of Urogynecology in [place], [place] [address] [place] [phone] Antonia Caro P.A.-C. [address] [place] [phone] 09/17/2024 11:00 AM CDT Office Visit Department of Orthopedic Surgery in [address] [phone] Judith Neal APRN, C.N.P., D.N.P. [address] [place] [phone] 09/30/2024 1:00 PM CDT Appointment Department of Radiology, [facility], in [address] [phone] Anna Lockwood M.D., M.S. [address] [place] [phone] 10/01/2024 9:10 AM CDT Appointment Department of Laboratory Medicine and Pathology, [facility], in [address] [phone] Anna Lockwood M.D., M.S. [address] [place] [phone] 10/01/2024 10:00 AM CDT Ancillary Procedure Department of Cardiovascular Medicine in [address] [address] Anna Lockwood M.D., M.S. [address] [place] [phone] 10/01/2024 11:00 AM CDT Office Visit Department of Cardiovascular Medicine in [place], [place] [address] [place] [address] Anna Lockwood M.D., M.S. [address] [place] [phone] documented as of this encounter Visit Diagnoses Not on filedocumented in this encounter Care Teams Tunnel Mucker Relationship Specialty Start Date End Date Elsewhere, Pcp PCP - General Internal Medicine 05/25/23 documented as of this encounter
--- OUTSIDE RECORDS SUMMARY | 2024-07-28 16:32 | XMS_ITS | Encounter Summary ---
Author Organization [facility] Address [address] [place] [address] Care Team Providers Care Furrier Apprentice Name Role Phone Elsewhere, Pcp Primary Care Provider Unavailabl e Encounter Details Date Type Department Care Team (Late st Contact Info) Description 08/08/2010 Historical Ophthalmology RST OPH Leonardo Macedo M.D. 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 [address] [place] [phone] 09/17/2024 11:00 AM CDT Office Visit Department of Orthopedic Surgery in [address] [phone] Judith Neal APRN, C.N.P., D.N.P. [address] [place] [phone] 09/30/2024 1:00 PM CDT Appointment Department of Radiology, [facility], in [place], [place] [address] [place] [phone] Anna Lockwood M.D., M.S. [address] [place] [phone] 10/01/2024 9:10 AM CDT Appointment Department of Laboratory Medicine and Pathology, [facility] in [address] [phone] Anna Lockwood M.D., M.S. [address] [place] [phone] 10/01/2024 10:00 AM CDT Ancillary Procedure Department of Cardiovascular Medicine in [address] [phone] Anna Lockwood M.D., M.S. [address] [place] [address] 10/01/2024 11:00 AM CDT Office Visit Department of Cardiovascular Medicine in [place], [place] [address] [place] [address] Anna Lockwood M.D., M.S. [address] [place] [address] documented as of this encounter Visit Diagnoses Not on filedocumented in this encounter Care Teams Furrier Apprentice Relationship Specialty Start Date End Date Elsewhere, Pcp PCP - General Internal Medicine 05/25/23 documented as of this encounter
--- OUTSIDE RECORDS SUMMARY | 2024-07-28 16:32 | XMS_ITS | Encounter Summary ---
Author Organization [facility] Address [address] [place] [address] Care Team Providers Care Social Service Director Name Role Phone Elsewhere, Pcp Primary Care Provider Unavailabl e Encounter Details Date Type Department Care Team (Late st Contact Info) Description 01/29/2002 Historical Ophthalmology RST OPH Leonardo Macedo M.D. 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 - 01/29/2002 12:00 AM CDT Eye General CHIEF COMPLAINT tearing, mattery red os x 3 months. severity fluctuates. HISTORY OF PRESENT ILLNESS Developed redness OS late 09/22 gradually with irritation. Was on a trip in [facility]. Symptoms fluctuated over next month. With increasing redness saw local float phlebotomist who noted corneal epithelial and subepithelial lesions, [...] Anterior basment membrane dystrophy. CDM Reports - [facility] Id: [id number] Status: Fnl documented in this encounter Plan of Treatment Upcoming Encounters Date Type Department Care Team (Latest Contact Info) Description 09/05/2024 9:15 AM CDT Clinical Communication Virtual Review in [address] [address] 09/08/2024 11:00 AM CDT Office Visit Department of Obstetrics and Gynecology, Division of Urogynecology in [address] [phone] Antonia Caro, PSammyAElvie. [address] [place] [phone] 09/17/2024 11:00 AM CDT Office Visit Department of Orthopedic Surgery in [address] [phone] Judith Neal, DAMARI, C.N.P., D.N.P. [address] [place] [phone] 09/30/2024 1:00 PM CDT Appointment Department of Radiology, [facility], in [address] [phone] Anna Lockwood M.D., M.S. [address] [place] [phone] 10/01/2024 9:10 AM CDT Appointment Department of Laboratory Medicine and Pathology, [facility], in [place], [place] [address] [place] [address] Anna Lockwood M.D., M.S. [address] [place] [phone] 10/01/2024 10:00 AM CDT Ancillary Procedure Department of Cardiovascular Medicine in [place], [place] [address] [place] [address] Anna Lockwood M.D., M.S. [address] [place] [phone] 10/01/2024 11:00 AM CDT Office Visit Department of Cardiovascular Medicine in [place], [place] [address] [place] [phone] Anna Lockwood M.D., M.S. [address] [place] [phone] documented as of this encounter Visit Diagnoses Not on filedocumented in this encounter Care Teams Social Service Director Relationship Specialty Start Date End Date Elsewhere, Pcp PCP - General Internal Medicine 05/25/23 documented as of this encounter
--- OUTSIDE RECORDS SUMMARY | 2024-07-28 16:32 | XMS_ITS | Encounter Summary ---
Author Organization [facility] Address [address] [place] [address] Care Team Providers Care Senior Android Developer Name Role Phone Elsewhere, Pcp Primary Care Provider Unavailabl e Encounter Details Date Type Department Care Team (Late st Contact Info) Description 07/16/2014 Historical Ophthalmology RST OPH Leonardo Macedo M.D. 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 [address] [place] [phone] 09/17/2024 11:00 AM CDT Office Visit Department of Orthopedic Surgery in [address] [phone] Judith Neal APRN, C.N.P., D.N.P. [address] [place] [phone] 09/30/2024 1:00 PM CDT Appointment Department of Radiology, [facility], in [address] [phone] Anna Lockwood M.D., M.S. [address] [place] [phone] 10/01/2024 9:10 AM CDT Appointment Department of Laboratory Medicine and Pathology, [facility], in [place], [place] [address] [place] [phone] Anna Lockwood M.D., M.S. [address] [place] [phone] 10/01/2024 10:00 AM CDT Ancillary Procedure Department of Cardiovascular Medicine in [address] [phone] Anna Lockwood M.D., M.S. [address] [place] [address] 10/01/2024 11:00 AM CDT Office Visit Department of Cardiovascular Medicine in [place], [place] [address] [place] [address] Anna Lockwood M.D., M.S. [address] [place] [address] documented as of this encounter Visit Diagnoses Not on filedocumented in this encounter Care Teams Senior Android Developer Relationship Specialty Start Date End Date Elsewhere, Pcp PCP - General Internal Medicine 05/25/23 documented as of this encounter
--- OUTSIDE RECORDS SUMMARY | 2024-07-28 16:32 | XMS_ITS | Encounter Summary ---
Author Organization [facility] Address [address] [place] [address] Care Team Providers Care Semiconductor Packages Leak Tester Name Role Phone Elsewhere, Pcp Primary Care Provider Unavailabl e Reason for Referral * Outpatient (Routine) - Authorized Specialty Diagnoses / Procedures Referred By Nahid grewal Referred To Contact Orthopedic Surgery Diagnoses Dystrophic Toenail Keratosis Plantar Callus [place] Foot Pain Toe Left Hammer Toe Acquired Left Hallux Valgus Left Hallux Valgus Right Arthritis Foot Peripheral Arterial Disease Senior Care (Current) Anticoagulant Treatment Judith Neal APRN, C.N.P., D.N.P. 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 [address] [place] [phone] Phone: tel: fax: [facility] Referral ID Status Reason Start Date Expiration Date Visits Re quested Visits Authorized [id number] Closed 03/13/2024 09/12/2025 1 1 Encounter Details Date Type Department Care Team (Latest Contact Info) Description 06/16/2024 11:00 AM CUSTOMER SUCCESS REPRESENTATIVE Office Visit Department of Orthopedic Surgery in [place], [place] [address] [place] [phone] Judith Neal APRN, C.N.P., D.N.P. [address] [place] [phone] Dystrophic Toenail (Primary Dx); Keratosis Plantar; Callus [place] Foot; Pain Toe Left; Pain Foot Left; [...] Recorded In the past 12 months has [employer], gas, oil, or water [employer] threatened to shut off services in your [...] often do you attend chur ch or methodist services? Never 09/04/2022 Do you belong to any clubs o r organizations such as cheondoism groups, unions, fraternal or athletic groups, or [...] care, and heating? 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 Judith Neal APRN, C.N.P., D.N.P. OMER SUCCESS REPRESENTATIVE documented in this encounter Plan of Treatment Upcoming Encounters Date Type Department Care Team (Latest Contact Info) Description 09/05/2024 9:15 AM CDT Clinical Communication Virtual Review in [place], [place] 200 [place] [address] 09/08/2024 11:00 AM CDT Office Visit Department of Obstetrics and Gynecology, Division of Urogynecology in [place], [place] [address] [place] [phone] Antonia Caro P.A.-C. [address] [place] [phone] 09/17/2024 11:00 AM CDT Office Visit Department of Orthopedic Surgery in [place], [place] [address] [place] [phone] Judith Neal APRN, C.N.P., D.N.P. [address] [place] [phone] 09/30/2024 1:00 PM CDT Appointment Department of Radiology, [facility], in [place], [place] [address] [place] [phone] Anna Lockwood M.D., M.S. [address] [place] [phone] 10/01/2024 9:10 AM CDT Appointment Department of Laboratory Medicine and Pathology, [facility], in [place], [place] [address] [place] [phone] Anna Lockwood M.D., M.S. [address] [place] [phone] 10/01/2024 10:00 AM CDT Ancillary Procedure Department of Cardiovascular Medicine in [address] [phone] Anna Lockwood M.D., M.S. [address] [place] [phone] 10/01/2024 11:00 AM CDT Office Visit Department of Cardiovascular Medicine in [place], [place] [address] [place] [address] Anna Lockwood M.D., M.S. 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) Anticoagulant Treatment Expected: 09/13/2024, Expires: 09/13/2025 documented as of this encounter Visit Diagnoses Diagnosis Dystrophic Toenail- Primary Keratosis Plantar Callus [place] Foot Pain Toe Left Pain Foot Left Hammer Toe Acquired Left Peripheral Arterial Disease Arthritis Foot 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
--- OUTSIDE RECORDS SUMMARY | 2024-07-28 16:32 | XMS_ITS | Continuity of Care Document ---
Author Organization [facility] Address [address] [place] [address] Phone Care Team Providers Care Maintenance Pipefitter Name Role Phone Sosa Ruano MD Unavailable [...] [facility], [address], [place], [address], tel:[phone] [facility] [place] No Information 0 Bindu Swan. [address], [address], [place]. tel:[phone] Office/Outpa tient Visit, [facility], [address], [place], [address], [place] tel:[phone] [facility], elevated JOSE (chief complaint) back pain (chief complaint) Other and unspecified nonspecific immunological findingsBacka [facility] 3 Ph[address] Beasley. [facility] [address], [place], [address], [place]. tel:[phone] [facility], [address], [place], [address], [place] tel:[phone] [facility], No Information [address] Beasley. [facility] [address], [place], [address], [place]. tel:[phone] Family History Family Member Type Diagnosis Age At Onset Problem (finding) arthritis Problem (finding) Problem (finding) Family history of hyper tension Problem (finding) cancer Problem (finding) Family history of gout Problem (finding) Family history of disor hazel of lung Problem (finding) Family history of hyper tension Payers Payer name Insurance type Covered constitution party ID Authoriza tishanelle(s) [facility] [id number] Social History Type Description Quantity Date Captured [...]
--- OUTSIDE RECORDS SUMMARY | 2024-07-28 16:32 | XMS_ITS | Encounter Summary ---
Author Organization [facility] Address [address] [place] [address] Care Team Providers Care Shredding Machine Tender Name Role Phone Elsewhere, Pcp Primary Care Provider Unavailabl e Encounter Details Date Type Department Care Team (Late st Contact Info) Description 03/14/2005 Historical Ophthalmology RST OPH Leonardo Macedo M.D. 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 [address] [place] [phone] 09/17/2024 11:00 AM CDT Office Visit Department of Orthopedic Surgery in [place], [place] [address] [place] [phone] Judith Neal APRN, C.N.P., D.N.P. [address] [place] [phone] 09/30/2024 1:00 PM CDT Appointment Department of Radiology, [facility], in [place], [place] [address] [place] [phone] Anna Lockwood M.D., M.S. [address] [place] [phone] 10/01/2024 9:10 AM CDT Appointment Department of Laboratory Medicine and Pathology, [facility] in [place], [place] [address] [place] [phone] Anna Lockwood M.D., M.S. [address] [place] [phone] 10/01/2024 10:00 AM CDT Ancillary Procedure Department of Cardiovascular Medicine in [place], [place] [address] [place] [phone] Anna Lockwood M.D., M.S. [address] [place] [phone] 10/01/2024 11:00 AM CDT Office Visit Department of Cardiovascular Medicine in [place], [place] [address] [place] [address] Anna Lockwood M.D., M.S. [address] [place] [address] documented as of this encounter Visit Diagnoses Not on filedocumented in this encounter Care Teams Shredding Machine Tender Relationship Specialty Start Date End Date Elsewhere, Pcp PCP - General Internal Medicine 05/25/23 documented as of this encounter
--- OUTSIDE RECORDS SUMMARY | 2024-07-28 16:32 | XMS_ITS | Encounter Summary ---
Author Organization [facility] Address [address] [place] [address] Care Team Providers Care Beef Grader Name Role Phone Elsewhere, Pcp Primary Care Provider Unavailabl e Encounter Details Date Type Department Care Team (Late st Contact Info) Description 08/22/2004 Historical Ophthalmology RST OPH Leonardo Macedo M.D. 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 [address] [place] [phone] 09/17/2024 11:00 AM CDT Office Visit Department of Orthopedic Surgery in [address] [phone] Judith Neal APRN, C.N.P., D.N.P. [address] [place] [place] [phone] 09/30/2024 1:00 PM CDT Appointment Department of Radiology, [facility], in [address] [phone] Anna Lockwood M.D., M.S. [address] [place] [phone] 10/01/2024 9:10 AM CDT Appointment Department of Laboratory Medicine and Pathology, [facility], in [place], [place] [address] [place] [phone] Anna Lockwood M.D., M.S. [address] [place] [phone] 10/01/2024 10:00 AM CDT Ancillary Procedure Department of Cardiovascular Medicine in [address] [phone] Anna Lockwood M.D., M.S. [address] [place] [address] 10/01/2024 11:00 AM CDT Office Visit Department of Cardiovascular Medicine in [place], [place] [address] [place] [address] Anna Lockwood M.D., M.S. [address] [place] [phone] documented as of this encounter Visit Diagnoses Not on filedocumented in this encounter Care Teams Beef Grader Relationship Specialty Start Date End Date Elsewhere, Pcp PCP - General Internal Medicine 05/25/23 documented as of this encounter
--- OUTSIDE RECORDS SUMMARY | 2024-07-28 16:32 | XMS_ITS | Encounter Summary ---
Author Organization [facility] Address [address] [place] [address] Care Team Providers Care Project Executive Name Role Phone Elsewhere, Pcp Primary Care Provider Unavailabl e Encounter Details Date Type Department Care Team (Late st Contact Info) Description 11/23/2006 Historical Ophthalmology RST OPH Leonardo Macedo M.D. 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 [address] [place] [phone] 09/17/2024 11:00 AM CDT Office Visit Department of Orthopedic Surgery in [address] [phone] Judith Neal APRN, C.N.P., D.N.P. [address] [place] [phone] 09/30/2024 1:00 PM CDT Appointment Department of Radiology, [facility], in [place], [place] [address] [place] [phone] Anna Lockwood M.D., M.S. [address] [place] [phone] 10/01/2024 9:10 AM CDT Appointment Department of Laboratory Medicine and Pathology, [facility] in [place], [place] [address] [place] [phone] Anna Lockwood M.D., M.S. [address] [place] [phone] 10/01/2024 10:00 AM CDT Ancillary Procedure Department of Cardiovascular Medicine in [place], [place] [address] [place] [phone] Anna Lockwood M.D., M.S. [address] [place] [address] 10/01/2024 11:00 AM CDT Office Visit Department of Cardiovascular Medicine in [place], [place] [address] [place] [address] Anna Lockwood M.D., M.S. [address] [place] [address] documented as of this encounter Visit Diagnoses Not on filedocumented in this encounter Care Teams Project Executive Relationship Specialty Start Date End Date Elsewhere, Pcp PCP - General Internal Medicine 05/25/23 documented as of this encounter
--- OUTSIDE RECORDS SUMMARY | 2024-07-28 16:32 | XMS_ITS | Encounter Summary ---
Author Organization [facility] Address [address] [place] [address] Care Team Providers Care Manager Bakery Name Role Phone Elsewhere, Pcp Primary Care Provider Unavailabl e Encounter Details Date Type Department Care Team (Late st Contact Info) Description 02/21/2002 Historical Ophthalmology RST OPH Leonardo Macedo M.D. 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 CDM Reports - EYEGEN Id: [id number] Status: Fnl documented in this encounter Plan of Treatment Upcoming Encounters Date Type Department Care Team (Latest Contact Info) Description 09/05/2024 9:15 AM CDT Clinical Communication Virtual Review in [place], [place] 200 [place] [phone] 09/08/2024 11:00 AM CDT Office Visit Department of Obstetrics and Gynecology, Division of Urogynecology in [place], [place] [address] [place] [phone] Antonia Caro P.A.-C. [address] [place] [phone] 09/17/2024 11:00 AM CDT Office Visit Department of Orthopedic Surgery in [address] [phone] Judith Neal APRN, C.N.P., D.N.P. [address] [place] [phone] 09/30/2024 1:00 PM CDT Appointment Department of Radiology, [facility], in [place], [place] [address] [place] [phone] Anna Lockwood M.D., M.S. [address] [place] [phone] 10/01/2024 9:10 AM CDT Appointment Department of Laboratory Medicine and Pathology, [facility] in [place], [place] [address] [place] [phone] Anna Lockwood M.D., M.S. [address] [place] [phone] 10/01/2024 10:00 AM CDT Ancillary Procedure Department of Cardiovascular Medicine in [place], [place] [address] [place] [phone] Anna Lockwood M.D., M.S. [address] [place] [phone] 10/01/2024 11:00 AM CDT Office Visit Department of Cardiovascular Medicine in [place], [place] [address] [place] [phone] Anna Lockwood M.D., M.S. [address] [place] [phone] documented as of this encounter Visit Diagnoses Not on filedocumented in this encounter Care Teams Manager Bakery Relationship Specialty Start Date End Date Elsewhere, Pcp PCP - General Internal Medicine 05/25/23 documented as of this encounter
--- OUTSIDE RECORDS SUMMARY | 2024-07-28 16:32 | XMS_ITS | Encounter Summary ---
Author Organization [facility] Address [address] [place] [address] Care Team Providers Care Transportation Agent Name Role Phone Elsewhere, Pcp Primary Care Provider Unavailabl e Encounter Details Date Type Department Care Team (Late st Contact Info) Description 08/01/2011 Historical Ophthalmology RST OPH Leonardo Macedo M.D. 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 [address] [place] [phone] 09/17/2024 11:00 AM CDT Office Visit Department of Orthopedic Surgery in [place], [place] [address] [place] [phone] Judith Neal, DAMARI, C.N.P., D.N.P. [address] [place] [phone] 09/30/2024 1:00 PM CDT Appointment Department of Radiology, [facility], in [place], [place] [address] [place] [phone] Anna Lockwood M.D., M.S. [address] [place] [phone] 10/01/2024 9:10 AM CDT Appointment Department of Laboratory Medicine and Pathology, [facility], in [place], [place] [address] [place] [phone] Anna Lockwood M.D., M.S. [address] [place] [phone] 10/01/2024 10:00 AM CDT Ancillary Procedure Department of Cardiovascular Medicine in [place], [place] [address] [place] [address] Anna Lockwood M.D., M.S. [address] [place] [phone] 10/01/2024 11:00 AM CDT Office Visit Department of Cardiovascular Medicine in [place], [place] [address] [place] [address] Anna Lockwood M.D., M.S. [address] [place] [phone] documented as of this encounter Visit Diagnoses Not on filedocumented in this encounter Care Teams Transportation Agent Relationship Specialty Start Date End Date Elsewhere, Pcp PCP - General Internal Medicine 05/25/23 documented as of this encounter
--- OUTSIDE RECORDS SUMMARY | 2024-07-28 16:32 | XMS_ITS | Encounter Summary ---
Author Organization [facility] Address [address] [place] [address] Care Team Providers Care Gore Inserter Name Role Phone Elsewhere, Pcp Primary Care Provider Unavailabl e Encounter Details Date Type Department Care Team (Late st Contact Info) Description 02/22/2004 Historical Ophthalmology RST OPH Leonardo Macedo M.D. 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 #4 Ocular hypertension - stable. [facility] Reports - EYEGEN Id: [id number] Status: Fnl documented in this encounter Plan of Treatment Upcoming Encounters Date Type Department Care Team (Latest Contact Info) Description 09/05/2024 9:15 AM CDT Clinical Communication Virtual Review in [place], [place] 200 [place] [address] 09/08/2024 11:00 AM CDT Office Visit Department of Obstetrics and Gynecology, Division of Urogynecology in [address] [phone] Antonia Caro P.A.-C. [address] [place] [phone] 09/17/2024 11:00 AM CDT Office Visit Department of Orthopedic Surgery in [address] [phone] Judith Neal, DAMARI, C.N.P., D.N.P. [address] [place] [phone] 09/30/2024 1:00 PM CDT Appointment Department of Radiology, [facility], in [address] [phone] Anna Lockwood M.D., M.S. [address] [place] [phone] 10/01/2024 9:10 AM CDT Appointment Department of Laboratory Medicine and Pathology, [facility], in [address] [phone] Anna Lockwood M.D., M.S. [address] [place] [phone] 10/01/2024 10:00 AM CDT Ancillary Procedure Department of Cardiovascular Medicine in [place], [place] [address] [place] [address] Anna Lockwood M.D., M.S. [address] [place] [phone] 10/01/2024 11:00 AM CDT Office Visit Department of Cardiovascular Medicine in [place], [place] [address] [place] [address] Anna Lockwood M.D., M.S. [address] [place] [phone] documented as of this encounter Visit Diagnoses Not on filedocumented in this encounter Care Teams Gore Inserter Relationship Specialty Start Date End Date Elsewhere, Pcp PCP - General Internal Medicine 05/25/23 documented as of this encounter
--- OUTSIDE RECORDS SUMMARY | 2024-07-28 16:32 | XMS_ITS | Clinical Summary ---
Author Organization [facility] Address [address] [place] [address] Care Team Providers Care Bucket Turner Name Role Phone Elsewhere, Pcp Primary Care Provider Unavailabl e Source Comments Patient records contain information from all sites at [facility]. For routine questions regarding patient records, call [phone] during business hours, M-F 8:00 AM - 5:00 PM Central Time. 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 Echo Move Up Request 07/28/2024 Clinical Communication Department of Cardiovascular Medicine in [address] [phone] Anna Lockwood M.D., M.S. Appt Request; Pre-visit Testing Orders 06/16/2024 11:00 AM STRIPPER APPRENTICE Office Visit Department of Orthopedic Surgery in [address] [phone] Judith Neal APRN, C.N.P., D.N.P. Dystrophic Toenail (Primary Dx); Keratosis Plantar; Callus Tucson Foot; Pain Toe Left; Pain Foot Left; Hammer Toe Acquired Left; Peripheral Arterial Disease (HCC); Arthritis Foot; Intermediate (Current) Anticoagulant Treatment; Hallux Valgus Right; Hallux Valgus Left 06/11/2024 9:15 AM STRIPPER APPRENTICE Clinical Communication Virtual Review in [address] [phone] Pre-visit Intake from Last 3 Months Immunizations [...] drink = 0.6 oz pur e alcohol) [facility] Utilities Answer Date Recorded In the past 12 months has e Sitrion, gas, oil, or water [employer] threatened to shut off services in your [...] often do you attend chur ch or baptism services? Never 09/04/2022 Do you belong to any clubs o r organizations such as scientologist groups, unions, fraternal or athletic groups, or [...] care, and heating? Not very hard 09/04/2022 [facility] [place] of Occupat ional Health - Occupational Stress [...] your living situation today? I have a [facility] place to live 09/09/2023 Education Answer Date Recorded What is the highest level of school you have completed or the highest degree you have received? 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 Gender Identity Female 09/04/2022 4:04 PM CDT Sexual Orientation Straight 09/04/2022 4: 04 PM CDT Last Filed Vital Signs Vital Sign Reading Time Taken Comments Blood Pressure 208/132 03/03/2024 8:06 AM STRIPPER APPRENTICE Pulse 93 03/03/2024 8:06 AM STRIPPER APPRENTICE Temperature - - Respiratory Rate - - Oxygen Saturation - - Inhaled Oxygen Concentration - - Weight 49 kg (108 lb 0.4 oz) 03/03/2024 8:06 AM STRIPPER APPRENTICE Height 157 cm (5' 1.81) 03/03/2024 8:06 AM STRIPPER APPRENTICE Body Mass Index 19.88 03/03/2024 8:06 AM STRIPPER APPRENTICE Plan of Treatment Upcoming Encounters Date Type Department Care Team (Latest Contact Info) Description 09/05/2024 9:15 AM CDT Clinical Communication Virtual Review in [place], [place] [address] [place] [phone] 09/08/2024 11:00 AM CDT Office Visit Department of Obstetrics and Gynecology, Division of Urogynecology in [address] [phone] Antonia Caro, P.A.-C. [address] [place] [phone] 09/17/2024 11:00 AM CDT Office Visit Department of Orthopedic Surgery in [address] [phone] Judith Neal APRN, C.N.P., D.N.P. [address] [place] [phone] 09/30/2024 1:00 PM CDT Appointment Department of Radiology, [facility], in [place], [place] [address] [place] [phone] Anna Lockwood M.D., M.S. [address] [place] [phone] 10/01/2024 9:10 AM CDT Appointment Department of Laboratory Medicine and Pathology, [facility] in [place], [place] [address] [place] [phone] Anna Lockwood M.D., M.S. [address] [place] [phone] 10/01/2024 10:00 AM CDT Ancillary Procedure Department of Cardiovascular Medicine in [place], [place] [address] [place] [phone] Anna Lockwood M.D., M.S. [address] [place] [phone] 10/01/2024 11:00 AM CDT Office Visit Department of Cardiovascular Medicine in [place], [place] [address] [place] [phone] Anna Lockwood M.D., M.S. 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 LAB BLOOD NON ADD-ON Final Re sult [facility] [address] [place] [address], [facility] DTL [facility] [address] [place] [address] * Comprehensive Metabolic Panel (02/25/2024 9:10 AM STRIPPER APPRENTICE) Potassium, S 5.2 3.6 - 5.2 mmol/L 02/25/2024 11:24 AM STRIPPER APPRENTICE DTL Sodium, S 137 135 - 145 mmol/L 02/25/2024 11:24 AM STRIPPER APPRENTICE DTL Chloride, S 99 98 - 107 mmol/L 02/25/2024 11:24 AM STRIPPER APPRENTICE DTL Bicarbonate, S 28 22 - 29 mmol/L 02/25/2024 11:24 AM STRIPPER APPRENTICE DTL Anion Gap 10 7 - 15 02/25/2024 11:24 AM STRIPPER APPRENTICE DTL BUN (Blood Urea Nitrogen), S 11 6 - 21 mg/dL 02/25/2024 11:24 AM STRIPPER APPRENTICE DTL Creatinine 0.81 0.59 - 1.04 mg/dL 02/25/2024 11:24 AM STRIPPER APPRENTICE DTL Estimated GFR (eGFR) 71 >=60 mL/min/BS A 02/25/2024 11:24 AM STRIPPER APPRENTICE DTL Comment: Estimated GFR calculated using the 2020 CKD_EPI creatinine equation. Calcium, Total, S 9.3 8.8 - 10.2 mg/dL 02/25/2024 11:24 AM STRIPPER APPRENTICE DTL Glucose, S CANCELED mg/dL 02/25/2024 9:50 AM STRIPPER APPRENTICE DTL Comment: Duplicate test request. Result canceled by the ancillary. Protein, Total, S 6.4 6.3 - 7.9 g/dL 02/25/2024 11:24 AM STRIPPER APPRENTICE DTL Albumin, S 4.4 3.5 - 5.0 g/dL 02/25/2024 11:24 AM STRIPPER APPRENTICE DTL Aspartate Aminotransferase (AST), S 26 8 - 43 U/L 02/25/2024 11:24 AM STRIPPER APPRENTICE DTL Alkaline Phosphatase, S 78 35 - 104 U/L 02/25/2024 11:24 AM STRIPPER APPRENTICE DTL Alanine Aminotransferase (ALT), S 17 7 - 45 U/L 02/25/2024 11:24 AM STRIPPER APPRENTICE DTL Bilirubin, Total, S 0.8 0.0 - 1.2 mg/dL 02/25/2024 11:24 AM STRIPPER APPRENTICE DTL Blood (Blood, Venous) 02/25/2024 9:10 AM STRIPPER APPRENTICE 02/25/2024 9:50 AM STRIPPER APPRENTICE Jefry Donald M.D. LAB BLOOD ADD-ON Final Result [facility] [address] [place] [address], [place] DTL [facility] [address] [place] [address] from Last 3 Months or Most Recently Relevant to Health Maintenance Insurance MEDICARE [facility] Care Teams Bucket Turner Relationship Specialty Start Date End Date Elsewhere, Pcp PCP - General Internal Medicine 05/25/23
--- OUTSIDE RECORDS SUMMARY | 2024-07-28 16:32 | XMS_ITS | Encounter Summary ---
Author Organization [facility] Address [address] [place] [address] Care Team Providers Care Shed Boss Name Role Phone Elsewhere, Pcp Primary Care Provider Unavailabl e Reason for Visit * Reason Onset Date Comments Appt Request 07/28/2024 Pre-visit Testing Orders 07/28/2024 Encounter Details Date Type Department Care Team (Latest Contact Info) Description 07/28/2024 Clinical Communication Department of Cardiovascular Medicine in [place], [place] [address] [place] [address] Anna Lockwood M.D., M.S. [address] [place] [phone] Appt Request; Pre-visit Testing Orders Social History Tobacco Use Types Packs/Day Years Used Date Smoking Tobacco: Never Passive Smoke Exposure: Past Smokeless Tobacco: Never Alcohol Use Standard Drinks/Week Comments Not Currently 0 (1 standard drink = 0.6 oz pur e alcohol) [facility] Utilities Answer Date Recorded In the [...] often do you attend chur ch or evangelical services? Never 09/04/2022 Do you belong to any clubs o r organizations such as yazidism groups, unions, fraternal or athletic groups, or [...] care, and heating? Not very hard 09/04/2022 [facility] of Occupat ional Health - Occupational [...] your living situation today? I have a [facility] place to live 09/09/2023 Education Answer Date Recorded What is the highest level of school you have completed or the highest degree you have received? 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 [address] [place] [phone] 09/17/2024 11:00 AM CDT Office Visit Department of Orthopedic Surgery in [place], [place] [address] [place] [phone] Judith Neal APRN, C.N.P., D.N.P. [address] [place] [phone] 09/30/2024 1:00 PM CDT Appointment Department of Radiology, [facility], in [place], [place] [address] [place] [phone] Anna Lockwood M.D., M.S. [address] [place] [phone] 10/01/2024 9:10 AM CDT Appointment Department of Laboratory Medicine and Pathology, [facility] in [place], [place] [address] [place] [phone] Anna Lockwood M.D., M.S. [address] [place] [phone] 10/01/2024 10:00 AM CDT Ancillary Procedure Department of Cardiovascular Medicine in [address] [phone] Anna Lockwood M.D., M.S. [address] [place] [phone] 10/01/2024 11:00 AM CDT Office Visit Department of Cardiovascular Medicine in [place], [place] [address] [place] [phone] Anna Lockwood M.D., M.S. [address] [place] [phone] documented as of this encounter Visit Diagnoses Not on filedocumented in this encounter Care Teams Shed Boss Relationship Specialty Start Date End Date Elsewhere, Pcp PCP - General Internal Medicine 05/25/23 documented as of this encounter
--- OUTSIDE RECORDS SUMMARY | 2024-07-28 16:32 | XMS_ITS | Encounter Summary ---
Author Organization [facility] Address [address] [place] [address] Care Team Providers Care Lending Consultant Name Role Phone Elsewhere, Pcp Primary Care Provider Unavailabl e Encounter Details Date Type Department Care Team (Late st Contact Info) Description 06/15/2005 Historical Ophthalmology RST OPH Leonardo Macedo M.D. 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 [address] [place] [phone] 09/17/2024 11:00 AM CDT Office Visit Department of Orthopedic Surgery in [place], [place] [address] [place] [phone] Judith Neal APRN, C.N.P., D.N.P. [address] [place] [phone] 09/30/2024 1:00 PM CDT Appointment Department of Radiology, [facility], in [place], [place] [address] [place] [phone] Anna Lockwood M.D., M.S. [address] [place] [phone] 10/01/2024 9:10 AM CDT Appointment Department of Laboratory Medicine and Pathology, [facility], in [place], [place] [address] [place] [phone] Anna Lockwood M.D., M.S. [address] [place] [phone] 10/01/2024 10:00 AM CDT Ancillary Procedure Department of Cardiovascular Medicine in [place], [place] [address] [place] [phone] Anna Lockwood M.D., M.S. [address] [place] [phone] 10/01/2024 11:00 AM CDT Office Visit Department of Cardiovascular Medicine in [place], [place] [address] [place] [address] Anna Lockwood M.D., M.S. [address] [place] [address] documented as of this encounter Visit Diagnoses Not on filedocumented in this encounter Care Teams Lending Consultant Relationship Specialty Start Date End Date Elsewhere, Pcp PCP - General Internal Medicine 05/25/23 documented as of this encounter
--- OUTSIDE RECORDS SUMMARY | 2024-07-28 16:32 | XMS_ITS | Encounter Summary ---
Author Organization [facility] Address [address] [place] [address] Care Team Providers Care Back End Developer Name Role Phone Elsewhere, Pcp Primary Care Provider Unavailabl e Encounter Details Date Type Department Care Team (Late st Contact Info) Description 11/21/2007 Historical Ophthalmology RST OPH Leonardo Macedo M.D. 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 [address] [place] [phone] 09/17/2024 11:00 AM CDT Office Visit Department of Orthopedic Surgery in [address] [phone] Judith Neal APRN, C.N.P., D.N.P. [address] [place] [phone] 09/30/2024 1:00 PM CDT Appointment Department of Radiology, [facility], in [address] [phone] Anna Lockwood M.D., M.S. [address] [place] [phone] 10/01/2024 9:10 AM CDT Appointment Department of Laboratory Medicine and Pathology, [facility], in [address] [phone] Anna Lockwood M.D., M.S. [address] [place] [phone] 10/01/2024 10:00 AM CDT Ancillary Procedure Department of Cardiovascular Medicine in [place], [place] [address] [place] [address] Anna Lockwood M.D., M.S. [address] [place] [address] 10/01/2024 11:00 AM CDT Office Visit Department of Cardiovascular Medicine in [place], [place] [address] [place] [address] Anna Lockwood M.D., M.S. [address] [place] [phone] documented as of this encounter Visit Diagnoses Not on filedocumented in this encounter Care Teams Back End Developer Relationship Specialty Start Date End Date Elsewhere, Pcp PCP - General Internal Medicine 05/25/23 documented as of this encounter
--- OUTSIDE RECORDS SUMMARY | 2024-07-28 16:32 | XMS_ITS | Encounter Summary ---
Author Organization [facility] Address [address] [place] [address] Care Team Providers Care Flour Broker Name Role Phone Elsewhere, Pcp Primary Care Provider Unavailabl e Encounter Details Date Type Department Care Team (Late st Contact Info) Description 12/14/2005 Historical Ophthalmology RST OPH Leonardo Macedo M.D. 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 [address] [place] [phone] 09/17/2024 11:00 AM CDT Office Visit Department of Orthopedic Surgery in [place], [place] [address] [place] [phone] Judith Neal APRN, C.NSammyPSammy, D.N.P. [address] [place] [phone] 09/30/2024 1:00 PM CDT Appointment Department of Radiology, [facility], in [place], [place] [address] [place] [phone] Anna Lockwood M.D., M.S. [address] [place] [phone] 10/01/2024 9:10 AM CDT Appointment Department of Laboratory Medicine and Pathology, [facility] in [place], [place] [address] [place] [phone] Anna Lockwood M.D., M.S. [address] [place] [phone] 10/01/2024 10:00 AM CDT Ancillary Procedure Department of Cardiovascular Medicine in [place], [place] [address] [place] [phone] Anna Lockwood M.D., M.S. [address] [place] [phone] 10/01/2024 11:00 AM CDT Office Visit Department of Cardiovascular Medicine in [place], [place] [address] [place] [address] Anna Lockwood M.D., M.S. [address] [place] [address] documented as of this encounter Visit Diagnoses Not on filedocumented in this encounter Care Teams Flour Broker Relationship Specialty Start Date End Date Elsewhere, Pcp PCP - General Internal Medicine 05/25/23 documented as of this encounter
--- OUTSIDE RECORDS SUMMARY | 2024-07-28 16:32 | XMS_ITS | Encounter Summary ---
Author Organization [facility] Address [address] [place] [address] Care Team Providers Care Fuel Handler Name Role Phone Elsewhere, Pcp Primary Care Provider Unavailabl e Encounter Details Date Type Department Care Team (Late st Contact Info) Description 03/19/2006 Historical Ophthalmology RST OPH Leonardo Macedo M.D. 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 [address] [place] [phone] 09/17/2024 11:00 AM CDT Office Visit Department of Orthopedic Surgery in [place], [place] [address] [place] [phone] Judith Neal APRN, C.N.P., D.N.P. [address] [place] [phone] 09/30/2024 1:00 PM CDT Appointment Department of Radiology, [facility], in [place], [place] [address] [place] [phone] Anna Lockwood M.D., M.S. [address] [place] [phone] 10/01/2024 9:10 AM CDT Appointment Department of Laboratory Medicine and Pathology, [facility] in [place], [place] [address] [place] [phone] Anna Lockwood M.D., M.S. [address] [place] [phone] 10/01/2024 10:00 AM CDT Ancillary Procedure Department of Cardiovascular Medicine in [place], [place] [address] [place] [phone] Anna Lockwood M.D., M.S. [address] [place] [address] [place] [phone] 10/01/2024 11:00 AM CDT Office Visit Department of Cardiovascular Medicine in [place], [place] [address] [place] [address] Anna Lockwood M.D., M.S. [address] [place] [address] documented as of this encounter Visit Diagnoses Not on filedocumented in this encounter Care Teams Fuel Handler Relationship Specialty Start Date End Date Elsewhere, Pcp PCP - General Internal Medicine 05/25/23 documented as of this encounter
--- OUTSIDE RECORDS SUMMARY | 2024-07-28 16:32 | XMS_ITS | Encounter Summary ---
Author Organization [facility] Address [address] [place] [address] Care Team Providers Care Power Plant Manager Name Role Phone Elsewhere, Pcp Primary Care Provider Unavailabl e Encounter Details Date Type Department Care Team (Late st Contact Info) Description 03/26/2002 Historical Ophthalmology RST OPH Leonardo Macedo M.D. 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 [address] [place] [phone] 09/17/2024 11:00 AM CDT Office Visit Department of Orthopedic Surgery in [place], [place] [address] [place] [phone] Judith Neal APRN, C.N.P., D.N.P. [address] [place] [phone] 09/30/2024 1:00 PM CDT Appointment Department of Radiology, [facility], in [place], [place] [address] [place] [phone] Anna Lockwood M.D., M.S. [address] [place] [phone] 10/01/2024 9:10 AM CDT Appointment Department of Laboratory Medicine and Pathology, [facility] in [place], [place] [address] [place] [phone] Anna Lockwood M.D., M.S. [address] [place] [phone] 10/01/2024 10:00 AM CDT Ancillary Procedure Department of Cardiovascular Medicine in [place], [place] [address] [place] [phone] Anna Lockwood M.D., M.S. 200 [facility] [place] [address] 10/01/2024 11:00 AM CDT Office Visit Department of Cardiovascular Medicine in [place], [place] [address] [place] [address] Anna Lockwood M.D., M.S. [address] [place] [address] documented as of this encounter Visit Diagnoses Not on filedocumented in this encounter Care Teams Power Plant Manager Relationship Specialty Start Date End Date Elsewhere, Pcp PCP - General Internal Medicine 05/25/23 documented as of this encounter
--- OUTSIDE RECORDS SUMMARY | 2024-07-28 16:33 | XMS_ITS | Encounter Summary ---
Author Organization [facility] Address [address] [place] [address] Care Team Providers Care Army Officer Name Role Phone Elsewhere, Pcp Primary Care Provider Unavailabl e Encounter Details Date Type Department Care Team (Late st Contact Info) Description 09/30/2002 Historical Ophthalmology RST OPH Leonardo Macedo M.D. 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 [address] [place] [phone] 09/17/2024 11:00 AM CDT Office Visit Department of Orthopedic Surgery in [place], [place] [address] [place] [phone] Judith Neal APRN, CSammyNSammyPSammy, D.N.P. [address] [place] [phone] 09/30/2024 1:00 PM CDT Appointment Department of Radiology, [facility], in [place], [place] [address] [place] [phone] Anna Lockwood M.D., M.S. [address] [place] [phone] 10/01/2024 9:10 AM CDT Appointment Department of Laboratory Medicine and Pathology, [facility] in [place], [place] [address] [place] [phone] Anna Lockwood M.D., M.S. [address] [place] [phone] 10/01/2024 10:00 AM CDT Ancillary Procedure Department of Cardiovascular Medicine in [place], [place] [address] [place] [phone] Anna Lockwood M.D., M.S. [address] [place] [phone] 10/01/2024 11:00 AM CDT Office Visit Department of Cardiovascular Medicine in [place], [place] [address] [place] [address] Anna Lockwood M.D., M.S. [address] [place] [address] documented as of this encounter Visit Diagnoses Not on filedocumented in this encounter Care Teams Army Officer Relationship Specialty Start Date End Date Elsewhere, Pcp PCP - General Internal Medicine 05/25/23 documented as of this encounter
--- OUTSIDE RECORDS SUMMARY | 2024-07-28 16:33 | XMS_ITS | Encounter Summary ---
Author Organization [facility] Address [address] [place] [address] Care Team Providers Care Upper Shaper Name Role Phone Elsewhere, Pcp Primary Care Provider Unavailabl e Encounter Details Date Type Department Care Team (Late st Contact Info) Description 06/11/2002 Historical Ophthalmology RST OPH Leonardo Macedo M.D. 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 [address] [place] [phone] 09/17/2024 11:00 AM CDT Office Visit Department of Orthopedic Surgery in [address] [phone] Judith Neal APRN, C.N.P., D.N.P. [address] [place] [phone] 09/30/2024 1:00 PM CDT Appointment Department of Radiology, [facility], in [address] [phone] Anna Lockwood M.D., M.S. [address] [place] [phone] 10/01/2024 9:10 AM CDT Appointment Department of Laboratory Medicine and Pathology, [facility] in [address] [phone] Anna Lockwood M.D., M.S. [address] [place] [phone] 10/01/2024 10:00 AM CDT Ancillary Procedure Department of Cardiovascular Medicine in [place], [place] [address] [place] [phone] Anna Lockwood M.D., M.S. [address] [place] [phone] 10/01/2024 11:00 AM CDT Office Visit Department of Cardiovascular Medicine in [place], [place] [address] [place] [phone] Anna Lockwood M.D., M.S. [address] [place] [phone] documented as of this encounter Visit Diagnoses Not on filedocumented in this encounter Care Teams Upper Shaper Relationship Specialty Start Date End Date Elsewhere, Pcp PCP - General Internal Medicine 05/25/23 documented as of this encounter
--- OUTSIDE RECORDS SUMMARY | 2024-07-28 16:33 | XMS_ITS | Encounter Summary ---
Author Organization [facility] Address [address] [place] [address] Care Team Providers Care Appointment Specialist Name Role Phone Elsewhere, Pcp Primary Care Provider Unavailabl e Reason for Visit * Reason Onset Date Comments Echo Move Up Request 07/28/2024 Encounter Details Date Type Department Care Team (Latest Contact Info) Description 07/28/2024 Clinical Communication Department of Cardiovascular Medicine in [place], [place] [address] [place] [address] Anna Lockwood M.D., M.S. [address] [place] [phone] Echo Move Up Request Social History Tobacco Use Types Packs/Day Years Used Date Smoking Tobacco: Never Passive Smoke Exposure: Past Smokeless Tobacco: Never Alcohol Use Standard Drinks/Week Comments Not Currently 0 (1 standard drink = 0.6 oz pur e alcohol) [facility] Utilities Answer Date Recorded In the past 12 months has e [employer], gas, oil, or water [employer] threatened to shut off services in your [...] often do you attend chur ch or jewish services? 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 [address] [place] [phone] 09/17/2024 11:00 AM CDT Office Visit Department of Orthopedic Surgery in [place], [place] [address] [place] [phone] Judith Neal APRN, C.N.P., D.N.P. [address] [place] [phone] 09/30/2024 1:00 PM CDT Appointment Department of Radiology, [facility], in [place], [place] [address] [place] [phone] Anna Lockwood M.D., M.S. [address] [place] [phone] 10/01/2024 9:10 AM CDT Appointment Department of Laboratory Medicine and Pathology, [facility] in [place], [place] [address] [place] [phone] Anna Lockwood M.D., M.S. [address] [place] [phone] 10/01/2024 10:00 AM CDT Ancillary Procedure Department of Cardiovascular Medicine in [address] [phone] Anna Lockwood M.D., M.S. [address] [place] [phone] 10/01/2024 11:00 AM CDT Office Visit Department of Cardiovascular Medicine in [address] [phone] Anna Lockwood M.D., M.S. [address] [place] [phone] documented as of this encounter Visit Diagnoses Not on filedocumented in this encounter Care Teams Appointment Specialist Relationship Specialty Start Date End Date Elsewhere, Pcp PCP - General Internal Medicine 2/2/24 documented as of this encounter
--- OUTSIDE RECORDS SUMMARY | 2024-07-28 16:33 | XMS_ITS | Encounter Summary ---
Author Organization [facility] Address [address] [place] [address] Care Team Providers Care Tuyere Fitter Name Role Phone Elsewhere, Pcp Primary Care Provider Unavailabl e Encounter Details Date Type Department Care Team (Late st Contact Info) Description 08/28/2003 Historical Ophthalmology RST OPH Leonardo Macedo M.D. 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 CDM Reports - EYEGEN Id: [id number] Status: Fnl documented in this encounter Plan of Treatment Upcoming Encounters Date Type Department Care Team (Latest Contact Info) Description 09/05/2024 9:15 AM CDT Clinical Communication Virtual Review in [place], [place] 200 [place] [phone] 09/08/2024 11:00 AM CDT Office Visit Department of Obstetrics and Gynecology, Division of Urogynecology in [address] [phone] Antonia Caro P.A.-C. [address] [place] [phone] 09/17/2024 11:00 AM CDT Office Visit Department of Orthopedic Surgery in [address] [phone] Judith Neal APRN, C.N.P., D.N.P. [address] [place] [phone] 09/30/2024 1:00 PM CDT Appointment Department of Radiology, [facility], in [address] [phone] Anna Lockwood M.D., M.S. [address] [place] [phone] 10/01/2024 9:10 AM CDT Appointment Department of Laboratory Medicine and Pathology, [facility] in [address] [phone] Anna Lockwood M.D., M.S. [address] [place] [phone] 10/01/2024 10:00 AM CDT Ancillary Procedure Department of Cardiovascular Medicine in [place], [place] [address] [place] [address] Anna Lockwood M.D., M.S. [address] [place] [phone] 10/01/2024 11:00 AM CDT Office Visit Department of Cardiovascular Medicine in [place], [place] [address] [place] [address] Anna Lockwood M.D., M.S. [address] [place] [phone] documented as of this encounter Visit Diagnoses Not on filedocumented in this encounter Care Teams Tuyere Fitter Relationship Specialty Start Date End Date Elsewhere, Pcp PCP - General Internal Medicine 05/25/23 documented as of this encounter
--- OUTSIDE RECORDS SUMMARY | 2024-07-28 16:33 | XMS_ITS | Encounter Summary ---
Author Organization [facility] Address [address] [place] [address] Care Team Providers Care Orthotic Assistant Name Role Phone Elsewhere, Pcp Primary Care Provider Unavailabl e Encounter Details Date Type Department Care Team (Late st Contact Info) Description 07/16/2002 Historical Ophthalmology RST OPH Leonardo Macedo M.D. 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 [address] [place] [phone] 09/17/2024 11:00 AM CDT Office Visit Department of Orthopedic Surgery in [place], [place] [address] [place] [phone] Judith Neal APRN, CSammyNSammyPSammy, D.N.P. [address] [place] [phone] 09/30/2024 1:00 PM CDT Appointment Department of Radiology, [facility], in [place], [place] [address] [place] [phone] Anna Lockwood M.D., M.S. [address] [place] [phone] 10/01/2024 9:10 AM CDT Appointment Department of Laboratory Medicine and Pathology, [facility] in [place], [place] [address] [place] [phone] Anna Lockwood M.D., M.S. [address] [place] [phone] 10/01/2024 10:00 AM CDT Ancillary Procedure Department of Cardiovascular Medicine in [place], [place] [address] [place] [phone] Anna Lockwood M.D., M.S. [address] [place] [phone] 10/01/2024 11:00 AM CDT Office Visit Department of Cardiovascular Medicine in [place], [place] [address] [place] [address] Anna Lockwood M.D., M.S. [address] [place] [address] documented as of this encounter Visit Diagnoses Not on filedocumented in this encounter Care Teams Orthotic Assistant Relationship Specialty Start Date End Date Elsewhere, Pcp PCP - General Internal Medicine 05/25/23 documented as of this encounter
--- OUTSIDE RECORDS SUMMARY | 2024-07-28 16:33 | XMS_ITS | Encounter Summary ---
Author Organization [facility] Address [address] [place] [address] Care Team Providers Care Climate Change Analyst Name Role Phone Elsewhere, Pcp Primary Care Provider Unavailabl e Encounter Details Date Type Department Care Team (Late st Contact Info) Description 07/02/2002 Historical Ophthalmology RST OPH Leonardo Macedo M.D. 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 [address] [place] [phone] 09/17/2024 11:00 AM CDT Office Visit Department of Orthopedic Surgery in [address] [phone] Judith Neal APRN, C.N.P., D.N.P. [address] [place] [phone] 09/30/2024 1:00 PM CDT Appointment Department of Radiology, [facility], in [place], [place] [address] [place] [phone] Anna Lockwood M.D., M.S. [address] [place] [phone] 10/01/2024 9:10 AM CDT Appointment Department of Laboratory Medicine and Pathology, [facility] in [address] [phone] Anna Lockwood M.D., M.S. [address] [place] [phone] 10/01/2024 10:00 AM CDT Ancillary Procedure Department of Cardiovascular Medicine in [address] [phone] Anna Lockwood M.D., M.S. [address] [place] [address] 10/01/2024 11:00 AM CDT Office Visit Department of Cardiovascular Medicine in [place], [place] [address] [place] [phone] Anna Lockwood M.D., M.S. [address] [place] [phone] documented as of this encounter Visit Diagnoses Not on filedocumented in this encounter Care Teams Climate Change Analyst Relationship Specialty Start Date End Date Elsewhere, Pcp PCP - General Internal Medicine 05/25/23 documented as of this encounter
--- OUTSIDE RECORDS SUMMARY | 2024-07-28 16:33 | XMS_ITS | Encounter Summary ---
Author Organization [facility] Address [address] [place] [address] Care Team Providers Care Crop Or Grain Farmworker Name Role Phone Elsewhere, Pcp Primary Care Provider Unavailabl e Encounter Details Date Type Department Care Team (Late st Contact Info) Description 05/04/2003 Historical Ophthalmology RST OPH Leonardo Macedo M.D. 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 [address] [place] [phone] 09/17/2024 11:00 AM CDT Office Visit Department of Orthopedic Surgery in [place], [place] [address] [place] [phone] Judith Neal APRN, C.N.P., D.N.P. [address] [place] [phone] 09/30/2024 1:00 PM CDT Appointment Department of Radiology, [facility], in [place], [place] [address] [place] [phone] Anna Lockwood M.D., M.S. [address] [place] [phone] 10/01/2024 9:10 AM CDT Appointment Department of Laboratory Medicine and Pathology, [facility], in [place], [place] [address] [place] [phone] Anna Lockwood M.D., M.S. [address] [place] [phone] 10/01/2024 10:00 AM CDT Ancillary Procedure Department of Cardiovascular Medicine in [place], [place] [address] [place] [phone] Anna Lockwood M.D., M.S. [address] [place] [phone] 10/01/2024 11:00 AM CDT Office Visit Department of Cardiovascular Medicine in [place], [place] [address] [place] [phone] Anna Lockwood M.D., M.S. [address] [place] [phone] documented as of this encounter Visit Diagnoses Not on filedocumented in this encounter Care Teams Crop Or Grain Farmworker Relationship Specialty Start Date End Date Elsewhere, Pcp PCP - General Internal Medicine 05/25/23 documented as of this encounter
[2024-07-28 16:47] LABS: Basophils Absolute Auto 0.02 K/uL (0.00-0.30); Basophils Percent Auto 0.4 % (0.0-3.0); Eosinophils Absolute Auto 0.05 K/uL (0.00-0.50); Eosinophils Percent Auto 0.9 % (0.0-7.0); Hematocrit 45.4 % (33.0-51.0); Immature Granulocytes Abs Auto 0.01 K/uL (0.00-0.30); Immature Granulocytes Pct Auto 0.2 %; Lymphocytes Absolute Auto 1.07 K/uL (0.90-2.90); Lymphocytes Percent Auto 20.3 % (20-44); Mean Corpuscular HGB Conc 33 gm/dL (32-36); Mean Corpuscular Hemoglobin 32 pg (26-34); Mean Corpuscular Volume 96 fL (80-100); Monocytes Percent Auto 11.6 % (0.0-11.0); Neutrophils Absolute Auto 3.52 K/uL (1.7-7.0); Neutrophils Percent Auto 66.6 % (42.0-72.0); Platelet Count* 243 K/uL (140-440); RDW Coefficient of Variation % 13.3 % (11.5-15.5); Red Blood Count 4.75 m/uL (4.00-5.20); White Blood Count* 5.28 K/uL (4.50-11.00)
[2024-07-28 17:01] LABS: Slide Review Reflex No
[2024-07-28 17:02] LABS: Chloride* 96 mmol/L (96-114); Potassium* 4.2 mmol/L (3.6-5.1); Sodium* 134 mmol/L (135-149)
[2024-07-28 17:05] LABS: Blood Urea Nitrogen* 13 mg/dL (7-30); Creatinine* 0.5 mg/dL (0.5-1.5); Est. Creatinine Clearance* 30.47; Estimated Glomerular Filt Rate 91 ml/min
[2024-07-28 17:06] LABS: Anion Gap 7 mEq/L (7-15); Calcium* 9.8 mg/dL (8.4-10.6); Carbon Dioxide* 31 mmol/L (20-32); Glucose* 95 mg/dL (60-115); Magnesium* 2.2 mg/dL (1.5-2.6)
[2024-07-28 17:25] LABS: Troponin I* < 0.01 ng/mL (0.01-0.04)
[2024-07-28 17:29] LABS: Appearance Urine Clear (Clear); Bilirubin Urine Negative (Negative); Blood Urine 1+ (Negative); Color Urine Yellow (Yellow); Glucose Urine Negative (Negative); Ketones Urine Negative (Negative); Nitrite Urine Positive (Negative); Protein Urine Negative (Negative); Specific Gravity Urine 1.015 (1.000-1.030); Urobilinogen Urine 0.2 (0.2-1.0)
[2024-07-28 17:30] LABS: Bacteria Urine Moderate; Leukocyte Esterase Urine Trace (Negative)
[2024-07-28 18:06] LABS: PCR FLU A Negative PCR FLU A (Negative); PCR FLU B Negative PCR FLU B (Negative); PCR RSV Negative PCR RSV (Negative); SARS PCR* Negative SARS-CoV-2 (Negative)
== END 2024-07-28 19:02 | disposition home or self-care (01) ==
PROVIDERS: Emergency Provider Student in an Organized Health Care Education/Training Program; PCP Internal Medicine
DX: R00.2 Palpitations (principal); N39.0 Urinary tract infection, site not specified
CPT/HCPCS: 36415; 71045; 80048; 81001; 83735; 83880; 84484; 85025; 87086; 87631; 93005; 93246; 99284

== ENCOUNTER 2024-08-28 14:10 | Outpatient (CLI) | payer MEDICARE, BC, SELFPAY | END 2024-08-28 14:11 | disposition home or self-care (01) | LOC: NFLDREF 14:11 | PROVIDERS: PCP Internal Medicine; Visit Provider Internal Medicine | DX: I10 Essential (primary) hypertension (principal) | CPT/HCPCS: 80048 ==

== ENCOUNTER 2025-04-06 08:40 | Outpatient (CLI) | payer MEDICARE, BC, SELFPAY | END 2025-04-06 08:41 | disposition home or self-care (01) | LOC: NFLDREF 04-09 12:09 | PROVIDERS: PCP Internal Medicine; Referring Provider Internal Medicine; Visit Provider Internal Medicine | DX: E78.5 Hyperlipidemia, unspecified (principal); I10 Essential (primary) hypertension; M85.80 Other specified disorders of bone density and structure, unspecified site | CPT/HCPCS: 80048; 80061; 82306 ==